=== PATIENT | female | born 1950 | race Two or more races ===

== ENCOUNTER 2021-08-15 14:08 | Outpatient (REF) | payer MEDICARE, SELFPAY ==
--- NOTE | ~2021-08-15 | CT_ITS ---
EXAMINATION: CT CHEST SCREENING CLINICAL INFORMATION: Chest in 6 months. COMPARISON: CT chest without contrast 01/05/2007. TECHNIQUE: Multidetector volumetric CT imaging of the chest is performed without contrast using low dose technique. Additional 2D coronal and sagittal reformatted images and axial 3D maximum intensity projection (MIP) images are generated on the CT workstation. This CT examination was performed using dose optimization techniques as appropriate, variously including the following: *Automated exposure control *Adjustment of mA and/or kV according to patient size (this includes techniques or standardized protocols for targeted exams where dose is matched to indication/reason for exam; i.e. extremities or head) *Use of iterative reconstruction technique DLP: 30 mGy-cm FINDINGS: LUNGS: There is a 6 mm nodule left upper lobe subpleural-based axial image 23/4, previously measured 3 mm and 2 mm nodule right middle lobe axial image 279/5. No additional nodules seen. There are atelectatic changes or scarring in right lower lobe. MEDIASTINUM: The central trachea and the bronchi are widely patent. The thyroid lobes are symmetric and normal. Heart size and the great vessels are normal caliber. There is minimal coronary artery calcifications. No pericardial effusion seen. PLEURA: There is no pleural effusion. No pleural mass or thickening. AXILLA: No lymphadenopathy. UPPER ABDOMEN: Visualized liver, spleen, pancreas and bilateral adrenal glands are unremarkable. OSSEOUS STRUCTURES: No lytic or sclerotic process seen. CT/CT lung screening IMPRESSION: Increased size of left upper lobe subpleural nodule from 3 mm in 2006 to 6 mm on the present exam. There is a new nodule in the right middle lobe. Left fissural node seen on the previous exams is not seen at this time. ASSESSMENT: Lung-RADS category 3: Probably Benign. RECOMMENDATION: Low-dose CT chest in 6 months.
== END 2021-08-15 14:09 | disposition home or self-care (01) ==
LOC: HO.CT 14:08
PROVIDERS: PCP Internal Medicine Geriatric Medicine; Visit Provider Physician Assistant Medical
DX: Z12.2 Encounter for screening for malignant neoplasm of respiratory organs (principal); F17.210 Nicotine dependence, cigarettes, uncomplicated
CPT/HCPCS: 71271; G0296

== ENCOUNTER 2021-09-08 12:35 | Outpatient (REF) | payer MEDICARE, SELFPAY ==
--- NOTE | 2021-09-08 16:53 | PFT_ITS ---
Forced vital capacity is normal. FEV1 moderately decreased. [id number] is markedly decreased. MVV moderately decreased. Post bronchodilator therapy, there is very minimal improvement, not significant. Total lung capacity normal and residual volume moderately increased. Diffusion capacity is markedly decreased. CONCLUSION: These findings are consistent with severe obstructive airway disorder with some air trapping. No response to bronchodilator therapy is noted. Compared to the pulmonary function test results of 09/21/2013, there is a significant decline in most of the values. Clinical correlation is recommended. MD DESTINY Marrero/MODL / [id number]
== END 2021-09-08 12:36 | disposition home or self-care (01) ==
LOC: HO.RESP 12:35
PROVIDERS: PCP Internal Medicine Geriatric Medicine; Visit Provider Physician Assistant Medical
DX: R91.1 Solitary pulmonary nodule (principal); Z87.891 Personal history of nicotine dependence
CPT/HCPCS: 94060; 94727; 94729

== ENCOUNTER → 2021-09-12 10:34 | Outpatient (BNVA) | payer MEDICARE, SELFPAY | PROVIDERS: PCP Internal Medicine Geriatric Medicine; Visit Provider Surgery | DX: J44.9 Chronic obstructive pulmonary disease, unspecified (principal); R91.1 Solitary pulmonary nodule; Z99.81 Dependence on supplemental oxygen | CPT/HCPCS: 99202; 99212 ==

== ENCOUNTER 2021-09-30 14:13 | Outpatient (REF) | payer MEDICARE, SELFPAY ==
[2021-09-30 15:23] LABS: MANUAL DIFF FLAG NO
[2021-09-30 15:53] LABS: Basophils Absolute Auto 0.1 X10*3/uL (0.0-0.2); Basophils Percent Auto 0.7 % (0-2); Eosinophils Absolute Auto 0.3 X10*3/uL (0.0-0.4); Eosinophils Percent Auto 3.3 % (0-4); Hematocrit 43.9 % (37.0-47.0); Hemoglobin 14.5 g/dl (12.0-16.0); Imm Gran Abs Auto 0.03 X10*3/uL (0.00-0.03); Imm Gran Pct Auto 0.3 % (0.0-0.4); Lymphocytes Absolute Auto 3.1 X10*3/uL (1.2-4.9); Mean Corpuscular Hemoglobin 31.3 pg (27.0-33.0); Mean Corpuscular Volume 94.6 fL (80.0-98.0); Mean Platelet Volume 9.4 fL (9.4-12.3); Monocytes Absolute Auto 0.9 X10*3/uL (0.1-1.2); Monocytes Percent Auto 9.8 % (2-11); Neutrophils Absolute Auto 4.7 x10*3/uL (2.0-8.3); Neutrophils Percent Auto 51.9 % (45-73); Platelet Count 338 X10*3/uL (160-400); Red Blood Count 4.64 X10*6/uL (4.20-5.50); Red Cell Distribution Width 14.4 % (11.0-16.0)
[2021-09-30 16:06] LABS: Anion Gap 14 (12-20); Blood Urea Nitrogen 9 mg/dL (9-16); Calcium 9.4 mg/dL (8.4-10.2); Carbon Dioxide 28 mmol/L (22-29); Chloride 102 mmol/L (96-108); Estimated Glomerular Filt Rate > 60; Glucose Random 93 mg/dL (60-115); Potassium 4.7 mmol/L (3.3-5.1); Sodium 139 mmol/L (135-145)
== END 2021-09-30 14:14 | disposition home or self-care (01) ==
LOC: HO.LAB 14:13
PROVIDERS: Absent Provider Internal Medicine Cardiovascular Disease; PCP Internal Medicine Geriatric Medicine; Visit Provider Internal Medicine Pulmonary Disease
DX: I50.31 Acute diastolic (congestive) heart failure (principal); J44.9 Chronic obstructive pulmonary disease, unspecified; Z99.81 Dependence on supplemental oxygen
CPT/HCPCS: 36415; 80048; 85025; 85730; 99212

== ENCOUNTER 2022-03-16 10:16 | Outpatient (REF) | payer OTHER, SELFPAY ==
--- NOTE | ~2022-03-16 | CT_ITS ---
EXAMINATION: CT CHEST SCREENING CLINICAL INFORMATION: Nicotine dependence. COMPARISON: CT lung 08/15/2021. TECHNIQUE: Multidetector volumetric CT imaging of the chest is performed without contrast using low dose technique. Additional 2D coronal and sagittal reformatted images and axial 3D maximum intensity projection (MIP) images are generated on the CT workstation. This CT examination was performed using dose optimization techniques as appropriate, variously including the following: *Automated exposure control *Adjustment of mA and/or kV according to patient size (this includes techniques or standardized protocols for targeted exams where dose is matched to indication/reason for exam; i.e. extremities or head) *Use of iterative reconstruction technique DLP: 30 mGy-cm FINDINGS: LUNGS: There is mild centrilobular emphysematous changes of both lungs with new right lower lobe patchy atelectatic changes. Minimal platelike atelectasis seen in left lung base as well. No focal consolidation seen. There is a right lower lobe bronchiectasis without bronchial wall thickening. There is a 6 mm peripheral-based nodule left upper lobe axial image 176/6, stable. Previously visualized 2 mm nodule right middle lobe is not seen on the present exam. MEDIASTINUM: The thyroid lobes are symmetric and normal. The central trachea and bronchi are widely patent. Heart size and the great vessels are normal caliber. No pericardial effusion seen. Aortic valve stent in place. No abnormal size mediastinal or hilar lymphadenopathy seen. PLEURA: There is no pleural effusion. No pleural mass or thickening. AXILLA: Small shotty lymph nodes seen in the axilla. UPPER ABDOMEN: Visualized liver, spleen, pancreas and bilateral adrenal glands are unremarkable. OSSEOUS STRUCTURES: No aggressive lytic or sclerotic process seen. CT/CT lung screen follow up IMPRESSION: Diffuse centrilobular emphysema with right lower lobe bronchiectasis with chronic scarring or atelectasis in both lung bases, worse on the right side. 6 mm nodule left upper lobe is stable. Previously seen 2 mm nodule right middle lobe is not seen at this time. ASSESSMENT: Lung-RADS category 2: Benign RECOMMENDATION: Low-dose annual CT chest
== END 2022-03-16 10:17 | disposition home or self-care (01) ==
LOC: HO.CT 10:16
PROVIDERS: PCP Internal Medicine Geriatric Medicine; Visit Provider Physician Assistant Medical
DX: Z12.2 Encounter for screening for malignant neoplasm of respiratory organs (principal); Z87.891 Personal history of nicotine dependence
CPT/HCPCS: 71250

== ENCOUNTER → 2022-04-03 09:13 | Outpatient (BNVA) | payer OTHER, SELFPAY | PROVIDERS: PCP Internal Medicine Geriatric Medicine; Visit Provider Surgery | DX: R91.1 Solitary pulmonary nodule (principal); Z87.891 Personal history of nicotine dependence | CPT/HCPCS: 99212 ==

== ENCOUNTER → 2022-05-07 08:56 | Outpatient (BNVA) | payer OTHER, SELFPAY | PROVIDERS: PCP Internal Medicine Geriatric Medicine; Visit Provider Internal Medicine Pulmonary Disease | DX: J44.9 Chronic obstructive pulmonary disease, unspecified (principal); F17.210 Nicotine dependence, cigarettes, uncomplicated; Z99.81 Dependence on supplemental oxygen | CPT/HCPCS: 99212 ==

== ENCOUNTER → 2022-09-03 09:17 | Outpatient (BNVA) | payer OTHER, SELFPAY | PROVIDERS: PCP Internal Medicine Geriatric Medicine; Visit Provider Internal Medicine Pulmonary Disease | DX: J44.9 Chronic obstructive pulmonary disease, unspecified (principal); R06.09 Other forms of dyspnea; Z79.899 Other long term (current) drug therapy; Z99.81 Dependence on supplemental oxygen | CPT/HCPCS: 99212 ==

== ENCOUNTER → 2022-09-23 10:03 | Outpatient (REF) | payer OTHER, SELFPAY ==
--- NOTE | 2022-09-23 10:05 | CA_ITS ---
Transthoracic Echocardiogram Patient (Last, First, Middle): Ayanna Giles, Gender: Female Date of : 1950 Age: 72 Procedure Date: 09/23/2022 Procedure Type: Transthoracic Echocardiogram Location: OP Height: 149.86 cm Weight: 58.97 kg BSA: 1.54 m2 Heart Rate: bpm BP: 150 / 90 mmHg Sinter Machine Operator: DAVID Mclean MD: Alden Campbell MD Direct Mail Marketer: Cedrick Marie MD Symptoms: R06.09 - Other forms of dyspnea Study Quality: Adequate ECG Rhythm: Sinus Conclusions: - 1. Normal LV systolic function with impaired relaxation filling pattern next 2. Fibrocalcific aortic valve changes noted with mean gradient within normal limits across the aortic valve 3. No gross pericardial effusion Findings Left Ventricle Normal left ventricular size, thickness, and systolic function. The visually estimated ejection fraction is between 60-65%. Spectral Doppler is indicative of an impaired relaxation filling pattern. E/E prime ratio is between 8 and 15 consistent with indeterminate filling pressures. Right Ventricle Normal right ventricular cavity size and systolic function. Atria Both atria are normal in size. Interatrial shunt cannot be excluded. Aortic Valve The aortic valve was not well visualized. There is mild calcification of the aortic valve. The peak aortic gradient is 9 mmHg.The mean gradient is 5 mmHg. There is no aortic valve regurgitation. Mitral Valve There is mild anterior and posterior mitral leaflet thickening. There is trace mitral valve regurgitation. There is no mitral valve stenosis. Pulmonic Valve The pulmonic valve was not well visualized. Tricuspid Valve Likely normal tricuspid valve structure and function. Tricuspid regurgitation envelope is inadequate for calculation of right ventricular systolic pressure. Normal right atrial pressure. Great Vessels All visible segments of the aorta are normal in size. The pulmonary artery was not well visualized. Venous The inferior vena cava is normal in size and collapses greater than 50% with inspiration. Pericardium/Pleural There is no evidence of pericardial effusion. Prior Study Comparison no previous study in the last 5 years for comparison Measurements 2D Linear Measurements IVSd: 0.90 0.6-0.9/0.6-1.0 cm LVIDd: 3.33 3.9-5.3/4.2-5.9 cm LVIDd Index: 2.16 2.4-3.2/2.2-3.1 cm/m2 LVIDs: 2.17 2.0-3.6 cm LVPWd: 0.83 0.7-1.1 cm LA Diam: 2.80 2.7-3.8/3.0-4.0 cm LAIDs Index: 1.82 1.5-2.3 cm/m2 LV Mass: 96.33 67-162/88-224 g LV Mass Index: 62.55 43-95/49-115 g/m2 LVOT Diam: 1.70 3.0+(-)1.3 cm 2D Systolic Function EF 4C: 64.60 >55% EF 2C: 58.40 >55% EF BiP: 62.80 >55% Mitral Valve MV Pk E: 0.85 MV PK A: 1.57 MV Decel Time: 256.00 E/A: 0.50 E'Lateral: 6.96 E'Medial: 5.66 E/E' Med: 15.00 E/E' Lat: 12.20 PHT: 75.00 MVA PHT: 2.93 Decel Sarpy: 3.32 Aortic Valve AoV Pk Shawn: 1.50 AoV Mn Shawn: 1.04 AoV VTI: 0.34 AoV Pk Grad: 9.00 Aov Mn Grad: 5.00 ROSEANNE Cont.VTI: 1.59 LVOT LVOT Pk Shawn: 1.13 LVOT Mn Shawn: 0.74 LVOT VTI: 0.24 LVOT Pk Grad: 5.00 LVOT Mn Grad: 3.00 LVOT Diam: 1.70 LVOT Area: 2.27 Diastolic Function MV Pk E: 0.85 MV Pk A: 1.57 E/A: 0.50 E'Medial: 5.66 E/E' Med: 15.00 E' Laterial: 6.96 E/E' Lat: 12.20 Right Ventricle TAPSE (mm): 20.70 TVS' Shawn: 9.14 Tricuspid Valve RA Press: 3.00 Great Vessels Aorta Sinus of Valsalva: 2.90 2.0-3.5 cm Ao Asc: 2.90 2.1-3.4 cm Updated in Other Vendor System with Status of Final Cedrick Marie MD electronically signed on 09/24/2022 4:44:47 PM with status of Final
== END ==
LOC: HO.CARD 10:03
PROVIDERS: PCP Internal Medicine Geriatric Medicine; Visit Provider Internal Medicine Pulmonary Disease
DX: R06.09 Other forms of dyspnea (principal)
CPT/HCPCS: 93306

== ENCOUNTER → 2023-01-15 11:17 | Outpatient (BNVA) | payer OTHER, SELFPAY | PROVIDERS: PCP Internal Medicine Geriatric Medicine; Visit Provider Internal Medicine Pulmonary Disease | DX: J44.9 Chronic obstructive pulmonary disease, unspecified (principal); Z99.81 Dependence on supplemental oxygen | CPT/HCPCS: 94618; 99212 ==

== ENCOUNTER → 2023-03-02 10:37 | Outpatient (BNVA) | payer OTHER, SELFPAY | PROVIDERS: PCP Internal Medicine Geriatric Medicine; Visit Provider Nurse Practitioner Family | DX: M54.16 Radiculopathy, lumbar region (principal); M47.816 Spondylosis without myelopathy or radiculopathy, lumbar region; M51.36 Other intervertebral disc degeneration, lumbar region; M62.830 Muscle spasm of back | CPT/HCPCS: 99202 ==

== ENCOUNTER → 2023-03-30 11:47 | Outpatient (BNVA) | payer OTHER, SELFPAY | PROVIDERS: PCP Internal Medicine Geriatric Medicine; Visit Provider Nurse Practitioner Family | DX: M54.16 Radiculopathy, lumbar region (principal); M47.816 Spondylosis without myelopathy or radiculopathy, lumbar region; M51.36 Other intervertebral disc degeneration, lumbar region; M62.830 Muscle spasm of back | CPT/HCPCS: Q3014 ==

== ENCOUNTER 2023-05-18 10:41 | Outpatient (REF) | payer OTHER, SELFPAY ==
[2023-05-18 13:07] LABS: MANUAL DIFF FLAG NO
[2023-05-18 13:22] LABS: Basophils Absolute Auto 0.1 X10*3/uL (0.0-0.2); Basophils Percent Auto 0.8 % (0-2); Eosinophils Absolute Auto 0.3 X10*3/uL (0.0-0.4); Hematocrit 46.1 % (37.0-47.0); Hemoglobin 15.2 g/dl (12.0-16.0); Imm Gran Abs Auto 0.03 X10*3/uL (0.00-0.03); Imm Gran Pct Auto 0.5 % (0.0-0.4); Lymphocytes Absolute Auto 2.4 X10*3/uL (1.2-4.9); Lymphocytes Percent Auto 36.3 % (20-40); Mean Corpuscular Hemoglobin 30.6 pg (27.0-33.0); Mean Corpuscular Volume 92.9 fL (80.0-98.0); Mean Platelet Volume 10.2 fL (9.4-12.3); Monocytes Absolute Auto 0.6 X10*3/uL (0.1-1.2); Monocytes Percent Auto 8.6 % (2-11); Neutrophils Absolute Auto 3.2 x10*3/uL (2.0-8.3); Neutrophils Percent Auto 48.8 % (45-73); Platelet Count 254 X10*3/uL (160-400); Red Blood Count 4.96 X10*6/uL (4.20-5.50); White Blood Count 6.6 X10*3/uL (4.8-10.8)
[2023-05-18 14:11] LABS: Anion Gap 16 (12-20); Blood Urea Nitrogen 5 mg/dL (9-16); Carbon Dioxide 25 mmol/L (22-29); Chloride 100 mmol/L (96-108); Cholesterol 201 mg/dL; Estimated Glomerular Filt Rate > 60; Glucose Random 86 mg/dL (60-115); HDL Cholesterol 53 mg/dL; LDL Cholesterol Calculated 126 mg/dl; Potassium 4.1 mmol/L (3.3-5.1); Sodium 137 mmol/L (135-145); Triglycerides 114 mg/dL
== END 2023-05-18 10:42 | disposition home or self-care (01) ==
LOC: HO.HHCL 10:41
PROVIDERS: Visit Provider Internal Medicine Geriatric Medicine
DX: J44.9 Chronic obstructive pulmonary disease, unspecified (principal); H91.93 Unspecified hearing loss, bilateral; R60.0 Localized edema; E78.5 Hyperlipidemia, unspecified
CPT/HCPCS: 36415; 80048; 80061; 85025

== ENCOUNTER 2023-06-09 08:40 | Outpatient (REF) | payer OTHER, SELFPAY ==
--- NOTE | ~2023-06-09 | CT_ITS ---
EXAMINATION: CT CHEST SCREENING CLINICAL INFORMATION: 55 pack year history. Current smoker. COMPARISON: Previous chest CT scans most recent March 2022 TECHNIQUE: Multidetector volumetric CT imaging of the chest is performed without contrast using low dose technique. Additional 2D coronal and sagittal reformatted images and axial 3D maximum intensity projection (MIP) images are generated on the CT workstation. This CT examination was performed using dose optimization techniques as appropriate, variously including the following: *Automated exposure control *Adjustment of mA and/or kV according to patient size (this includes techniques or standardized protocols for targeted exams where dose is matched to indication/reason for exam; i.e. extremities or head) *Use of iterative reconstruction technique DLP: 58 mGy-cm FINDINGS: LUNGS: Emphysema. 2 mm right upper lobe nodule axial image 161 series 5 6 mm peripheral or subpleural left upper lobe nodule axial image 202 series 5. 2 mm left upper lobe nodule axial image 306 series 5. Question 4 mm nodule versus area of atelectasis in the left lower lobe near the diaphragm axial image 355 series 5 that is new. Chronic scarring or subsegmental atelectasis at the lung bases and mild bronchiectasis. MEDIASTINUM: Normal heart size. Aortic valve stent graft. No pericardial effusion. Normal caliber thoracic aorta. No enlarged hilar or mediastinal lymph nodes. CORONARY ARTERY CALCIFICATION: None visualized on this study. PLEURA: There is no pleural effusion. No pleural mass or thickening. AXILLA: No lymphadenopathy. UPPER ABDOMEN: The gallbladder has been removed. There is severe common bile duct dilatation measuring up to 2.3 cm. This is not as well imaged on prior chest CT exams and difficult to compare. OSSEOUS STRUCTURES: Mild degenerative changes of the spine. CT/CT lung screening IMPRESSION: Emphysema. Question new 4 mm left lower lobe nodule adjacent to the diaphragmatic pleural surface versus atelectasis. Otherwise small pulmonary nodules are stable, largest measuring 6 mm in the peripheral or subpleural left upper lobe. Post cholecystectomy. Dilated common bile duct measuring up to 2.3 cm. This is difficult to compare with prior exam. This is larger than normally seen post cholecystectomy. Correlation with liver function tests recommended. This could be better evaluated with MRCP if clinically indicated. ASSESSMENT: Lung-RADS category 2S: Benign RECOMMENDATION: Annual low-dose chest CT follow-up recommended. Correlation with liver function tests recommended. MRCP for better evaluation of dilated common bile duct may be helpful.
== END 2023-06-09 08:41 | disposition home or self-care (01) ==
LOC: HO.CT 08:40
PROVIDERS: PCP Internal Medicine Geriatric Medicine; Visit Provider Physician Assistant Medical
DX: Z12.2 Encounter for screening for malignant neoplasm of respiratory organs (principal); Z87.891 Personal history of nicotine dependence
CPT/HCPCS: 71271

== ENCOUNTER 2023-07-20 11:33 | Outpatient (REF) | payer OTHER, SELFPAY ==
[2023-07-20 14:30] LABS: Alanine Aminotransferase 8 U/L (0-31); Albumin Level 4.5 g/dL (3.5-5.0); Alkaline Phosphatase 72 U/L (39-117); Aspartate Amino Transferase 19 U/L (5-31); Bilirubin Direct 0.2 mg/dL (0.0-0.5); Bilirubin Total 0.4 mg/dL (0.0-1.0); Total Protein 7.9 g/dL (6.5-8.0)
== END 2023-07-20 11:34 | disposition home or self-care (01) ==
LOC: HO.HHCL 11:33
PROVIDERS: Visit Provider Internal Medicine Geriatric Medicine
DX: K83.8 Other specified diseases of biliary tract (principal)
CPT/HCPCS: 36415; 80076

== ENCOUNTER 2023-07-22 11:38 | Outpatient (AMB) | payer OTHER, SELFPAY ==
[2023-07-22 11:40] VITALS: BP 122/82; PULSE 99; O2SAT 95; BMI 22.3
--- NOTE | 2023-07-22 11:40 | MHC.OFFVIS ---
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 She continues to use Anoro, Combivent, and duo nebs with reasonable baseline control symptoms.? She denies recent exacerbations.? [facility] Medical History History of invasive ductal carcinoma of breast (~2003) Lumbar degenerative disc disease Osteopenia (~2011) Personal history of nicotine dependence Surgical History History of appendectomy (~1993) History of section (~1976) History of colonoscopy (~2010) History of esophagogastroduodenoscopy (EGD) (~2010) History of laparoscopic cholecystectomy (~2008) History of right mastectomy (~2004) History of tonsillectomy Social History (Updated 07/22/23 @ 11:47 by Sheila Melton [facility]) Alcohol intake: current Alcohol intake frequency: does not drink Patient Tobacco Use Status: Current everyday Tobacco user Tobacco use type: Cigarette Cigarettes Per Day: 5 Years Smoked: 59 years (onset 13, 1/2ppd x 59yrs, now <1/4ppd, 29pyh) Review of Systems Const Denies daytime sleepiness, Denies excessive sweating, Denies fatigue, Denies fever(s), Denies lethargy, Denies malaise, Denies night sweats, Denies snoring and Denies weight loss Eyes Denies blurry vision and Denies itchy eyes ENT Denies nasal congestion, Denies post nasal drip, Denies sinus pain, Denies sinus pressure and Denies other ( Thrush) Card Denies chest pain, Denies pedal edema, Denies dyspnea, Denies orthopnea and Denies paroxysmal nocturnal dyspnea Resp Denies cough, Denies hemoptysis, Denies excessive phlegm production, Denies dyspnea, Denies snoring and Denies wheezing GI Denies abdominal pain and Denies heartburn Musc Denies myalgias, Denies arthralgias and Denies joint swelling Skin/Breast Denies rash Neuro Denies memory loss and Denies seizure-like activity Psych Denies abnormal sleep pattern, Denies anxiety and Denies memory loss Endo Denies excessive sweating, Denies fatigue and Denies heat intolerance Justino/Lymph Denies easy bruising Aller/Immun Denies itchy eyes, Denies seasonal rhinorrhea and Denies wheezing Physical Exam Vital Signs: Last Vital Signs Pulse 99 07/22/23 11:40 BP 122/82 07/22/23 11:40 Pulse Ox 95 07/22/23 11:40 Oxygen Delivery Method Room Air 07/22/23 11:40 Oxygen Flow Rate 3 07/22/23 11:40 BMI result Body Mass Index 22.3 Const General: no acute distress and alert Nutritional Appearance: not obese Orientation/consciousness: Other orientation findings ( oriented) HEENT Head: Yes atraumatic Eyes General: appearance normal, both eyes and all related structures Sclerae: sclerae normal EOM: EOMs intact bilaterally Neck Neck: Yes supple Lymphatic: no lymphadenopathy noted Resp Effort & Inspection: normal respiratory effort and no use of accessory muscles Auscultation: clear to auscultation bilaterally Cardio Rate: regular rate Rhythm: regular rhythm Heart sounds: no gallops, no murmurs and no rubs Skin General skin exam: other ( warm) Extrem General: No clubbing, No cyanosis and No edema Assessment & Plan Assessment & Plan (1) COPD (chronic obstructive pulmonary disease): Code(s): J44.9 - Chronic obstructive pulmonary disease, unspecified Plan: Well controlled on current regimen of Anoro, duo nebs, and Combivent. Continue current regimen. (2) Left upper lobe pulmonary nodule: Comment: (6mm DAX nodule -previously 3mm in 2006) Code(s): R91.1 - Solitary pulmonary nodule Plan: Results of screening CT chest reviewed, stable pulmonary nodules. Continue with yearly screening. (3) Supplemental oxygen dependent: Code(s): Z99.81 - Dependence on supplemental oxygen Plan: Continues pulmonary oxygen to maintain O2 saturation of 88-92%. Coding Level of Care Code Est Pt Level 4 (06325) Diagnoses COPD (chronic obstructive pulmonary disease) J44.9 Left upper lobe pulmonary nodule R91.1 Supplemental oxygen dependent Z99.81
== END 2023-07-22 11:57 | disposition home or self-care (01) ==
PROVIDERS: PCP Internal Medicine Geriatric Medicine; Visit Provider Internal Medicine Pulmonary Disease
DX: J44.9 Chronic obstructive pulmonary disease, unspecified (principal); R91.1 Solitary pulmonary nodule; Z99.81 Dependence on supplemental oxygen
CPT/HCPCS: 99214

== ENCOUNTER → 2023-07-22 11:38 | Outpatient (BNVA) | payer OTHER, SELFPAY | PROVIDERS: Visit Provider Internal Medicine Pulmonary Disease | DX: J44.9 Chronic obstructive pulmonary disease, unspecified (principal); R91.1 Solitary pulmonary nodule; Z79.899 Other long term (current) drug therapy; Z99.81 Dependence on supplemental oxygen | CPT/HCPCS: 99212 ==

== ENCOUNTER 2023-08-15 10:33 | Inpatient (IN) | payer OTHER, SELFPAY ==
[2023-08-15] VITALS (7 sets, daily range): BP systolic 134–193; BP diastolic 0–104; PULSE 94–107; RESP 16–31; TEMP 36.1–36.5; O2SAT 96–99; BMI 20.7
--- NOTE | 2023-08-15 11:18 | ED.NAVMDI ---
HPI - Nausea/Vomiting/Diarrhea General Chief complaint: Nausea/Vomiting/Diarrhea Stated complaint: WEAK D/T N/V/D X3 DYAS PER EMS Time Seen by Provider: 08/15/23 11:09 Source: patient Mode of arrival: EMS Limitations: no limitations History of Present Illness HPI Narrative: 73 yo female with PMH of COPD on home O2, chronic back pain, GERD, migraines here with c/o last eating on then started to vomit on Wednesday night with diarrhea - no travel, sick contacts, food exposures. Diarrhea has stopped but she still has n/v but no diarrhea and no pain she cannot keep anything down and has not taken any medications including her suboxone MD elicited complaint: nausea and vomiting Onset (ago): day(s) (2) Description of vomiting: food contents and watery Description of diarrhea: watery Associated nausea: Yes Associated abdominal pain: No Severity: moderate Exacerbating factors: eating Relieving factors: none Context: other (denies) Associated symptoms: loss of appetite, malaise and nausea/vomiting Related Data Home Medications Medication Instructions Recorded Confirmed buprenorphine 8 mg-naloxone 2 mg 10 mg sublingual BID 09/12/21 03/02/23 sublingual film (Suboxone) bupropion HCl 150 mg 24 hr tablet, 150 mg PO BEDTIME 09/12/21 03/02/23 extended release celecoxib 200 mg capsule 200 mg PO DAILY 09/12/21 03/02/23 cholecalciferol (vitamin D3) 50 50 mcg PO DAILY 09/12/21 03/02/23 mcg (2,000 unit) tablet omeprazole 20 mg capsule,delayed 20 mg PO DAILY 09/12/21 03/02/23 release sumatriptan succinate 6 mg/0.5 mL mg subcut 09/12/21 03/02/23 subcutaneous pen injector hydroxyzine HCl 25 mg tablet 25 mg PO TID 05/07/22 03/02/23 acetaminophen 500 mg tablet (Pain 1,000 mg PO Q4-6H 03/02/23 03/02/23 Relief Extra Strength (acetaminophen)) mirtazapine 15 mg tablet 15 mg PO BEDTIME 03/02/23 03/02/23 sertraline 100 mg tablet 100 mg PO DAILY 03/02/23 03/02/23 aspirin 81 mg tablet,delayed 81 mg PO DAILY 05/23/23 release nicotine (polacrilex) 2 mg buccal 2 - 4 mg PO 03/30/23 lozenge bupropion HCl 300 mg 24 hr tablet, 300 mg PO DAILY 07/22/23 extended release clopidogrel 75 mg tablet 75 mg PO DAILY 07/22/23 Previous Rx's Medication Instructions Recorded ipratropium 0.5 mg-albuterol 3 mg 3 ml inhalation Q4-6H PRN wheezing 09/12/21 (2.5 mg base)/3 mL nebulization 30 days #270 mL soln lidocaine 5 % topical patch 1 patch topical DAILY pain 30 days 03/02/23 #30 ea Anoro Ellipta 62.5 mcg-25 1 ea PO DAILY #60 ea 03/19/23 mcg/actuation powder for inhalation (umeclidinium-vilanterol) ipratropium 20 mcg-albuterol 100 2 puff inhalation QID 30 days #4 03/19/23 mcg/actuation mist for inhalation grams (Combivent Respimat) gabapentin 100 mg capsule 100 mg PO BID for pain 30 days #60 06/03/23 caps Allergies Allergy/AdvReac Type Severity Reaction Status Date / Time No Known Allergies Allergy Unknown Verified 07/22/23 11:46 [No Known Allergies*] Review of Systems Review of Systems: Constitutional : No Weight loss, No Fever, No Chills, pos fatigue, pos malaise ENT/Mouth : No sore throat, No Rhinorrhea Eyes: No Swelling, No Redness Cardiovascular : No Chest Pain, No SOB, NoEdema Respiratory : No Cough, No Sputum, No Wheezing Gastrointestinal : Positive Nausea, Positive Vomiting, no Diarrhea, no abdominal Pain, No Hematochezia, No Melena Genitourinary : No Dysuria, No Urinary Frequency, No Hematuria, No Urgency Musculoskeletal : No joint pain, No Myalgias, No Joint Swelling Skin : No Skin Lesions, No rash Neuro : No Weakness, No Numbness, No Dizziness, No Headache Psych : No Anxiety/Panic, No Depression Heme/Lymph: No Bruising, No Lymphadenopathy Endocrine : No Polyuria, No Polydipsia All other systems reviewed and are negative. Gastrointestinal: Gastrointestinal: Reports nausea PMFSH Past Medical History Attestation statement: The following information was validated with the patient. Source: old records reviewed Medical History Lumbar degenerative disc disease Personal history of nicotine dependence Osteopenia (~2011) History of invasive ductal carcinoma of breast (~2003) Surgical History History of section (~1976) History of appendectomy (~1993) History of tonsillectomy History of colonoscopy (~2010) History of esophagogastroduodenoscopy (EGD) (~2010) History of right mastectomy (~2004) History of laparoscopic cholecystectomy (~2008) Social History Social History Alcohol intake: current Alcohol intake frequency: does not drink Patient Tobacco Use Status: Current everyday Tobacco user Tobacco use type: Cigarette Cigarettes Per Day: 5 Years Smoked: 59 years (onset 13, 1/2ppd x 59yrs, now <1/4ppd, 29pyh) Advance Directives: No Advance Directives Information Provided: No Physical Exam Vital Signs: Vital Signs: Last Vital Signs Temp 96.9 F 08/15/23 10:52 Pulse 99 08/15/23 14:13 Resp 18 08/15/23 14:13 BP 179/94 H 08/15/23 14:13 Pulse Ox 97 08/15/23 14:13 O2 Del Method Nasal Cannula 08/15/23 14:13 O2 Flow Rate 3 08/15/23 14:13 Oxygen Flow Rate 2 08/15/23 10:52 BMI result Body Mass Index 20.7 Appearance: Alert. Oriented X3. No acute distress. Frail and thin Eyes: Pupils equal, round and reactive to light. ENT: Pharynx dry MM Neck: Normal inspection. Neck supple. CVS: Normal heart rate and rhythm. Pulses normal. Respiratory: No respiratory distress. Breath sounds diminished Abdomen: Soft and nontender. Skin: Skin warm and dry. Normal skin color. Normal skin turgor. Extremities: No lower extremity edema. No calf ttp Neuro: Oriented X 3. No motor deficit. No sensory deficit. Course Course Course Narrative: repeat nausea medications still with vomiting K normal was hemolyzed. Medications Administered Discontinued Medications Generic Name Dose Route Start Last Admin Trade Name Freq PRN Reason Stop Dose Admin Buprenorphine/Naloxone 1 film 08/15/23 11:26 08/15/23 13:08 Buprenorphine/Naloxone 8/2 Mg Film SUBLINGUAL 08/15/23 11:27 1 film ONCE ONE Administration Sodium Chloride 1,000 mls @ 999 mls/hr 08/15/23 11:00 08/15/23 14:37 Ns IV 08/15/23 12:00 Infused .Q1H1M CHANDU Infusion Sodium Chloride 1,000 mls @ 999 mls/hr 08/15/23 13:45 08/15/23 14:37 Ns IV 08/15/23 14:45 999 mls/hr .Q1H1M CHANDU Administration Ondansetron HCl 4 mg 08/15/23 11:26 08/15/23 13:07 Ondansetron Hcl 4 Mg/2 Ml Vial IVPUSH 08/15/23 11:27 4 mg ONCE ONE Administration Procedures EJ/Peripheral Line Neck R: Time Out Performed: Yes Skin Cleansed in Sterile Fashion: Yes Size (gauge): 20 IV Secured and Dressing Applied: Yes Patient Tolerated Procedure: well and no complications Medical Decision Making Medical Decision Making [facility] Narrative: 73 yo female with PMH of COPD on home O2, chronic back pain, GERD, migraines here with c/o n/v and resolved diarrhea she has no abdominal pain she denies fevers or urinary symptoms. She denies travel, sick contacts, food exposures. At this time will need basic labs, UA, IVF, IV zofran and her dose of suboxone once better. Has no pain on abdominal exam so unless sig lab derangement will avoid imaging. Differential Diagnosis Differential Diagnoses: The differential diagnosis associated with the presentation includes dehydration, vomiting, viral infection Admission/Observation Consideration of admission/observation: Escalation of care including admission/observation considered admit for intractable n/v Consult Healthcare Provider Management of the patient was discussed with: Hospitalist (agrees to admit) Lab Data [facility] Lab Attestation statement: I reviewed the patient's lab results. 08/15/23 15:25 08/15/23 15:25 Labs: Lab Results 08/15/23 08/15/23 08/15/23 Range/Units 12:43 13:16 15:25 WBC 8.5 7.3 (4.8-10.8) X10*3/uL RBC 6.44 H D 6.43 H (4.20-5.50) X10*6/uL Hgb 19.7 H D 19.8 H (12.0-16.0) g/dl Hct 55.4 H D 55.9 H (37.0-47.0) % MCV 86.0 86.9 (80.0-98.0) fL MCH 30.6 30.8 (27.0-33.0) pg MCHC 35.6 H 35.4 H (31.0-35.0) g/dl RDW 14.3 14.4 (11.0-16.0) % Plt Count 305 301 (160-400) X10*3/uL MPV 9.6 9.6 (9.4-12.3) fL Immature Gran % (Auto) 0.4 0.3 (0.0-0.4) % Neut % (Auto) 78.6 H 75.3 H (45-73) % Lymph % (Auto) 7.8 L 9.3 L (20-40) % [place] % (Auto) 12.5 H 14.9 H (2-11) % Eos % (Auto) 0.2 0.1 (0-4) % Baso % (Auto) 0.5 0.1 (0-2) % Lymph # (Auto) 0.7 L 0.7 L (1.2-4.9) X10*3/uL [place] # (Auto) 1.1 1.1 (0.1-1.2) X10*3/uL Eos # (Auto) 0.0 0.0 (0.0-0.4) X10*3/uL Baso # (Auto) 0.0 0.0 (0.0-0.2) X10*3/uL Abs Immat Gran (auto) 0.03 0.02 (0.00-0.03) X10*3/uL Absolute Neuts (auto) 6.7 5.5 (2.0-8.3) x10*3/uL Absolute Nucleated RBC 0.000 0.000 (0.0-0.012) X10*3/uL Nucleated RBC % (auto) 0.0 0.0 (0.0-0.2) /100WBC Smear Tech's Comments VERIFIED Hold Purple Top SEE NOTE Sodium 135 (135-145) mmol/L Potassium 6.5 H* D 3.7 D (3.3-5.1) mmol/L Chloride 91 L (96-108) mmol/L Carbon Dioxide 24 (22-29) mmol/L Anion Gap 27 H (12-20) BUN 22 H (9-16) mg/dL Creatinine 0.82 (0.5-1.4) mg/dL Estim Creat Clear Calc 42.2 Estimated GFR > 60 Random Glucose 151 H (60-115) mg/dL Calcium 10.0 (8.4-10.2) mg/dL Total Bilirubin 0.3 (0.0-1.0) mg/dL Direct Bilirubin < 0.1 (0.0-0.5) mg/dL AST 43 H (5-31) U/L ALT 18 (0-31) U/L Alkaline Phosphatase 89 (39-117) U/L Total Protein 9.8 H (6.5-8.0) g/dL Albumin 4.5 (3.5-5.0) g/dL Lipase 15 (8-78) U/L COVID-19 (JENN) Positive A (Negative) COVID-19 Clin Com See Note Influenza Type A (MATTY) Negative (Negative) Influenza Type B (MATTY) Negative (Negative) Influenza A & B Note See Note Independent Interpretation I performed an independent interpretation of an: EKG and Plain X-Ray (no pneumonia) Interpretation: Rate: 95 Rhythm: NSR [place]: left Normal P waves. Normal SUGAR. Normal QRS complex. ST T wave : nonspecific no NORA qTC: prolonged prior studies: no acute ischemia The study has been interpreted contemporaneously by me. . Radiology Impression Discussion of test interpretation with radiology: I have reviewed the radiologist's reading. Independent Historian Clinical information obtained from an independent historian. History obtained from or confirmed by: EMS External Record Review External record reviewed: Inpatient record Discharge Plan Discharge Clinical Impression: COVID-19, Intractable nausea and vomiting Patient Disposition: Admitted As Inpatient Prescriptions: No Action Anoro Ellipta 62.5-25 mcg/actuation blister with device 1 ea PO DAILY Qty: 60 4RF Combivent Respimat 20-100 mcg/actuation mist 2 puff inhalation QID 30 Days Qty: 4 6RF gabapentin 100 mg capsule 100 mg PO BID 30 Days Qty: 60 3RF celecoxib 200 mg capsule 200 mg PO DAILY omeprazole 20 mg capsule,delayed release(DR/EC) 20 mg PO DAILY sumatriptan succinate 6 mg/0.5 mL pen injector subcut bupropion HCl 150 mg tablet extended release 24 hr 150 mg PO BEDTIME cholecalciferol (vitamin D3) 50 mcg (2,000 unit) tablet 50 mcg PO DAILY buprenorphine-naloxone [Suboxone] 8-2 mg film 10 mg sublingual BID ipratropium-albuterol 0.5 mg-3 mg(2.5 mg base)/3 mL solution for nebulization 3 ml inhalation Q4-6H PRN (Reason: wheezing) 30 Days Qty: 270 6RF mirtazapine 15 mg tablet 15 mg PO BEDTIME sertraline 100 mg tablet 100 mg PO DAILY acetaminophen [Pain Relief ES (acetaminophen)] 500 mg tablet 1,000 mg PO Q4-6H hydroxyzine HCl 25 mg tablet 25 mg PO TID clopidogrel 75 mg tablet 75 mg PO DAILY bupropion HCl 300 mg tablet extended release 24 hr 300 mg PO DAILY lidocaine 5 % adhesive patch,medicated 1 patch topical DAILY 30 Days Qty: 30 0RF nicotine (polacrilex) 2 mg lozenge 2 - 4 mg PO aspirin 81 mg tablet,delayed release (DR/EC) 81 mg PO DAILY
--- NOTE | 2023-08-15 14:36 | PC.NURSE ---
Provider sent to bedside to place IV line, unable for nursing/tech to get labs/IVF access. placed IV
--- NOTE | 2023-08-15 17:25 | PM.IMHP ---
History of Present Illness Date of Service: 08/15/23 Attending physician on admission: Kiran Razo Chief Complaint: nausea/vomiting Patient with chronic hypoxemic respiratory failure on 3 L supplemental O2 at baseline secondary to COPD, depression, polysubstance abuse, opioid dependence on Suboxone, chronic low back pain, osteopenia, history of invasive ductal carcinoma of the breast s/p mastectomy and chemotherapy who is a current 1/4 pack cigarette smoker who presented to the ED earlier today for evaluation of intractable nausea and vomiting. The patient reports that she has been experiencing the symptoms for 2 days and has not been able to eat or drink much of anything in this time. Initially, she also had watery diarrhea but has not had any diarrhea in the last 2 days. She reports she had shortness of breath and productive cough at baseline and denies any worsening of the symptoms. She denies any fevers, chills, sore throat, congestion, abdominal pain, melena, hematochezia, headache, lightheadedness, palpitations, or chest pain. Patient does report restlessness as well. On arrival, vital stable, no acute hypoxia and patient afebrile. On admission, patient slightly tachycardic to 105 and mildly tachypneic to 24 and hypertensive to 180/87. She has missed several doses of suboxone 2/2 to her symptoms. There is no leukocytosis. Initially, with RBC 6.44, H/H 19.7/55.4 %. On recheck, RBC 6.43, H/H 19.8/55.9. Creatinine 0.82, BUN elevated at 22, sodium 135, potassium 6.5, chloride 91, CO2 24, anion gap 27. Following 2 L IV NS, a repeat potassium 3.7. Urine tox screen positive for opiates, fentanyl, cocaine. Positive for COVID-19. Chest x-ray unremarkable. In the ed received Suboxone, ondansetron, and 2 L IV NS. Review of Systems Review of Systems: General: No fevers, malaise, unintentional weight loss HEENT: No blurred vision, diplopia. No sore throat, nasal congestion, rhinorrhea, sinus pain, ear pain Cardiovascular: No chest pain, palpitations, or leg edema Respiratory: No worsenign shortness of breath, wheezing, change in cough GI: +nasuea, +vomiting. No abdominal pain, diarrhea, constipation, melena, hematochezia : No dysuria, hematuria, increased urinary frequency, decreased urinary output MSK: No myalgia, back pain Neuro: No headaches, weakness, paresthesias. +restlessness Skin: No rashes or lesions [facility] Medical History Lumbar degenerative disc disease Personal history of nicotine dependence Osteopenia (~2011) History of invasive ductal carcinoma of breast (~2003) Surgical History History of section (~1976) History of appendectomy (~1993) History of tonsillectomy History of colonoscopy (~2010) History of esophagogastroduodenoscopy (EGD) (~2010) History of right mastectomy (~2004) History of laparoscopic cholecystectomy (~2008) Social History Alcohol intake: current Alcohol intake frequency: does not drink Patient Tobacco Use Status: Current everyday Tobacco user Tobacco use type: Cigarette Cigarettes Per Day: 5 Years Smoked: 59 years (onset 13, 1/2ppd x 59yrs, now <1/4ppd, 29pyh) Advance Directives: No Advance Directives Information Provided: No Meds Allergies Allergy/AdvReac Type Severity Reaction Status Date / Time No Known Allergies Allergy Unknown Verified 07/22/23 11:46 [No Known Allergies*] Home Medications Medication Instructions Recorded Confirmed Last Taken Type buprenorphine 8 mg-naloxone 2 mg 1 film sublingual BID 09/12/21 08/15/23 08/12/23 History sublingual film (Suboxone) celecoxib 200 mg capsule 200 mg PO DAILY 09/12/21 08/15/23 08/12/23 History cholecalciferol (vitamin D3) 50 50 mcg PO DAILY 09/12/21 08/15/23 08/12/23 History mcg (2,000 unit) tablet omeprazole 20 mg capsule,delayed 20 mg PO DAILY@0630 09/12/21 08/15/23 08/12/23 History release acetaminophen 500 mg tablet (Pain 1,000 mg PO Q6H PRN Pain 03/02/23 08/15/23 Unknown History Relief Extra Strength (acetaminophen)) aspirin 81 mg tablet,delayed 81 mg PO DAILY 03/30/23 08/15/23 08/12/23 History release bupropion HCl 300 mg 24 hr tablet, 300 mg PO DAILY 07/22/23 08/15/23 08/12/23 History extended release clopidogrel 75 mg tablet 75 mg PO DAILY 07/22/23 08/15/23 08/12/23 History mirtazapine 15 mg tablet (Remeron) 22.5 mg PO BEDTIME 08/15/23 08/15/23 08/12/23 History sertraline 100 mg tablet 150 mg PO DAILY 08/15/23 08/15/23 08/12/23 History Physical Exam Vital Signs and Narrative: Vital Signs: Last Vital Signs Temp 96.9 F 08/15/23 10:52 Pulse 105 H 08/15/23 16:50 Resp 24 H 08/15/23 16:50 BP 180/87 H 08/15/23 16:50 Pulse Ox 97 08/15/23 16:50 O2 Del Method Nasal Cannula 08/15/23 16:50 O2 Flow Rate 4 08/15/23 16:50 Oxygen Flow Rate 2 08/15/23 10:52 BMI result Body Mass Index 20.7 Constitutional - Awake and Alert, No apparent distress Eyes - PERRLA, EOMI Mouth - lips dry Cardiovascular - S1S2, RRR, No edema Respiratory - Normal lung expansion, Normal respiratory effort, No respiratory distress, diffuse rhonchi with scattered expiratory wheezing Gastrointestinal - NT / ND; +BS; No rebound or guarding Extremities - no calf tenderness bilaterally, no swelling Skin - Warm/Dry Neurological - Alert & oriented x3 Psychological - Appropriate affect Results Labs 08/15/23 15:25 08/15/23 15:25 Labs: Laboratory Results - last 24 hr 08/15/23 08/15/23 08/15/23 12:43 13:16 15:25 MCV 86.0 86.9 MCH 30.6 30.8 MCHC 35.6 H 35.4 H RDW 14.3 14.4 Plt Count 305 301 MPV 9.6 9.6 Immature Gran % (Auto) 0.4 0.3 Neut % (Auto) 78.6 H 75.3 H Lymph % (Auto) 7.8 L 9.3 L [place] % (Auto) 12.5 H 14.9 H Eos % (Auto) 0.2 0.1 Baso % (Auto) 0.5 0.1 Lymph # (Auto) 0.7 L 0.7 L [place] # (Auto) 1.1 1.1 Eos # (Auto) 0.0 0.0 Baso # (Auto) 0.0 0.0 Abs Immat Gran (auto) 0.03 0.02 Absolute Neuts (auto) 6.7 5.5 Absolute Nucleated RBC 0.000 0.000 Nucleated RBC % (auto) 0.0 0.0 Smear Tech's Comments VERIFIED Hold Purple Top SEE NOTE Anion Gap 27 H Estim Creat Clear Calc 42.2 Estimated GFR > 60 Random Glucose 151 H Calcium 10.0 Total Bilirubin 0.3 Direct Bilirubin < 0.1 AST 43 H ALT 18 Alkaline Phosphatase 89 Total Protein 9.8 H Albumin 4.5 Lipase 15 Urine Opiates Screen Urine Fentanyl Screen Ur Barbiturates Screen Ur Phencyclidine Scrn Ur Amphetamines Screen U Benzodiazepines Scrn Urine Cocaine Screen U Marijuana (THC) Screen COVID-19 (JENN) Positive A COVID-19 [employer] Com See Note Influenza Type A (MATTY) Negative Influenza Type B (MATTY) Negative Influenza A & B Note See Note 08/15/23 16:52 MCV MCH MCHC RDW Plt Count MPV Immature Gran % (Auto) Neut % (Auto) Lymph % (Auto) [place] % (Auto) Eos % (Auto) Baso % (Auto) Lymph # (Auto) [place] # (Auto) Eos # (Auto) Baso # (Auto) Abs Immat Gran (auto) Absolute Neuts (auto) Absolute Nucleated RBC Nucleated RBC % (auto) Smear Tech's Comments Hold Purple Top Anion Gap Estim Creat Clear Calc Estimated GFR Random Glucose Calcium Total Bilirubin Direct Bilirubin AST ALT Alkaline Phosphatase Total Protein Albumin Lipase Urine Opiates Screen POSITIVE H Urine Fentanyl Screen POSITIVE H Ur Barbiturates Screen Not Detected Ur Phencyclidine Scrn Not Detected Ur Amphetamines Screen Not Detected U Benzodiazepines Scrn Not Detected Urine Cocaine Screen POSITIVE H U Marijuana (THC) Screen Not Detected COVID-19 (JENN) COVID-19 Clin Com Influenza Type A (MATTY) Influenza Type B (MATTY) Influenza A & B Note Imaging Radiologist's Impressions: Impressions Chest X-Ray 08/15/23 15:19 IMPRESSION: Unremarkable chest examination. Assessment and Plan (1) Intractable nausea and vomiting: Status: Acute (2) COVID-19: Status: Acute Plan Patient with chronic hypoxemic respiratory failure on 3 L supplemental O2 at baseline secondary to COPD, depression, polysubstance abuse, opioid dependence on Suboxone, chronic low back pain, osteopenia, history of invasive ductal carcinoma of the breast s/p mastectomy and chemotherapy who is a current 1/4 pack cigarette smoker admitted for COVID-19 related intractable nausea and vomiting with p.o. intolerance and hyperkalemia. # intractable nausea and vomiting secondary to COVID-19 -CXR negative. No URI symptoms -Ondansetron prn -Clear liquid diet with ensure, advance as tolerated -Continue IVF given significant dehydration -No antiviral therapy given lack of respiratory symptoms -No acute hypoxia, steroids not indicated -Airborne/contact precautions #Acute hyperkalemia -d/t hypovolemia -Corrected with IVF -Monitor on telemetry -Follow bmp #Relative polycythemia -hemoconcentration due to hypovolemia/dehydration -Continue IVF -Follow cbc #opioid dependence in acute withdrawal -has missed several doses suboxone due to above -pt restless, tachycardic likely 2/2 withdrawal -resume suboxone #Polysubstance abuse -utox positive for opiates, fentanyl, cocaine -addiction med consult #COPD with chronic hypoxemic respiratory failure -no acute exacerbation -continue maintenance inhalers, albuterol prn -continue home supplemental O2 @3L #Depression -continue home meds #Cigarette smoker -nicotine patch for nrt -cessation counseling DVT prophylaxis- lovenox Full code Patient requires inpatient stay at least 2 midnights for management of intractable nausea and vomiting with hyperkalemia requiring aggressive IV fluid resuscitation and close monitoring of renal function electrolyte levels. Time Spent With Patient Time: Total time managing care of this patient today ____ minutes. Quality Stroke Does the patient have a stroke diagnosis?: No VTE Prior VTE?: No VTE Risk Level:: Medical - moderate - high VTE Device Contraindication: Treatment Not Indicated VTE Drug Contraindication: N/A - Med Ordered
--- NOTE | 2023-08-15 17:38 | PHA.MEDREC ---
Pharmacy Consult ? Medication Reconciliation Pharmacy has completed the medication reconciliation. Spoke to patient to confirm meds.
--- NOTE | 2023-08-15 18:34 | MHC.RECOVRN ---
This film writer met with patient after receiving addiction consult. Pt admitted for intractable N/V, Covid19. Pt reports 8mg BUP BID, confirmed via [facility]. Pt received 8mg BUP earlier, pt reports restless legs, denies opiate withdrawal. Pt states would like to wait on next dose BUP. Pt resting comfortably, pt requesting to sleep.
[2023-08-15] MEDS: Albuterol/Iprat 2.5/0.5MG 3 ML AMPUL.NEB INHALE (19:32)
[2023-08-15] MEDS: Nicotine 7 MG PATCH.TD24 TRANSDERMA (20:01)
[2023-08-16] VITALS (9 sets, daily range): BP systolic 150–190; BP diastolic 78–107; PULSE 81–112; RESP 16–28; TEMP 36.4–37; O2SAT 95–97
--- NOTE | 2023-08-16 00:22 | PC.NURSE ---
pt given PRN tylenol for back pain per request. O2 lowered to 3L NC pt stating at 98%
--- NOTE | 2023-08-16 01:45 | PC.NURSE ---
report given to Felicia EDGE
--- NOTE | 2023-08-16 09:45 | MHC.RECOVRN ---
This documentation writer met with patient, patient laying in bed, awake, alert, speaking full sentences. Pt denies withdrawal, cravings at this time. Pt declines 8mg BUP BID currently. Pt reports can not recall taking illicit substances PULPER. Pt reports has been stable on BUP for 5 years at [facility]. Pt reports bodyaches, requesting Tylenol. This documentation writer to return later to reassess.
--- NOTE | 2023-08-16 09:47 | MHC.CM.PN ---
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 Patient's O2 is from [employer] and her 2 month supply of Suboxone is obtained a [facility]. PCP is Dr. Geronimo Klein.Home vs home with new VNA is the tentative plan and CM has initiated and will follow for dc planning.
--- NOTE | 2023-08-16 13:44 | HO.PM.IMPN ---
Subjective Subjective Date of Service: 08/16/23 Interval History: Feels better overall Still not eating much denies chest pain mildly dyspneic Review of Systems Review of Systems: Yes all other systems are reviewed and are negative Physical Exam Vital Signs: Vital Signs: Last Vital Signs Temp 98.1 F 08/16/23 11:47 Pulse 89 08/16/23 11:47 Resp 20 08/16/23 11:47 BP 176/85 H 08/16/23 11:47 Pulse Ox 96 08/16/23 11:47 O2 Del Method Nasal Cannula 08/16/23 11:47 O2 Flow Rate 2 08/16/23 11:47 Oxygen Flow Rate 2 08/15/23 10:52 BMI result Body Mass Index 20.7 Const: Other: Constitutional : Awake, interactive, not in distress Neck : Normal inspection, Supple Cardiovascular : RRR, no JVP, no lower extremity edema Respiratory : good bilateral air entry, no crackles, fine expiratory wheezes Gastrointestinal: soft, lax, Normal bowel sounds, Non tender Skin : Warm, Dry Neurological : Alert & oriented x3, No focal deficit Objective Data Active Medications Acetaminophen (Acetaminophen 325 Mg Tablet) 650 mg PO Q6H PRN PRN Reason: Pain, Mild (Pain Scale 1-3) Last Admin: 08/16/23 12:55 Dose: 650 mg Documented By: SANG Albuterol/Ipratropium (Albuterol/Iprat 2.5/0.5mg 3 Ml Ampul.Neb) 3 ml INHALE RQ4H WHILE AWAKE [facility] Last Admin: 08/16/23 11:33 Dose: Not Given Documented By: MARLEEN Non-Admin Reason: Patient Refused Amlodipine Besylate (Amlodipine Besylate 5 Mg Tablet) 5 mg PO DAILY [facility]; Protocol Last Admin: 08/16/23 12:54 Dose: 5 mg Documented By: SANG Aspirin (Aspirin Enteric Coated 81 Mg Tablet.Dr) 81 mg PO DAILY [facility] Last Admin: 08/16/23 12:54 Dose: 81 mg Documented By: SANG Buprenorphine/Naloxone (Buprenorphine/Naloxone 8/2 Mg Film) 1 film SUBLINGUAL BID [facility] Last Admin: 08/16/23 12:54 Dose: 1 film Documented By: ASNG Bupropion HCl (Bupropion Hcl Xl 300 Mg Tab.Er.24h) 300 mg PO DAILY [facility] Last Admin: 08/16/23 12:54 Dose: 300 mg Documented By: SANG Celecoxib (Celecoxib 200 Mg Capsule) 200 mg PO DAILY [facility] Clopidogrel Bisulfate (Clopidogrel Bisulfate 75 Mg Tablet) 75 mg PO DAILY [facility] Last Admin: 08/16/23 12:54 Dose: 75 mg Documented By: SANG Docusate Sodium (Docusate Sodium 100 Mg Capsule) 100 mg PO DAILY PRN PRN Reason: Constipation Enoxaparin Sodium (Enoxaparin Sodium 40 Mg/0.4 Ml Syringe) 40 mg SUBCUT Q24H [facility] Last Admin: 08/15/23 20:00 Dose: 40 mg Documented By: FIDEL Gabapentin (Gabapentin 100 Mg Capsule) 100 mg PO BID [facility] Sodium Chloride (Ns) 1,000 mls @ 125 mls/hr IVCONT .Q8H [facility] Last Admin: 08/16/23 13:00 Dose: Not Given Documented By: SANG Non-Admin Reason: BAG STILL FULL Mirtazapine (Mirtazapine 7.5 Mg Tablet) 22.5 mg PO BEDTIME [facility] Nicotine (Nicotine 7 Mg Patch.Td24) 7 mg TRANSDERMA DAILY [facility] Last Admin: 08/16/23 08:48 Dose: 7 mg Documented By: SANG Non-Formulary Medication (Umeclidinium-Vilanterol [Anoro Ellipta]) 1 each PO DAILY [facility] Omeprazole (Omeprazole 20 Mg Capsule.Dr) 20 mg PO DAILY@0630 [facility] Last Admin: 08/16/23 12:55 Dose: 20 mg Documented By: SANG Ondansetron HCl (Ondansetron Hcl 4 Mg/2 Ml Vial) 4 mg IVPUSH Q8H PRN PRN Reason: Nausea and Vomiting Sertraline HCl (Sertraline Hcl 50 Mg Tablet) 150 mg PO DAILY [facility] Sodium Chloride (0.9 % Sodium Chloride Flush 3 Ml Syringe) 3 ml IVFLUSH QSHIFT [facility] Last Admin: 08/16/23 08:50 Dose: 3 ml Documented By: SANG Vitamin D (Cholecalciferol (Vitamin D3) 25 Mcg Tablet) 50 mcg PO DAILY [facility] Labs 08/16/23 08:49 08/16/23 07:48 Labs: Laboratory Results - last 24 hr 10/08/23 10/08/23 10/08/23 13:16 15:25 16:52 MCV 86.9 MCH 30.8 MCHC 35.4 H RDW 14.4 Plt Count 305 301 MPV 9.6 9.6 Immature Gran % (Auto) 0.4 0.3 Neut % (Auto) 78.6 H 75.3 H Lymph % (Auto) 7.8 L 9.3 L [place] % (Auto) 12.5 H 14.9 H Eos % (Auto) 0.2 0.1 Baso % (Auto) 0.5 0.1 Lymph # (Auto) 0.7 L 0.7 L [place] # (Auto) 1.1 1.1 Eos # (Auto) 0.0 0.0 Baso # (Auto) 0.0 0.0 Abs Immat Gran (auto) 0.03 0.02 Absolute Neuts (auto) 6.7 5.5 Absolute Nucleated RBC 0.000 0.000 Nucleated RBC % (auto) 0.0 0.0 Smear Tech's Comments VERIFIED Hold Purple Top SEE NOTE Anion Gap 27 H Estim Creat Clear Calc 42.2 Estimated GFR > 60 Random Glucose 151 H Calcium 10.0 Total Bilirubin 0.3 Direct Bilirubin < 0.1 AST 43 H ALT 18 Alkaline Phosphatase 89 Total Protein 9.8 H Albumin 4.5 Lipase 15 Urine Color Urine Appearance Urine pH Ur Specific [place] Urine Protein Urine Glucose (UA) Urine Ketones Urine Blood Urine Nitrite Ur Leukocyte Esterase Urine RBC Urine WBC Ur Squamous Epith Cells Urine Bacteria Hyaline Casts Urine Opiates Screen POSITIVE H Urine Fentanyl Screen POSITIVE H Ur Barbiturates Screen Not Detected Ur Phencyclidine Scrn Not Detected Ur Amphetamines Screen Not Detected U Benzodiazepines Scrn Not Detected Urine Cocaine Screen POSITIVE H U Marijuana (THC) Screen Not Detected 08/15/23 08/15/23 08/16/23 22:16 23:40 07:48 MCV MCH MCHC RDW Plt Count MPV Immature Gran % (Auto) Neut % (Auto) Lymph % (Auto) [place] % (Auto) Eos % (Auto) Baso % (Auto) Lymph # (Auto) [place] # (Auto) Eos # (Auto) Baso # (Auto) Abs Immat Gran (auto) Absolute Neuts (auto) Absolute Nucleated RBC Nucleated RBC % (auto) Smear Tech's Comments Hold Purple Top Anion Gap 19 15 Estim Creat Clear Calc 55.0 68.0 Estimated GFR > 60 > 60 Random Glucose 166 H 100 Calcium 8.4 D 7.1 L D Total Bilirubin Direct Bilirubin AST ALT Alkaline Phosphatase Total Protein Albumin Lipase Urine Color Yellow Urine Appearance Clear Urine pH 7.5 Ur Specific [place] 1.010 Urine Protein 30 (1+) H Urine Glucose (UA) 250 H Urine Ketones 15 Urine Blood Small (1+) H Urine Nitrite Negative Ur Leukocyte Esterase Negative Urine RBC 3-5 H Urine WBC 0-5 Ur Squamous Epith Cells 0-2 Urine Bacteria None Seen Hyaline Casts 0-2 Urine Opiates Screen Urine Fentanyl Screen Ur Barbiturates Screen Ur Phencyclidine Scrn Ur Amphetamines Screen U Benzodiazepines Scrn Urine Cocaine Screen U Marijuana (THC) Screen 08/16/23 08:49 MCV 89.6 MCH 31.0 MCHC 34.6 RDW 14.6 Plt Count TNP MPV Not Reportable Immature Gran % (Auto) 0.9 H Neut % (Auto) 65.0 Lymph % (Auto) 15.0 L [place] % (Auto) 18.8 H Eos % (Auto) 0.0 Baso % (Auto) 0.3 Lymph # (Auto) 1.8 [place] # (Auto) 2.2 H Eos # (Auto) 0.0 Baso # (Auto) 0.0 Abs Immat Gran (auto) 0.11 H Absolute Neuts (auto) 7.6 Absolute Nucleated RBC 0.000 Nucleated RBC % (auto) 0.0 Smear Tech's Comments VERIFIED Hold Purple Top Anion Gap Estim Creat Clear Calc Estimated GFR Random Glucose Calcium Total Bilirubin Direct Bilirubin AST ALT Alkaline Phosphatase Total Protein Albumin Lipase Urine Color Urine Appearance Urine pH Ur Specific [place] Urine Protein Urine Glucose (UA) Urine Ketones Urine Blood Urine Nitrite Ur Leukocyte Esterase Urine RBC Urine WBC Ur Squamous Epith Cells Urine Bacteria Hyaline Casts Urine Opiates Screen Urine Fentanyl Screen Ur Barbiturates Screen Ur Phencyclidine Scrn Ur Amphetamines Screen U Benzodiazepines Scrn Urine Cocaine Screen U Marijuana (THC) Screen Assessment and Plan (1) Intractable nausea and vomiting: Status: Acute (2) COVID-19: Status: Acute (3) Supplemental oxygen dependent: Status: Acute Plan Patient with chronic hypoxemic respiratory failure on 3 L supplemental O2 at baseline secondary to COPD, depression, polysubstance abuse, opioid dependence on Suboxone, chronic low back pain, osteopenia, history of invasive ductal carcinoma of the breast s/p mastectomy and chemotherapy who is a current 1/4 pack cigarette smoker admitted for COVID-19 related intractable nausea and vomiting with p.o. intolerance and hyperkalemia. # intractable nausea and vomiting secondary to COVID-19 Better today Ondansetron prn Advance diet Continue IVF Hold on steroids as no hypoxia Airborne/contact precautions #Acute Hypokalemia give replacement Follow bmp #Relative polycythemia hemoconcentration due to hypovolemia/dehydration Continue IVF check EPO #opioid dependence in acute withdrawal missed several doses suboxone due to nausea resume suboxone #Polysubstance abuse utox positive for opiates, fentanyl, cocaine addiction med consult #COPD with chronic hypoxemic respiratory failure no acute exacerbation continue maintenance inhalers, albuterol prn continue home supplemental O2 @3L #Depression continue home meds #Cigarette smoker nicotine patch for nrt cessation counseling DVT prophylaxis- lovenox Full code Patient requires inpatient stay overnight for management of intractable nausea and vomiting with hyperkalemia requiring aggressive IV fluid resuscitation and close monitoring of renal function electrolyte levels. Time Spent With Patient Time: Total time managing care of this patient today ____ minutes. Quality Stroke Does the patient have a stroke diagnosis?: No VTE Prior VTE?: No VTE Risk Level:: Medical - moderate - high VTE Device Contraindication: Treatment Not Indicated VTE Drug Contraindication: N/A - Med Ordered
--- NOTE | 2023-08-16 20:37 | PM.EVENT ---
Event Note Date of Service: 08/16/23 Event Note: Nurse reported an episode of black liquid tarry stool. Will hold NSAID, antiplatelet agents, Lovenox. Will consult Gastroenterology and keep patient NPO after midnight. Close monitor CBC and administering IV Protonix. Noted patient is on IV crystalloids, continue Time Spent With Patient Time: Total time managing care of this patient today ____ minutes.
[2023-08-17] VITALS (11 sets, daily range): BP systolic 137–194; BP diastolic 67–110; PULSE 66–111; RESP 16–20; TEMP 36.3–37.3; O2SAT 94–98; BMI 20.7
--- NOTE | 2023-08-17 05:14 | PC.NURSE ---
at approximately 1999, patient found incontinent with loose, black, tarry bowel movement. Physician notified. per MD Lovenox held, pantoprazole administered, NPO diet started, and GI consult initiated.
[2023-08-17 06:40] LABS: Anion Gap 16 (12-20); Blood Urea Nitrogen 6 mg/dL (9-16); Calcium 8.1 mg/dL (8.4-10.2); Carbon Dioxide 20 mmol/L (22-29); Chloride 106 mmol/L (96-108); Estimated Glomerular Filt Rate > 60; Glucose Random 101 mg/dL (60-115); Sodium 139 mmol/L (135-145)
--- NOTE | 2023-08-17 10:31 | MHC.CLN ---
RE: CONSULT PT IS MODERATELY MALNOURISHED PT WITH 12% SIGNIFICANT WT LOSS X 6 MONTHS WITH POOR PO INTAKE AND ACUTE ILLNESS REQUIRING INCREASED NUTRITION NEEDS PO 25% X 1 MEAL DIET RX: 2GM NA GRD M/S-RECOMMEND LIBERALIZING DIET TO REGULAR GRD M/S TO PROMOTE PO INTAKE RECOMMEND ADDING MAGIC CUP TID TO INCREASE KCALS SUPP TO PROVIDE 810KCALS, 27G PROTEIN MONITOR PO INTAKE CLOSELY SEE ALSO FULL CLINICAL NUTRITION ASSESSMENT
--- NOTE | 2023-08-17 13:16 | HO.PM.IMPN ---
Subjective Subjective Date of Service: 08/17/23 Interval History: Feels better overall Still not eating much denies chest pain mildly dyspneic Physical Exam Vital Signs: Vital Signs: Last Vital Signs Temp 98.0 F 08/17/23 12:00 Pulse 98 08/17/23 12:00 Resp 18 08/17/23 12:00 BP 191/81 H 08/17/23 12:00 Pulse Ox 95 08/17/23 12:00 O2 Del Method Nasal Cannula 08/17/23 12:00 O2 Flow Rate 3 08/17/23 12:00 Oxygen Flow Rate 2 08/15/23 10:52 BMI result Body Mass Index 20.7 Const: Other: Constitutional : Awake, interactive, not in distress Neck : Normal inspection, Supple Cardiovascular : RRR, no JVP, no lower extremity edema Respiratory : good bilateral air entry, no crackles, fine expiratory wheezes Gastrointestinal: soft, lax, Normal bowel sounds, Non tender Skin : Warm, Dry Neurological : Alert & oriented x3, No focal deficit Objective Data Active Medications Acetaminophen (Acetaminophen 325 Mg Tablet) 650 mg PO Q6H PRN PRN Reason: Pain, Mild (Pain Scale 1-3) Last Admin: 08/17/23 09:47 Dose: 650 mg Documented By: NAILA Albuterol/Ipratropium (Albuterol/Iprat 2.5/0.5mg 3 Ml Ampul.Neb) 3 ml INHALE RQ4H WHILE AWAKE [facility] Last Admin: 08/17/23 12:24 Dose: Not Given Documented By: MARLEEN Non-Admin Reason: Patient Asleep Amlodipine Besylate (Amlodipine Besylate 5 Mg Tablet) 5 mg PO DAILY [facility]; Protocol Last Admin: 08/17/23 09:35 Dose: 5 mg Documented By: NAILA Buprenorphine/Naloxone (Buprenorphine/Naloxone 8/2 Mg Film) 1 film SUBLINGUAL BID [facility] Last Admin: 08/17/23 09:36 Dose: 1 film Documented By: NAILA Bupropion HCl (Bupropion Hcl Xl 300 Mg Tab.Er.24h) 300 mg PO DAILY [facility] Last Admin: 08/17/23 09:46 Dose: Not Given Documented By: NAILA Non-Admin Reason: Patient Refused Docusate Sodium (Docusate Sodium 100 Mg Capsule) 100 mg PO DAILY PRN PRN Reason: Constipation Gabapentin (Gabapentin 100 Mg Capsule) 100 mg PO BID [facility] Last Admin: 08/17/23 09:35 Dose: 100 mg Documented By: NAILA Mirtazapine (Mirtazapine 7.5 Mg Tablet) 22.5 mg PO BEDTIME [facility] Last Admin: 08/16/23 20:27 Dose: 22.5 mg Documented By: ALLISON Nicotine (Nicotine 7 Mg Patch.Td24) 7 mg TRANSDERMA DAILY [facility] Last Admin: 08/17/23 09:36 Dose: 7 mg Documented By: NAILA Non-Formulary Medication (Umeclidinium-Vilanterol [Anoro Ellipta]) 1 each PO DAILY [facility] Omeprazole (Omeprazole 20 Mg Capsule.Dr) 20 mg PO DAILY@0630 [facility] Last Admin: 08/17/23 06:38 Dose: Not Given Documented By: ALLISON Non-Admin Reason: NPO Ondansetron HCl (Ondansetron Hcl 4 Mg/2 Ml Vial) 4 mg IVPUSH Q8H PRN PRN Reason: Nausea and Vomiting Last Admin: 08/17/23 12:10 Dose: 4 mg Documented By: SOL Sertraline HCl (Sertraline Hcl 50 Mg Tablet) 150 mg PO DAILY [facility] Last Admin: 08/17/23 09:35 Dose: 150 mg Documented By: NAILA Sodium Chloride (0.9 % Sodium Chloride Flush 3 Ml Syringe) 3 ml IVFLUSH QSHIFT [facility] Last Admin: 08/17/23 09:36 Dose: 3 ml Documented By: NAILA Labs 08/17/23 05:35 08/17/23 05:35 Labs: Laboratory Results - last 24 hr 08/16/23 08/17/23 14:47 05:35 MCV 89.0 MCH 30.2 MCHC 34.0 RDW 14.5 Plt Count 230 MPV 10.0 Immature Gran % (Auto) 0.3 Neut % (Auto) 56.2 Lymph % (Auto) 25.8 [place] % (Auto) 17.3 H Eos % (Auto) 0.2 Baso % (Auto) 0.2 Lymph # (Auto) 2.5 [place] # (Auto) 1.7 H Eos # (Auto) 0.0 Baso # (Auto) 0.0 Abs Immat Gran (auto) 0.03 Absolute Neuts (auto) 5.4 Absolute Nucleated RBC 0.000 Nucleated RBC % (auto) 0.0 Smear Tech's Comments VERIFIED Anion Gap 16 Estim Creat Clear Calc 63.0 Estimated GFR > 60 Random Glucose 101 Calcium 8.1 L D Erythropoietin 1.6 L Assessment and Plan (1) Intractable nausea and vomiting: Status: Acute (2) COVID-19: Status: Acute Plan Patient with chronic hypoxemic respiratory failure on 3 L supplemental O2 at baseline secondary to COPD, depression, polysubstance abuse, opioid dependence on Suboxone, chronic low back pain, osteopenia, history of invasive ductal carcinoma of the breast s/p mastectomy and chemotherapy who is a current 1/4 pack cigarette smoker admitted for COVID-19 related intractable nausea and vomiting with p.o. intolerance and hyperkalemia. # intractable nausea and vomiting secondary to COVID-19 Better today Ondansetron prn Advance diet dc IVF Hold on steroids as no hypoxia Airborne/contact precautions #Acute Hypokalemia give replacement Follow bmp #Polycythemia hemoconcentration due to hypovolemia/dehydration low EPO Hematology eval # Black stool question of bleeding ? check occult monitor H&H PPI advance diet and monitor #opioid dependence resume suboxone #Polysubstance abuse utox positive for opiates, fentanyl, cocaine addiction med consult #COPD with chronic hypoxemic respiratory failure no acute exacerbation continue maintenance inhalers, albuterol prn continue home supplemental O2 @3L #Depression continue home meds #Cigarette smoker nicotine patch for nrt cessation counseling DVT prophylaxis- lovenox Full code Patient requires inpatient stay overnight for management of intractable nausea and vomiting with hyperkalemia requiring aggressive IV fluid resuscitation and close monitoring of renal function electrolyte levels. Time Spent With Patient Time: Total time managing care of this patient today ____ minutes. Quality Stroke Does the patient have a stroke diagnosis?: No VTE Prior VTE?: No VTE Risk Level:: Medical - moderate - high VTE Device Contraindication: Treatment Not Indicated VTE Drug Contraindication: N/A - Med Ordered
--- NOTE | 2023-08-17 14:17 | PM.HEMONCCN ---
Subjective - Subjective Chief complaint: Weakness Patient: new to practice Consult date: 08/17/23 Requesting Physician: Dr Razo Primary Care Provider: Geronimo Klein MD HPI - Consult Narrative Reason for consult: Polycythemia Narrative: Ayanna Giles is a 73 year old female admitted to hospital with dehydration, hyperkalemia secondary to COVID-19 infection and chronic hypoxemic respiratory failure. She has underlying history of COPD, polysubstance and opioid abuse, on Suboxone. She has remote history of breast cancer for which she underwent mastectomy followed by chemotherapy and hormonal therapy. She came in with complaints of intractable nausea, vomiting as well as diarrhea. She was hypertensive and tachypneic. Blood work revealed polycythemia with initial hemoglobin 19.7 and potassium of 6.5. She received IV hydration. She says she continues to feel like a zombie. She denies any chest pain or shortness of breath. No abdominal discomfort, her nausea and vomiting has resolved. She was never told of polycythemia in the past. Review of Systems - Constitutional Reports as per HPI, Reports lack of energy, Reports malaise, Reports poor appetite - Cardiovascular Reports no additional cardiovascular complaints - Respiratory Reports no additional respiratory complaints - Gastrointestinal Reports no additional gastrointestinal complaints PMFSH Medical History: Medical History (Last Reviewed 08/15/23 @ 11:28 by Laurence Wagner DO) History of invasive ductal carcinoma of breast Onset Date: ~2003 Lumbar degenerative disc disease Osteopenia Onset Date: ~2011 Personal history of nicotine dependence Surgical History: Surgical History (Last Reviewed 08/15/23 @ 11:28 by Laurence Wagner DO) History of appendectomy Onset Date: ~1993 History of section Onset Date: ~1976 History of colonoscopy Onset Date: ~2010 History of esophagogastroduodenoscopy (EGD) Onset Date: ~2010 History of laparoscopic cholecystectomy Onset Date: ~2008 History of right mastectomy Onset Date: ~2004 History of tonsillectomy Social History: Social History (Last Reviewed 08/15/23 @ 11:28 by Laurence Wagner DO) Living Situation History: Household Members: None Housing: Apartment Do you presently have visiting nurse or other home services: Yes Do you presently have visiting nurse or other home services comment: [employer] Tobacco History: Patient Tobacco Use Status: Current everyday Tobacco Tobacco use type: Cigarette Cigarettes Per Day: 5 Years Smoked: 59 years (onset 13, 1/2ppd x 59yrs, now <1/4ppd, 29pyh) e-Cigarette/Vaping Use: Currently Using Occupation Assessmet: service: No Home Medications and Allergies Current Medications: Current Medications Acetaminophen (Acetaminophen 325 Mg Tablet) 650 mg PO Q6H PRN PRN Reason: Pain, Mild (Pain Scale 1-3) Last Admin: 08/17/23 09:47 Dose: 650 mg Albuterol/Ipratropium (Albuterol/Iprat 2.5/0.5mg 3 Ml Ampul.Neb) 3 ml INHALE RQ4H WHILE AWAKE [facility] Last Admin: 08/17/23 12:24 Dose: Not Given Amlodipine Besylate (Amlodipine Besylate 5 Mg Tablet) 5 mg PO DAILY [facility]; Protocol Last Admin: 08/17/23 09:35 Dose: 5 mg Buprenorphine/Naloxone (Buprenorphine/Naloxone 8/2 Mg Film) 1 film SUBLINGUAL BID [facility] Last Admin: 08/17/23 09:36 Dose: 1 film Bupropion HCl (Bupropion Hcl Xl 300 Mg Tab.Er.24h) 300 mg PO DAILY [facility] Last Admin: 08/17/23 09:46 Dose: Not Given Docusate Sodium (Docusate Sodium 100 Mg Capsule) 100 mg PO DAILY PRN PRN Reason: Constipation Gabapentin (Gabapentin 100 Mg Capsule) 100 mg PO BID [facility] Last Admin: 08/17/23 09:35 Dose: 100 mg Lisinopril (Lisinopril 10 Mg Tablet) 10 mg PO DAILY [facility]; Protocol Mirtazapine (Mirtazapine 7.5 Mg Tablet) 22.5 mg PO BEDTIME [facility] Last Admin: 08/16/23 20:27 Dose: 22.5 mg Nicotine (Nicotine 7 Mg Patch.Td24) 7 mg TRANSDERMA DAILY [facility] Last Admin: 08/17/23 09:36 Dose: 7 mg Non-Formulary Medication (Umeclidinium-Vilanterol [Anoro Ellipta]) 1 each PO DAILY [facility] Omeprazole (Omeprazole 20 Mg Capsule.Dr) 20 mg PO DAILY@0630 [facility] Last Admin: 08/17/23 06:38 Dose: Not Given Ondansetron HCl (Ondansetron Hcl 4 Mg/2 Ml Vial) 4 mg IVPUSH Q8H PRN PRN Reason: Nausea and Vomiting Last Admin: 08/17/23 12:10 Dose: 4 mg Sertraline HCl (Sertraline Hcl 50 Mg Tablet) 150 mg PO DAILY [facility] Last Admin: 08/17/23 09:35 Dose: 150 mg Sodium Chloride (0.9 % Sodium Chloride Flush 3 Ml Syringe) 3 ml IVFLUSH QSHIFT [facility] Last Admin: 08/17/23 09:36 Dose: 3 ml Home Medications Medication Instructions Recorded Confirmed Type buprenorphine 8 mg-naloxone 2 mg 1 film sublingual BID 09/12/21 08/15/23 History sublingual film (Suboxone) celecoxib 200 mg capsule 200 mg PO DAILY 09/12/21 08/15/23 History cholecalciferol (vitamin D3) 50 50 mcg PO DAILY 09/12/21 08/15/23 History mcg (2,000 unit) tablet omeprazole 20 mg capsule,delayed 20 mg PO DAILY@0630 09/12/21 08/15/23 History release acetaminophen 500 mg tablet (Pain 1,000 mg PO Q6H PRN Pain 03/02/23 08/15/23 History Relief Extra Strength (acetaminophen)) aspirin 81 mg tablet,delayed 81 mg PO DAILY 03/30/23 08/15/23 History release bupropion HCl 300 mg 24 hr tablet, 300 mg PO DAILY 07/22/23 08/15/23 History extended release clopidogrel 75 mg tablet 75 mg PO DAILY 07/22/23 08/15/23 History mirtazapine 15 mg tablet (Remeron) 22.5 mg PO BEDTIME 08/15/23 08/15/23 History sertraline 100 mg tablet 150 mg PO DAILY 08/15/23 08/15/23 History Allergies Allergy/AdvReac Type Severity Reaction Status Date / Time No Known Allergies Allergy Unknown Verified 07/22/23 11:46 [No Known Allergies*] Physical Exam Vital signs: Vital Signs Temp 98.0 F 08/17/23 12:00 Pulse 98 08/17/23 12:00 Resp 18 08/17/23 12:00 BP 191/81 H 08/17/23 12:00 Pulse Ox 95 08/17/23 12:00 O2 Del Method Nasal Cannula 08/17/23 12:00 O2 Flow Rate 3 08/17/23 12:00 Intake & Output 08/16/23 08/17/23 08/17/23 18:59 06:59 18:59 Intake Total 1120 / 3236.666 2116.666 / 3236.666 795.833 / 795.833 Output Total 1000 / 1000 Balance 1120 / 2236.666 1116.666 / 2236.666 795.833 / 795.833 Urine Output (Average ml/kg/hr) 1.79 1.79 Intake: Intake, Oral Amount 120 / 320 200 / 320 Intake, IV Amount 1000 / 2916.666 1916.666 / 2916.666 795.833 / 795.833 0.9 % Sodium Chloride 1,000 ml 1000 / 2916.666 1916.666 / 2916.666 795.833 / 795.833 @ 125 mls/hr IVCONT .Q8H [facility]U Rx #:[id number] Output: Output, Urine Amount 1000 / 1000 Other: Meal Refused No NPO No Dinner % Eaten 25% Number of Incontinent Voids 1 3 Number of Unmeasured Voids 1 Urine Purewick Last Bowel Movement 08/16/23 08/16/23 08/16/23 Weight 46.5 kg Weight 46.5 kg - Constitutional Present: no acute distress - Routine HEENT Exam Head: Present: normal inspection Eye: Present: EOMI - Routine Neck Exam Present: supple. Absent: lymphadenopathy - Routine Respiratory Exam Present: decreased breath sounds. Absent: accessory muscle use - Routine Cardiovascular Exam Cardiovascular: Present: S1, S2 - Routine Skin Exam Absent: cyanosis Hem/Onc Consult Result - Labs CBC & Chem 7: 08/17/23 05:35 08/17/23 05:35 Labs: Short CBC 08/17/23 Range/Units 05:35 WBC 9.5 (4.8-10.8) X10*3/uL Hgb 17.9 H (12.0-16.0) g/dl Hct 52.7 H (37.0-47.0) % Plt Count 230 (160-400) X10*3/uL BMP 08/17/23 05:35 Sodium 139 Potassium 3.0 L Chloride 106 Carbon Dioxide 20 L BUN 6 L Creatinine 0.55 Calcium 8.1 L D Assessment and Plan Patient Active problem list reviewed?: Yes (1) Polycythemia Status: Acute Assessment and plan: 1. This is a 73-year-old woman with chronic COPD/hypoxemic respiratory failure admitted for acute COVID-19 infection with symptoms of dehydration and polycythemia. Her hemoglobin was normal in May 2023, 15.2 gram/dL. On day of admission her hemoglobin was 19.7 with a hematocrit of 55. After hydration, her hemoglobin today is down to 17.9 gram/dL with a hematocrit of 52.7. Acute elevation in hemoglobin is probably reactive and multifactorial. Combination of acute on chronic hypoxemia along with dehydration secondary to emesis and diarrhea following COVID-19 infection causing relative erythrocytosis. It is gradually coming down with hydration. This is unlikely to be primary polycythemia or polycythemia vera. Underlying malignancy is also possibility however given the acute elevation with recent normal values, this is less likely. She was treated in the remote past for breast cancer. There is no indication for therapeutic phlebotomy at this time. If her counts are persistently high at the time of discharge, repeat labs need to be performed in a few weeks. Thank you for the consultation. - Time Spent With Patient Time Spent with Patient (in minutes): 15
[2023-08-18] VITALS (10 sets, daily range): BP systolic 126–151; BP diastolic 66–88; PULSE 80–105; RESP 16–20; TEMP 36.6–37.5; O2SAT 95–98
[2023-08-18 09:26] LABS: Anion Gap 15 (12-20); Blood Urea Nitrogen 11 mg/dL (9-16); Calcium 8.9 mg/dL (8.4-10.2); Carbon Dioxide 23 mmol/L (22-29); Chloride 104 mmol/L (96-108); Creatinine Clr Calc Pharmacy 51.7; Estimated Glomerular Filt Rate > 60; Glucose Random 147 mg/dL (60-115); Potassium 3.3 mmol/L (3.3-5.1); Sodium 139 mmol/L (135-145)
--- NOTE | 2023-08-18 10:41 | MHC.CM.PN ---
EMR REVIEWED, PT W/COVID19, PER HOSPITALIST PT NOT YET READY FOR D/C, PT EVAL ORDERED FOR DISPO PT LIVES ALONE, PT ON SUBOXONE AND WOULD NEED [facility] IF NEED ING STR, CM WILL CONT TO FOLLOW DC NEEDS.
--- NOTE | 2023-08-18 12:39 | MHC.CM.PN ---
P.T. RECOMMENDING STR, REFERRAL SENT TO [facility] D/T PT BEING ON SUBOXONE, CM WILL CONT TO FOLLOW DC NEEDS.
--- NOTE | 2023-08-18 14:04 | MHC.CLN ---
F/U PT IS MODERATELY MALNOURISHED SEE FULL CLINICAL NUTRITION ASSESSMENT DATED 08/17/23 DIET RX: GRD M/S-APPROPRIATE PT RECEIVING MAGIC CUP TID TO INCREASE KCALS PROVIDES 810KCALS, 27G PROTEIN MONITOR PO INTAKE CLOSELY
--- NOTE | 2023-08-18 14:50 | P.PNIM_ITS ---
Subjective Subjective Date of Service: 08/18/23 Interval History: Feels better overall Still not eating much but better than before Feels weak denies chest pain mildly dyspneic w exertion Review of Systems Review of Systems: Yes all other systems are reviewed and are negative Physical Exam 2 Vital Signs: Vital Signs: Last Vital Signs Temp 99.5 F 08/18/23 11:27 Pulse 96 08/18/23 11:27 Resp 18 08/18/23 11:27 BP 126/66 08/18/23 11:27 Pulse Ox 96 08/18/23 11:27 O2 Del Method Nasal Cannula 08/18/23 11:27 O2 Flow Rate 3 08/18/23 11:27 Oxygen Flow Rate 2 08/15/23 10:52 BMI result Body Mass Index 20.7 Const: Other: Constitutional : Awake, interactive, not in distress Neck : Normal inspection, Supple Cardiovascular : RRR, no JVP, no lower extremity edema Respiratory : good bilateral air entry, no crackles, fine expiratory wheezes Gastrointestinal: soft, lax, Normal bowel sounds, Non tender Skin : Warm, Dry Neurological : Alert & oriented x3, No focal deficit Objective Data Active Medications Acetaminophen (Acetaminophen 325 Mg Tablet) 650 mg PO Q6H PRN PRN Reason: Pain, Mild (Pain Scale 1-3) Last Admin: 08/17/23 21:35 Dose: 650 mg Documented By: TIMO Albuterol/Ipratropium (Albuterol/Iprat 2.5/0.5mg 3 Ml Ampul.Neb) 3 ml INHALE RQ4H WHILE AWAKE [facility] Last Admin: 08/18/23 12:05 Dose: Not Given Documented By: AILEEN Non-Admin Reason: Patient Refused Amlodipine Besylate (Amlodipine Besylate 5 Mg Tablet) 5 mg PO DAILY [facility]; Protocol Last Admin: 08/18/23 09:21 Dose: 5 mg Documented By: GUILLERMINA Buprenorphine/Naloxone (Buprenorphine/Naloxone 8/2 Mg Film) 1 film SUBLINGUAL BID [facility] Last Admin: 08/18/23 09:20 Dose: 1 film Documented By: GUILLERMINA Bupropion HCl (Bupropion Hcl Xl 300 Mg Tab.Er.24h) 300 mg PO DAILY [facility] Last Admin: 08/18/23 09:20 Dose: 300 mg Documented By: GUILLERMINA Docusate Sodium (Docusate Sodium 100 Mg Capsule) 100 mg PO DAILY PRN PRN Reason: Constipation Gabapentin (Gabapentin 100 Mg Capsule) 100 mg PO BID [facility] Last Admin: 08/18/23 09:20 Dose: 100 mg Documented By: GUILLERMINA Lisinopril (Lisinopril 10 Mg Tablet) 10 mg PO DAILY [facility]; Protocol Last Admin: 08/18/23 09:19 Dose: 10 mg Documented By: GUILLERMINA Mirtazapine (Mirtazapine 7.5 Mg Tablet) 22.5 mg PO BEDTIME [facility] Last Admin: 08/17/23 21:30 Dose: 11.25 mg Documented By: TIMO Comments: per Patient request. Pt concerned about legs feeling restless Nicotine (Nicotine 7 Mg Patch.Td24) 7 mg TRANSDERMA DAILY [facility] Last Admin: 08/18/23 09:21 Dose: 7 mg Documented By: GUILLERMINA Non-Formulary Medication (Umeclidinium-Vilanterol [Anoro Ellipta]) 1 each PO DAILY [facility] Omeprazole (Omeprazole 20 Mg Capsule.Dr) 20 mg PO DAILY@0630 [facility] Last Admin: 08/18/23 05:54 Dose: 20 mg Documented By: TIMO Ondansetron HCl (Ondansetron Hcl 4 Mg/2 Ml Vial) 4 mg IVPUSH Q8H PRN PRN Reason: Nausea and Vomiting Last Admin: 08/17/23 12:10 Dose: 4 mg Documented By: SOL Sertraline HCl (Sertraline Hcl 50 Mg Tablet) 150 mg PO DAILY [facility] Last Admin: 08/18/23 09:20 Dose: 150 mg Documented By: GUILLERMINA Sodium Chloride (0.9 % Sodium Chloride Flush 3 Ml Syringe) 3 ml IVFLUSH QSHIFT [facility] Last Admin: 08/18/23 09:22 Dose: 3 ml Documented By: GUILLERMINA Labs 08/18/23 08:51 08/18/23 08:51 Labs: Laboratory Results - last 24 hr 08/18/23 08:51 MCV 91.2 MCH 30.7 MCHC 33.7 RDW 14.6 Plt Count 280 MPV 10.1 Absolute Nucleated RBC 0.000 Nucleated RBC % (auto) 0.0 Anion Gap 15 Estim Creat Clear Calc 51.7 Estimated GFR > 60 Random Glucose 147 H Calcium 8.9 D Assessment and Plan (1) Polycythemia: Status: Acute (2) Intractable nausea and vomiting: Status: Acute (3) COVID-19: Status: Acute Plan Patient with chronic hypoxemic respiratory failure on 3 L supplemental O2 at baseline secondary to COPD, depression, polysubstance abuse, opioid dependence on Suboxone, chronic low back pain, osteopenia, history of invasive ductal carcinoma of the breast s/p mastectomy and chemotherapy who is a current 1/4 pack cigarette smoker admitted for COVID-19 related intractable nausea and vomiting with p.o. intolerance and hyperkalemia. # intractable nausea and vomiting secondary to COVID-19 improving Ondansetron prn Advance diet dc IVF Hold on steroids as no hypoxia Airborne/contact precautions encourage PO intake # Physical deconditioning PT rec SNF #Acute Hypokalemia resolved #Polycythemia Hb down to 16.4, multifactorial with dehydration, chronic hypoxia, smoking .. low EPO Hematology eval, repeat CBC in few weeks and can be followed as outpatient if phlebotomy needed # Black stool not collected , pending occult monitor H&H PPI DC GI consult at this point and restart dual antiplatelets advance diet and monitor #opioid dependence resume suboxone #Polysubstance abuse utox positive for opiates, fentanyl, cocaine addiction med consult #COPD with chronic hypoxemic respiratory failure no acute exacerbation continue maintenance inhalers, albuterol prn continue home supplemental O2 @3L #Depression continue home meds #Cigarette smoker nicotine patch for nrt cessation counseling DVT prophylaxis- lovenox Full code Patient requires inpatient stay overnight for management of intractable nausea and vomiting with hyperkalemia requiring aggressive IV fluid resuscitation and close monitoring of renal function electrolyte levels pending safe discharge plan to SNF Time Spent With Patient Time: Total time managing care of this patient today ____ minutes. Quality Stroke Does the patient have a stroke diagnosis?: No VTE Prior VTE?: No VTE Risk Level:: Medical - moderate - high VTE Device Contraindication: Treatment Not Indicated VTE Drug Contraindication: N/A - Med Ordered
--- NOTE | 2023-08-18 17:37 | ECG_ITS ---
Test Reason : chest pain Blood Pressure : / mmHG Vent. Rate : 089 BPM Atrial Rate : 089 BPM P-R Int : 130 ms QRS Dur : 074 ms QT Int : 392 ms P-R-T Axes : 075 025 079 degrees QTc Int : 476 ms Normal sinus rhythm Right atrial enlargement Borderline ECG When compared with ECG of 15-AUG-2023 15:10, No significant changes seen Referred By: Kiran Razo Electronically Signed By:DALJIT DELVALLE MD
[2023-08-18] MEDS: Morphine Sulfate 2 MG/ML CARTRIDGE IVPUSH (18:16)
[2023-08-18] MEDS: Albuterol/Iprat 2.5/0.5MG 3 ML AMPUL.NEB INHALE (19:52)
[2023-08-18] MEDS: Magnesium Hydrox/Alum Hydrox 30 ML ORAL.SUSP 15 ML PO (20:02)
[2023-08-18] MEDS: Mirtazapine 7.5 MG TABLET 22.5 MG PO (20:49)
[2023-08-18] MEDS: Buprenorphine/Naloxone 8/2 mg FILM 1 FILM SUBLINGUAL (20:49)
[2023-08-18] MEDS: Gabapentin 100 MG CAPSULE PO (20:50)
[2023-08-18] MEDS: ondansetron HCL 4 MG/2 ML VIAL IVPUSH (20:52)
[2023-08-19] VITALS (7 sets, daily range): BP systolic 101–146; BP diastolic 56–75; PULSE 80–108; RESP 14–18; TEMP 36.7–37.3; O2SAT 95–98
[2023-08-19] MEDS: Omeprazole 20 MG CAPSULE.DR PO (05:39)
--- NOTE | 2023-08-19 07:20 | MHC.CM.PN ---
Addendum entered by Quyen Gao RN 08/19/23 10:21: CM CONTACTED PT AT 10:15AM ON ROOM PHONE EXT [phone], PT REPORTS SHE W[facility] BE AG[facility]ABLE TO [facility] HOWEVER WOULD NOT WANT TO STAY TOO LONG, HOME PT SERVICES DISCUSSED HOWEVER PT DOES NOT FEEL THAT WOULD WORK, PT ALSO DECLINED OFFER FOR CM TO CONTACT AND DISCUSS W/PT'S DTR. PER [facility] PT WOULD NEED TO BE SYMPTOM FREE ON DAY 6 WICH IS TOMORROW 08/20, CM WILL CONT TO FOLLOW D/C NEEDS. Addendum entered by Quyen Gao RN 08/19/23 07:37: CM ATTEMPTED TO CONTACT PT VIA PHONE IN ROOM AND ON FILE, NO ANSWER AND DETAOLED MESSAGE LEFT W/CM CONTACT INFO, CM WILL CONT TO FOLLOW D/C NEEDS. Original Note: cm received message from [facility] that they do not have a covid + bed at this time, cm also received message from [facility] this am reporting they are unable to accommodate, ref to be expanded to [facility], cm will cont to follow.
[2023-08-19 07:45] LABS: Hematocrit 45.3 % (37.0-47.0); Hemoglobin 15.1 g/dl (12.0-16.0); Mean Corpuscular HGB Conc 33.3 g/dl (31.0-35.0); Mean Corpuscular Hemoglobin 30.2 pg (27.0-33.0); Mean Corpuscular Volume 90.6 fL (80.0-98.0); Mean Platelet Volume 10.1 fL (9.4-12.3); Platelet Count 220 X10*3/uL (160-400); Red Cell Distribution Width 14.4 % (11.0-16.0); White Blood Count 7.1 X10*3/uL (4.8-10.8)
[2023-08-19 07:57] LABS: Anion Gap 14 (12-20); Blood Urea Nitrogen 15 mg/dL (9-16); Calcium 8.6 mg/dL (8.4-10.2); Carbon Dioxide 25 mmol/L (22-29); Chloride 104 mmol/L (96-108); Creatinine Clr Calc Pharmacy 52.5; Estimated Glomerular Filt Rate > 60; Glucose Random 96 mg/dL (60-115); Potassium 3.5 mmol/L (3.3-5.1); Sodium 139 mmol/L (135-145)
[2023-08-19] MEDS: Aspirin Enteric Coated 81 MG TABLET.DR PO (09:15)
[2023-08-19] MEDS: lisinopriL 10 MG TABLET PO (09:33)
[2023-08-19] MEDS: Sertraline HCL 50 MG TABLET 150 MG PO (09:33)
[2023-08-19] MEDS: Gabapentin 100 MG CAPSULE PO ×2 (09:33→20:49)
[2023-08-19] MEDS: buPROPion HCl XL 300 MG TAB.ER.24H PO (09:34)
[2023-08-19] MEDS: Clopidogrel Bisulfate 75 MG TABLET PO (09:34)
[2023-08-19] MEDS: amLODIPine Besylate 5 MG TABLET PO (09:34)
[2023-08-19] MEDS: Buprenorphine/Naloxone 8/2 mg FILM 1 FILM SUBLINGUAL ×2 (09:35→20:50)
[2023-08-19] MEDS: Nicotine 7 MG PATCH.TD24 TRANSDERMA (09:36)
[2023-08-19] MEDS: Albuterol/Iprat 2.5/0.5MG 3 ML AMPUL.NEB INHALE (11:38)
--- NOTE | 2023-08-19 12:06 | HO.PM.IMPN ---
Subjective Subjective Date of Service: 08/19/23 Interval History: ondynophagia, dysphagia Physical Exam Vital Signs: Vital Signs: Last Vital Signs Temp 99.1 F 08/19/23 11:30 Pulse 92 08/19/23 11:42 Resp 18 08/19/23 11:42 BP 146/65 H 08/19/23 11:30 Pulse Ox 95 08/19/23 11:30 O2 Del Method Nasal Cannula 08/19/23 11:30 O2 Flow Rate 3 08/19/23 11:30 Oxygen Flow Rate 2 08/15/23 10:52 BMI result Body Mass Index 20.7 Const: Other: Constitutional : Awake, interactive, not in distress Neck : Normal inspection, Supple Cardiovascular : RRR, no JVP, no lower extremity edema Respiratory : good bilateral air entry, no crackles, fine expiratory wheezes Gastrointestinal: soft, lax, Normal bowel sounds, Non tender Skin : Warm, Dry Neurological : Alert & oriented x3, No focal deficit Objective Data Active Medications Acetaminophen (Acetaminophen 325 Mg Tablet) 650 mg PO Q6H PRN PRN Reason: Pain, Mild (Pain Scale 1-3) Last Admin: 08/18/23 15:28 Dose: 650 mg Documented By: GUILLERMINA Al Hydroxide/Mg Hydroxide (Magnesium Hydrox/Alum Hydrox 30 Ml Oral.Susp) 15 ml PO Q6H PRN PRN Reason: Heartburn Last Admin: 08/18/23 20:02 Dose: 15 ml Documented By: BERNIE Albuterol/Ipratropium (Albuterol/Iprat 2.5/0.5mg 3 Ml Ampul.Neb) 3 ml INHALE RQ4H WHILE AWAKE [facility] Last Admin: 08/19/23 11:38 Dose: 3 ml Documented By: KAITLYN Amlodipine Besylate (Amlodipine Besylate 5 Mg Tablet) 5 mg PO DAILY [facility]; Protocol Last Admin: 08/19/23 09:34 Dose: 5 mg Documented By: BENI Aspirin (Aspirin Enteric Coated 81 Mg Tablet.Dr) 81 mg PO DAILY [facility] Last Admin: 08/18/23 15:28 Dose: 81 mg Documented By: GUILLERMINA Buprenorphine/Naloxone (Buprenorphine/Naloxone 8/2 Mg Film) 1 film SUBLINGUAL BID [facility] Last Admin: 08/19/23 09:35 Dose: 1 film Documented By: BENI Bupropion HCl (Bupropion Hcl Xl 300 Mg Tab.Er.24h) 300 mg PO DAILY [facility] Last Admin: 08/19/23 09:34 Dose: 300 mg Documented By: BENI Clopidogrel Bisulfate (Clopidogrel Bisulfate 75 Mg Tablet) 75 mg PO DAILY [facility] Last Admin: 08/19/23 09:34 Dose: 75 mg Documented By: BENI Docusate Sodium (Docusate Sodium 100 Mg Capsule) 100 mg PO DAILY PRN PRN Reason: Constipation Gabapentin (Gabapentin 100 Mg Capsule) 100 mg PO BID [facility] Last Admin: 08/19/23 09:33 Dose: 100 mg Documented By: BENI Lisinopril (Lisinopril 10 Mg Tablet) 10 mg PO DAILY [facility]; Protocol Last Admin: 08/19/23 09:33 Dose: 10 mg Documented By: BENI Lorazepam (Lorazepam 0.5 Mg Tablet) 0.5 mg PO Q8H PRN PRN Reason: Anxiety Mirtazapine (Mirtazapine 7.5 Mg Tablet) 22.5 mg PO BEDTIME [facility] Last Admin: 08/18/23 20:49 Dose: 11.25 mg Documented By: TIMO Comments: per patient request. Nicotine (Nicotine 7 Mg Patch.Td24) 7 mg TRANSDERMA DAILY [facility] Last Admin: 08/19/23 09:36 Dose: 7 mg Documented By: BENI Non-Formulary Medication (Umeclidinium-Vilanterol [Anoro Ellipta]) 1 each PO DAILY [facility] Omeprazole (Omeprazole 20 Mg Capsule.) 20 mg PO DAILY@0630 [facility] Last Admin: 08/19/23 05:39 Dose: 20 mg Documented By: TIMO Ondansetron HCl (Ondansetron Hcl 4 Mg/2 Ml Vial) 4 mg IVPUSH Q8H PRN PRN Reason: Nausea and Vomiting Last Admin: 08/18/23 20:52 Dose: 4 mg Documented By: TIMO Sertraline HCl (Sertraline Hcl 50 Mg Tablet) 150 mg PO DAILY [facility] Last Admin: 08/19/23 09:33 Dose: 150 mg Documented By: BENI Sodium Chloride (0.9 % Sodium Chloride Flush 3 Ml Syringe) 3 ml IVFLUSH QSHIFT REPLACED BY [facility] Last Admin: 08/19/23 09:35 Dose: 3 ml Documented By: BENI Labs 08/19/23 07:08 08/19/23 07:08 Labs: Laboratory Results - last 24 hr 08/19/23 07:08 MCV 90.6 MCH 30.2 MCHC 33.3 RDW 14.4 Plt Count 220 MPV 10.1 Absolute Nucleated RBC 0.000 Nucleated RBC % (auto) 0.0 Anion Gap 14 Estim Creat Clear Calc 52.5 Estimated GFR > 60 Random Glucose 96 Calcium 8.6 Assessment and Plan (1) Polycythemia: Status: Acute (2) Intractable nausea and vomiting: Status: Acute (3) COVID-19: Status: Acute Plan 73F PMH chronic hypoxemic respiratory failure on 3 L supplemental O2 at baseline secondary to COPD, depression, polysubstance abuse, opioid dependence on Suboxone, chronic low back pain, osteopenia, history of invasive ductal carcinoma of the breast s/p mastectomy and chemotherapy who is a current 1/4 pack cigarette smoker admitted for COVID-19 related intractable nausea and vomiting with p.o. intolerance and hyperkalemia. intractable nausea and vomiting secondary to COVID-19 improving Ondansetron prn Hold on steroids as no hypoxia Airborne/contact precautions encourage PO intake odynophagia/dysphagia barium swallow Physical deconditioning PT rec SNF Acute Hypokalemia resolved Polycythemia likley dehydration Hb down to 16.4, multifactorial with dehydration, chronic hypoxia, smoking .. low EPO Hematology eval, repeat CBC in few weeks and can be followed as outpatient if phlebotomy needed Black stool not collected , pending occult monitor H&H PPI DC GI consult at this point and restart dual antiplatelets advance diet and monitor opioid dependence resume suboxone Polysubstance abuse utox positive for opiates, fentanyl, cocaine addiction med consult COPD with chronic hypoxemic respiratory failure no acute exacerbation continue maintenance inhalers, albuterol prn continue home supplemental O2 @3L Depression continue home meds Cigarette smoker nicotine patch for nrt cessation counseling DVT prophylaxis- lovenox Full code reason for continued hospitalization:awaiting bed Time Spent With Patient Time: Total time managing care of this patient today ____ minutes. Quality Stroke Does the patient have a stroke diagnosis?: No VTE Prior VTE?: No VTE Risk Level:: Medical - moderate - high VTE Device Contraindication: Treatment Not Indicated VTE Drug Contraindication: N/A - Med Ordered
[2023-08-19] MEDS: Mirtazapine 7.5 MG TABLET 22.5 MG PO (20:46)
[2023-08-20 03:43] VITALS: BP 114/56; PULSE 81; RESP 18; TEMP 36.2; O2SAT 94
[2023-08-20] MEDS: Omeprazole 20 MG CAPSULE.DR PO (06:12)
[2023-08-20 06:59] LABS: Hematocrit 42.5 % (37.0-47.0); Hemoglobin 14.5 g/dl (12.0-16.0); Mean Corpuscular HGB Conc 34.1 g/dl (31.0-35.0); Mean Corpuscular Hemoglobin 30.7 pg (27.0-33.0); Mean Platelet Volume 10.1 fL (9.4-12.3); Platelet Count 225 X10*3/uL (160-400); Red Blood Count 4.72 X10*6/uL (4.20-5.50); Red Cell Distribution Width 14.4 % (11.0-16.0); White Blood Count 8.1 X10*3/uL (4.8-10.8)
[2023-08-20 07:33] LABS: Anion Gap 15 (12-20); Blood Urea Nitrogen 14 mg/dL (9-16); Calcium 8.6 mg/dL (8.4-10.2); Carbon Dioxide 27 mmol/L (22-29); Chloride 102 mmol/L (96-108); Estimated Glomerular Filt Rate > 60; Glucose Fasting 99 mg/dL (60-99); Potassium 3.3 mmol/L (3.3-5.1); Sodium 141 mmol/L (135-145)
[2023-08-20 08:00] VITALS: BP 111/66; PULSE 110; RESP 20; TEMP 37.1; O2SAT 93
[2023-08-20] MEDS: Aspirin Enteric Coated 81 MG TABLET.DR PO (08:11)
[2023-08-20] MEDS: Sertraline HCL 50 MG TABLET 150 MG PO (08:11)
[2023-08-20] MEDS: buPROPion HCl XL 300 MG TAB.ER.24H PO (08:11)
[2023-08-20] MEDS: amLODIPine Besylate 5 MG TABLET PO (08:12)
[2023-08-20] MEDS: Clopidogrel Bisulfate 75 MG TABLET PO (08:12)
[2023-08-20] MEDS: Gabapentin 100 MG CAPSULE PO (08:12)
[2023-08-20] MEDS: lisinopriL 10 MG TABLET PO (08:12)
[2023-08-20] MEDS: Nicotine 7 MG PATCH.TD24 TRANSDERMA (08:13)
[2023-08-20 08:44] VITALS: BP 111/66; PULSE 110; O2SAT 93
--- NOTE | 2023-08-20 11:27 | HO.PM.IMPN ---
Subjective Subjective Date of Service: 08/20/23 Interval History: improving Physical Exam Vital Signs: Vital Signs: Last Vital Signs Temp 98.8 F 08/20/23 08:00 Pulse 110 H 08/20/23 08:44 Resp 20 08/20/23 08:00 BP 111/66 08/20/23 08:44 Pulse Ox 93 08/20/23 08:44 O2 Del Method Nasal Cannula 08/20/23 08:00 O2 Flow Rate 2 08/20/23 08:00 Oxygen Flow Rate 2 08/15/23 10:52 BMI result Body Mass Index 20.7 Const: Other: Constitutional : Awake, interactive, not in distress Neck : Normal inspection, Supple Cardiovascular : RRR, no JVP, no lower extremity edema Respiratory : good bilateral air entry, no crackles, fine expiratory wheezes Gastrointestinal: soft, lax, Normal bowel sounds, Non tender Skin : Warm, Dry Neurological : Alert & oriented x3, No focal deficit Objective Data Active Medications Acetaminophen (Acetaminophen 325 Mg Tablet) 650 mg PO Q6H PRN PRN Reason: Pain, Mild (Pain Scale 1-3) Last Admin: 08/18/23 15:28 Dose: 650 mg Documented By: GUILLERMINA Al Hydroxide/Mg Hydroxide (Magnesium Hydrox/Alum Hydrox 30 Ml Oral.Susp) 15 ml PO Q6H PRN PRN Reason: Heartburn Last Admin: 08/18/23 20:02 Dose: 15 ml Documented By: BERNIE Albuterol/Ipratropium (Albuterol/Iprat 2.5/0.5mg 3 Ml Ampul.Neb) 3 ml INHALE RQ4H WHILE AWAKE [facility] Last Admin: 08/20/23 08:23 Dose: Not Given Documented By: ANNELIESE Non-Admin Reason: Patient Refused Amlodipine Besylate (Amlodipine Besylate 5 Mg Tablet) 5 mg PO DAILY [facility]; Protocol Last Admin: 08/20/23 08:12 Dose: 5 mg Documented By: BENI Aspirin (Aspirin Enteric Coated 81 Mg Tablet.Dr) 81 mg PO DAILY [facility] Last Admin: 08/20/23 08:11 Dose: 81 mg Documented By: BENI Buprenorphine/Naloxone (Buprenorphine/Naloxone 8/2 Mg Film) 1 film SUBLINGUAL BID [facility] Last Admin: 08/20/23 08:14 Dose: Not Given Documented By: BENI Non-Admin Reason: Patient Refused Bupropion HCl (Bupropion Hcl Xl 300 Mg Tab.Er.24h) 300 mg PO DAILY [facility] Last Admin: 08/20/23 08:11 Dose: 300 mg Documented By: BENI Clopidogrel Bisulfate (Clopidogrel Bisulfate 75 Mg Tablet) 75 mg PO DAILY [facility] Last Admin: 08/20/23 08:12 Dose: 75 mg Documented By: BENI Docusate Sodium (Docusate Sodium 100 Mg Capsule) 100 mg PO DAILY PRN PRN Reason: Constipation Gabapentin (Gabapentin 100 Mg Capsule) 100 mg PO BID [facility] Last Admin: 08/20/23 08:12 Dose: 100 mg Documented By: BENI Lisinopril (Lisinopril 10 Mg Tablet) 10 mg PO DAILY [facility]; Protocol Last Admin: 08/20/23 08:12 Dose: 10 mg Documented By: BENI Lorazepam (Lorazepam 0.5 Mg Tablet) 0.5 mg PO Q8H PRN PRN Reason: Anxiety Mirtazapine (Mirtazapine 7.5 Mg Tablet) 22.5 mg PO BEDTIME [facility] Last Admin: 08/19/23 20:46 Dose: 3.75 mg Documented By: JAMSHID Comments: per patient request Nicotine (Nicotine 7 Mg Patch.Td24) 7 mg TRANSDERMA DAILY [facility] Last Admin: 08/20/23 08:13 Dose: 7 mg Documented By: BENI Non-Formulary Medication (Umeclidinium-Vilanterol [Anoro Ellipta]) 1 each PO DAILY [facility] Omeprazole (Omeprazole 20 Mg Capsule.) 20 mg PO DAILY@0630 [facility] Last Admin: 08/20/23 06:12 Dose: 20 mg Documented By: JAMSHID Ondansetron HCl (Ondansetron Hcl 4 Mg/2 Ml Vial) 4 mg IVPUSH Q8H PRN PRN Reason: Nausea and Vomiting Last Admin: 08/18/23 20:52 Dose: 4 mg Documented By: TIMO Sertraline HCl (Sertraline Hcl 50 Mg Tablet) 150 mg PO DAILY [facility] Last Admin: 08/20/23 08:11 Dose: 150 mg Documented By: BENI Sodium Chloride (0.9 % Sodium Chloride Flush 3 Ml Syringe) 3 ml IVFLUSH QSHIFT [facility] Last Admin: 08/20/23 08:11 Dose: 3 ml Documented By: BENI Labs 08/20/23 06:21 08/20/23 06:21 Labs: Laboratory Results - last 24 hr 08/20/23 06:21 MCV 90.0 MCH 30.7 MCHC 34.1 RDW 14.4 Plt Count 225 MPV 10.1 Absolute Nucleated RBC 0.000 Nucleated RBC % (auto) 0.0 Anion Gap 15 Estim Creat Clear Calc 51.0 Estimated GFR > 60 Fasting Glucose 99 Calcium 8.6 Assessment and Plan (1) Polycythemia: Status: Acute (2) Intractable nausea and vomiting: Status: Acute (3) COVID-19: Status: Acute Plan 73F PMH chronic hypoxemic respiratory failure on 3 L supplemental O2 at baseline secondary to COPD, depression, polysubstance abuse, opioid dependence on Suboxone, chronic low back pain, osteopenia, history of invasive ductal carcinoma of the breast s/p mastectomy and chemotherapy who is a current 1/4 pack cigarette smoker admitted for COVID-19 related intractable nausea and vomiting with p.o. intolerance and hyperkalemia. intractable nausea and vomiting secondary to COVID-19 improving Ondansetron prn Hold on steroids as no hypoxia Airborne/contact precautions encourage PO intake odynophagia/dysphagia barium swallow Physical deconditioning PT rec SNF Acute Hypokalemia resolved Polycythemia likley dehydration Hb down to 16.4, multifactorial with dehydration, chronic hypoxia, smoking .. low EPO Hematology eval, repeat CBC in few weeks and can be followed as outpatient if phlebotomy needed Black stool not collected , pending occult monitor H&H PPI DC GI consult at this point and restart dual antiplatelets advance diet and monitor opioid dependence resume suboxone Polysubstance abuse utox positive for opiates, fentanyl, cocaine addiction med consult COPD with chronic hypoxemic respiratory failure no acute exacerbation continue maintenance inhalers, albuterol prn continue home supplemental O2 @3L Depression continue home meds Cigarette smoker nicotine patch for nrt cessation counseling DVT prophylaxis- lovenox Full code reason for continued hospitalization:awaiting bed Time Spent With Patient Time: Total time managing care of this patient today ____ minutes. Quality Stroke Does the patient have a stroke diagnosis?: No VTE Prior VTE?: No VTE Risk Level:: Medical - moderate - high VTE Device Contraindication: Treatment Not Indicated VTE Drug Contraindication: N/A - Med Ordered
--- NOTE | 2023-08-20 11:58 | MHC.CLN ---
F/U VARIABLE PO INTAKE RANGING FROM 25-100% N/V IMPROVED PER MD DIET RX: REGULAR-APPROPRIATE PT RECEIVING MAGIC CUP (FORTIFIED ICE CREAM) TID TO INCREASE KCALS PROVIDES 810KCALS, 27G PROTEIN MD ADDED ENSURE CLEAR TID TO PROVIDE ADDITIONAL 720KCALS, 24G PROTEIN MONITOR PO INTAKE AND ENCOURAGE SUPPLEMENTS
[2023-08-20 12:00] VITALS: BP 110/67; PULSE 110; RESP 20; TEMP 36.6; O2SAT 98
--- NOTE | 2023-08-20 13:16 | PM.DS ---
DS: Providers Provider Date of Service: 08/20/23 Date of admission: 08/15/23 17:18 Primary care physician: Geronimo Klein MD Consults: 08/15/23 17:37 Addiction Medicine Routine Consulting Provider: Addiction Covering Reason for consultation: +fentanyl, cocaine 08/17/23 09:57 Consult to Hematology / Oncology Routine Consulting Provider: Heidi Dasilva Reason for consultation: Polycythemia for your kind eval. DS: Diagnosis Discharge Diagnosis (1) Polycythemia: Status: Acute (2) Intractable nausea and vomiting: Status: Acute (3) COVID-19: Status: Acute DS: Summary Hospital Course Hospital Course: from initial hpi: Patient with chronic hypoxemic respiratory failure on 3 L supplemental O2 at baseline secondary to COPD, depression, polysubstance abuse, opioid dependence on Suboxone, chronic low back pain, osteopenia, history of invasive ductal carcinoma of the breast s/p mastectomy and chemotherapy who is a current 1/4 pack cigarette smoker who presented to the ED earlier today for evaluation of intractable nausea and vomiting. The patient reports that she has been experiencing the symptoms for 2 days and has not been able to eat or drink much of anything in this time. Initially, she also had watery diarrhea but has not had any diarrhea in the last 2 days. She reports she had shortness of breath and productive cough at baseline and denies any worsening of the symptoms. She denies any fevers, chills, sore throat, congestion, abdominal pain, melena, hematochezia, headache, lightheadedness, palpitations, or chest pain. Patient does report restlessness as well. On arrival, vital stable, no acute hypoxia and patient afebrile. On admission, patient slightly tachycardic to 105 and mildly tachypneic to 24 and hypertensive to 180/87. She has missed several doses of suboxone 2/2 to her symptoms. There is no leukocytosis. Initially, with RBC 6.44, H/H 19.7/55.4 %. On recheck, RBC 6.43, H/H 19.8/55.9. Creatinine 0.82, BUN elevated at 22, sodium 135, potassium 6.5, chloride 91, CO2 24, anion gap 27. Following 2 L IV NS, a repeat potassium 3.7. Urine tox screen positive for opiates, fentanyl, cocaine. Positive for COVID-19. Chest x-ray unremarkable. In the ed received Suboxone, ondansetron, and 2 L IV NS. hospital course: Admitted for intractable nausea vomiting secondary to COVID-19. She improved with symptomatic management. She did not require steroids as she had no acute hypoxia. She was complaining odynophagia and dysphagia which is improving, if persists can pursue barium swallow as outpatient. For hypokalemia she was given replacement. She was noted to have polycythemia this was likely due to dehydration and returned to normal with proper hydration. She will follow-up CBC as outpatient. For opiate dependency is continue on Suboxone. For COPD with chronic hypoxic respiratory failure on 2 L she remained stable. For depression she was continued on antidepressants. Patient was seen by physical therapy for deconditioning and recommended to go to short-term rehab. She is expected to require less than 30 days. Time Spent with Patient Time attestation: Total time managing care of this patient today ____ minutes. Discharge coordination time: Greater than 30 minutes Quality: Safe Use of Opioids Does Pt have an Active Cancer Diagnosis on the Problem List?: No Quality: Stroke Does the patient have a stroke diagnosis?: No Physical Exam Vital Signs: Vital Signs: Last Vital Signs Temp 97.8 F 08/20/23 12:00 Pulse 110 H 08/20/23 12:00 Resp 20 08/20/23 12:00 BP 110/67 08/20/23 12:00 Pulse Ox 98 08/20/23 12:00 O2 Del Method Nasal Cannula 08/20/23 12:00 O2 Flow Rate 2 08/20/23 12:00 Oxygen Flow Rate 2 08/15/23 10:52 BMI result Body Mass Index 20.7 Const: Other: Constitutional : Awake, interactive, not in distress Neck : Normal inspection, Supple Cardiovascular : RRR, no JVP, no lower extremity edema Respiratory : good bilateral air entry, no crackles, fine expiratory wheezes Gastrointestinal: soft, lax, Normal bowel sounds, Non tender Skin : Warm, Dry Neurological : Alert & oriented x3, No focal deficit DS: Data Data Completed and Pending Labs on day of discharge: Laboratory Results - last 24 hr 08/20/23 06:21 WBC 8.1 RBC 4.72 Hgb 14.5 Hct 42.5 MCV 90.0 MCH 30.7 MCHC 34.1 RDW 14.4 Plt Count 225 MPV 10.1 Absolute Nucleated RBC 0.000 Nucleated RBC % (auto) 0.0 Sodium 141 Potassium 3.3 Chloride 102 Carbon Dioxide 27 Anion Gap 15 BUN 14 Creatinine 0.68 Estim Creat Clear Calc 51.0 Estimated GFR > 60 Fasting Glucose 99 Calcium 8.6 Discharge Plan Discharge Anticipated Discharge Date/Time: 08/20/23 13:14 Patient Disposition: Xfer SNF Discharge Diagnosis: covid Referrals: Name,MD Geronimo [Primary Care Provider] - 1 Week Discharge Medications: New amlodipine 5 mg Tablet 5 mg PO DAILY Qty: 0 0RF Protocol: Hold for SBP< HOLD for SBP < : 90 lisinopril 10 mg Tablet 10 mg PO DAILY Qty: 0 0RF Protocol: Hold for SBP< HOLD for SBP < : 90 Continued Anoro Ellipta 62.5-25 mcg/actuation blister with device 1 ea PO DAILY Qty: 60 4RF Combivent Respimat 20-100 mcg/actuation mist 2 puff inhalation QID 30 Days Qty: 4 6RF gabapentin 100 mg capsule 100 mg PO BID 30 Days Qty: 60 3RF sertraline 100 mg tablet 150 mg PO DAILY mirtazapine [Remeron] 15 mg tablet 22.5 mg PO BEDTIME celecoxib 200 mg capsule 200 mg PO DAILY omeprazole 20 mg capsule,delayed release(DR/EC) 20 mg PO DAILY@0630 cholecalciferol (vitamin D3) 50 mcg (2,000 unit) tablet 50 mcg PO DAILY buprenorphine-naloxone [Suboxone] 8-2 mg film 1 film sublingual BID acetaminophen [Pain Relief ES (acetaminophen)] 500 mg tablet 1,000 mg PO Q6H PRN (Reason: Pain) clopidogrel 75 mg tablet 75 mg PO DAILY bupropion HCl 300 mg tablet extended release 24 hr 300 mg PO DAILY aspirin 81 mg tablet,delayed release (DR/EC) 81 mg PO DAILY Discharge Orders: Discharge Order (Routine); Ordered 08/20/23 Ordered By: Evan Francisco Diet: Advance to usual diet Activity on Discharge: As tolerated Stand Alone Forms: Patient Portal Discharge page Care Plan Goals: recovery Health Concerns: covid Plan of Treatment: pt Assessment: see above
--- NOTE | 2023-08-20 14:47 | MHC.CM.PN ---
PT MEDICALLY CLEARED FOR D/C TO STR AT [facility], BIBI WILL TRANSPORT AT 5PM. PT DID COMPLETE A HCP NAMING HER DTR MARK (NUMBER ON FILE) HER [facility], PT REPORTS SHE ONLY COMPLETED TO GET INTO STR PER REQUIREMENT FORM [facility] AND WILL LIKELY REVOKE IT ONCE STR IS COMPLETE, PT PROVIDED W/EDUCATIONAL HANDOUT, ORIGINAL AND ONE COPY, COPY UPLOADED TO [facility] AND PLACED IN CHART.
[2023-08-20 16:00] VITALS: BP 128/62; PULSE 95; RESP 18; TEMP 36.8; O2SAT 90
== END 2023-08-20 17:25 | disposition skilled nursing facility (03) | DRG 178 ==
LOC: HO.ED 16:42 → HO.EDOVER 17:29 → HO.IMC 08-16 01:22
PROVIDERS: Student in an Organized Health Care Education/Training Program; Admitting Provider Physician Assistant; Emergency Provider Emergency Medicine; PCP Internal Medicine Geriatric Medicine; Visit Provider Internal Medicine
DX: U07.1 COVID-19 (principal); F11.23 Opioid dependence with withdrawal; J96.11 Chronic respiratory failure with hypoxia; Z99.81 Dependence on supplemental oxygen; E86.1 Hypovolemia; F19.10 Other psychoactive substance abuse, uncomplicated; Z85.3 Personal history of malignant neoplasm of breast; E87.5 Hyperkalemia; E86.0 Dehydration; D75.1 Secondary polycythemia; T40.496A Underdosing of other synthetic narcotics, initial encounter; F32.A Depression, unspecified; R13.10 Dysphagia, unspecified; F17.210 Nicotine dependence, cigarettes, uncomplicated; R11.2 Nausea with vomiting, unspecified; Z23 Encounter for immunization; Z71.6 Tobacco abuse counseling; Z79.02 Long term (current) use of antithrombotics/antiplatelets; Z79.82 Long term (current) use of aspirin; Z79.899 Other long term (current) drug therapy
CPT/HCPCS: 36415; 71045; 80048; 80053; 80307; 81001; 82248; 82668; 83690; 84132; 85025; 85027; 87502; 87635; 90686; 92950; 93005; 94640; 97116; 97162; 99285; J1650; J1790; J2270; J2405; J3475

== ENCOUNTER → 2023-08-15 17:18 | Outpatient (BNV) | payer OTHER, SELFPAY | PROVIDERS: Admitting Provider Physician Assistant; Emergency Provider Emergency Medicine; PCP Internal Medicine Geriatric Medicine; Visit Provider Physician Assistant | DX: U07.1 COVID-19 (principal); D75.1 Secondary polycythemia; R11.2 Nausea with vomiting, unspecified | CPT/HCPCS: 99223; 99232; 99233; 99239 ==

== ENCOUNTER → 2023-08-15 17:18 | Outpatient (BNV) | payer OTHER, SELFPAY | PROVIDERS: Admitting Provider Physician Assistant; Emergency Provider Emergency Medicine; PCP Internal Medicine Geriatric Medicine; Visit Provider Internal Medicine | DX: D75.1 Secondary polycythemia (principal) | CPT/HCPCS: 99222 ==

== ENCOUNTER 2023-12-15 10:34 | Outpatient (REF) | payer OTHER, SELFPAY ==
[2023-12-15 13:03] LABS: Anion Gap 12 (12-20); Blood Urea Nitrogen 9 mg/dL (9-16); Calcium 9.4 mg/dL (8.4-10.2); Carbon Dioxide 25 mmol/L (22-29); Chloride 107 mmol/L (96-108); Estimated Glomerular Filt Rate > 60; Glucose Random 125 mg/dL (60-115); Sodium 140 mmol/L (135-145)
== END 2023-12-15 10:35 | disposition home or self-care (01) ==
LOC: HO.HHCL 10:34
PROVIDERS: Visit Provider Internal Medicine Geriatric Medicine
DX: I10 Essential (primary) hypertension (principal)
CPT/HCPCS: 36415; 80048

== ENCOUNTER 2024-02-22 21:32 | Emergency (ER) | payer OTHER, SELFPAY ==
--- NOTE | ~2024-02-22 | XR_ITS ---
EXAMINATION: XR CHEST CLINICAL INFORMATION: Dyspnea COMPARISON: 08/15/2023 TECHNIQUE: Frontal view of the chest was obtained. FINDINGS: Lungs are hyperinflated consistent with emphysema. TAVR is present. Some minimal bibasilar atelectasis is seen. Heart size normal without evidence of CHF. No consolidations or pleural effusions. No pneumothorax. XR/XR chest 1V IMPRESSION: Emphysema. No acute intrathoracic disease.
[2024-02-22 22:09] VITALS: BP 140/74; PULSE 115; RESP 22; TEMP 36.3; O2SAT 89; BMI 19.8
--- NOTE | 2024-02-22 22:24 | ECG_ITS ---
Test Reason : COCAINE Blood Pressure : / mmHG Vent. Rate : 108 BPM Atrial Rate : 108 BPM P-R Int : 168 ms QRS Dur : 078 ms QT Int : 354 ms P-R-T Axes : 079 030 074 degrees QTc Int : 474 ms Sinus tachycardia Right atrial enlargement Septal infarct (cited on or before 22-FEB-2024) Abnormal ECG When compared with ECG of 18-AUG-2023 17:49, No significant change was found Referred By: Generic ED Physician Electronically Signed By:RONY DE PAZ
[2024-02-22 22:32] VITALS: PULSE 111; RESP 20; O2SAT 89
--- NOTE | 2024-02-22 22:32 | ED.PSYCH ---
HPI - Psych General Chief Complaint: ETOH/Substance Use Stated Complaint: relapsed after 10years/looking for detox Time Seen by Provider: 02/22/24 22:30 Source: patient Mode of arrival: EMS Limitations: no limitations History of Present Illness HPI Narrative: Patient with history of heroin and cocaine abuse was clean for 10 years been using heroin cocaine for last year off and on more so for last 1 week does have history of COPD use 3 L of oxygen which she is noncompliant today patient use tea bags of heroin and cocaine at 1730 was saturating 85 %, on 3 L improved to 89% denies any cough no fever no chest pain Related Data Home Medications ?Medication ?Instructions ?Recorded ?Confirmed buprenorphine 8 mg-naloxone 2 mg 1 film sublingual BID 09/12/21 08/15/23 sublingual film (Suboxone) celecoxib 200 mg capsule 200 mg PO DAILY 09/12/21 08/15/23 cholecalciferol (vitamin D3) 50 50 mcg PO DAILY 09/12/21 08/15/23 mcg (2,000 unit) tablet omeprazole 20 mg capsule,delayed 20 mg PO DAILY@0630 09/12/21 08/15/23 release acetaminophen 500 mg tablet (Pain 1,000 mg PO Q6H PRN Pain 03/02/23 08/15/23 Relief Extra Strength (acetaminophen)) aspirin 81 mg tablet,delayed 81 mg PO DAILY 03/30/23 08/15/23 release bupropion HCl 300 mg 24 hr tablet, 300 mg PO DAILY 07/22/23 08/15/23 extended release clopidogrel 75 mg tablet 75 mg PO DAILY 07/22/23 08/15/23 mirtazapine 15 mg tablet (Remeron) 22.5 mg PO BEDTIME 08/15/23 08/15/23 sertraline 100 mg tablet 150 mg PO DAILY 08/15/23 08/15/23 Previous Rx's ?Medication ?Instructions ?Recorded amlodipine 5 mg tablet 5 mg PO DAILY #0 tabs 08/20/23 buprenorphine 8 mg-naloxone 2 mg 1 film sublingual BID #15 ea 08/20/23 sublingual film (Suboxone) lisinopril 10 mg tablet 10 mg PO DAILY #0 tabs 08/20/23 ipratropium 20 mcg-albuterol 100 1 puff inhalation QID PRN 10/25/23 mcg/actuation mist for inhalation shortness of breath or wheezing #4 (Combivent Respimat) grams gabapentin 100 mg capsule 100 mg PO BID for pain 30 days #60 12/31/23 caps Anoro Ellipta 62.5 mcg-25 1 ea inhalation DAILY #60 ea 01/24/24 mcg/actuation powder for inhalation (umeclidinium-vilanterol) Allergies Allergy/AdvReac Type Severity Reaction Status Date / Time No Known Allergies Allergy Unknown Verified 02/22/24 22:24 [No Known Allergies*] Review of Systems Review of Systems: Yes all other systems are reviewed and are negative [facility] Past Medical History Medical History Lumbar degenerative disc disease Personal history of nicotine dependence Osteopenia (~2011) History of invasive ductal carcinoma of breast (~2003) Surgical History History of section (~1976) History of appendectomy (~1993) History of tonsillectomy History of colonoscopy (~2010) History of esophagogastroduodenoscopy (EGD) (~2010) History of right mastectomy (~2004) History of laparoscopic cholecystectomy (~2008) Social History Social History Household Members: None Housing: Apartment Do you presently have visiting nurse or other home services: Yes ([employer]) Alcohol intake: current Alcohol intake frequency: does not drink Patient Tobacco Use Status: Current everyday Tobacco user Tobacco use type: Cigarette Years Smoked: 59 years (onset 13, 1/2ppd x 59yrs, now <1/4ppd, 29pyh) Smoked in Last 30 Days: Yes e-Cigarette/Vaping Use: Currently Using Use of substances other than those prescribed or required for medical reasons: Yes Substance Use Type: Crack/Cocaine and Heroin Substance Use Frequency: Chronic Longstanding Substance Use Frequency Other:: Sts has been clean, relapsed Advance Directives: No Advance Directives Information Provided: No service: No Physical Exam Vital Signs: Vital Signs: Last Vital Signs Temp 97.6 F 02/23/24 05:15 Pulse 73 02/23/24 05:15 Resp 16 02/23/24 05:15 BP 154/67 H 02/23/24 05:15 Pulse Ox 99 02/23/24 05:15 O2 Del Method Room Air, Nasal C annula 02/23/24 05:15 O2 Flow Rate 3 02/23/24 05:15 Oxygen Flow Rate 3 02/22/24 22:09 BMI result Body Mass Index 19.8 Appearance: Alert. Oriented X3. No acute distress. Thin built kyphotic Eyes: PERRLA, No Nystagmus ENT: Pharynx normal. Oral Mucosa moist Neck: Normal inspection. Neck supple. CVS: Normal heart rate and rhythm. Pulses normal. Respiratory: No respiratory distress. no wheezing/rales/rhonchi decreased air entry bilaterally Abdomen: Soft and nontender. Bowel sounds are present, Skin: Skin warm and dry. Normal skin color. Normal skin turgor. Extremities: No lower extremity edema. No calf tenderness Neuro: Oriented X 3. No motor deficit. Medical Decision Making Differential Diagnosis Patient with heroin/cocaine abuse medically cleared for detox placement which patient is requesting for Admission/Observation Consideration of admission/observation: Escalation of care including admission/observation considered Lab Data [facility] Lab Attestation statement: I reviewed the patient's lab results. 02/22/24 23:26 02/22/24 23:26 Labs: Lab Results 02/22/24 02/22/24 Range/Units 23:26 23:31 WBC 8.7 (4.8-10.8) X10*3/uL RBC 4.21 (4.20-5.50) X10*6/uL Hgb 12.4 (12.0-16.0) g/dl Hct 37.4 (37.0-47.0) % MCV 88.8 (80.0-98.0) fL MCH 29.5 (27.0-33.0) pg MCHC 33.2 (31.0-35.0) g/dl RDW 14.8 (11.0-16.0) % Plt Count 291 D (160-400) X10*3/uL MPV 9.6 (9.4-12.3) fL Immature Gran % (Auto) 0.2 (0.0-0.4) % Neut % (Auto) 65.2 (45-73) % Lymph % (Auto) 20.8 (20-40) % Kinney % (Auto) 11.9 H (2-11) % Eos % (Auto) 1.4 (0-4) % Baso % (Auto) 0.5 (0-2) % Lymph # (Auto) 1.8 (1.2-4.9) X10*3/uL Kinney # (Auto) 1.0 (0.1-1.2) X10*3/uL Eos # (Auto) 0.1 (0.0-0.4) X10*3/uL Baso # (Auto) 0.0 (0.0-0.2) X10*3/uL Abs Immat Gran (auto) 0.02 (0.00-0.03) X10*3/uL Absolute Neuts (auto) 5.7 (2.0-8.3) x10*3/uL Absolute Nucleated RBC 0.000 (0.0-0.012) X10*3/uL Nucleated RBC % (auto) 0.0 (0.0-0.2) /100WBC VBG pH 7.45 H (7.32-7.43) VBG pCO2 39 mmHg VBG pO2 62 mmHg VBG HCO3 27 H (22-26) mmol/L VBG O2 Saturation 91.0 % VBG Base Excess 3.8 mmol/L Sodium 140 (135-145) mmol/L Potassium 3.4 (3.3-5.1) mmol/L Chloride 105 (96-108) mmol/L Carbon Dioxide 27 (22-29) mmol/L Anion Gap 11 L (12-20) BUN 15 (9-16) mg/dL Creatinine 0.82 (0.5-1.4) mg/dL Estim Creat Clear Calc 42.2 Estimated GFR > 60 Random Glucose 106 (60-115) mg/dL Calcium 9.4 (8.4-10.2) mg/dL Magnesium 1.8 (1.6-2.6) mg/dL Total Bilirubin 0.3 (0.0-1.0) mg/dL AST 18 (5-31) U/L ALT 7 (0-31) U/L Alkaline Phosphatase 62 (39-117) U/L Total Protein 6.8 (6.5-8.0) g/dL Albumin 3.6 (3.5-5.0) g/dL Ethyl Alcohol < 10 mg/dL COVID-19 (JENN) Negative (Negative) COVID-19 Clin Com See Note Independent Interpretation I performed an independent interpretation of an: EKG and Plain X-Ray Interpretation: Sinus tachycardia heart rate 108 beats per minute poor progression of R-wave no acute ST-T changes no acute ischemia Radiology Impression Discussion of test interpretation with radiology: I have reviewed the radiologist's reading. External Record Review External record reviewed: Inpatient record, Office record, Outpatient record and Prior outpatient labs Discharge Plan Discharge Clinical Impression: Polysubstance abuse Patient Disposition: Still a Patient Prescriptions: No Action Combivent Respimat 20-100 mcg/actuation mist 1 puff inhalation QID PRN (Reason: shortness of breath or wheezing) Qty: 4 6RF gabapentin 100 mg capsule 100 mg PO BID 30 Days Qty: 60 3RF Anoro Ellipta 62.5-25 mcg/actuation blister with device 1 ea inhalation DAILY Qty: 60 4RF sertraline 100 mg tablet 150 mg PO DAILY mirtazapine [Remeron] 15 mg tablet 22.5 mg PO BEDTIME amlodipine 5 mg Tablet 5 mg PO DAILY Qty: 0 0RF Protocol: Hold for SBP< HOLD for SBP < : 90 lisinopril 10 mg Tablet 10 mg PO DAILY Qty: 0 0RF Protocol: Hold for SBP< HOLD for SBP < : 90 buprenorphine-naloxone [Suboxone] 8-2 mg film 1 film sublingual BID Qty: 15 0RF celecoxib 200 mg capsule 200 mg PO DAILY omeprazole 20 mg capsule,delayed release(DR/EC) 20 mg PO DAILY@0630 cholecalciferol (vitamin D3) 50 mcg (2,000 unit) tablet 50 mcg PO DAILY buprenorphine-naloxone [Suboxone] 8-2 mg film 1 film sublingual BID acetaminophen [Pain Relief ES (acetaminophen)] 500 mg tablet 1,000 mg PO Q6H PRN (Reason: Pain) clopidogrel 75 mg tablet 75 mg PO DAILY bupropion HCl 300 mg tablet extended release 24 hr 300 mg PO DAILY aspirin 81 mg tablet,delayed release (DR/EC) 81 mg PO DAILY Print Language: Syriac
[2024-02-22 23:33] LABS: MANUAL DIFF FLAG NO
[2024-02-22 23:34] LABS: Basophils Percent Auto 0.5 % (0-2); Eosinophils Absolute Auto 0.1 X10*3/uL (0.0-0.4); Eosinophils Percent Auto 1.4 % (0-4); Hematocrit 37.4 % (37.0-47.0); Hemoglobin 12.4 g/dl (12.0-16.0); Imm Gran Abs Auto 0.02 X10*3/uL (0.00-0.03); Imm Gran Pct Auto 0.2 % (0.0-0.4); Lymphocytes Absolute Auto 1.8 X10*3/uL (1.2-4.9); Lymphocytes Percent Auto 20.8 % (20-40); Mean Corpuscular HGB Conc 33.2 g/dl (31.0-35.0); Mean Corpuscular Hemoglobin 29.5 pg (27.0-33.0); Mean Corpuscular Volume 88.8 fL (80.0-98.0); Mean Platelet Volume 9.6 fL (9.4-12.3); Monocytes Percent Auto 11.9 % (2-11); Neutrophils Absolute Auto 5.7 x10*3/uL (2.0-8.3); Neutrophils Percent Auto 65.2 % (45-73); Platelet Count 291 X10*3/uL (160-400); Red Blood Count 4.21 X10*6/uL (4.20-5.50); Red Cell Distribution Width 14.8 % (11.0-16.0); White Blood Count 8.7 X10*3/uL (4.8-10.8)
[2024-02-22 23:38] LABS: Venous Blood Gas Refer to POC result
[2024-02-22 23:39] LABS: VBG Base Excess 3.8 mmol/L; VBG HCO3 27 mmol/L (22-26); VBG pCO2 39 mmHg; VBG pH 7.45 (7.32-7.43); VBG pO2 62 mmHg
[2024-02-22 23:51] LABS: Alanine Aminotransferase 7 U/L (0-31); Albumin Level 3.6 g/dL (3.5-5.0); Alkaline Phosphatase 62 U/L (39-117); Anion Gap 11 (12-20); Aspartate Amino Transferase 18 U/L (5-31); Bilirubin Total 0.3 mg/dL (0.0-1.0); Blood Urea Nitrogen 15 mg/dL (9-16); Calcium 9.4 mg/dL (8.4-10.2); Carbon Dioxide 27 mmol/L (22-29); Chloride 105 mmol/L (96-108); Creatinine Clr Calc Pharmacy 42.2; Estimated Glomerular Filt Rate > 60; Ethanol < 10 mg/dL; Glucose Random 106 mg/dL (60-115); Magnesium 1.8 mg/dL (1.6-2.6); Potassium 3.4 mmol/L (3.3-5.1); Sodium 140 mmol/L (135-145); Total Protein 6.8 g/dL (6.5-8.0)
[2024-02-23] VITALS (7 sets, daily range): BP systolic 129–159; BP diastolic 57–90; PULSE 68–93; RESP 14–18; TEMP 36.4–37.1; O2SAT 93–99
[2024-02-23 00:05] LABS: COVID-19 Test Negative (Negative); IDNOW Serial# 6674DD1D
--- NOTE | 2024-02-23 09:24 | PC.NURSE ---
PT IS SLEEPING RESP EVEN AND UNLABORED.
[2024-02-23 11:02] LABS: Amphetamine Screen Urine Not Detected (Not Detect); Barbiturates, Urine Not Detected (Not Detect); Benzodiazepines Screen Urine Not Detected (Not Detect); Buprenorphine Scr Not Detected (Not Detect); Cannabinoid Screen Urine Not Detected (Not Detect); Cocaine Screen Urine POSITIVE (Not Detect); Fentanyl, urine POSITIVE (Not Detect); Methadone Screen, Urine Not Detected (Not Detect); Opiate Screen Urine POSITIVE (Not Detect); Oxycodone Screen Urine Not Detected (Not Detect); Phencyclidine Screen Urine Not Detected (Not Detect)
--- NOTE | 2024-02-23 11:15 | PC.NURSE ---
PT SEEN BY CARE TEAM PT AWARE OF PLAN OF CARE.
--- NOTE | 2024-02-23 12:40 | MHC.CARE ---
Patient evaluated by the CARE Team, disposition inpatient psychiatric care. ED provider RALEIGH Diaz updated.
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
--- NOTE | 2024-02-23 14:11 | PC.NURSE ---
PT AWARE OF PLAN OF CARE FOR INPATIEINT BED SEARCH
--- NOTE | 2024-02-23 15:24 | MHC.RECOVRN ---
Attempted to meet with pt to assess for withdrawal. Pt sleeping, does not wake to voice, appears comfortable. Katie Robles APRN, aware.
--- NOTE | 2024-02-23 18:45 | PC.NURSE ---
this rn assumed care of pt @ [id number]. pt sleeping on and off awakes to name. pt boosted up in bed and provided dinner. pt awake eating dinner at this time
--- NOTE | 2024-02-23 19:43 | PC.NURSE ---
this rn contacted pharmacy regarding med rec. yajaira mondragon in pharmacy staff member will be down shortly for med rec
[2024-02-24 00:04] VITALS: BP 149/71; PULSE 74; RESP 14; O2SAT 98
--- NOTE | 2024-02-24 03:13 | PC.NURSE ---
Pt sleeping at the bedside. No apparent distress noted. Breaths are even regular and unlabored with equal chest rises. Monitoring is ongoing.
[2024-02-24 06:11] VITALS: BP 173/87; PULSE 75; RESP 14; TEMP 36.7; O2SAT 99
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
--- NOTE | 2024-02-24 08:32 | PHA.MEDREC ---
Pharmacy Consult ? Medication Reconciliation Pharmacy has completed the medication reconciliation. used pharmacy claim history and list from [facility]
--- NOTE | 2024-02-24 10:28 | MHC.RECOVRN ---
Met with pt to follow up, assess for withdrawal, and provide support. Pt laying in bed, awake, easily engages in conversation. Pt reports restless legs throughout the night, upset stomach, weakness, and anxiety. Discussed/educated pt on restart of Suboxone, pt fearful of precipitated withdrawal. Pt requesting methadone taper as she has had positive experiences with it at [facility]. Pt denies other questions or concerns. Discussed with Katie Robles APRN.
--- NOTE | 2024-02-24 11:04 | PM.EVENT ---
Event Note Date of Service: 02/24/24 Event Note: Addiction note Patient in ED awaiting psychiatric admission Last fentanyl use Wednesday evening (2 days ago) Declining suboxone dosing due to concern of precipitated withdrawal. --RN educated on macrodosing to decrease risk of precipitated withdrawal and comfort medications to address sx. Patient still declining and requesting methadone taper. Plan: will follow up with patient Time Spent With Patient Time: Total time managing care of this patient today ____ minutes.
[2024-02-24 11:14] VITALS: BP 171/76; PULSE 75; RESP 16; TEMP 36.1; O2SAT 96
[2024-02-24 11:42] LABS: Appearance Urine Turbid; Color Urine Yellow; Glucose Urine UA Negative (Negative); Leukocyte Esterase Urine Negative (Negative); Nitrite Urine Negative (Negative); PH >= 9.0 (5.0-9.0); Specific Gravity - Urine 1.015 (1.005-1.025); Urine Blood Negative (Negative); Urine Ketones Negative (Negative); Urine Protein Negative (Neg-Trace)
--- NOTE | 2024-02-24 12:36 | HO.ADDICTCON ---
History of Present Illness Date of Service: 02/24/24 Chief Complaint: relapsed after 10years/looking for detox Reason for Consult: OUD--withdrawal Sources of Information: patient interviewed and chart reviewed HPI Narrative: Patient is a 73 year old female currently in the ED awaiting psychiatric admission for sever depression. She had been in recovery from opiate use for over 10 years and taking suboxone, however over the last month started to use heroin and cocaine again and stopped taking her suboxone. She was seen by orthopedically impaired teacher and expressed concern about restarting suboxone related to precipitated withdrawal. Seen by this aligner typewriter in room 13 of main ED. Laying on her side, awake, engaged in interview. She reports being afraid to start suboxone, afraid she is going to start throwing up. Attempted to provider reassurance about managing sx here, but she appeared to get more anxious as the conversation proceeded. Discussed comfort medications to address body aches and restless legs she was reporting, but she is worried to take anything by mouth. She is requesting a methadone taper as she had when she went to [facility] 10 years ago. Discussed possible challenge with starting that here not knowing where placement will be. She reports restless legs, nausea, body aches, overall not feeling well Review of Systems Constitutional: Reports as per HPI Diagnostics Vital Signs (24Hr): Vital Signs - 24 hr 02/23/24 13:44 02/23/24 18:08 02/24/24 00:04 Temperature 97.9 F Pulse Rate 68 76 74 Respiratory Rate 18 16 14 Blood Pressure 137/71 158/74 H 149/71 H Pulse Oximetry 95 94 98 Oxygen Delivery Method Nasal Cannula Nasal Cannula Nasal Cannula Oxygen Flow Rate 3 3 2 02/24/24 06:11 02/24/24 11:14 Temperature 98.0 F 96.9 F Pulse Rate 75 75 Respiratory Rate 14 16 Blood Pressure 173/87 H 171/76 H Pulse Oximetry 99 96 Oxygen Delivery Method Nasal Cannula Nasal Cannula Oxygen Flow Rate 2 3 BMI result Body Mass Index 19.8 Labs 02/22/24 23:26 02/22/24 23:26 Labs: Laboratory Results - last 48 hr 02/22/24 02/22/24 02/23/24 23:26 23:31 10:37 WBC 8.7 RBC 4.21 Hgb 12.4 Hct 37.4 MCV 88.8 MCH 29.5 MCHC 33.2 RDW 14.8 Plt Count 291 D MPV 9.6 Immature Gran % (Auto) 0.2 Neut % (Auto) 65.2 Lymph % (Auto) 20.8 Rankin % (Auto) 11.9 H Eos % (Auto) 1.4 Baso % (Auto) 0.5 Lymph # (Auto) 1.8 Rankin # (Auto) 1.0 Eos # (Auto) 0.1 Baso # (Auto) 0.0 Abs Immat Gran (auto) 0.02 Absolute Neuts (auto) 5.7 Absolute Nucleated RBC 0.000 Nucleated RBC % (auto) 0.0 VBG pH 7.45 H VBG pCO2 39 VBG pO2 62 VBG HCO3 27 H VBG O2 Saturation 91.0 VBG Base Excess 3.8 Sodium 140 Potassium 3.4 Chloride 105 Carbon Dioxide 27 Anion Gap 11 L BUN 15 Creatinine 0.82 Estim Creat Clear Calc 42.2 Estimated GFR > 60 Random Glucose 106 Calcium 9.4 Magnesium 1.8 Total Bilirubin 0.3 AST 18 ALT 7 Alkaline Phosphatase 62 Total Protein 6.8 Albumin 3.6 Urine Color Urine Appearance Urine pH Ur Specific Bernice Urine Protein Urine Glucose (UA) Urine Ketones Urine Blood Urine Nitrite Ur Leukocyte Esterase Urine Opiates Screen POSITIVE H Ur Buprenorphine Scrn Not Detected Ur Oxycodone Screen Not Detected Urine Methadone Screen Not Detected Urine Fentanyl Screen POSITIVE H Ur Barbiturates Screen Not Detected Ur Phencyclidine Scrn Not Detected Ur Amphetamines Screen Not Detected U Benzodiazepines Scrn Not Detected Urine Cocaine Screen POSITIVE H U Marijuana (THC) Screen Not Detected Ethyl Alcohol < 10 COVID-19 (JENN) Negative COVID-19 Clin Com See Note 02/24/24 11:24 WBC RBC Hgb Hct MCV MCH MCHC RDW Plt Count MPV Immature Gran % (Auto) Neut % (Auto) Lymph % (Auto) Rankin % (Auto) Eos % (Auto) Baso % (Auto) Lymph # (Auto) Rankin # (Auto) Eos # (Auto) Baso # (Auto) Abs Immat Gran (auto) Absolute Neuts (auto) Absolute Nucleated RBC Nucleated RBC % (auto) VBG pH VBG pCO2 VBG pO2 VBG HCO3 VBG O2 Saturation VBG Base Excess Sodium Potassium Chloride Carbon Dioxide Anion Gap BUN Creatinine Estim Creat Clear Calc Estimated GFR Random Glucose Calcium Magnesium Total Bilirubin AST ALT Alkaline Phosphatase Total Protein Albumin Urine Color Yellow Urine Appearance Turbid Urine pH >= 9.0 Ur Specific Bernice 1.015 Urine Protein Negative Urine Glucose (UA) Negative Urine Ketones Negative Urine Blood Negative Urine Nitrite Negative Ur Leukocyte Esterase Negative Urine Opiates Screen Ur Buprenorphine Scrn Ur Oxycodone Screen Urine Methadone Screen Urine Fentanyl Screen Ur Barbiturates Screen Ur Phencyclidine Scrn Ur Amphetamines Screen U Benzodiazepines Scrn Urine Cocaine Screen U Marijuana (THC) Screen Ethyl Alcohol COVID-19 (JENN) COVID-19 Clin Com Imaging Radiology Impressions: ITS Impressions Chest X-Ray 02/22/24 22:45 IMPRESSION: Emphysema. No acute intrathoracic disease. Mental Status Exam Mental Status Exam Patient Appearance: Appropriate Level of Consciousness: Awake Patient Behavior: Aggressive Medications Allergies Allergies Allergy/AdvReac Type Severity Reaction Status Date / Time No Known Allergies Allergy Unknown Verified 02/22/24 22:24 [No Known Allergies*] Assessment & Plan Assessment & Plan (1) Opioid withdrawal: Status: Acute Code(s): F11.93 - Opioid use, unspecified with withdrawal Assessment and Plan: agreeable to zofran for nausea and tizanidine for legs spasms methadone 10mg q3 hrs max 4 doses for withdrawal continues to decline suboxone Total time managing care of this patient today __60__ minutes. [facility] Past Medical History Medical History Lumbar degenerative disc disease Personal history of nicotine dependence Osteopenia (~2011) History of invasive ductal carcinoma of breast (~2003) Surgical History Surgical History History of section (~1976) History of appendectomy (~1993) History of tonsillectomy History of colonoscopy (~2010) History of esophagogastroduodenoscopy (EGD) (~2010) History of right mastectomy (~2004) History of laparoscopic cholecystectomy (~2008) Social History Social History Household Members: None Housing: Apartment Do you presently have visiting nurse or other home services: Yes ([employer]) Alcohol intake: current Alcohol intake frequency: does not drink Patient Tobacco Use Status: Current everyday Tobacco user Tobacco use type: Cigarette Years Smoked: 59 years (onset 13, 1/2ppd x 59yrs, now <1/4ppd, 29pyh) Smoked in Last 30 Days: Yes e-Cigarette/Vaping Use: Currently Using Use of substances other than those prescribed or required for medical reasons: Yes Substance Use Type: Crack/Cocaine and Heroin Substance Use Frequency: Chronic Longstanding Substance Use Frequency Other:: Sts has been clean, relapsed Advance Directives: No Advance Directives Information Provided: No service: No
[2024-02-24] MEDS: Ondansetron ODT 4 MG TAB.RAPDIS TRANSLINGU ×2 (13:16→17:51)
[2024-02-24] MEDS: Acetaminophen 325 MG TABLET 650 MG PO (13:34)
--- NOTE | 2024-02-24 13:36 | PC.NURSE ---
pt c/o generalized aching throughout d/t being uncomfortable in bed. pt medicated per provider order. effectiveness pending. pt now sitting upright eating lunch at this time. respirations remain even and unlabored. plan of care ongoing. call dietz placed within reach.
--- NOTE | 2024-02-24 14:21 | PC.NURSE ---
Rosalinda oHover (daughter) - [phone]
[2024-02-24 15:13] VITALS: BP 171/80; PULSE 86; RESP 16; TEMP 36.2; O2SAT 95
[2024-02-24] MEDS: amLODIPine Besylate 5 MG TABLET PO (15:35)
[2024-02-24] MEDS: methADONE HCl 20 MG/2 ML ORAL.CONC 10 MG PO (15:35)
[2024-02-24] MEDS: Omeprazole 20 MG CAPSULE.DR PO (15:36)
[2024-02-24] MEDS: lisinopriL 10 MG TABLET PO (15:36)
[2024-02-24] MEDS: buPROPion HCl XL 300 MG TAB.ER.24H PO (15:36)
[2024-02-24] MEDS: Sertraline HCL 50 MG TABLET 150 MG PO (15:37)
[2024-02-24] MEDS: Celecoxib 200 MG CAPSULE PO (15:37)
[2024-02-24] MEDS: Cholecalciferol (Vitamin D3) 25 MCG TABLET 50 MCG PO (15:37)
[2024-02-24] MEDS: Aspirin Enteric Coated 81 MG TABLET.DR PO (15:37)
[2024-02-24] MEDS: Clopidogrel Bisulfate 75 MG TABLET PO (15:37)
--- NOTE | 2024-02-24 15:40 | MHC.CARE ---
RAD Team conducted a statewide bed search. Clinical was faxed to [place] and [facility], but both facilities are full. Bed search exhausted for today, will f/u tomorrow.
--- NOTE | 2024-02-24 15:43 | PC.NURSE ---
Addendum entered by Sharon Brandt 02/24/24 16:52: belongings placed back in pod locker #9. phone/air/ocean export clerk/phone stand remain bedside. Original Note: pt's belongings returned to pt/bedside at this time. medication administered per provider order. repositioned to comfort. inpatient bed search continues. plan of care ongoing. call dietz placed within reach.
[2024-02-24] MEDS: TiZANidine HCL 4 MG TABLET PO (16:30)
--- NOTE | 2024-02-24 17:51 | PC.NURSE ---
pt dry heaving states she is feeling nauseous - medication administered per provider order. effectiveness pending. pt provided w/ emesis bag.
[2024-02-24] MEDS: Mirtazapine 7.5 MG TABLET 22.5 MG PO (20:53)
[2024-02-24] MEDS: Gabapentin 100 MG CAPSULE PO (20:53)
[2024-02-24 22:00] VITALS: BP 176/88; PULSE 86; RESP 12; TEMP 36.2; O2SAT 94
[2024-02-25] MEDS: Omeprazole 20 MG CAPSULE.DR PO (06:11)
[2024-02-25 06:34] VITALS: BP 180/90; PULSE 90; RESP 16; TEMP 36.7; O2SAT 93
--- NOTE | 2024-02-25 08:20 | PC.NURSE ---
PT'S DAUGHTER MARK ([phone]) CALLED AND WAS UPDATED ON PT'S STATUS. PT IS TO BE ASSESS/EVAL BY PSYCH AND RE-EVAL BY CARE TEAM SOMETIME TODAY. DAUGHTER AWARE OF PLAN OF CARE. WILL CONTINUE TO MONITOR PT.
[2024-02-25 10:00] VITALS: BP 177/89; PULSE 87; RESP 16; TEMP 37.3; O2SAT 93
--- NOTE | 2024-02-25 10:00 | PC.NURSE ---
PT IS A/O X 4 NO SOB/RODOLFO NOTED SPEAKS IN FULL SENTENCES. PT MOUTH APPEARS DRY, MOUTH CARE TO BE GIVEN. PT C/O SLIGHT NAUSEA, MD AWARE, NAUSEA MED TO BE ORDERED. PT DENIES ANY SI/HI/HALLUCINATION. PT C/O GEN DISC, TO BE MED WITH [facility] FOR GEN DISC. PT TO HAVE BREAKFAST. PT AWARE OF PLAN OF CARE. WILL CONTINUE TO MONITOR.
[2024-02-25] MEDS: Aspirin Enteric Coated 81 MG TABLET.DR PO (10:13)
[2024-02-25] MEDS: Gabapentin 100 MG CAPSULE PO (10:13)
[2024-02-25] MEDS: Cholecalciferol (Vitamin D3) 25 MCG TABLET 50 MCG PO (10:13)
[2024-02-25] MEDS: Sertraline HCL 50 MG TABLET 150 MG PO (10:14)
[2024-02-25] MEDS: buPROPion HCl XL 300 MG TAB.ER.24H PO (10:14)
[2024-02-25] MEDS: lisinopriL 10 MG TABLET PO (10:14)
[2024-02-25] MEDS: Clopidogrel Bisulfate 75 MG TABLET PO (10:14)
[2024-02-25] MEDS: amLODIPine Besylate 5 MG TABLET PO (10:14)
--- NOTE | 2024-02-25 10:50 | MHC.RECOVRN ---
Met with pt to follow up, provide support, assess for withdrawal. Pt laying in bed, asleep, wakes to touch. Pt states she felt the same after receiving methadone yesterday. Pt currently reports feeling tired, denies other complaints. Denies questions or concerns for t/w. Discussed with Katie Robles APRN.
[2024-02-25] MEDS: Celecoxib 200 MG CAPSULE PO (10:59)
[2024-02-25] MEDS: Ondansetron ODT 4 MG TAB.RAPDIS TRANSLINGU (10:59)
[2024-02-25] MEDS: Acetaminophen 325 MG TABLET 650 MG PO (11:00)
[2024-02-25 12:00] VITALS: BP 161/97; PULSE 98; RESP 16; TEMP 36.4; O2SAT 93
[2024-02-25 14:00] VITALS: BP 138/81; PULSE 96; RESP 18; TEMP 36.6; O2SAT 92
--- NOTE | 2024-02-25 14:32 | MHC.CARE ---
RAD Team conducted a state wide bed search. The patient was officially declined from [facility] due to them not being able to accommodate her oxygen. Clinical was faxed to [facility] to be added to the wait list. At this time, the bed search has been exhausted as there are no beds in the [facility].
--- NOTE | 2024-02-25 17:23 | PM.PSYCN ---
History of Present Illness Date of Service: 02/25/2024 Chief Complaint: relapsed after 10years/looking for detox Sources of Information: patient interviewed, chart reviewed and crisis/core team assessment reviewed HPI Narrative: Ms. Giles is a 73 year-old woman who self presented due to recent relapsed on opioid and cocaine. She had expressed suicidal ideation. She was seen by recovery team and started on methadone taper for opioid withdrawal. She was also seen by care team for suicidality and initially placed in bed search for inpt psychiatric treatment. Pt seen today in ED. Pt reports she feeling much better. She reports she relapsed on heroin and cocaine recently after 10 years of sobriety. She adamantly denies suicidal or homicidal ideation. She reports she came to the hospital due to fear of opioid withdrawal but states that withdrawal symptoms were not as severe as she used to get them. She reports she is interested in outpatient referrals for substance use. She asks if she can return home since there is no inpt bed available today and she no longer feels suicidal, which she explains was mostly in context of fear of opioid withdrawal. [facility] Medical History Lumbar degenerative disc disease Personal history of nicotine dependence Osteopenia (~2011) History of invasive ductal carcinoma of breast (~2003) Surgical History History of section (~1976) History of appendectomy (~1993) History of tonsillectomy History of colonoscopy (~2010) History of esophagogastroduodenoscopy (EGD) (~2010) History of right mastectomy (~2004) History of laparoscopic cholecystectomy (~2008) Diagnostics Vital Signs (24Hr): Vital Signs - 24 hr 02/24/24 22:00 02/25/24 06:34 02/25/24 10:00 Temperature 97.1 F 98.1 F 99.1 F Pulse Rate 86 90 87 Respiratory Rate 12 16 16 Blood Pressure 176/88 H 180/90 H 177/89 H Pulse Oximetry 94 93 93 Oxygen Delivery Method Room Air Nasal Cannula Room Air Oxygen Flow Rate 2 02/25/24 12:00 02/25/24 14:00 Temperature 97.5 F 97.9 F Pulse Rate 98 96 Respiratory Rate 16 18 Blood Pressure 161/97 H 138/81 Pulse Oximetry 93 92 Oxygen Delivery Method Room Air Room Air Oxygen Flow Rate BMI result Body Mass Index 19.8 Labs 02/22/24 23:26 02/22/24 23:26 Labs: Laboratory Results - last 48 hr 02/24/24 11:24 Urine Color Yellow Urine Appearance Turbid Urine pH >= 9.0 Ur Specific Eros 1.015 Urine Protein Negative Urine Glucose (UA) Negative Urine Ketones Negative Urine Blood Negative Urine Nitrite Negative Ur Leukocyte Esterase Negative Imaging Radiology Impressions: ITS Impressions Chest X-Ray 02/22/24 22:45 IMPRESSION: Emphysema. No acute intrathoracic disease. Mental Status Exam Mental Status Exam Narrative: Appearance: thin, malnourished, edentulous, fair hygiene, in NAD Behavior: cooperative Psychomotor: no agitation or retardation noted Speech: clear, normal rate/rhythm/volume, spontaneous TP: linear TC: feeling better, glad she did not have severe withdrawal symptoms SI: denies HI: denies VH/AH: none Delusions: none Insight/judgment: poor x 2. Memory/cog: alert, oriented x 3. not formally tested. Medications Medications Current Medications Acetaminophen (Acetaminophen 325 Mg Tablet) 650 mg PO Q6H PRN PRN Reason: mild pain Last Admin: 02/25/24 11:00 Dose: 650 mg Albuterol/Ipratropium (Albuterol/Iprat 2.5/0.5mg 3 Ml Ampul.Neb) 3 ml INHALE Q6H PRN PRN Reason: shortness of breath or wheezing Amlodipine Besylate (Amlodipine Besylate 5 Mg Tablet) 5 mg PO DAILY [facility]; Protocol Last Admin: 02/25/24 10:14 Dose: 5 mg Aspirin (Aspirin Enteric Coated 81 Mg Tablet.Dr) 81 mg PO DAILY [facility] Last Admin: 02/25/24 10:13 Dose: 81 mg Bupropion HCl (Bupropion Hcl Xl 300 Mg Tab.Er.24h) 300 mg PO DAILY [facility] Last Admin: 02/25/24 10:14 Dose: 300 mg Celecoxib (Celecoxib 200 Mg Capsule) 200 mg PO DAILY [facility] Last Admin: 02/25/24 10:59 Dose: 200 mg Clopidogrel Bisulfate (Clopidogrel Bisulfate 75 Mg Tablet) 75 mg PO DAILY [facility] Last Admin: 02/25/24 10:14 Dose: 75 mg Gabapentin (Gabapentin 100 Mg Capsule) 100 mg PO BID [facility] Last Admin: 02/25/24 10:13 Dose: 100 mg Lisinopril (Lisinopril 10 Mg Tablet) 10 mg PO DAILY [facility]; Protocol Last Admin: 02/25/24 10:14 Dose: 10 mg Methadone HCl (Methadone Hcl 20 Mg/2 Ml Oral.Conc) 10 mg PO Q3H PRN PRN Reason: Opiate Withdrawal Mirtazapine (Mirtazapine 7.5 Mg Tablet) 22.5 mg PO BEDTIME [facility] Last Admin: 02/24/24 20:53 Dose: 22.5 mg Non-Formulary Medication (Umeclidinium-Vilanterol [Anoro Ellipta]) 1 each INHALE DAILY [facility] Omeprazole (Omeprazole 20 Mg Capsule.Dr) 20 mg PO DAILY@0630 [facility] Last Admin: 02/25/24 06:11 Dose: 20 mg Ondansetron HCl (Ondansetron Odt 4 Mg Tab.Rapdis) 4 mg TRANSLINGU Q8H PRN PRN Reason: Nausea and Vomiting Last Admin: 02/25/24 10:59 Dose: 4 mg Sertraline HCl (Sertraline Hcl 50 Mg Tablet) 150 mg PO DAILY [facility] Last Admin: 02/25/24 10:14 Dose: 150 mg Vitamin D (Cholecalciferol (Vitamin D3) 25 Mcg Tablet) 50 mcg PO DAILY [facility] Last Admin: 02/25/24 10:13 Dose: 50 mcg Allergies Allergies Allergy/AdvReac Type Severity Reaction Status Date / Time No Known Allergies Allergy Unknown Verified 02/22/24 22:24 [No Known Allergies*] Assessment & Plan Assessment & Plan (1) MDD (major depressive disorder), recurrent episode, moderate: Status: Acute Code(s): F33.1 - Major depressive disorder, recurrent, moderate (2) Opioid use disorder: Status: Acute Code(s): F11.90 - Opioid use, unspecified, uncomplicated Plan Ms. Giles is a 73 year-old woman who self presented to [facility] ED reporting recent relapsed on opioid and increase depression and SI. She currently denies SI/HI. She reports she would be interested in services in the community for substance use treatment. Care team to provide information to follow up with [facility]. Given narcan at time of discharge. No imminent risk of self harm due to suicidality although risk of self harm due to opioid use is there and pt given narcan as well as in agreement to follow up with [facility] for substance use treatment. Total time managing care of this patient today ____ minutes.
[2024-02-25 18:15] VITALS: BP 160/95; PULSE 93; RESP 18; TEMP 36.7; O2SAT 94
[2024-02-25 18:20] VITALS: BP 160/95; PULSE 93; RESP 18; TEMP 36.7; O2SAT 94
--- NOTE | 2024-02-25 18:20 | PC.NURSE ---
this rn obtained pt belongings from pod locker # 9. pt assisted into street clothes. pt walked out to waiting room awaiting lyft ride provided by care team rim fire charger operator aware
== END 2024-02-25 18:25 | disposition home or self-care (01) ==
PROVIDERS: Emergency Provider Internal Medicine; PCP Internal Medicine Geriatric Medicine
DX: F11.10 Opioid abuse, uncomplicated (principal); F14.10 Cocaine abuse, uncomplicated; J44.9 Chronic obstructive pulmonary disease, unspecified; Z99.81 Dependence on supplemental oxygen; Z91.199 Patient's noncompliance with other medical treatment and regimen due to unspecified reason; Z11.52 Encounter for screening for COVID-19
CPT/HCPCS: 71045; 80053; 80307; 81003; 82803; 83735; 85025; 87635; 93005; 99285; S9485

== ENCOUNTER → 2024-02-22 22:24 | Outpatient (BNV) | payer OTHER, SELFPAY | PROVIDERS: Emergency Provider Internal Medicine; PCP Internal Medicine Geriatric Medicine; Visit Provider Internal Medicine | DX: R00.0 Tachycardia, unspecified (principal); R94.31 Abnormal electrocardiogram [ECG] [EKG] | CPT/HCPCS: 93010 ==

== ENCOUNTER → 2024-02-22 22:44 | Outpatient (BNV) | payer OTHER, SELFPAY | PROVIDERS: Emergency Provider Internal Medicine; PCP Internal Medicine Geriatric Medicine; Visit Provider Nurse Practitioner Psychiatric/Mental Health | DX: F33.1 Major depressive disorder, recurrent, moderate (principal); F11.90 Opioid use, unspecified, uncomplicated | CPT/HCPCS: 99283; 99499; G2213 ==

== ENCOUNTER 2024-05-26 10:45 | Outpatient (REF) | payer OTHER, SELFPAY ==
[2024-05-26 13:07] LABS: MANUAL DIFF FLAG NO
[2024-05-26 13:19] LABS: Basophils Percent Auto 0.6 % (0-2); Eosinophils Percent Auto 0.4 % (0-4); Hematocrit 44.1 % (37.0-47.0); Hemoglobin 14.4 g/dl (12.0-16.0); Imm Gran Abs Auto 0.02 X10*3/uL (0.00-0.03); Imm Gran Pct Auto 0.3 % (0.0-0.4); Lymphocytes Absolute Auto 1.5 X10*3/uL (1.2-4.9); Mean Corpuscular HGB Conc 32.7 g/dl (31.0-35.0); Mean Corpuscular Hemoglobin 30.4 pg (27.0-33.0); Mean Corpuscular Volume 93.2 fL (80.0-98.0); Mean Platelet Volume 10.1 fL (9.4-12.3); Monocytes Absolute Auto 0.6 X10*3/uL (0.1-1.2); Neutrophils Absolute Auto 4.9 x10*3/uL (2.0-8.3); Neutrophils Percent Auto 69.7 % (45-73); Platelet Count 375 X10*3/uL (160-400); Red Blood Count 4.73 X10*6/uL (4.20-5.50); Red Cell Distribution Width 14.9 % (11.0-16.0)
[2024-05-26 21:29] LABS: Alanine Aminotransferase 12 U/L (0-31); Albumin Level 4.2 g/dL (3.5-5.0); Alkaline Phosphatase 87 U/L (39-117); Anion Gap 17 (12-20); Aspartate Amino Transferase 23 U/L (5-31); Bilirubin Total 0.3 mg/dL (0.0-1.0); Blood Urea Nitrogen 17 mg/dL (9-16); C Reactive Protein 0.58 mg/dL (< or = 0.50); Calcium 9.4 mg/dL (8.4-10.2); Carbon Dioxide 23 mmol/L (22-29); Chloride 103 mmol/L (96-108); Estimated Glomerular Filt Rate > 60; Glucose Random 121 mg/dL (60-115); Potassium 3.7 mmol/L (3.3-5.1); Sodium 139 mmol/L (135-145); TSH reflex Free T4 0.97 uIU/mL (0.32-4.0); Total Protein 7.5 g/dL (6.5-8.0)
[2024-05-27 03:51] LABS: HIV AB/AG Nonreactive (Nonreactive); HIV Num 1 0.07 S/CO (0.00-0.99); ~HepC Num1 0.13 S/CO (0.00-0.79); ~Hepatitis C Antibody Nonreactive (Nonreactive)
== END 2024-05-26 10:46 | disposition home or self-care (01) ==
LOC: HO.HMGCLDS 10:45
PROVIDERS: Visit Provider Internal Medicine Geriatric Medicine
DX: R63.4 Abnormal weight loss (principal)
CPT/HCPCS: 36415; 80053; 84443; 85025; 86140; 86803; 87389

== ENCOUNTER 2024-06-01 11:18 | Outpatient (REF) | payer OTHER, SELFPAY ==
--- NOTE | ~2024-06-01 | MM_ITS ---
EXAMINATION: MM SCREENING DIGITAL BREAST TOMOSYNTHESIS, LEFT CLINICAL INFORMATION: Screening. Asymptomatic. The patient is status post right mastectomy. BI-RADS 2 COMPARISON: Mammography: This study is compared with prior exams dating back to 2019. TECHNIQUE: Digital breast tomosynthesis is performed in both the craniocaudal and mediolateral oblique views along with computer-aided detection (CAD). Synthesized 2D images are generated from the tomosynthesis. FINDINGS: There are scattered areas of fibroglandular density (ACR BI-RADS breast composition Category b). There are no significant masses, abnormal calcifications, or other abnormalities. Few, coarse benign calcifications are present. MM/MM tomosynthesis screening LT IMPRESSION: No mammographic evidence of malignancy. ASSESSMENT: BI-RADS BI-RADS 2 - Benign Findings RECOMMENDATION: Routine annual mammography screening. 1 year F/U This examination should not preclude the clinical evaluation of a suspicious palpable abnormality. This patient's information was entered into a reminder system with a target due date for their next mammogram.
== END 2024-06-01 11:19 | disposition home or self-care (01) ==
LOC: HO.MAMMO 11:18
PROVIDERS: PCP Internal Medicine Geriatric Medicine; Visit Provider Internal Medicine Geriatric Medicine
DX: Z12.31 Encounter for screening mammogram for malignant neoplasm of breast (principal)
CPT/HCPCS: 77063; 77067

== ENCOUNTER → 2024-06-01 11:45 | Outpatient (BNV) | payer OTHER, SELFPAY | PROVIDERS: PCP Internal Medicine Geriatric Medicine; Visit Provider Radiology Diagnostic Radiology | DX: Z12.31 Encounter for screening mammogram for malignant neoplasm of breast (principal) | CPT/HCPCS: 77063; 77067 ==

== ENCOUNTER 2024-08-03 09:44 | Outpatient (REF) | payer OTHER, SELFPAY ==
--- NOTE | ~2024-08-03 | XR_ITS ---
EXAMINATION: XR CHEST CLINICAL INFORMATION: smoking and weight loss COMPARISON: 02/22/2024, 08/15/2023. CT lung screening 06/09/2023. TECHNIQUE: 2 views of the chest were obtained. FINDINGS: The cardiac and mediastinal contours are normal. 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 Prominent pulmonary arteries noted in the hilar regions, suggesting possible pulmonary hypertension. Lungs are hyperlucent and hyperaerated consistent with COPD. Hemidiaphragms are somewhat flattened. Mildly increased markings noted in the bilateral lower lobe distributions, and right middle lobe, consistent with known foci of scarring. No consolidations or abnormal opacities. No effusions or pneumothorax. There is no focal osseous or soft tissue abnormality. XR/XR chest 2V IMPRESSION: 1. No active disease. COPD with bibasilar scarring. 2. Prominent pulmonary arteries could suggest underlying pulmonary hypertension. 3. TAVR in place. Electronically signed by: Sonny Navarrete MD 10/10/2024 02:16 PM [facility]
--- NOTE | ~2024-08-03 | XR_ITS ---
EXAMINATION: XR SHOULDER, RIGHT CLINICAL INFORMATION: months of rigth shoulder pain COMPARISON: None available. TECHNIQUE: AP external rotation, Grashey, scapular Y, and axillary views of the right shoulder. FINDINGS: Mild osteopenia suspected. No fracture, dislocation, or suspicious bone lesion. The glenohumeral joint is normally aligned, without significant arthrosis. AC joint x-rays minimal spurring, likely superiorly. No significant undersurface spurs. Neutral lateral acromion. There is a tiny subacromial spur, likely insignificant. No supraspinatus outlet stenosis. Imaged soft tissues and right lung appear normal. Incidental note of TAVR. XR/XR shoulder RT min 2V IMPRESSION: 1. No acute findings right shoulder joint. 2. Early degenerative changes right AC joint. 3. Normal-appearing glenohumeral joint. Electronically signed by: Sonny Navarrete MD 10/10/2024 02:12 PM [facility]
== END 2024-08-03 09:45 | disposition home or self-care (01) ==
LOC: HO.XRAY 09:44
PROVIDERS: PCP Internal Medicine Geriatric Medicine; Visit Provider Internal Medicine Geriatric Medicine
DX: M25.511 Pain in right shoulder (principal); G89.29 Other chronic pain; R63.4 Abnormal weight loss
CPT/HCPCS: 71046; 73030

== ENCOUNTER → 2024-08-03 09:53 | Outpatient (BNV) | payer OTHER, SELFPAY | PROVIDERS: PCP Internal Medicine Geriatric Medicine; Visit Provider Radiology Diagnostic Radiology | DX: M25.511 Pain in right shoulder (principal); J44.9 Chronic obstructive pulmonary disease, unspecified | CPT/HCPCS: 71046; 73030 ==

== ENCOUNTER 2024-09-08 13:23 | Outpatient (AMB) | payer OTHER, SELFPAY ==
[2024-09-08 13:29] VITALS: BP 102/62; PULSE 93; O2SAT 95; BMI 18.2
--- NOTE | 2024-09-08 13:29 | MHC.OFFVIS ---
Vital Signs 09/08/24 13:29 Height 4 ft 11 in Weight 90 lb BMI 18.2 BP 102/62 Blood Pressure Location Lt brachial Position Sitting Pulse 93 Pulse Source Doppler Pulse Oximetry (%) 95 Oxygen Delivery Method Room Air Intake Visit Reasons: copd Allergies No Known Allergies [No Known Allergies*] Allergy (Unknown, Verified 09/08/24 13:36) HPI HPI copd: Details: 74-year-old lady, active 40+ pack-year smoker, followed for very severe supplemental oxygen 2-3 L dependent COPD, now using portable oxygen concentrator intermittently.? She continues to use Anoro, Combivent, and duo nebs with reasonable baseline control symptoms.? She denies recent exacerbations.? [facility] Medical History (Updated 08/01/24 @ 09:56 by Gayatri Boyer PA-C) Nicotine dependence, cigarettes, uncomplicated Lumbar degenerative disc disease Osteopenia (~2011) History of invasive ductal carcinoma of breast (~2003) Surgical History History of section (~1976) History of appendectomy (~1993) History of tonsillectomy History of colonoscopy (~2010) History of esophagogastroduodenoscopy (EGD) (~2010) History of right mastectomy (~2004) History of laparoscopic cholecystectomy (~2008) Social History (Updated 09/08/24 @ 13:37 by Sheila Melton [facility]) Household Members: None Housing: Apartment Do you presently have visiting nurse or other home services: Yes ([employer]) Alcohol intake: current Alcohol intake frequency: does not drink Patient Tobacco Use Status: Current everyday Tobacco user Tobacco use type: Cigarette Years Smoked: 58 years (onset 13, 1/2ppd x 59yrs, now <1/4ppd, 29pyh), started vaping e-Cigarette/Vaping Use: Currently Using Substance Use Type: Crack/Cocaine and Heroin service: No Review of Systems Const Denies daytime sleepiness, Denies excessive sweating, Denies fatigue, Denies fever(s), Denies lethargy, Denies malaise, Denies night sweats, Denies snoring and Denies weight loss Eyes Denies blurry vision and Denies itchy eyes ENT Denies nasal congestion, Denies post nasal drip, Denies sinus pain, Denies sinus pressure and Denies other ( Thrush) Card Denies chest pain, Denies pedal edema, Denies dyspnea, Denies orthopnea and Denies paroxysmal nocturnal dyspnea Resp Denies cough, Denies hemoptysis, Denies excessive phlegm production, Denies dyspnea, Denies snoring and Denies wheezing GI Denies abdominal pain and Denies heartburn Musc Denies myalgias, Denies arthralgias and Denies joint swelling Skin/Breast Denies rash Neuro Denies memory loss and Denies seizure-like activity Psych Denies abnormal sleep pattern, Denies anxiety and Denies memory loss Endo Denies excessive sweating, Denies fatigue and Denies heat intolerance Justino/Lymph Denies easy bruising Aller/Immun Denies itchy eyes, Denies seasonal rhinorrhea and Denies wheezing Physical Exam Vital Signs: Last Vital Signs Pulse 93 09/08/24 13:29 BP 102/62 09/08/24 13:29 Pulse Ox 95 09/08/24 13:29 Oxygen Delivery Method Room Air 09/08/24 13:29 BMI result Body Mass Index 18.2 Const General: no acute distress and alert Nutritional Appearance: not obese Orientation/consciousness: Other orientation findings ( oriented) HEENT Head: Yes atraumatic Eyes General: appearance normal, both eyes and all related structures Sclerae: sclerae normal EOM: EOMs intact bilaterally Neck Neck: Yes supple Lymphatic: no lymphadenopathy noted Resp Effort & Inspection: normal respiratory effort and no use of accessory muscles Auscultation: clear to auscultation bilaterally Cardio Rate: regular rate Rhythm: regular rhythm Heart sounds: no gallops, no murmurs and no rubs Skin General skin exam: other ( warm) Extrem General: No clubbing, No cyanosis and No edema Assessment & Plan Assessment & Plan (1) COPD (chronic obstructive pulmonary disease): Code(s): J44.9 - Chronic obstructive pulmonary disease, unspecified Category: Medical Plan: Well controlled on Anoro and Combivent. Continue current regimen. (2) Supplemental oxygen dependent: Code(s): Z99.81 - Dependence on supplemental oxygen Category: Medical Plan: Continue supplemental oxygen to maintain O2 saturation 88-92%. (3) Nicotine dependence, cigarettes, uncomplicated: Comment: (current smoker, onset 13, 1/2ppd x 59yrs, now <1/4ppd, 29pyh) Code(s): F17.210 - Nicotine dependence, cigarettes, uncomplicated Category: Medical Plan: Lung cancer screening CT chest is pending. Medications: Refilled ipratropium-albuterol 20-100 mcg/actuation (Combivent Respimat) 1 puff inhalation QID PRN 4 grams 6RF for wheezing R06.09 - Other forms of dyspnea Anoro Ellipta 62.5-25 mcg/actuation (umeclidinium-vilanterol) 1 ea inhalation DAILY 60 ea 6RF NS Coding Level of Care Code Est Pt Level 4 (80255) Complex EM visit Add On G2211 Diagnoses COPD (chronic obstructive pulmonary disease) J44.9 Supplemental oxygen dependent Z99.81 Nicotine dependence, cigarettes, uncomplicated F17.210
== END 2024-09-08 13:52 | disposition home or self-care (01) ==
LOC: HO.HPS 13:24
PROVIDERS: PCP Internal Medicine Geriatric Medicine; Visit Provider Internal Medicine Pulmonary Disease
DX: J44.9 Chronic obstructive pulmonary disease, unspecified (principal); Z99.81 Dependence on supplemental oxygen; F17.210 Nicotine dependence, cigarettes, uncomplicated
CPT/HCPCS: 99214; G2211

== ENCOUNTER → 2024-09-08 13:23 | Outpatient (BNVA) | payer OTHER, SELFPAY | PROVIDERS: PCP Internal Medicine Geriatric Medicine; Visit Provider Internal Medicine Pulmonary Disease | DX: J44.9 Chronic obstructive pulmonary disease, unspecified (principal); F17.210 Nicotine dependence, cigarettes, uncomplicated; Z99.81 Dependence on supplemental oxygen | CPT/HCPCS: 99212 ==

== ENCOUNTER 2024-09-19 10:31 | Outpatient (REF) | payer OTHER, SELFPAY | END 2024-09-19 10:32 | disposition home or self-care (01) | LOC: HO.CT 10:31 | PROVIDERS: PCP Internal Medicine Geriatric Medicine; Visit Provider Physician Assistant Medical | DX: Z12.2 Encounter for screening for malignant neoplasm of respiratory organs (principal); F17.210 Nicotine dependence, cigarettes, uncomplicated | CPT/HCPCS: 71271 ==

== ENCOUNTER 2025-01-16 20:11 | Inpatient (IN) | payer OTHER, SELFPAY ==
--- NOTE | 2025-01-16 | ECG_ITS ---
Test Reason : CHEST PAIN Blood Pressure : */* mmHG Vent. Rate : 86 BPM Atrial Rate : 86 BPM P-R Int : 146 ms QRS Dur : 68 ms QT Int : 404 ms P-R-T Axes : 73 14 72 degrees QTcB Int : 483 ms Normal sinus rhythm Septal infarct (cited on or before 18-Aug-2023) T wave abnormality, consider anterolateral ischemia Abnormal ECG When compared with ECG of 22-Feb-2024 22:33, T wave inversion now evident in Anterolateral leads Referred By: Generic ED Physician Electronically Signed By: RONY DE PAZ
--- NOTE | ~2025-01-16 | XR_ITS ---
CLINICAL HISTORY: Chest pain 1 view chest x-ray Comparison: CR/VA/SR - XR CHEST 1V - 02/22/24 22:43 EDT Findings: Mild diffuse interstitial prominence in both lungs may represent pulmonary vascular congestion/mild pulmonary edema. Stable placement of the prosthetic heart valve. No acute fracture. IMPRESSION: Mild diffuse interstitial prominence in both lungs may represent pulmonary vascular congestion/mild pulmonary edema. This document has been electronically signed by: Crystal Palmer MD on 01/16/2025 20:57:36
--- NOTE | ~2025-01-16 | MR_ITS ---
EXAMINATION: MRCP HISTORY: dilated CBD on CTA COMPARISON: Correlation is made with the upper abdominal images from a chest CT dated 01/16/[address] of the abdomen dated 01/15/2019. TECHNIQUE: Axial gradient echo and coronal haste T2 with fat saturation images were obtained through the abdomen. 3D MRCP Reconstructed images and thick slab imaging of the biliary tree were obtained. FINDINGS: There is moderate to marked dilatation of the common bile duct in the radha hepatis measuring up to 1.9 cm in diameter. There is also dilatation of the central intrahepatic biliary radicals. There is abrupt tapering of the common bile duct at the ampulla. No definite intraluminal filling defects are identified to suggest choledocholithiasis. The degree of dilatation of the common bile duct is slightly greater than on the CT of the abdomen dated 03/17/2019. There is no significant loss of signal intensity within the liver on opposed phase imaging to suggest steatosis. No obvious liver mass is identified, although evaluation is limited by lack of intravenous contrast material. The gallbladder is surgically absent. The spleen and pancreas are unremarkable. The pancreatic duct is normal in caliber. The adrenals and left kidney are unremarkable. There is a probable subcentimeter cyst at the upper pole of the right kidney. No retroperitoneal lymphadenopathy or ascites is identified in the upper abdomen. Generalized bones demonstrate normal signal intensity. MR/MR MRCP IMPRESSION: Moderate to marked dilatation of the common bile duct with associated dilatation of the central intrahepatic biliary radicals. No definite intraluminal filling defects are identified to suggest choledocholithiasis. The degree of dilatation of the common bile duct is slightly greater than that on the abdominal CT scan dated 03/17/2019. If there are liver function test abnormalities or other concern for neoplasm, ERCP could be performed. Electronically signed by: Jeffery Owen MD 01/17/2025 01:42 PM EDT
--- NOTE | ~2025-01-16 | CT_ITS ---
CLINICAL HISTORY: Left pleuritic chest pain R O PE CT angiography chest with contrast. 3D Postprocessing. Comparison: CR - XR CHEST 1V - 01/16/25 19:23 EDT Findings: There is no pulmonary embolism. Heart size is normal. There is no pericardial effusion. Patient is status post transcatheter aortic valve replacement. Thoracic aorta is normal in size without dissection. There are no enlarged lymph nodes. There is moderate upper lobe predominant centrilobular emphysema. There is atelectasis in both lower lobes. There may be small areas of consolidation amongst the atelectasis. There is mild atelectasis in the right middle lobe and inferior lingula as well. There is a 6 mm solid subpleural nodule in the left upper lobe. There is no acute fracture or suspicious lytic or sclerotic lesion. Limited images of the upper abdomen demonstrate severe intrahepatic and extrahepatic biliary duct dilation. The distal common bile duct is not in the field of view. There is an abdominal aortic aneurysm only slightly in the field of view. IMPRESSION: 1. No pulmonary embolism. 2. Atelectasis in the lower lobes with possible small areas of consolidation amongst the atelectasis. Correlate for pneumonia. 3. Moderate centrilobular emphysema. 4. 6 mm nodule in the left upper lobe. Comparison with prior imaging or follow-up as below recommended. 5. Severe intrahepatic and extrahepatic biliary duct dilation. The distal common bile duct is not in the field of view. Consider CT or MRCP. 6. Abdominal aortic aneurysm only slightly in the field of view. This document has been electronically signed by: Tushar Stock MD on 01/17/2025 01:27:57
[2025-01-16 20:17] VITALS: BP 116/92; BP 125/64; PULSE 102; PULSE 90; RESP 17; TEMP 36.9; O2SAT 91; O2SAT 94; BMI 19.5
[2025-01-16 20:24] VITALS: BP 125/64; PULSE 84; PULSE 90; RESP 17; TEMP 36.9; O2SAT 91
--- NOTE | 2025-01-16 20:27 | ED_ITS ---
HPI - Chest Pain General Chief Complaint: Chest Pain Stated Complaint: CHEST PAIN AND R ARM Time Seen by Provider: 01/16/25 20:27 Source: patient Mode of arrival: EMS Limitations: no limitations History of Present Illness ED Provider: Dr. Chaim Franco HPI narrative: 74-year-old female with a history of COPD on 3 L of oxygen via nasal cannula, TAVR aortic valve (ELOY PlusPro US26)replacement 2 years prior depression, lumbar disc disease who presents emergency department for evaluation of left-sided pleuritic chest pain. Patient states that the pain came on in the afternoon. She states that she felt short of breath and developed a sharp pain in her left chest which was worse with breathing. She states that she does not walk and does not know she had any dyspnea on exertion. She was noted some mild swelling of her lower extremities. Patient was sick 2 weeks prior with a viral illness with symptoms including nausea, vomiting and diarrhea. She states that lasted 2-3 days and then resolved. The patient states that this is her 1st episode of left-sided pleuritic chest pain. She denied fever, chills, cough, nausea, vomiting, diarrhea. She states that the pain is 9/10. She called 911 and was advised to take aspirin. The patient took aspirin 500 mg orally prior to coming to the emergency department. Related Data Home Medications ?Medication ?Instructions ?Recorded ?Confirmed celecoxib 200 mg capsule 200 mg PO DAILY 09/12/21 02/24/24 cholecalciferol (vitamin D3) 50 50 mcg PO DAILY 09/12/21 02/24/24 mcg (2,000 unit) tablet omeprazole 20 mg capsule,delayed 20 mg PO DAILY@0630 09/12/21 02/24/24 release acetaminophen 500 mg tablet (Pain 1,000 mg PO Q6H PRN Pain 03/02/23 02/24/24 Relief Extra Strength (acetaminophen)) aspirin 81 mg tablet,delayed 81 mg PO DAILY 03/30/23 02/24/24 release bupropion HCl 300 mg 24 hr tablet, 300 mg PO DAILY 07/22/23 02/24/24 extended release clopidogrel 75 mg tablet 75 mg PO DAILY 07/22/23 02/24/24 mirtazapine 15 mg tablet (Remeron) 22.5 mg PO BEDTIME 08/15/23 02/24/24 sertraline 100 mg tablet 150 mg PO DAILY 08/15/23 02/24/24 umeclidinium 62.5 mcg-vilanterol 1 ea inhalation DAILY 02/24/24 02/24/24 25 mcg/actuation powdr for inhalation (Anoro Ellipta) Previous Rx's ?Medication ?Instructions ?Recorded amlodipine 5 mg tablet 5 mg PO DAILY #0 tabs 08/20/23 buprenorphine 8 mg-naloxone 2 mg 1 film sublingual BID #15 ea 08/20/23 sublingual film (Suboxone) lisinopril 10 mg tablet 10 mg PO DAILY #0 tabs 08/20/23 gabapentin 100 mg capsule 100 mg PO BID for pain 30 days #60 12/31/23 caps Anoro Ellipta 62.5 mcg-25 1 ea inhalation DAILY #60 ea 09/08/24 mcg/actuation powder for inhalation (umeclidinium-vilanterol) ipratropium 20 mcg-albuterol 100 1 puff inhalation QID PRN for 09/08/24 mcg/actuation mist for inhalation wheezing #4 grams (Combivent Respimat) Allergies Allergy/AdvReac Type Severity Reaction Status Date / Time No Known Allergies Allergy Unknown Verified 01/16/25 20:23 [No Known Allergies*] Review of Systems 2 Review of Systems: Yes all other systems are reviewed and are negative PMFSH Past Medical History Medical History (Updated 01/17/25 @ 01:44 by Chaim Franco MD) Nicotine dependence, cigarettes, uncomplicated Lumbar degenerative disc disease Osteopenia (~2011) History of invasive ductal carcinoma of breast (~2003) Surgical History History of section (~1976) History of appendectomy (~1993) History of tonsillectomy History of colonoscopy (~2010) History of esophagogastroduodenoscopy (EGD) (~2010) History of right mastectomy (~2004) History of laparoscopic cholecystectomy (~2008) Social History Social History (Updated 09/08/24 @ 13:37 by TOO Lainez) Household Members: None Housing: Apartment Do you presently have visiting nurse or other home services: Yes ([employer]) Alcohol intake: current Alcohol intake frequency: does not drink Patient Tobacco Use Status: Current everyday Tobacco user Tobacco use type: Cigarette Years Smoked: 58 years (onset 13, 1/2ppd x 59yrs, now <1/4ppd, 29pyh), started vaping Smoked in Last 30 Days: Yes e-Cigarette/Vaping Use: Currently Using Use of substances other than those prescribed or required for medical reasons: No Substance Use Type: Crack/Cocaine and Heroin Advance Directives: No Advance Directives Information Provided: No Do you have a plan to hurt others: No Plan service: No Physical Exam 2 Vital Signs: Vital Signs: Last Vital Signs Temp 98.2 F 01/17/25 00:41 Pulse 72 01/17/25 00:41 Resp 12 01/17/25 00:41 BP 143/85 H 01/17/25 00:41 Pulse Ox 100 01/17/25 00:41 O2 Del Method Nasal Cannula 01/17/25 00:41 O2 Flow Rate 3 01/17/25 00:41 BMI result Body Mass Index 19.5 Vital signs revealed an O2 saturation of 91% on room air however the patient was supposed to be on 3 L of oxygen via nasal cannula for her COPD. Vital signs were otherwise unremarkable Exam: General: Awake, alert in no distress, weight 43.9 kg, low BMI of 19.5 kg per m2 Head: Normocephalic, atraumatic EENT: PERRL, Lids normal, sclera normal, conjunctiva normal, nose normal , ears normal, throat without erythema or exudates Neck: Supple, no adenopathy Lung: breath sounds symmetric, no wheezing, rales or rhonchi Chest: Patient has tenderness palpation of her left anterior chest, no lesions or rashes noted on her chest wall Heart: regular rate and rhythm, normal S1, S2 no murmurs or rubs Abdomen: soft, non-tender, nondistended, normal bowel sounds Back: no vertebral tenderness, no CVAT Extremities: no deformities, moves all extremities symmetrically Neuro: Awake, alert, oriented, normal speech, moves all extremities symmetrically Psych: Pleasant, cooperative Medications Administered Discontinued Medications Generic Name Dose Route Start Last Admin Trade Name Freq PRN Reason Stop Dose Admin Iohexol 65 ml 01/16/25 23:53 01/16/25 23:54 Iohexol 350 Mg/Ml 100 Ml Infus..Btl IV 01/16/25 23:54 65 ml ONCE ONE Administration Ketorolac Tromethamine 15 mg 01/16/25 22:28 01/16/25 23:54 Ketorolac Tromethamine 15 Mg/Ml Vial IVPUSH 01/16/25 22:29 15 mg ONCE STA Administration Morphine Sulfate 4 mg 01/17/25 00:33 01/17/25 00:39 Morphine Sulfate 4 Mg/Ml Cartridge IVPUSH 01/17/25 00:34 4 mg ONCE STA Administration Protocol Medical Decision Making Medical Decision Making MDM Narrative: 74-year-old female with a history of COPD on 3 L of oxygen via nasal cannula, TAVR aortic valve (ELOY PlusPro US26)replacement 2 years prior, depression, lumbar disc disease who presents emergency department for evaluation of left- sided pleuritic chest pain. Patient states that the pain came on in the afternoon. She states that she felt short of breath and developed a sharp pain in her left chest which was worse with breathing. She states that she does not walk and does not know she had any dyspnea on exertion. She was noted some mild swelling of her lower extremities. Patient was sick 2 weeks prior with a viral illness with symptoms including nausea, vomiting and diarrhea. She states that lasted 2-3 days and then resolved. The patient states that this is her 1st episode of left-sided pleuritic chest pain. She denied fever, chills, cough, nausea, vomiting, diarrhea. She states that the pain is 9/10. She called 911 and was advised to take aspirin. The patient took aspirin 500 mg orally prior to coming to the emergency department. Vital signs were unremarkable. Exam did reveal left-sided chest wall tenderness. Differential diagnosis: ?Includes but is not limited to pleurisy, pericarditis, myocardial infarction, myocardial ischemia, pulmonary embolism, anemia, electrolyte abnormalities Course: 22:35 My interpretation patient's laboratory evaluation as follows: CBC was normal. CMP revealed an elevated glucose of 162 otherwise unremarkable. Troponin was detectable but not elevated at 9.8. BNP was elevated 193. COVID-19, influenza and RSV were negative. BNP was elevated 193. Chest x-ray revealed subtle increased interstitial infiltrates but otherwise no significant disease. Patient was 12 EKG did reveal Q-waves 3, V1 and V2 which were old. Patient was newly inverted T-waves V3 through V5 compared to EKG dated 02/22/2024. Given this finding, I did order a 3 hour troponin for 23:50 hours. Patient was having pleuritic chest pain I am concerned she may have a pulmonary embolism therefore I ordered a CT angiogram PE protocol. Patient was pleuritic pain was treated with Toradol 15 mg IV. 01:41 Patient was 3 hour troponin was 9.4 which was unchanged from the 1st troponin which is reassuring suggesting that your chest pain is not due to myocardial infarction or injury. Patient got minimal relief pain with the above treatment, therefore she was given morphine 4 mg IV with improvement of her pleuritic pain. The CT pulmonary angiogram PE protocol did not reveal any pulmonary emboli but was concerning for bilateral lower lobe consolidations which could explain the patient's pleuritic chest pain. At this time concerned that she may have an infection therefore I did order blood cultures x2 and lactic acid. The patient was ordered to get ceftriaxone 1 g IV and azithromycin 500 mg IV. I did discuss the patient's presentation over tiger text with the covering hospitalist, Dr. Abdi and the patient will be admitted to the hospitalist service for further treatment. Admission/Observation Consideration of admission/observation: Escalation of care including admission/observation considered (Yes) Lab Data [facility] Lab Attestation statement: I reviewed the patient's lab results. 01/16/25 20:51 01/16/25 20:51 Labs: Lab Results 01/16/25 01/16/25 01/17/25 Range/Units 20:51 22:52 00:39 WBC 8.2 (4.8-10.8) X10*3/uL RBC 4.29 (4.20-5.50) X10*6/uL Hgb 13.2 (12.0-16.0) g/dl Hct 38.6 (37.0-47.0) % MCV 90.0 (80.0-98.0) fL MCH 30.8 (27.0-33.0) pg MCHC 34.2 (31.0-35.0) g/dl RDW 15.4 (11.0-16.0) % Plt Count 296 (160-400) X10*3/uL MPV 9.1 L (9.4-12.3) fL Immature Gran % (Auto) 0.4 (0.0-0.4) % Neut % (Auto) 60.4 (45-73) % Lymph % (Auto) 24.9 (20-40) % [place] % (Auto) 12.0 H (2-11) % Eos % (Auto) 1.8 (0-4) % Baso % (Auto) 0.5 (0-2) % Lymph # (Auto) 2.0 (1.2-4.9) X10*3/uL [place] # (Auto) 1.0 (0.1-1.2) X10*3/uL Eos # (Auto) 0.2 (0.0-0.4) X10*3/uL Baso # (Auto) 0.0 (0.0-0.2) X10*3/uL Abs Immat Gran (auto) 0.03 (0.00-0.03) X10*3/uL Absolute Neuts (auto) 5.0 (2.0-8.3) x10*3/uL Absolute Nucleated RBC 0.000 (0.0-0.012) X10*3/uL Nucleated RBC % (auto) 0.0 (0.0-0.2) /100WBC Sodium 139 (135-145) mmol/L Potassium 3.5 (3.3-5.1) mmol/L Chloride 103 (96-108) mmol/L Carbon Dioxide 26 (22-29) mmol/L Anion Gap 14 (12-20) BUN 14 (9-16) mg/dL Creatinine 0.93 (0.5-1.4) mg/dL Estim Creat Clear Calc 36.7 Estimated GFR 59 Random Glucose 162 H (60-115) mg/dL Calcium 9.0 (8.4-10.2) mg/dL Total Bilirubin 0.3 (0.0-1.0) mg/dL AST 30 (5-31) U/L ALT 17 (0-31) U/L Alkaline Phosphatase 81 (39-117) U/L Troponin I High Sens 9.8 9.4 (<3.5-17.0) ng/L B-Natriuretic Peptide 193 H (<100) pg/mL Total Protein 7.0 (6.5-8.0) g/dL Albumin 3.5 (3.5-5.0) g/dL Influenza Type A (PCR) NEGATIVE (Negative) Influenza Type B (PCR) NEGATIVE (Negative) RSV RNA Qual (PCR) NEGATIVE (Negative) SARS-CoV-2 RNA (RT-PCR) NEGATIVE (Negative) Independent Interpretation I performed an independent interpretation of an: EKG and Plain X-Ray Interpretation: My independent interpretation of the patient's 12 EKG done on 01/16/2025 at 20:24 hours is as follows: Normal sinus rhythm rate of 86, normal CA interval, QRS duration, prolonged QTC of 483 milliseconds, Q-waves in lead 3, V1 and V2 with inverted T-waves V3 through V 5. No PACs, no PVCs. Compared to EKG dated 02/22/2024 the Q-waves are old but the inverted T-waves are new. My interpretation of the patient's one-view chest x-ray is as follows: Subtle increased interstitial markings bilaterally consistent with mild pulmonary edema. Radiology Impression Discussion of test interpretation with radiology: I have reviewed the radiologist's reading. Radiologist Impression: 1 view chest x-ray Comparison: CR/CA/SR - XR CHEST 1V - 02/22/24 22:43 EDT Findings: Mild diffuse interstitial prominence in both lungs may represent pulmonary vascular congestion/mild pulmonary edema. Stable placement of the prosthetic heart valve. No acute fracture. IMPRESSION: Mild diffuse interstitial prominence in both lungs may represent pulmonary vascular congestion/mild pulmonary edema. This document has been electronically signed by: Crystal Palmer MD on 01/16/2025 20:57:36 Dictated By: Crystal Palmer MD Critical Care Time Critical Care Time Critical Care Time: Yes Total Critical Care Time: 45 Attestation: Critical Care: The patient was critically ill with a high probability of imminent or life threatening deterioration. I spent greater than 30 minutes of discontinuous time evaluating the patient,delivering critical care at the bedside, discussing and evaluating pertinent data with consultants. Critical care time does not include time spent performing separately billable procedures or teaching. Total time spent performing critical care was 45 minutes. Discharge Plan Discharge Clinical Impression: Pleuritic chest pain Pneumonia Qualifiers: Pneumonia type: due to unspecified organism Laterality: bilateral Lung location: lower lobe of lung Qualified Code(s): J18.9 - Pneumonia, unspecified organism Patient Disposition: Admitted As Inpatient Prescriptions: No Action gabapentin 100 mg capsule 100 mg PO BID 30 Days Qty: 60 3RF sertraline 100 mg tablet 150 mg PO DAILY mirtazapine [Remeron] 15 mg tablet 22.5 mg PO BEDTIME amlodipine 5 mg Tablet 5 mg PO DAILY Qty: 0 0RF Protocol: Hold for SBP< HOLD for SBP < : 90 lisinopril 10 mg Tablet 10 mg PO DAILY Qty: 0 0RF Protocol: Hold for SBP< HOLD for SBP < : 90 buprenorphine-naloxone [Suboxone] 8-2 mg film 1 film sublingual BID Qty: 15 0RF Anoro Ellipta 62.5-25 mcg/actuation blister with device 1 ea inhalation DAILY celecoxib 200 mg capsule 200 mg PO DAILY omeprazole 20 mg capsule,delayed release(DR/EC) 20 mg PO DAILY@0630 cholecalciferol (vitamin D3) 50 mcg (2,000 unit) tablet 50 mcg PO DAILY acetaminophen [Pain Relief ES (acetaminophen)] 500 mg tablet 1,000 mg PO Q6H PRN (Reason: Pain) clopidogrel 75 mg tablet 75 mg PO DAILY bupropion HCl 300 mg tablet extended release 24 hr 300 mg PO DAILY aspirin 81 mg tablet,delayed release (DR/EC) 81 mg PO DAILY Anoro Ellipta 62.5-25 mcg/actuation blister with device 1 ea inhalation DAILY Qty: 60 6RF Combivent Respimat 20-100 mcg/actuation mist 1 puff inhalation QID PRN (Reason: for wheezing) Qty: 4 6RF Print Language: Greek
--- OUTSIDE RECORDS SUMMARY | 2025-01-16 20:34 | XMS_ITS | Data Portability ---
Author Organization [employer] [place] [facility] [employer] Address [address] [place] [id number] Care Team Providers Care Elastic Attacher Chainstitch Name Role Phone [facility] Referring Provider NAME, DELANEY Primary Care Provider HIM CCA OTHER Assessment Encounter Date Assessment Date Assessment LastModified by Organization Details LastModified Time 03/27/2022 03/27/2022 I have reviewed and agree with the assessment and plan as documented by the skinning machine feeder. I provided real time medical direction for this encounter and was immediately available to provide additional phone based assistance as needed. History as noted by skinning machine feeder. Pt diagnosed with cellulitis of the L lower leg and foot at an urgent care on 03/20. Started on Amoxicillin 500mg TID and doxycycline 100mg BID each x7 days. She has 1 more dose of the amox and 2 more doses of the doxy still to take. Pt reports some improvement of the redness and swelling but it has not resolved. No fevers or chills. She reports that the leg and foot are only mildly painful. On exam, she is afebrile. L LE with mild redness of lower leg anteriorly without significant swelling and mild redness and swelling of the dorsum L foot. There is mild palpable tenderness but no warmth. Impression: Pt with what appears to be resolving cellulitis of the L lower leg and foot. Improving on amoxicillin and doxycycline prescribed 1 week ago. I feel that 1 more week of antibiotics will be beneficial. She is prescribed 7 days of cephalexin 500mg qid and 7 more days of doxycycline 100 bid that she is told to start after finishing her current antibiotics. Pt's primary care team should f/u with her in 1 week to check on her improvement. Pt instructed to seek medical attention right away with any worsening or new symptoms, which are reviewed with her. [email or web address] Not available 03/27/2022 16:06:16 12/27/2024 12/27/2024 I provided real -time medical direction via phone for this encounter and was available for additional phone-based assistance as needed. I have reviewed and agree with the Assessment and Plan as documented by the Multimedia Designer. Patient given the opportunity to ask questions. Our service contacted for an assessment of: Nausea vomiting and diarrhea as well as dehydration As per above, patient with past several days of nausea vomiting diarrhea. Very poor p.o. intake. Calls for assessment. Positive sick contacts. Denies any abdominal pain, chest pain, dyspnea on exertion, shortness of breath. Per skinning machine feeder on the scene, vital signs are stable but patient does have evidence of dehydration. BMP noted. Patient was given 1 L of lactated Ringer's and BNP was obtained. Patient was given 10 mg of Compazine and given a loperamide tablet to take with any diarrhea that occurred tonight. I think she would benefit from a revisit on December 28 2 reassess for further IV fluids. I discussed with the patient whether or not she should go to the emergency department after we gave her a L of fluid and she felt only marginally better. She states she would like to avoid this and given the fact that her vital signs were stable and COVID and flu were negative, we would likely be able to keep her at home with supportive care. She would be appreciative of a repeat visit on the and voiced understanding of when to seek a higher level of care tonight. Allergies: Reviewed PCP f/u: We discussed the diagnostic uncertainty of home visits and the risk associated with this. In this case, the patient and I felt this to be an acceptable and reasonable amount of risk given the benefit of avoiding an ED visit. We discussed the need to seek care urgently/emergentl y in the setting of any new or worsening serious symptoms, particularly fever chills lightheadedness altered mental status [email or web address] Not available 12/27/2024 22:28:53 12/28/2024 12/28/2024 I have reviewed and agree with the assessment and plan as documented by the skinning machine feeder. I provided real time medical direction for this encounter and was immediately available to provide additional phone based assistance as needed. History as noted by skinning machine feeder. Pt reports 3-4 days of nausea, NB vomiting and NB diarrhea that resolved yesterday. She was seen by Eric last evening and treated with 1L of IV LR in addition to compazine and loperamide. Visit was requested today to reassess need for more IV fluids. Today, pt reports that she is feeling improved and has been tolerating po fluids and Boost. She urinated this AM without issues. No recurrent nausea, vomiting or diarrhea since yesterday. No CP, abdominal pain or fevers. On exam, pt appears comfortable. Vitals ok. Abdomen soft, non tender. POC BMP looks ok, Cr 0.8, normal anion gap. Impression: Pt improved since her visit yesterday and has been tolerating small amounts of po fluids today without recurrent symptoms. POC BMP is reassuring. Abdomen soft and non tender. Order placed for pt to receive 1L of IV LR. Pt instructed to increased po fluid intake and to slowly advance her diet with the BRAT diet as tolerated. Medic informs me that the IV infiltrated soon after the infusion was initiated so the IV was d/c'd. Medic unable to obtain another IV access with multiple attempts. Pt reports she feels comfortable continuing to hydrate with po fluids. Pt instructed to f/u with her PCP or [facility] if her symptoms return and to seek medical attention right away in the ED with any worsening or new symptoms, which are reviewed with her. [email or web address] Not available 12/28/2024 14:34:16 Plan of Treatment Reminders Order Date Submit Date Provider Last Modified By Organization Details Last Modified Time Details Appointments None recorded. Lab BMP, serum or plasma 2024 025 [email or web address] [facility], [address] [place] [address], [id number], 13:28:38 cmp, whole blood + ron 2024 025 JUAN LUIS [facility], [address] [place] [address], [id number], 09:00:50 rapid SARS CoV 2 Ag, QL IA, respiratory specimen 2024 025 [email or web address] [facility], [address] [place] [address], [id number], 22:25:42 rapid flu (A+B) [address], [address] [place] [address], [id number], 22:25:42 Referral None recorded. Procedures None recorded. Surgeries None recorded. Imaging None recorded. Medication Orders lactated Ringers intravenous solution 2024 025 [facility] #[id number], [address] [place], [place], [id number], 5 13:28:38 lactated Ringers intravenous solution [address] [facility] #[id number], [address] [place], [place], [id number], 5 22:25:42 Compazine 10 mg tablet [address] [facility] #[id number], [address] [place], [place], [id number], 5 22:25:42 loperamide 2 mg tablet [address] [facility] #98079, [facility] [place], [place], [id number], 5 22:25:42 cephalexin 500 mg capsule 2021 022 [facility] #53814, [address] [place], [place], [id number], 2 15:57:11 doxycycline hyclate 100 mg capsule 2021 022 [facility] #[id number], [facility] [place], [place], [id number], 2 15:57:10 Patient TargetsNo targets recorded. Patient InstructionsNo instructions recorded. Reason for Referral None Reported. Results Created Date Observation Date Name Description Value Unit Range Abnormal Flag Note LastModifiedBy Organization Detail LastModifiedTime 12/27/19 25 12/27/2024 rapid flu (A+B) Flu negati ve Not Available Main - [facility] ed [address] [place] [address], [id number], 12/27/2024 22:25:04 12/27/19 25 12/27/2024 rapid SARS CoV 2 Ag, QL IA, respi rator y speci men rapid SARS CoV 2 Ag, QL IA, respiratory specimen negati ve Not Available Main - [facility] ed [address] [place], [phone], 12/27/2024 22:24:49 Result Notes None recorded. Medical Equipment None Reported. Allergies No known drug allergies Medications Name Sig Start Date Stop Date Status Note LastModified by Organization Details LastModified Time celecoxib 200 mg capsule TAKE 1 CAPSULE BY MOUTH EVERY DAY NEEDED active Not Available Not Available No t Available doxycycline hyclate 100 mg capsule TAKE 1 CAPSULE BY MOUTH TWICE DAILY FOR 7 DAYS active Not Available Not Available No t Available nicotine 14 mg/24 hr daily transdermal patch APPLY 1 PATCH TOPICALLY EVERY DAY. REMOVE OLD PATCH BEFORE APPLYING NEW ONE. active Not Available Not Available No t Available ipratropium 0.5 mg-albuterol 3 mg (2.5 mg base)/3 mL nebulization soln active Not Available Not Available Not Available azithromycin 250 mg tablet active Not Available Not Available Not Available nicotine (polacrilex) 2 mg gum active Not Available Not Available Not Available sertraline 100 mg tablet active Not Available Not Available Not Available lactated Ringers intravenous solution Inject 1000 mL by intravenous route. 2024 active Not Available Not Available Not Avai lable bacitracin 500 unit/gram topical ointment active Not Available Not Available Not Available clopidogrel 75 mg tablet TAKE 1 TABLET BY MOUTH EVERY DAY active Not Available Not Available No t Available aspirin 81 mg tablet,delay ed release TAKE 1 TABLET BY MOUTH EVERY DAY active Not Available Not Available No t Available Nicotrol 10 mg inhalation cartridge active Not Available Not Available No t Available amoxicillin 500 mg tablet active Not Available Not Available Not Available cephalexin 500 mg capsule TAKE 1 CAPSULE BY MOUTH FOUR TIMES DAILY FOR 7 DAYS active Not Available Not Available N ot Available nicotine 21 mg/24 hr daily transdermal patch APPLY ONE PATCH TOPICALLY EVERY DAY active Not Available Not Available No t Available omeprazole 20 mg capsule,bruna yed release active Not Available Not Available Not Available hydroxyzine HCl 25 mg tablet active Not Available Not Available Not Available furosemide 20 mg tablet active Not Available Not Available Not Available mirtazapine 15 mg tablet active Not Available Not Available Not Available doxycycline hyclate 100 mg tablet active Not Available Not Available No t Available bupropion HCl XL 300 mg 24 hr tablet, extended release active Not Available Not Available Not Available bupropion HCl XL 150 mg 24 hr tablet, extended release active Not Available Not Available Not Available Flovent HFA 110 mcg/actuatio n aerosol inhaler active Not Available Not Available Not Available Pain Relief Extra Strength (acetaminoph en) 500 mg tablet active Not Available Not Available Not Available cholecalcife rol (vitamin D3) 50 mcg (2,000 unit) tablet active Not Available Not Available Not Available Suboxone 8 mg-2 mg sublingual film DISSOLVE 1 FILM UNDER THE TONGUE TWICE DAILY active Not Available Not Available Not Available Combivent Respimat 20 mcg-100 mcg/actuatio n solution for inhalation INHALE 1 PUFF BY MOUTH FOUR TIMES DAILY. MAY TAKE ADDITIONAL PUFFS NEEDED. NOT TO EXCEED 6 PUFFS IN 24 HOURS active Not Available Not Available No t Available Anoro Ellipta 62.5 mcg-25 mcg/actuatio n powder for inhalation active Not Available Not Available N ot Available naloxone 4 mg/actuation nasal spray active Not Available Not Available Not Available Vitals Date Recorded Body temperature Body weight Body height Respiratory rate Heart rate Oxygen saturation Oxygen saturation in Arterial blood by Pulse oximetry Inhaled oxygen flow rate Heart rate Body height Respiratory rate Oxygen saturation Oxygen saturation in Arterial blood by Pulse oximetry Inhaled oxygen flow rate Body weight Body temperature Systolic blood pressure Diastolic blood pressure Systolic blood pressure Diastolic blood pressure Provider Name and Address Organization Details Last Updated DateTime 2 98 [degF] 80099.9 6 g 149.86 cm 18 /min 96 /min 96 % 96 % 4 L/min 96 /min 149.86 cm 18 /min 96 % 96 % 4 L/min 43241.9 6 g 98 [degF] 107 mm[Hg] 66 mm[Hg] 107 mm[Hg] 66 mm[Hg] Not Available [facility] - production 2 16:23:18 Date Recorded Heart rate Body temperature Respiratory rate Oxygen saturation Oxygen saturation in Arterial blood by Pulse oximetry Systolic blood pressure Diastolic blood pressure Provider Name and Address Organization Details Last Updated DateTime 5 75 /min 98 [degF] 18 /min 94 % 94 % 110 mm[Hg] 64 mm[Hg] Not Available [facility] - production 5 18:54:15 Date Recorded Body temperature Heart rate Respiratory rate Oxygen saturation Oxygen saturation in Arterial blood by Pulse oximetry Systolic blood pressure Diastolic blood pressure Provider Name and Address Organization Details Last Updated DateTime 5 98.8 [degF] 86 /min 16 /min 92 % 92 % 130 mm[Hg] 80 mm[Hg] Not Available [facility] - production 13:23:12 Social History None recorded. Functional Status None recorded. Mental Status None recorded. Family History Nothing Reported. Medical History No medical history recorded. Gynecological HistoryNo gynecological history recorded. Obstetrics History GPAL:G 0 P 0 0 0 0 Past Encounters Encounter ID Performer Location Encounter Start Date Encounter Closed Date Diagnosis/Indication Diagnosis SNOMED-CT Code Diagnosis ICD10 Code Diagnosis Note [id number] Shubham Lujan MD Main - [facility] [address] [place] [phone] 03/27/2022 15:54:16 08/11/2022 09:59:38 Cellulitis of lower leg 275946972 L03.119 [id number] Melina Mckeon MD Main - [facility] [address] [place] [phone] 12/27/2024 18:54:11 12/28/2024 08:58:39 Dehydration 24362187 E86.0 [id number] Shubham Lujan MD Main - [facility] [address] [place] [phone] 12/28/2024 13:22:51 12/28/2024 16:44:29 Nausea, vomiting and diarrhea 8708028 R11.2 Health Concerns Section Related Observation LastModified by Organization Detai ls LastModified Time None Recorded Concern Status LastModified by Organization Details LastModified Time None Recorded Advance Directives Directive None Recorded Payers Encounter Date Sequence Insurance Name Policy Number Policy Palmer Covered Member ID Palmer Member ID Guarantor Name 03/27/2022 1 [facility] - DOS PRIOR TO 2023 - DUAL ELIGIBLE (MEDICARE REPLACEMENT/ADV ANTAGE - HMO) Ayanna Giles [id number] Ayanna Giles 12/27/2024 1 [facility] [place] - DOS ON OR AFTER 2023 - DUAL ELIGIBLE - [employer]PC OPTIONS AND ONE CARE (MEDICARE REPLACEMENT/ADV ANTAGE - HMO) Ayanna Giles [id number] Ayanna Giles 12/28/2024 1 [facility] [place] - DOS ON OR AFTER 2023 - DUAL ELIGIBLE - [employer] OPTIONS AND ONE CARE (MEDICARE REPLACEMENT/ADV ANTAGE - HMO) Ayanna Giles [id number] Ayanna Giles Notes Date Note Type Note Provider Name and Address Organization Details Recorded Time 03/27/2022 text/html HPI: No Known Allergies Patient with history of Breast CA with Right Mastectomy , aortic Valve Replacement, COPD. Impaired fasting glucose. Diagnosed with Left Lower Leg Cellulitis 03/20/22 Started antibiotics on 03/21/22 Leg remains red and there is increased swelling of left foot. Antibiotics end today. ................... ................... ................... ................... ................... ................... ................... ........ Multimedia Designer Note: Sent to a call for a pt complaining of cellulitis. SC8 arrives on scene, pt is sitting on walker. Pt is alert and oriented. Airway is patent. Pt complains of cellulitis in left lower leg on 03/20. Pt was prescribed Amoxicillin 500mg TID and Doxycycline 100mg BID for 7 days. Pt is finishing prescriptions and is concerned because lower leg/foot is still red, swollen and tender to touch. Pt states leg/foot has improved over the past week. Edema and erythema noted on lower leg/foot. No pitting edema or heat noted. Pt denies headache, dizziness, fever, cp, sob, nausea/vomiting/anshu rrhea, abd pain or loc. BP:107/66, P:96, RR:18, SpO2:96% on 4 lpm O2. Pt wears oxygen at all times. Lung sounds: clear bilaterally. [facility] orders pt to finish Amoxicillin and Doxycycline. [facility] [place] script to pt's pharmacy for Doxycycline 100mg BID x 7 days and Cephalexin 500mg QID x 7 days. Red flags discussed. Pt has no further questions. ................... ................... ................... ................... ................... ................... ................... ........ Disposition: Fulfilled Shubham Lujan MD [address] [place] [address],[address], [place], [phone], Archive - [employer] 03/27/2022 16:26:31 12/27/2024 text/html [facility] Nurse Triage Notes (Bennie Gayle - KELY): Denies: Sharp focal or diffuse abdominal pain Vomiting blood/coffee ground material Bloating, jaundice new onset with pain Nausea and vomiting greater than 2 hours with abdominal pain Tearing pain that radiates to back Food Impaction Chief Complaints: Vomiting, Nausea, Diarrhea PMH: Cancer, COPD/Asthma, Coronary Artery Disease PMH Reviewed at 12/27/2024 - 16:32 Allergies Reviewed at 12/27/2024 - 16:32 Comments: Mine Engineering Supervisor verified the patient's name//address and phone number. Pt calling reporting three days of nausea, vomiting, and diarrhea. Pt denies abdominal pain. Pt reports she is taking Selvin Back and Body . Pt reports her whole body aches and states she is very weak and unable to stand on her own without being very weak. Education provided on the response time and the patient was advised to monitor reported s/s and seek emergency treatment if needed -Pat Gayle RN Multimedia Designer Organization Information for [employer] Legal Name: [employer] Address: [address] [place] [address], [place] [address], Recycle Coordinator: Jd CASTRO No.: [id number] Multimedia Designer POC Test Results from [employer] Rapid COVID antigen (18:51:16) COVID: - Attachments uploaded as part of this test result can be found under Documents section. Rapid influenza antigen (18:51:19) Flu: - iSTAT Chem8+ (19:16:57) Na: 137 mEq/L K: 3.7 mEq/L Cl: 105 mEq/L iCa: 1.08 mmol/L TCO2: 25 mmol/L Glu: 118 mg/dL BUN: 43 mg/dL Crea: 1.2 mg/dL Hct: 55 % Hb: 18.7 g/dL A Attachments uploaded as part of this test result can be found under Documents section. ................... ................... ................... ................... ................... ................... ................... ........ Multimedia Designer Note From [employer]: Responded to the above location for a 84 y/o female with concern for nausea/vomiting and diarrhea x 3 days. Pt seeking assessment and treatment. Pt found lying in bed, stating that she is very weak and has not been able to keep any food or drink down for the past 3 days. Pt reports body aches and feeling very tired. Pt states that she had just finished detox with methadone and had been weaned off medication approx 2-3 days prior to symptoms. Pt hoping to be rehydrated and treated further if able. Provider found pt caox4 airway open and patent, no distress noted, lying on bed supine. Vitals obtained and pt assessed found -sob, -cp, -td/jvd noted. Pt admits to nausea, vomiting and diarrhea for three days, last instance of vomiting approx 2 pm today. Pt states dizziness when standing, difficulty standing without falling feeling very lethargic and weak. HEENT negative, lung sounds clear in all stearns, equal and bilateral chest rise and fall noted. Extremities normal. Skin pale, warm and dry. Covid and flu swab performed with negative results found. [facility] contacted and discussed findings. [facility] directed provider to draw BMP and administer 1L lactated ringers solution for rehydration. IV established, labs drawn and 1L lactated ringers solution infused. During infusion pt reports feeling more awake and was able to sit up briefly, reporting some improvement to symptoms. Upon completion of infusion [facility] recontacted, discussing pt current symptoms. Pt asked about continuing care at local hospital with pt refusing stating that she would like to stay home and try and eat something at home. [facility] directed provider to administer 10mg compazine ODT and to leave behind 2 mg Loperamide with direction to take approx an hour after provider leaves. Provider administered compazine as directed and relayed instructions to pt. Provider removed iv from pt and placed bandage over placement site. Provider answered any further questions and advised pt on red flags. Provider then left the residence. All times approximate. ................... ................... ................... ................... ................... ................... ................... ........ [facility] Consulted: Melina Mckeon ................... ................... ................... ................... ................... ................... ................... ........ Disposition: Fulfilled Melina Mckeon MD [address] [facility], [place], [phone], [facility] - [facility] 12/27/2024 22:29:39 12/28/2024 text/html This was a supervised home visit with skinning machine feeder Danis Maya. HPI: Member is dehydrated has significant nausea vomiting & diarrhea. ................... ................... ................... ................... ................... ................... ................... ........ [facility] Nurse Triage Notes (Peggy Pickett - RN): Chief Complaints: Dehydration PMH: Cancer, COPD/Asthma, Coronary Artery Disease PMH Reviewed at 12/28/2024:31 Allergies Reviewed at 12/28/2024:31 Comments: CP spoke to the pt and placed the referral on her behalf Pt was seen on 12/27 for nausea and vomiting [facility] request :Patient would benefit from a repeat [facility] visit on December 28. She has dehydration and was given a L of lactated Ringer's. She has significant nausea and vomiting as well as diarrhea. Would likely benefit from a repeat visit with repeated IV fluids. Patient reluctant and declining transfer to emergency department. Na 137 mEq/L 19:18 K 3.7 mEq/L 19:18 Cl 105 mEq/L 19:18 iCa 1.08 mmol/L 19:18 TCO2 25 mmol/L 19:18 Glu 118 mg/dL 19:18 BUN 43 mg/dL 19:18 Crea 1.2 mg/dL 19:18 Hct 55 % 19:18 Hb 18.7 g/dL 19:18 AG 12 Multimedia Designer Organization Information for Danis Maya Legal Name: [employer] Address: [address] [place] [address], [place] [address], Recycle Coordinator: Jd Abraham MD CLIA No.: [id number] Multimedia Designer POC Test Results from Danis Maya iSTAT Chem8+ (13:18:13) Na: 137 mEq/L K: 5.3 mEq/L Cl: 107 mEq/L iCa: 1.02 mmol/L TCO2: 25 mmol/L Glu: 73 mg/dL BUN: 38 mg/dL Crea: 0.8 mg/dL Hct: 47 % Hb: 16 g/dL A Attachments uploaded as part of this test result can be found under Documents section. ................... ................... ................... ................... ................... ................... ................... ........ Multimedia Designer Note From Danis Maya: Pt seen for concern of dehydration. Pt reports 4 days of nausea, vomiting, & diarrhea which resolved at approx 1400 yesterday. Pt reports she was seen yesterday through [facility] and was given 1 liter of IV fluids. Pt reports that infusion finished at approx 2100 last night. Pt reports she has only urinated once today (at approx 0500), Pt was unable to give any info on color of urine. Pt complains of general weakness, which has improved since the N/V & diarrhea subsided. Pt exam unremarkable. Mucus membranes in mouth moist, skin PWD, VS as noted, abd soft & non distended x 4 quadrants, LS clear in all stearns. Blood draw obtained via IV start (22 ga in L AC) for BMV with ISTAT8. Results uploaded to [employer] platform and [facility] contacted via phone. [facility] advised of Pt's status and findings. [facility] agrees to administer 1L of LR, advise Pt to hydrate via oral fluids, and eat as tolerated with bland diet. [facility] advised Pt should call back if her symptoms do not continue to improve or return. Pt advised of [facility] treatment plan and agreeable. LR initiated however IV site quickly infiltrates, infusion d/c. Second IV attempt unsuccessful. Pt reports she does not want another IV attempt made and will make sure to hydrate. Several bottles of water obtained from Pt's refrigerator and placed on beside table. [facility] contacted and advised that LR is unable to be administered. [facility] agrees that Pt can hydrate with fluids, call closed. ................... ................... ................... ................... ................... ................... ................... ........ [facility] Consulted: Shubham Lujan ................... ................... ................... ................... ................... ................... ................... ........ Disposition: Makayla Lujan MD [address] [facility],[address], [place], [address], [facility] - [employer] 12/28/2024 14:34:30 OBGyn Episode No OBEpisode recorded.
--- OUTSIDE RECORDS SUMMARY | 2025-01-16 20:34 | XMS_ITS | Encounter Summary ---
Author Organization [employer] Address [address] [place] [address] Care Team Providers Care Orthopedic Rn Name Role Phone Name, Geronimo GIRON Primary Care Provider [phone] Encounter Details Date Type Department Care Team (Late st Contact Info) Description 09/26/2023 Abstract [facility] [address] [place] [address] Ana Maria Tarango Social History Tobacco Use Types Packs/Day Years Used Date Smoking Tobacco: Every Day Cigarettes Smokeless Tobacco: Never Alcohol Use Standard Drinks/Week Comments Never 0 (1 standard drink = 0.6 oz pur e alcohol) Depression Answer Date Recorded Patient Health Questionnaire-9 Score 14 05/18/2023 Housing Stability Answer Date Recorded What is your housing situation today? I have frantz pearce 08/23/[address] you li ve. Do you have problems with any of the following? None of the above 08/23/2023 Food Insecurity Answer Date Recorded Within the past 12 months, y ou worried that your food would run out before you got money to buy more: Never True 08/23/2023 Within the past 12 months,th e food you bought just didn't last and you didn't have enough money to get more: Never True Transportation Answer Date Recorded In the past 12 months, has l ack of transportation kept you from medical appts, meetings, work or from getting things needed for daily living? No 08/23/2023 Utilities Answer Date Recorded In the past 12 months, has t he electric, gas, oil or water company threatened to shut off services in your home? No 08/23/2023 Depression Answer Date Recorded Patient Health Questionnaire-2 Score 6 05/18/2023 Comments Unknown Sex and Gender Information Value Date Recorded Sex Assigned at Female 09/07/2022 10:15 AM EDT Legal Sex Female 10:15 AM EDT Gender Identity Female 09/07/2022 10:15 AM EDT Sexual Orientation Straight 09/07/2022 10 :15 AM EDT documented as of this encounter Plan of Treatment Upcoming Encounters Date Type Department Care Team (Late st Contact Info) Description 02/27/2025 10:00 AM EDT Office Visit [facility] [address] [place] [address] Name, MD Geronimo [address] [place] [id number] documented as of this encounter Visit Diagnoses Not on filedocumented in this encounter Additional Health Concerns Assessment Noted Time PHQ-9 Depression Total Score: 14 023 9:52 AM EDT documented as of this encounter Care Teams Orthopedic Rn Relationship Specialty Start Date End Date Name, MD Geronimo [address] [place] [id number] PCP - General Family Medicine 02/16/17 documented as of this encounter
--- OUTSIDE RECORDS SUMMARY | 2025-01-16 20:35 | XMS_ITS | Encounter Summary ---
Author Organization [employer] Address [address] [place] [address] Care Team Providers Care Steam And Gas Turbine Assembler Name Role Phone Name, Geronimo GIRON Primary Care Provider [phone] Reason for Visit * Reason Onset Date Comments Med Refill 12/18/2024 Encounter Details Date Type Department Care Team (Late st Contact Info) Description 12/18/2024 Refill [facility] [address] [place] [address] Purnima Mcrae, RN Uncomplicated opioid dependence (CMS/FORMERLY [facility]) Social History Tobacco Use Types Packs/Day Years Used Date Smoking Tobacco: Former Cigarettes Smokeless Tobacco: Never Alcohol Use Standard Drinks/Week Comments Never 0 (1 standard drink = 0.6 oz pur e alcohol) Alcohol Answer Date Recorded Frequency of Alcohol Consumption Not on file 05/26/2024 Average Number of Drinks Not on file 024 Frequency of Binge Drinking Not on file 05/08 Score 0 05/26/2024 Depression Answer Date Recorded Patient Health Questionnaire-9 Score 21 02/17/2024 Patient Health Questionnaire-9 Score 21 02/17/2024 Last PHQ-9: Questionnaire Data Not on file 0 02/17/2024 Housing Stability Answer Date Recorded What is your housing situation today? I have frantz pearce 05/26/[address] you li ve. Do you have problems with any of the following? None of the above 05/26/2024 Food Insecurity Answer Date Recorded Within the past 12 months, y ou worried that your food would run out before you got money to buy more: Never True 05/26/2024 Within the past 12 months,th e food you bought just didn't last and you didn't have enough money to get more: Never True Transportation Answer Date Recorded In the past 12 months, has l ack of transportation kept you from medical appts, meetings, work or from getting things needed for daily living? No 05/26/2024 Utilities Answer Date Recorded In the past 12 months, has t he electric, gas, oil or water company threatened to shut off services in your home? No 05/26/2024 Depression Answer Date Recorded Patient Health Questionnaire-2 Score 6 02/17/2024 Internet Access Answer Date Recorded Internet Access Q1 No 07/07/2024 Internet Access Q2 I do not want or need it 06/10 Comments Unknown Sex and Gender Information Value [...] Description 02/27/2025 10:00 AM EDT Office Visit [facility] [address] [place] [address] NameGeronimo MD [address] [place] [address] documented as of this encounter Visit Diagnoses Diagnosis Uncomplicated opioid dependence (CMS/HCC) documented in this encounter Additional Health Concerns Assessment Noted Time PHQ-9 Depression Total Score: 21 024 9:47 AM EDT documented as of this encounter Care Teams Steam And Gas Turbine Assembler Relationship Specialty Start Date End Date Geronimo Klein MD [address] [place] [id number] PCP - General Family Medicine 02/16/17 documented as of this encounter
--- OUTSIDE RECORDS SUMMARY | 2025-01-16 20:35 | XMS_ITS | Clinical Summary ---
Author Organization [facility] Address [address] [place] [address] Care Team Providers Care Lockstitch Cup Setter Name Role Phone Name, Geronimo GIRON Primary Care Provider [phone] Social History Tobacco Use Types Packs/Day Years Used Date Smoking Tobacco: Never Assessed Sex and Gender Information Value Date Recorded Sex Assigned at Not on file Gender Identity Not on file Sexual Orientation Not on file Plan of Treatment Health Maintenance Due Date Last Done Comments Hepatitis C Screening 1950 COVID-19 Vaccine (#1) 01/28/1951 Depression Screening 1963 Preventative Health Evaluation 1969 DTap / Tdap / Td (1 - Tdap) 1970 Colon Cancer Screening (Colonoscopy) 1996 Breast Cancer Screening (Mammogram) 2001 Shingrix-Zoster Vaccine (1 of 2) 2001 Fall Risk Assessment 2016 Osteoporosis Screening (DEXA Scan) 2016 Pneumococcal Vaccine (1 of 1 - PCV) 2016 Influenza Vaccine (#1) 2024 RSV Adult > 60+ Yrs or Pregn ant (1 - 1-dose 75+ series) 2026 Hepatitis B Vaccines Aged Out No long er eligible based on patient's age to complete this topic RSV Ped < 20 months Aged Out No longe r eligible based on patient's age to complete this topic Care Teams Lockstitch Cup Setter Relationship Specialty Start Date End Date Name, MD Geronimo [address] [facility] [address] [facility] [place] [address] PCP - General Internal Medicine 08/01/20
--- OUTSIDE RECORDS SUMMARY | 2025-01-16 20:35 | XMS_ITS ---
Author Organization [facility] Care Team Providers Care Combination Machine Tool Operator Name Role Phone Bernardo Flores Unavailable Unavailable New [place] Unavailable Unavail able Allergies and adverse reactions No Known Allergies Care Team Name Role Address Phone Organization Dates Bernardo Flores PCP [address] [place] [address], [place] [id number], [facility] (Office): [facility] 08/20/2023 - 08/27/2023 New [place] Attending Physician [address] [place] [address], [place], [place], [facility][note 2], [facility] (Office): [facility] 08/20/2023 - 08/27/2023 Mental Status Section Date Assessment Total Score Description 08/27/2023 BIMS 15 cognitively int act CAM 0 No delirium ind icated 08/25/2023 BIMS 15 cognitively int act CAM 0 No delirium ind icated Problems Problem # Description Date of onset Resolved Date Code CodeSystem Concern Status 1 CHRONIC OBSTRUCTIVE PULMONARY DISEASE, UNSPECIFIED 08/20/[address] active 2 CHRONIC RESPIRATORY FAILURE WITH HYPOXIA 08/20/[address] active 3 COVID-19 08/20/[address] active 4 DEHYDRATION 08/20/[address] active 5 DIFFICULTY IN WALKING, NOT ELSEWHERE CLASSIFIED 08/20/[address] active 6 MAJOR DEPRESSIVE DISORDER, RECURRENT, UNSPECIFIED 08/20/[address] active 7 OTHER LOW BACK PAIN 08/20/[address] active 8 OTHER PSYCHOACTIVE SUBSTANCE ABUSE, UNCOMPLICATED 08/20/[address] active 9 SECONDARY POLYCYTHEMIA 08/20/[address] active 10 WEAKNESS 08/20/[address] active Reason for Referral No Reasons for Referral Entered Social History Social History Observation Description Start Date End Date Code Code System Current Smoking Status Tobacco smoking consumption unknown 599299770 SNOMED CT Sex Assigned At Female 1950 58768-2 [facility] Vital Signs Code Code System Vitals Name Values and Units Timing Information 9279-1 [facility] Respiratory Rate Value=20.0 Units=/m in 08/27/2023 8462-4 [facility] Blood Pressure-Diastolic Value=78 Un its=mmHg 08/27/2023 8480-6 [facility] Blood Pressure-Systolic Ntfpl=796 Un its=mmHg 08/27/2023 8310-5 [facility] Body Temperature Value=97.8 Units=?? F 08/27/2023 8867-4 [facility] Heart rate Value=72.0 Units=/min 69314-0 [facility] O2 % BldC Oximetry Value=97.0 Units= % 08/27/2023 04345-6 [facility] Pain Level Value=0.0 08/27/2023 8302-2 [facility] Height Value=59.0 Units=Inches 08/23/2023 33973-2 [facility] Weight Zvejz=955.4 Units=Lbs
--- OUTSIDE RECORDS SUMMARY | 2025-01-16 20:35 | XMS_ITS | Clinical Summary ---
Author Organization [employer] Address [address] [place] [address] Care Team Providers Care Tractor Crane Engineer Name Role Phone Name, Geronimo GIRON Primary Care Provider [phone] Allergies No known active allergies Medications sertraline (Zoloft) 100 MG tablet Take 1.5 tablets by mouth at bed time. 04/20/20 19 Active Umeclidinium-V ilanterol (Anoro Ellipta) 62.5-25 MCG/ACT aerosol powder Inhale 1 puff at bed time. Active acetaminophen (Tylenol) 500 MG tabletIndicati ons:Chronic pain syndrome Take 1 tablet by mouth every 6-8 hours as needed.Do not exceed over 8 tabs/24 hrs 60 tablet 3 10/16/20 22 Active lidocaine (Lidoderm) 5 % patchIndicatio ns:Chronic low back pain with left-sided sciatica, unspecified back pain laterality Apply 1 patch topically in the morning. Remove & discard patch within 12 hours or as directed by . 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 Shake gently. Before first use, prime pump. After use, clean tip and replace cap. 16 g 2 01/12/20 23 Active furosemide (Lasix) 20 MG tablet Take 1 tablet by mouth 1 (one) time each day. 02/19/20 23 Active Combivent Respimat 20-100 MCG/ACT inhaler inhale 1 puff by inhalation route 4 times every day ; may take additional puffs as needed not to exceed 6 puffs in 24hrs 02/19/20 23 Active mirtazapine (Remeron) 15 MG tablet Take 1.5 tablets by mouth daily as bedtime 02/19/20 23 Active nicotine polacrilex (Commit) 2 MG lozenge 1 or 2 lozenges q 2-4 hours instead of a cigarette. 108 lozenge 2 03/19/20 23 Active bacitracin 500 UNIT/GM ointment Apply topically 2 times daily. 14 g 05/18/20 23 Active gabapentin (Neurontin) 100 MG capsule Take 1 capsule by mouth 2 times daily. 08/27/20 23 Active nicotine (Nicoderm CQ) 7 MG/24HR patchIndicatio ns:Tobacco use disorder Place 1 patch on the skin 1 (one) time each day at the same time. 30 patch 1 09/03/20 23 Active SUMAtriptan (Imitrex) 6 MG/0.5ML injection Inject 0.5 mL (6 mg) under the skin if needed for migraine. 15 mL 2 12/28/19 24 Active omeprazole (PriLOSEC) [address] capsuleIndicat ions:Gastroeso phageal reflux disease, unspecified whether esophagitis present TAKE 1 CAPSULE BY MOUTH EVERY MORNING 30 capsule 11 03/20/20 24 Active clopidogrel (Plavix) 75 MG tabletIndicati ons:Moderate aortic valve stenosis TAKE 1 TABLET BY MOUTH EVERY MORNING 90 tablet 1 08/10/20 24 Active cholecalcifero l VITAMIN D (Vitamin D-3) 50 MCG (1999 UT) tablet TAKE 1 TABLET BY MOUTH EVERY MORNING 90 tablet 1 08/10/20 24 Active Aspirin Low Dose 81 MG EC tabletIndicati ons:Moderate aortic valve stenosis TAKE 1 TABLET BY MOUTH EVERY MORNING 90 tablet 1 08/10/20 24 Active ipratropium-al buterol (Combivent Respimat) 20-100 MCG/ACT inhaler Inhale 1 puff in the morning, at noon, in the evening, and at bedtime. 4 g 11 08/18/20 24 025 Active amLODIPine (Norvasc) 5 MG tablet TAKE 1 TABLET BY MOUTH EVERY MORNING 90 tablet 1 11/02/20 24 Active lisinopril 10 MG tablet TAKE 1 TABLET BY MOUTH EVERY MORNING 90 tablet 1 12/06/19 25 Active celecoxib (CeleBREX) 200 MG capsuleIndicat ions:Lumbar spondylosis TAKE 1 CAPSULE BY MOUTH EVERY MORNING 30 capsule 1 12/06/19 25 Active Buprenorphine HCl-Naloxone HCl (Suboxone) 8-2 MG SL filmIndication s:Uncomplicate d opioid dependence (CMS/HCC) Place 1 Film under the tongue 2 times daily for 28 days. Do not start before December 22, 2024. 56 Film 12/22/19 25 025 Active Buprenorphine HCl-Naloxone HCl (Suboxone) 8-2 MG SL filmIndication s:Uncomplicate d opioid dependence (CMS/HCC) Place 1 Film under the tongue 2 times daily for 28 days. Do not start before November 24, 2024. 56 Film 11/24/19 25 025 Discontinued(Re order (will not trigger notification to Pharmacy)) Active Problems Problem Noted Date Diagnosed Date Hypertension 09/09/2023 Taste absent 10/23/2022 Dependence on supplemental oxygen 10/10/2022 Lumbar spondylosis 10/10/2022 Nonrheumatic aortic valve stenosis 10/10/2022 Moderate aortic valve stenosis 10/10/2022 Vitamin D deficiency 10/10/2022 History of aortic valve replacement 02/06/2022 Overview (01/08/2023): TAVR 01/27 at [facility] [place] She is on DAPT since then Knee pain 01/09/2019 Memory impairment 01/09/2019 Tired 10/11/2017 Severe major depression, sin gle episode, without psychotic features 04/08/2017 Neck pain 02/17/2017 Recurrent major depression in partial remission 02/17/2017 Chronic obstructive lung disease 08/07/2014 Dyslipidemia 08/07/2014 History of right mastectomy 08/07/2014 Impaired fasting glucose 08/07/2014 Osteopenia 08/08/2012 Tobacco dependence syndrome 08/08/2012 Chronic low back pain 05/27/2012 Gastroesophageal reflux disease 05/27/2012 Migraine 05/27/2012 Opioid dependence 03/28/2012 Pure hypercholesterolemia 03/28/2012 Resolved Problems Problem Noted Date Diagnosed Date Resolved Date Heart murmur 10/10/2022 01/08/2023 Encounters Date Type Department Care Team Description 12/18/2024 Refill [facility] [address] [place] [address] Purnima Mcrae, KELY Uncomplicated opioid dependence ([facility]CC) 12/06/2024 Refill [facility] [address] [place] [address] Geronimo Klein MD Lumbar spondylosis 11/17/2024 Refill [facility] [address] [place] [address] Purnima Mcrae, KELY Uncomplicated opioid dependence ([facility]/HCC) 11/09/2024 Refill [facility] [address] [place] [address] NameGeronimo MD Lumbar spondylosis 11/01/2024 Refill [facility] [address] [place] [address] Geronimo Klein MD 10/27/2024 9:15 AM EST Office Visit [facility] [address] [place] [phone] Shubham Servin MD Uncomplicated opioid dependence ([facility]/HCC) (Primary Dx); Tobacco use disorder; Vaping nicotine dependence, tobacco product 10/25/2024 11:30 AM EST Office Visit [facility] [address] [place] [phone] Geronimo Klein MD Weight loss, non-intentional (Primary Dx) 10/25/2024 Travel 10/24/2024 Telephone [facility] [address] [place] [address] Dahlia Quinones MA Chart Prep 10/20/2024 Refill [facility] [address] [place] [address] Yvrose Xiao RN Uncomplicated opioid dependence ([facility]/HCC) from Last 3 Months Immunizations Name Administration Dates Next Due DTaP 11/30/2014 DTaP / Hep B / IPV 08/23/2014 DTaP / IPV 01/05/2019 DTaP, Unspecified 03/02/2016,10/21/2015,03/04/20 15 Hep A, Unspecified 10/12/2016 Hep A, ped/adol, 2 dose 11/26/2015,01/31/2008, Hep B, Adolescent or Pediatric 01/30/2008,2006,05/13/2007 Hep B, Unspecified 11/26/2015,09/20/2015 Hep B, adult 11/24/2019, 9,03/03/2019,04/10 IPV 03/04/2015,12/22/2014,11/30/2014 Influenza High-dose Quadriva lent Preservative Free 09/05/2021,11/07/2020 Influenza injectable quadriv alent preservative free 08/16/2023,10/30/2022,01/05/2019 Influenza, High Dose Seasona l, Preservative Free 07/18/2024,09/19/2019 Influenza, IIV3, injectable 08/07/2014, 1 Influenza, Split (incl. wil fied surface antigen) 09/27/2013,08/08/2012 Influenza, trivalent, adjuvanted 08/29/2017 MMR 10/21/2015 MMRV 01/05/2019 Moderna Covid-19 Vaccine 12+ 05/15/2022, 12/26/2021,02/21/2021,01/24 Moderna Covid-19 Vaccine 6+ Bivalent 10/30/2022 Pneumococcal Conjugate PCV 13 08/29/2017 ,11/26/2015,10/21/2015,11/30 Pneumococcal Polysaccharide PPSV23 09/19/2019, Tdap 03/19/2023,05/27/2012 Varicella 01/05/2019,09/20/2015 Zoster, Recombinant 05/28/2023,03/19/2023 Social History Tobacco Use Types Packs/Day Years Used Date Smoking Tobacco: Former Cigarettes Smokeless Tobacco: Never Tobacco Cessation:Counseling Given: Not Answered Alcohol Use Standard Drinks/Week Comments Never 0 [...] Orientation Straight 09/07/2022 10 :15 AM EDT Last Filed Vital Signs Vital Sign Reading Time Taken Comments Blood Pressure 156/99 10/25/2024 11:36 AM EST Pulse 100 10/25/2024 11:36 AM EST Temperature 36.1 ??C (96.9 ??F) 05/26/2024 9:00 AM ED T Respiratory Rate 18 10/25/2024 11:36 AM EST Oxygen Saturation 98% 10/25/2024 11:36 AM EST Inhaled Oxygen Concentration - - Weight 39.1 kg (86 lb 3.2 oz) 10/25/2024 11:36 A M EST Height 149.9 cm (4' 11 ) 07/18/2024 11:19 AM EDT Body Mass Index 17.41 07/18/2024 11:19 AM EDT Plan of Treatment Upcoming Encounters Date Type Department Care Team (Late st Contact Info) Description 02/27/2025 10:00 AM EDT Office Visit [facility] [address] [facility] [place] [address] Name, MD Geronimo [address] [place] [address] Health Maintenance Due Date Last Done Comments CT Colonography 1950 Colonoscopy 1950 Colorectal Cancer Screening 1950 FIT DNA/Cologuard 1950 FIT 1950 FOBT 1950 Sigmoidoscopy 1950 RSV Patients and Patients Aged 60 years or older (1 - Risk 60-74 years 1-dose series) 2011 COVID-19 Vaccine ( season) 2024 10/30/2022, 05/15/2022, 12/26/2021, Additional history exists Depression Monitoring (PHQ-9) 08/18/2024 02/17/2024, 02/17/2024 Depression Screening 02/16/2025 02/17/2024, 02/17/20 Alcohol/Substance Use Screening 05/26/2025 05/26/2024 SDOH Screening 05/26/2025 05/26/2024 Diabetes: Hemoglobin A1C 10/25/2025 10/25/2024, 09/0 01/2020 Tobacco Screening 10/25/2025 10/25/2024 Mammogram 06/01/2026 06/01/2024 Lipid Panel 05/18/2028 05/18/2023 DTaP/Tdap/Td Vaccines (9 - Td or Tdap) 03/19/2033 03/19/2023, 01/05/2019, 03/02/2016, Additional history exists Hepatitis A Vaccines Aged Out 10/12/2016, 11/26/2015, 01/31/2008, Additional history exists No longer eligible based on patient's age to complete this topic IPV Vaccines Completed 01/05/2019, 02/07, 12/22/2014, Additional history exists Pneumococcal Vaccine: 50+ Years Completed 09/19/2019, 08/29/2017, 11/26/2015, Additional history exists Hepatitis B Vaccines Completed 11/24/2019, 06/23/2019, 03/03/2019, Additional history exists Zoster Vaccines Completed 05/28/2023, 03/19/2023 Hepatitis C Screening Completed 05/26/2024 , 12/25/2022, 07/11/2020 Influenza Vaccine Completed 07/18/2024, , 10/30/2022, Additional history exists HIB Vaccines Aged Out No longer eligi ble based on patient's age to complete this topic HPV Vaccines Aged Out No longer eligi ble based on patient's age to complete this topic Meningococcal Vaccine Aged Out No allan nallely eligible based on patient's age to complete this topic RSV under 20 months Aged Out No longe r eligible based on patient's age to complete this topic Rotavirus Vaccines Aged Out No longer eligible based on patient's age to complete this topic Procedures Procedure Name Priority Date/Time Associated Diagnosis Comments POCT EVELYN-14 URINE DRUG SCREEN Routine 10/27/2024 8:53 AM EST Uncomplicated opioid dependence (CMS/HCC) POCT GLYCATED HEMOGLOBIN, TOTAL Routine 10/25/2024 12:07 PM EST Weight loss, non-intentional BI MAMMOGRAM SCREENING TOMOSYNTHESIS LEFT Routine 06/01/2024 11:55 AM EDT HEPATITIS C AB W/REFL TO HCV RNA, QN, PCR Routine 05/26/2024 10:50 AM EDT Weight loss, non-intentional LIPID PANEL, STANDARD Routine 05/18/2023 10:50 AM EDT from Last 3 Months or Most Recently Relevant to Health Maintenance Results * POCT EVELYN-14 Urine Drug Screen (10/27/2024 8:53 AM EST) THC Negative Cocaine Screen, Urine Negative Opiate Screen, Urine Negative Methamphetamine Screen Urine Negative Amphetamine Screen, Urine Negative Benzodiazepines Screen, Urine Negative Barbiturate Screen, Urine Negative Methadone Screen, Urine Negative Buprenophine Screen, Urine Positive TCA, Urine Negative MDMA Urine Negative ng/mL Oxycodone Screen, Urine Negative Phencyclidine (PCP), Urine Negative Propoxyphene, Urine Negative Fentanyl, Urine Negative Urine Urine specimen obtained by clean catch procedure / Unknown 10/27/2024 8:53 AM EST Shubham Servin MD POINT OF CARE TEST ENTER/EDIT ORDERABLES Final Result * POCT HGB A1C (10/25/2024 12:07 PM EST) Hemoglobin A1C 5.9 4.0 - 6.0 % QC Media Lot # [id number] Lot# Expiration Date [id number] Blood 10/25/2024 12:0 7 PM EST Geronimo Klein MD POINT OF CARE TEST ENTER/EDIT OR DERABLES Final Result * BI Mammogram Screening Tomosynthesis Left (06/01/2024 11:55 AM EDT) Anatomical Region Laterality Modality Breast Left Mammography 06/01/2024 11:5 5 AM EDT Narrative 06/21/2024 8:19 PM EDT ? [facility] [place] ? [address] ?[place] [address] ? Mammography Report ? Signed ? Patient: Giles,Ayanna ?MR#: [id number] ?? 53 ? : 1950 ?Acct:[id number] ? Age/Sex: 73 / F ?ADM Date: 07/25/24 ? Loc: HO.MAMMO ? Attending : Geronimo Name MD ? Ordering Physician: Name,Geronimo MD ?Results: 2Benign Fi ?? ndings ? Date of Service: 06/01/24 ?Follow Up: 1 Year From Orig ?? inal Mammogram ? Procedure(s): MM tomosynthesis screening LT ?? Accession Number(s): [id number] ? cc: Name,Geronimo GIRON ? EXAMINATION: ?? MM SCREENING DIGITAL BREAST TOMOSYNTHESIS, LEFT ? CLINICAL INFORMATION: ? Screening. Asymptomatic. ? The patient is status post right mastectomy. ?? BI-RADS 2 ?? COMPARISON: ?? Mammography: This study is compared with prior exams dating back to ?? 2018. ? TECHNIQUE: ?? Digital breast tomosynthesis is performed in both the craniocaudal and ?? mediolateral oblique views along with computer-aided detection (CAD). ?? Synthesized 2D images are generated from the tomosynthesis. ? FINDINGS: ?? There are scattered areas of fibroglandular density (ACR BI-RADS breast ?? composition Category b). ? There are no significant masses, abnormal calcifications, or other ?? abnormalities. ?? Few, coarse benign calcifications are present. ? MM/MM tomosynthesis screening LT ?? IMPRESSION: ?? No mammographic evidence of malignancy. ? ASSESSMENT: ? BI-RADS BI-RADS 2 - Benign Findings ? RECOMMENDATION: ?? Routine annual mammography screening. ? 1 year F/U ? This examination should not preclude the clinical evaluation of a ?? suspicious palpable abnormality. ? This patient's information was entered into a reminder system with a ?? target due date for their next mammogram. ? Dictated By: ?Patria Vargas MD ? Signed By: ?<Electronically signed by Patria Vargas MD in OV> ? 06/21/242014 ? DD/DT: 06/01/ 1155 ? TD/TT: ? Molecular Biology Professor: ? Procedure Note Donotuseinterpreter, Image - 06/21/2024 [facility] [address] [place] [address] Mammography Report Signed Patient: Alan Giles#: [id number] [birth year] : 1Acct:[id number] Age/Sex: 73 / FADM Date: 06/01/24 Loc: HO.MAMMO Attending Dr: Geronimo Klein MD Ordering Physician: Geronimo Klein MDResults: 2Benign Fi ndings Date of Service: 06/01/24Follow Up: 1 Year From Orig inal Mammogram Procedure(s): MM tomosynthesis screening LT Accession Number(s): [id number] cc: Geronimo Klein MD EXAMINATION: MM SCREENING DIGITAL BREAST TOMOSYNTHESIS, LEFT CLINICAL INFORMATION: Screening. Asymptomatic. The patient is status post right mastectomy. BI-RADS 2 COMPARISON: Mammography: This study is compared with prior exams dating back to 2019. TECHNIQUE: Digital breast tomosynthesis is performed in both the craniocaudal and mediolateral oblique views along with computer-aided detection (CAD). Synthesized 2D images are generated from the tomosynthesis. FINDINGS: There are scattered areas of fibroglandular density (ACR BI-RADS breast composition Category b). There are no significant masses, abnormal calcifications, or other abnormalities. Few, coarse benign calcifications are present. MM/MM tomosynthesis screening LT IMPRESSION: No mammographic evidence of malignancy. ASSESSMENT: BI-RADS BI-RADS 2 - Benign Findings RECOMMENDATION: Routine annual mammography screening. 1 year F/U This examination should not preclude the clinical evaluation of a suspicious palpable abnormality. This patient's information was entered into a reminder system with a target due date for their next mammogram. Dictated By: Patria Vargas MD Signed By: <Electronically signed by Patria Vargas MD in OV> 06/21/242014 DD/ 1155 TD/TT: Molecular Biology Professor: Geronimo Klein MD IMG BI PROCEDURES Final Result * Hepatitis C Antibody with Reflex to HCV, RNA, Quantitative, Real-Time PCR (05/26/2024 10:50 AM EDT) Hepatitis C Antibody Nonreactive Nonreactive [facility] Comment:Antibodies to HCV no t detected; does not exclude early acuteHCV infection. Blood Venous blood specimen / Unknown 05/26/2024 10:50 AM EDT 05/26/2024 1:01 PM EDT Geronimo Klein MD LAB BLOOD ORDERABLES Final Resul t Performing Organization Address [facility] Co de Phone Number [facility] [address] [place] [phone] * Lipid Panel, Standard (05/18/2023 10:50 AM EDT) Pathologist [facility] Triglycerides 114 mg/dL [facility] Comment:Desirable Triglyceri de: less than 150 mg/dLBorderline High Triglyceride 150-199 mg/dLHigh Triglyceride: 200-499 mg/dLVery High Triglyceride: greater than or equal to 5OO mg/dL Cholesterol 201 mg/dL [facility] Comment:Desirable Cholestero l: less than 200 mg/dLBorderline High Cholesterol: 200-239 mg/dLHigh Cholesterol: greater than 239 mg/dL LDL Cholesterol Calculated 126 mg/dl [facility] Comment:Desirable LDL: less than 100 mg/dLNear Optimal/Above Optimal LDL: 110- 129 mg/dLBorderline High LDL: 130-159 mg/dLHigh LDL: 160-189 mg/dLVery High LDL: greater than or equal to 190 mg/dL HDL Cholesterol 53 mg/dL [facility] Comment:Desirable HDL: great er than 40 mg/dL Note: This HDL assay may give artificially low results in patients with liver disease. 05/18/2023 10:5 0 AM EDT 05/18/2023 12:59 PM EDT [facility] External Provider LAB BLO OD ORDERABLES Final Result Performing Organization Address [facility] Co de Phone Number [facility] [address] [place] [phone] from Last 3 Months or Most Recently Relevant to Health Maintenance Insurance [facility] Care Teams Tractor Crane Engineer Relationship Specialty Start Date End Date Name, MD Geronimo [address] [place] [phone] PCP - General Family Medicine 02/16/17
--- OUTSIDE RECORDS SUMMARY | 2025-01-16 20:35 | XMS_ITS | Encounter Summary ---
Author Organization [employer] Address [address] [place] [address] Care Team Providers Care Blanket Winder Helper Name Role Phone Name, Geronimo GIRON Primary Care Provider [phone] Reason for Visit * Reason Onset Date Comments Question 04/21/2024 Encounter Details Date Type Department Care Team ([facility] st Contact Info) Description 04/21/2024 Telephone [facility] [address] [place] [address] Name, MD Geronimo [address] [place] [address] Question Social History Tobacco Use Types Packs/Day Years [...] Recorded Patient Health Questionnaire-2 Score 6 02/17/2024 Comments Unknown Sex and Gender Information Value Date Recorded Sex Assigned at Female 09/07/2022 10:15 AM EDT Legal Sex Female 10:15 AM EDT Gender Identity Female 09/07/2022 10:15 AM EDT Sexual Orientation Straight 09/07/2022 10 :15 AM EDT documented as of this encounter Miscellaneous Notes * Telephone Encounter - Osmany Jovel - 04/21/2024 3:06 PM EDT Tc from [facility] calling to ask the following questions. Is the patient Medically compliant with appt and medications ? Does the patient haves a Health Care Proxy ? What level of care should the patient need ? Does the provider haves any concerns ? Please call Karma at [phone] Ext [phone] documented in this encounter Plan of Treatment Upcoming Encounters Date Type Department Care Team (Late st Contact Info) Description 02/27/2025 10:00 AM EDT Office Visit [facility] [address] [place] [address] Name, MD Geronimo [address] [place] [address] documented as of this encounter Visit Diagnoses Not on filedocumented in this encounter Additional Health Concerns Assessment Noted Time PHQ-9 Depression Total Score: 21 024 9:47 AM EDT documented as of this encounter Care Teams Blanket Winder Helper Relationship Specialty Start Date End Date NameGeronimo MD [address] [place] [address] PCP - General Family Medicine 02/16/17 documented as of this encounter
--- OUTSIDE RECORDS SUMMARY | 2025-01-16 20:35 | XMS_ITS | Encounter Summary ---
Author Organization [employer] Address [address] [place] [address] Care Team Providers Care Motor And Generator Assembler Name Role Phone NameGeronimo MD Primary Care Provider [phone] Encounter Details Date Type Department Care Team (Late st Contact Info) Description 04/12/2023 Abstract [facility] [address] [place] [phone] Name, MD Geronimo [address] [place] [phone] Social History Tobacco Use Types Packs/Day Years Used Date Smoking Tobacco: Every Day Cigarettes Smokeless Tobacco: Never Comments Unknown Sex and Gender Information Value Date Recorded Sex Assigned at Female 09/07/2022 10:15 AM EDT Legal Sex Female 10:15 AM EDT Gender Identity Female 09/07/2022 10:15 AM EDT Sexual Orientation Straight 09/07/2022 10 :15 AM EDT COVID-19 Exposure Response Date Recorded In the last 10 days, have yo u been in contact with someone who was confirmed or suspected to have Coronavirus/COVID-19? No / Unsure 03/19/2023 8:37 AM EDT documented as of this encounter Plan of Treatment Upcoming Encounters Date Type Department Care Team (Late st Contact Info) Description 02/27/2025 10:00 AM EDT Office Visit [facility] [address] [place] [address] [phone] NameGeronimo MD [address] [place] [phone] documented as of this encounter Visit Diagnoses Not on filedocumented in this encounter Care Teams Motor And Generator Assembler Relationship Specialty Start Date End Date Name, MD Geronimo [address] [place] [phone] PCP - General Family Medicine 02/16/17 documented as of this encounter
--- OUTSIDE RECORDS SUMMARY | 2025-01-16 20:35 | XMS_ITS | Encounter Summary ---
Author Organization [employer] Address [address] [place] [address] Care Team Providers Care Gore Seamer Name Role Phone Name, Geronimo GIRON Primary Care Provider [phone] Encounter Details Date Type Department Care Team (Late st Contact Info) Description 07/14/2024 Orders Only [facility] [address] [place] [address] Yvrose Xiao RN Social History Tobacco Use Types Packs/Day Years [...] 02/27/2025 10:00 AM EDT Office Visit [facility] [address] [place] [address] Name, MD Geronimo [address] [place] [address] documented as of this encounter Visit Diagnoses Not on filedocumented in this encounter Additional Health Concerns Assessment Noted Time PHQ-9 Depression Total Score: 21 024 9:47 AM EDT documented as of this encounter Care Teams Gore Seamer Relationship Specialty Start Date End Date Name, MD Geronimo [address] [place] [phone] PCP - General Family Medicine 02/16/17 documented as of this encounter
--- OUTSIDE RECORDS SUMMARY | 2025-01-16 20:35 | XMS_ITS | Continuity of Care Document ---
Author Organization [employer] - [employer] Address [address] [place] [phone] Care Team Providers Care Social Work Lecturer Name Role Phone [facility] Referring Provider NAME, DELANEY Primary Care Provider [phone] HIM CCA OTHER Assessment Encounter Date Assessment Date Assessment LastModified by Organization Details LastModified Time 12/27/2024 12/27/2024 I provided real -time medical direction via phone for this encounter and was available for additional phone-based assistance as needed. I have reviewed and agree with the Assessment and Plan as documented by the Gore Cutter. Patient given the opportunity to ask questions. Our service contacted for an assessment of: Nausea vomiting and diarrhea as well as dehydration As per above, patient with past several days of nausea vomiting diarrhea. Very poor p.o. intake. Calls for assessment. Positive sick contacts. Denies any abdominal pain, chest pain, dyspnea on exertion, shortness of breath. Per curb setter on the scene, vital signs are stable [...] particularly fever chills lightheadedness altered mental status [place] [id number] Not available 12/27/2024 22:28:53 Plan of Treatment Reminders Order Date Submit Date Provider Last Modified By Organization Details Last Modified Time Details Appointments None recorded. Lab cmp, whole blood + ron 2024 025 [facility], [address] [place] [address], [id number], 09:00:50 rapid SARS CoV 2 Ag, QL IA, respiratory specimen [address], [address] [place] [address], [id number], 22:25:42 rapid flu (A+B) [address], [address] [place] [address], [phone], 22:25:42 Referral None recorded. Procedures None recorded. Surgeries None recorded. Imaging None recorded. Medication Orders lactated Ringers intravenous solution [address] [employer] [facility] #[id number], [address] [place], [place], [id number], 5 22:25:42 Compazine 10 mg tablet [address] [facility] #[id number], [address] [place], [place], [phone], 5 22:25:42 loperamide 2 mg tablet [address] [employer] [facility] #[id number], [address] [place], [place], [phone], 22:25:42 Patient TargetsNo targets recorded. Patient InstructionsNo instructions recorded. Reason for Referral None Reported. Results Created Date Observation Date Name Description Value Unit Range Abnormal Flag Note LastModifiedBy Organization Detail LastModifiedTime 12/27/1912/27/2024 rapid flu (A+B) Flu negati ve Not Available Main - [facility] ed [address] [place] [address], [id number], 12/27/2024 22:25:04 12/27/19 25 12/27/2024 rapid SARS CoV 2 Ag, QL IA, respi rator y speci men rapid SARS CoV 2 Ag, QL IA, respiratory specimen negati ve Not Available Main - [facility] ed [address] [place], [phone], 12/27/2024 22:24:49 Result Notes None recorded. Medical [...] Not Available Not Available Vitals Date Recorded Heart rate Body temperature Respiratory rate Oxygen saturation Oxygen saturation in Arterial blood by Pulse oximetry Systolic blood pressure Diastolic blood pressure Provider Name and Address Organization Details Last Updated DateTime 5 75 /min 98 [degF] 18 /min 94 % 94 % 110 mm[Hg] 64 mm[Hg] Not Available [facility] - production 5 18:54:15 Social History None recorded. Functional Status None recorded. Mental Status None recorded. Family History Nothing Reported. Medical History No medical history recorded. Gynecological HistoryNo gynecological history recorded. Obstetrics History GPAL:G 0 P 0 0 0 0 Past Encounters Encounter ID Performer Location Encounter Start Date Encounter Closed Date Diagnosis/Indication Diagnosis SNOMED-CT Code Diagnosis ICD10 Code Diagnosis Note [id number] Melina Mckeon MD Main - [facility] [address] [place] [address] 12/27/2024 18:54:11 12/28/2024 08:58:39 Dehydration 21832404 E86.0 Health Concerns Section Related Observation LastModified by Organization Detai ls LastModified Time None Recorded Concern Status LastModified by Organization Details LastModified Time None Recorded Payers Encounter Date Sequence Insurance Name Policy Number Policy Palmer Covered Member ID Palmer Member ID Guarantor Name 12/27/2024 1 [facility] - DOS ON OR AFTER 2023 - DUAL ELIGIBLE - INTERMEDIATE OPTIONS AND ONE CARE (MEDICARE REPLACEMENT/ADV ANTAGE - HMO) Ayanna Chan [id number] Ayannahandy Giles Notes Date Note Type Note Provider Name and Address Organization Details Recorded Time 12/27/2024 text/html CRC Nurse Triage Notes (Bennie Gayle - KELY): [...] Allergies Reviewed at 12/27/2024 - 16:32 Comments: Winch Driver verified the patient's name//address and phone number. [...] emergency treatment if needed -Pat Gayle RN Gore Cutter Organization Information for [facility] [employer] Legal Name: [employer]? Address: [address] [place] [id number], Nurse Transition: Jd Abraham MD CLIA No.: [id number] [facility] POC Test Results from [facility] Rapid [...] result can be found under Documents section. .................. .................. .................. .................. .................. .................. .................. ............... Gore Cutter Note From [facility]ee[facility] Barnett: Responded to the [...] flu swab performed with negative results found. [facility] [place] contacted and discussed findings. [facility] directed provider to draw BMP and administer 1L lactated ringers solution for rehydration. IV established, labs drawn and 1L lactated ringers solution infused. During infusion pt reports feeling more awake and was able to sit up briefly, reporting some improvement to symptoms. Upon completion of infusion C recontacted, discussing pt current symptoms. Pt asked about continuing care at local hospital with pt refusing stating that she would like to stay home and try and eat something at home. [facility] [place] directed provider to administer 10mg compazine ODT [...] then left the residence. All times approximate. .................. .................. .................. .................. .................. .................. .................. ............... [facility] [place] Consulted: Melina Mckeon .................. .................. .................. .................. .................. .................. .................. ............... Disposition: Makayla Mckeon MD [address] [facility],[address], [place], [address], [facility] 12/27/2024 22:29:39 OBGyn Episode No OBEpisode recorded.
--- OUTSIDE RECORDS SUMMARY | 2025-01-16 20:35 | XMS_ITS | Continuity of Care Document ---
Author Organization [place] - [employer] [facility] [place] [facility] Address [address] [place] [phone] Care Team Providers Care Dumping Machine Operator Name Role Phone [facility] Referring Provider NAME, DELANEY Primary Care Provider [phone] HIM CCA OTHER Assessment Encounter Date Assessment Date Assessment LastModified by Organization Details LastModified Time 12/28/2024 12/28/2024 I have reviewed and agree with the assessment and plan as documented by the per diem rn. I provided real time medical direction for this encounter and was immediately available to provide additional phone based assistance as needed. History as noted by per diem rn. Pt reports 3-4 days of nausea, NB vomiting and NB diarrhea that resolved yesterday. [facility] [...] Lab BMP, serum or plasma 2024 025 [facility], [address] [place] [address], [phone], 13:28:38 Referral None recorded. Procedures None recorded. Surgeries None recorded. Imaging None recorded. Medication Orders lactated Ringers intravenous solution 2024 025 [facility] #[id number], [address] [place], [place], [phone], 13:28:38 Patient TargetsNo targets recorded. Patient InstructionsNo instructions recorded. Reason for Referral None Reported. Results Created Date Observation Date Name Description Value Unit Range Abnormal Flag Note LastModifiedBy Organization Detail LastModifiedTime Result Notes None recorded. Medical Equipment None [...] Not Available Vitals Date Recorded Body temperature Heart rate Respiratory rate Oxygen saturation Oxygen saturation in Arterial blood by Pulse oximetry Systolic blood pressure Diastolic blood pressure Provider Name and Address Organization Details Last Updated DateTime 5 98.8 [degF] 86 /min 16 /min 92 % 92 % 130 mm[Hg] 80 mm[Hg] Not Available [facility] - production 5 13:23:12 Social History None recorded. Functional Status None recorded. Mental Status None recorded. Family History Nothing Reported. Medical History No medical history recorded. Gynecological HistoryNo gynecological history recorded. Obstetrics History GPAL:G 0 P 0 0 0 0 Past Encounters Encounter ID Performer Location Encounter Start Date Encounter Closed Date Diagnosis/Indication Diagnosis SNOMED-CT Code Diagnosis ICD10 Code Diagnosis Note [id number] Melina Mckeon MD [address] [address] 12/27/2024 18:54:11 12/28/2024 08:58:39 Dehydration 94766470 E86.0 [id number] Shubham Lujan MD [address] [address] 12/28/2024 13:22:51 12/28/2024 16:44:29 Nausea, vomiting and diarrhea [id number] R11.2 Health Concerns Section Related Observation LastModified by Organization Detai ls LastModified Time None Recorded Concern Status LastModified by Organization Details LastModified Time None Recorded Payers Encounter Date Sequence Insurance Name Policy Number Policy Palmer Covered Member ID Palmer Member ID Guarantor Name 12/28/2024 1 [facility] - DOS ON OR AFTER 2023 - DUAL ELIGIBLE - JAIL OPTIONS AND ONE CARE (MEDICARE REPLACEMENT/ADV ANTAGE - HMO) Ayanna Giles [id number] Ayanna Giles Notes Date Note Type Note Provider Name and Address Organization Details Recorded Time 12/28/2024 text/html This was a supervised home visit with per diem rn Danis Maya. HPI: Member is dehydrated has significant nausea vomiting & diarrhea. .................. .................. .................. .................. .................. .................. .................. ............... [facility] Nurse Triage Notes (Peggy Pickett - RN): Chief Complaints: Dehydration PMH: Cancer, COPD/Asthma, Coronary Artery Disease PMH Reviewed at 12/28/2024: Allergies Reviewed at 12/28/2024: Comments: CP spoke to the pt and placed the referral on her behalf Pt was seen on 12/27 for nausea and vomiting [facility] request :Patient would benefit [facility]. She has dehydration [...] 19:18 Hb 18.7 g/dL 19:18 AG 12 Control Panel Operator Crude Unit Organization Information for Danis Maya Legal Name: [employer] Address: [address] [place] [id number], Manager Restaurant: Jd Abraham MD CLIA No.: [id number] Control Panel Operator Crude Unit POC Test Results from Danis Maya Chem8+ (13:18:13) Na: 137 mEq/L K: 5.3 mEq/L Cl: 107 mEq/L iCa: 1.02 mmol/L TCO2: 25 mmol/L Glu: 73 mg/dL BUN: 38 mg/dL Crea: 0.8 mg/dL Hct: 47 % Hb: 16 g/dL A Attachments uploaded as part of this test result can be found under Documents section. .................. .................. .................. .................. .................. .................. .................. ............... Control Panel Operator Crude Unit Note From Danis Maya: Pt seen for concern of dehydration. Pt reports 4 days of nausea, vomiting, & diarrhea which resolved at approx 1400 yesterday. Pt reports she was seen yesterday through [facility] and was given 1 liter of IV [...] for BMV with ISTAT8. Results uploaded to [employer] and [facility] contacted via phone. [facility] advised of Pt's status and findings. [facility] agrees to administer 1L of LR, advise Pt to hydrate via oral fluids, and eat as tolerated with bland diet. [facility] advised Pt should call back if her symptoms do not continue to improve or return. Pt advised of [facility] treatment plan and agreeable. LR initiated however IV site quickly infiltrates, infusion d/c. Second IV attempt unsuccessful. Pt reports she does not want another IV attempt made and will make sure to hydrate. Several bottles of water obtained from Pt's refrigerator and placed on beside table. [facility] contacted and advised that LR is unable to be administered. [facility] agrees that Pt can hydrate with fluids, call closed. .................. .................. .................. .................. .................. .................. .................. ............... [facility] Consulted: Shubham Lujan .................. .................. .................. .................. .................. .................. .................. ............... Disposition: Fulfilled Shubham Lujan MD [address] [facility],[address], [place], [address], JEM - YARELI MEHTA 12/28/2024 14:34:30 OBGyn Episode No OBEpisode recorded.
--- OUTSIDE RECORDS SUMMARY | 2025-01-16 20:35 | XMS_ITS | Encounter Summary ---
Author Organization [email or web address] Address [address] [facility] [address] [place] [address] Care Team Providers Care Dry Pan Operator Name Role Phone Name, Geronimo GIRON Primary Care Provider [phone] Reason for Visit * Reason Onset Date Comments Referral 02/01/2023 Encounter Details Date Type Department Care Team ([facility] st Contact Info) Description 02/01/2023 Telephone [facility] [address] [place] [address] Name, MD Geronimo [address] [place] [address] Referral Social History Tobacco Use Types Packs/Day Years [...] suspected to have Coronavirus/COVID-19? No / Unsure 01/22/2023 8:43 AM EDT documented as of this encounter Miscellaneous Notes * Telephone Encounter - Honey Jennyfer - 02/01/2023 2:39 PM EDT [facility] requesting a referral for physical therapy for back pain . States pt does not want to do the wheel chair evaluation would prefer physical therapy . Any questions please call phone # [phone] . . documented in this encounter Plan of Treatment Upcoming Encounters Date Type Department Care Team (Late st Contact Info) Description 02/27/2025 10:00 AM EDT Office Visit [facility] [address] [place] [id number] Name, MD Geronimo [address] [place] [id number] documented as of this encounter Visit Diagnoses Diagnosis Lumbar spondylosis- Primary Lumbosacral spondylosis without myelopathy Chronic low back pain, unspecified back pain laterality, unspecified whether sciatica present documented in this encounter Care Teams Dry Pan Operator Relationship Specialty Start Date End Date Name, MD Geronimo [address] [place] [address] PCP - General Family Medicine 02/16/17 documented as of this encounter
[2025-01-16 20:55] LABS: MANUAL DIFF FLAG NO
[2025-01-16 21:07] LABS: Basophils Percent Auto 0.5 % (0-2); Eosinophils Absolute Auto 0.2 X10*3/uL (0.0-0.4); Eosinophils Percent Auto 1.8 % (0-4); Hematocrit 38.6 % (37.0-47.0); Hemoglobin 13.2 g/dl (12.0-16.0); Imm Gran Abs Auto 0.03 X10*3/uL (0.00-0.03); Imm Gran Pct Auto 0.4 % (0.0-0.4); Lymphocytes Percent Auto 24.9 % (20-40); Mean Corpuscular HGB Conc 34.2 g/dl (31.0-35.0); Mean Corpuscular Hemoglobin 30.8 pg (27.0-33.0); Mean Platelet Volume 9.1 fL (9.4-12.3); Neutrophils Percent Auto 60.4 % (45-73); Platelet Count 296 X10*3/uL (160-400); Red Blood Count 4.29 X10*6/uL (4.20-5.50); Red Cell Distribution Width 15.4 % (11.0-16.0); White Blood Count 8.2 X10*3/uL (4.8-10.8)
[2025-01-16 21:17] LABS: Alanine Aminotransferase 17 U/L (0-31); Albumin Level 3.5 g/dL (3.5-5.0); Alkaline Phosphatase 81 U/L (39-117); Anion Gap 14 (12-20); Aspartate Amino Transferase 30 U/L (5-31); Bilirubin Total 0.3 mg/dL (0.0-1.0); Blood Urea Nitrogen 14 mg/dL (9-16); Carbon Dioxide 26 mmol/L (22-29); Chloride 103 mmol/L (96-108); Creatinine Clr Calc Pharmacy 36.7; Estimated Glomerular Filt Rate 59; Glucose Random 162 mg/dL (60-115); Potassium 3.5 mmol/L (3.3-5.1); Sodium 139 mmol/L (135-145)
[2025-01-16 21:23] LABS: Troponin-I High Sensitivity 9.8 ng/L (<3.5-17.0)
[2025-01-16 21:49] LABS: B Type Natriuretic Peptide 193 pg/mL (<100)
[2025-01-16 23:35] LABS: Influenza A PCR NEGATIVE (Negative); Influenza B PCR NEGATIVE (Negative); Resp Syncy Virus RNA Qual PCR NEGATIVE (Negative); SARS COV2 PCR INHOUSE NEGATIVE (Negative)
[2025-01-16] MEDS: iohexoL 350 MG/ML 100 ML INFUS..BTL 65 ML IV (23:54)
[2025-01-16] MEDS: Ketorolac Tromethamine 15 MG/ML VIAL IVPUSH (23:54)
[2025-01-16 23:56] VITALS: BP 156/91; PULSE 71; RESP 13; TEMP 36.7; O2SAT 100
[2025-01-17] VITALS (7 sets, daily range): BP systolic 121–179; BP diastolic 60–85; PULSE 62–76; RESP 12–20; TEMP 36.1–36.9; O2SAT 92–100; BMI 17.8
[2025-01-17] MEDS: Morphine Sulfate 4 MG/ML CARTRIDGE IVPUSH (00:39)
[2025-01-17 01:17] LABS: Troponin-I High Sensitivity 9.4 ng/L (<3.5-17.0)
--- NOTE | 2025-01-17 02:46 | ED.CHESTPAIN ---
HPI - Chest Pain General Chief Complaint: Chest Pain Stated Complaint: CHEST PAIN AND R ARM Time Seen by Provider: 01/16/25 20:27 Source: patient Mode of arrival: EMS Limitations: no limitations Related Data Home Medications ?Medication ?Instructions ?Recorded ?Confirmed celecoxib 200 mg capsule 200 mg PO DAILY 09/12/21 02/24/24 cholecalciferol (vitamin D3) 50 50 mcg PO DAILY 09/12/21 02/24/24 mcg (2,000 unit) tablet omeprazole 20 mg capsule,delayed 20 mg PO DAILY@0630 09/12/21 02/24/24 release acetaminophen 500 mg tablet (Pain 1,000 mg PO Q6H PRN Pain 03/02/23 02/24/24 Relief Extra Strength (acetaminophen)) aspirin 81 mg tablet,delayed 81 mg PO DAILY 03/30/23 02/24/24 release bupropion HCl 300 mg 24 hr tablet, 300 mg PO DAILY 07/22/23 02/24/24 extended release clopidogrel 75 mg tablet 75 mg PO DAILY 07/22/23 02/24/24 mirtazapine 15 mg tablet (Remeron) 22.5 mg PO BEDTIME 08/15/23 02/24/24 sertraline 100 mg tablet 150 mg PO DAILY 08/15/23 02/24/24 umeclidinium 62.5 mcg-vilanterol 1 ea inhalation DAILY 02/24/24 02/24/24 25 mcg/actuation powdr for inhalation (Anoro Ellipta) Previous Rx's ?Medication ?Instructions ?Recorded amlodipine 5 mg tablet 5 mg PO DAILY #0 tabs 08/20/23 buprenorphine 8 mg-naloxone 2 mg 1 film sublingual BID #15 ea 08/20/23 sublingual film (Suboxone) lisinopril 10 mg tablet 10 mg PO DAILY #0 tabs 08/20/23 gabapentin 100 mg capsule 100 mg PO BID for pain 30 days #60 12/31/23 caps Anoro Ellipta 62.5 mcg-25 1 ea inhalation DAILY #60 ea 09/08/24 mcg/actuation powder for inhalation (umeclidinium-vilanterol) ipratropium 20 mcg-albuterol 100 1 puff inhalation QID PRN for 09/08/24 mcg/actuation mist for inhalation wheezing #4 grams (Combivent Respimat) Allergies Allergy/AdvReac Type Severity Reaction Status Date / Time No Known Allergies Allergy Unknown Verified 01/16/25 20:23 [No Known Allergies*] [facility] Past Medical History Medical History (Updated 01/17/25 @ 01:44 by Chaim Franco MD) Nicotine dependence, cigarettes, uncomplicated Lumbar degenerative disc disease Osteopenia (~2011) History of invasive ductal carcinoma of breast (~2003) Surgical History History of section (~1976) History of appendectomy (~1993) History of tonsillectomy History of colonoscopy (~2010) History of esophagogastroduodenoscopy (EGD) (~2010) History of right mastectomy (~2004) History of laparoscopic cholecystectomy (~2008) Social History Social History (Updated 09/08/24 @ 13:37 by TOO Lainez) Household Members: None Housing: Apartment Do you presently have visiting nurse or other home services: Yes ([employer]) Alcohol intake: current Alcohol intake frequency: does not drink Patient Tobacco Use Status: Current everyday Tobacco user Tobacco use type: Cigarette Years Smoked: 59 years (onset 13, 1/2ppd x 59yrs, now <1/4ppd, 29pyh), started vaping Smoked in Last 30 Days: Yes e-Cigarette/Vaping Use: Currently Using Use of substances other than those prescribed or required for medical reasons: No Substance Use Type: Crack/Cocaine and Heroin Advance Directives: No Advance Directives Information Provided: No Do you have a plan to hurt others: No Plan service: No Physical Exam Vital Signs: Vital Signs: Last Vital Signs Temp 98.2 F 01/17/25 00:41 Pulse 72 01/17/25 00:41 Resp 12 01/17/25 00:41 BP 143/85 H 01/17/25 00:41 Pulse Ox 100 01/17/25 00:41 O2 Del Method Nasal Cannula 01/17/25 00:41 O2 Flow Rate 3 01/17/25 00:41 BMI result Body Mass Index 19.5 Medications Administered Discontinued Medications Generic Name Dose Route Start Last Admin Trade Name Freq PRN Reason Stop Dose Admin Iohexol 65 ml 01/16/25 23:53 01/16/25 23:54 Iohexol 350 Mg/Ml 100 Ml Infus..Btl IV 01/16/25 23:54 65 ml ONCE ONE Administration Ketorolac Tromethamine 15 mg 01/16/25 22:28 01/16/25 23:54 Ketorolac Tromethamine 15 Mg/Ml Vial IVPUSH 01/16/25 22:29 15 mg ONCE STA Administration Morphine Sulfate 4 mg 01/17/25 00:33 01/17/25 00:39 Morphine Sulfate 4 Mg/Ml Cartridge IVPUSH 01/17/25 00:34 4 mg ONCE STA Administration Protocol Medical Decision Making Lab Data 01/16/25 20:51 01/16/25 20:51 Labs: Lab Results 01/16/25 01/16/25 01/17/25 Range/Units 20:51 22:52 00:39 WBC 8.2 (4.8-10.8) X10*3/uL RBC 4.29 (4.20-5.50) X10*6/uL Hgb 13.2 (12.0-16.0) g/dl Hct 38.6 (37.0-47.0) % MCV 90.0 (80.0-98.0) fL MCH 30.8 (27.0-33.0) pg MCHC 34.2 (31.0-35.0) g/dl RDW 15.4 (11.0-16.0) % Plt Count 296 (160-400) X10*3/uL MPV 9.1 L (9.4-12.3) fL Immature Gran % (Auto) 0.4 (0.0-0.4) % Neut % (Auto) 60.4 (45-73) % Lymph % (Auto) 24.9 (20-40) % [place] % (Auto) 12.0 H (2-11) % Eos % (Auto) 1.8 (0-4) % Baso % (Auto) 0.5 (0-2) % Lymph # (Auto) 2.0 (1.2-4.9) X10*3/uL [place] # (Auto) 1.0 (0.1-1.2) X10*3/uL Eos # (Auto) 0.2 (0.0-0.4) X10*3/uL Baso # (Auto) 0.0 (0.0-0.2) X10*3/uL Abs Immat Gran (auto) 0.03 (0.00-0.03) X10*3/uL Absolute Neuts (auto) 5.0 (2.0-8.3) x10*3/uL Absolute Nucleated RBC 0.000 (0.0-0.012) X10*3/uL Nucleated RBC % (auto) 0.0 (0.0-0.2) /100WBC Sodium 139 (135-145) mmol/L Potassium 3.5 (3.3-5.1) mmol/L Chloride 103 (96-108) mmol/L Carbon Dioxide 26 (22-29) mmol/L Anion Gap 14 (12-20) BUN 14 (9-16) mg/dL Creatinine 0.93 (0.5-1.4) mg/dL Estim Creat Clear Calc 36.7 Estimated GFR 59 Random Glucose 162 H (60-115) mg/dL Calcium 9.0 (8.4-10.2) mg/dL Total Bilirubin 0.3 (0.0-1.0) mg/dL AST 30 (5-31) U/L ALT 17 (0-31) U/L Alkaline Phosphatase 81 (39-117) U/L Troponin I High Sens 9.8 9.4 (<3.5-17.0) ng/L B-Natriuretic Peptide 193 H (<100) pg/mL Total Protein 7.0 (6.5-8.0) g/dL Albumin 3.5 (3.5-5.0) g/dL Influenza Type A (PCR) NEGATIVE (Negative) Influenza Type B (PCR) NEGATIVE (Negative) RSV RNA Qual (PCR) NEGATIVE (Negative) SARS-CoV-2 RNA (RT-PCR) NEGATIVE (Negative) Discharge Plan Discharge Clinical Impression: Pleuritic chest pain Pneumonia Qualifiers: Pneumonia type: due to unspecified organism Laterality: bilateral Lung location: lower lobe of lung Qualified Code(s): J18.9 - Pneumonia, unspecified organism Patient Disposition: Admitted As Inpatient Print Language: Haitian
--- NOTE | 2025-01-17 03:02 | P.HPHOSP_ITS ---
History of Present Illness Date of Service: 01/17/25 Attending physician on admission: Gary Abdi Chief Complaint: chest pain Patient is a 74-year-old female with a past medical history significant for COPD on 3 L via NC, TAVR aortic valve (ELOY PlusPro US26)replacement 2 years prior, depression, lumbar disc disease, who presented to the ED due to sharp 9/10 left pleuritic chest pain starting yesterday afternoon. She reports that the pain is now about a 5/10 after receiving morphine. She also feels short of breath and has dyspnea with exertion however reports that she does have this at baseline with COPD, slightly worse than usual. About 2 weeks ago she had a viral illness with nausea vomiting diarrhea which has subsided. She denies any current fever, chills, cough, nausea, vomiting, diarrhea or abdominal pain. Her pain is located on the left side of her chest that radiates down left arm. She reports that EMS instructed her to take aspirin when she called so she took 500 mg. Review of Systems 2 Constitutional: Constitutional: Denies chills, Denies fatigue, Denies fever(s) and Denies headache(s) Eyes: Eyes: Denies change in vision and Denies photophobia ENT: Denies headache(s), Denies nasal congestion, Denies nasal discharge and Denies sore throat Cardiovascular: Cardiovascular: Reports chest pain, Reports chest pain at rest, Denies rapid heart rate, Denies leg edema, Denies lightheadedness and Reports dyspnea Respiratory: Respiratory: Denies chest congestion, Denies cough, Reports dyspnea and Denies wheezing Gastrointestinal: Gastrointestinal: Denies diarrhea, Denies nausea and Denies vomiting Genitourinary: Genitourinary: Denies hematuria, Denies dysuria and Denies urinary urgency Musculoskeletal: Musculoskeletal: Denies myalgias Integumentary/Breasts: Skin/Breast: Denies rash Neurologic: Denies confusion and Denies headache(s) Psychiatric: Psychiatric: Denies confusion Endocrine: Endocrine: Denies fatigue Hematologic/Lymphatic: Hematologic/Lymphatic: Denies easy bleeding and Denies easy bruising Allergic/Immunologic: Allergic/Immunologic: Denies wheezing [facility] Medical History (Updated 01/17/25 @ 03:08 by Gita Baires PA-C) Aneurysm, abdominal aortic Nicotine dependence, cigarettes, uncomplicated Lumbar degenerative disc disease Osteopenia (~2011) History of invasive ductal carcinoma of breast (~2003) Functional capacity: independent ambulation Surgical History History of section (~1976) History of appendectomy (~1993) History of tonsillectomy History of colonoscopy (~2010) History of esophagogastroduodenoscopy (EGD) (~2010) History of right mastectomy (~2004) History of laparoscopic cholecystectomy (~2008) Social History (Updated 09/08/24 @ 13:37 by Sheila Melton REPLACED BY [facility]) Household Members: None Housing: Apartment Do you presently have visiting nurse or other home services: Yes ([employer]) Alcohol intake: current Alcohol intake frequency: does not drink Patient Tobacco Use Status: Current everyday Tobacco user Tobacco use type: Cigarette Years Smoked: 58 years (onset 13, 1/2ppd x 59yrs, now <1/4ppd, 29pyh), started vaping Smoked in Last 30 Days: Yes e-Cigarette/Vaping Use: Currently Using Use of substances other than those prescribed or required for medical reasons: No Substance Use Type: Crack/Cocaine and Heroin Advance Directives: No Advance Directives Information Provided: No Do you have a plan to hurt others: No Plan service: No Narrative: Vapes nicotine, no alcohol, uses intranasal heroin about 1 time per month Meds Allergies Allergy/AdvReac Type Severity Reaction Status Date / Time No Known Allergies Allergy Unknown Verified 01/16/25 20:23 [No Known Allergies*] Active Medications: Current Medications Acetaminophen (Acetaminophen 325 Mg Tablet) 975 mg PO Q6H PRN PRN Reason: Pain, Mild 1-3,fever,headache Calcium Carbonate (Calcium Carbonate 750 Mg Tab.Chew) 750 mg PO Q4H PRN PRN Reason: Heartburn Azithromycin 500 mg/ Sodium (Chloride) 250 mls @ 125 mls/hr IV ONCE ONE Stop: 01/17/25 04:21 Azithromycin 500 mg/ Sodium (Chloride) 250 mls @ 125 mls/hr IV Q24H CHANDU Piperacillin Sod/Tazobactam (Sod 3.375 gm/ Sodium Chloride) 50 mls @ 100 mls/hr IV Q6H CHANDU Magnesium Hydroxide (Milk Of Magnesia 30 Ml Oral.Susp) 30 ml PO DAILY PRN PRN Reason: Constipation Melatonin (Melatonin 3 Mg Tablet) 6 mg PO BEDTIME PRN PRN Reason: Insomnia Morphine Sulfate (Morphine Sulfate 4 Mg/Ml Cartridge) 2 mg IVPUSH Q4H PRN; Protocol PRN Reason: Pain, Moderate(Pain Scale 4-6) Ondansetron HCl (Ondansetron Hcl 4 Mg/2 Ml Vial) 4 mg IVPUSH Q8H PRN PRN Reason: Nausea and Vomiting Oxycodone HCl (Oxycodone Hcl Immed Release 5 Mg Tablet) 5 mg PO Q6H PRN PRN Reason: Pain, Severe (Pain Scale 7-10) Pharmacy Consult (Consult Rx Vancomycin Dosing) 1 each MISCELLANE DAILY PRN PRN Reason: Consult order Sodium Chloride (0.9 % Sodium Chloride Flush 3 Ml Syringe) 3 ml IVFLUSH [facility] Medications ?Medication ?Instructions ?Recorded ?Confirmed ?Last Taken ?Type celecoxib 200 mg capsule 200 mg PO DAILY 09/12/21 02/24/24 08/12/23 History cholecalciferol (vitamin D3) 50 50 mcg PO DAILY 09/12/21 02/24/24 08/12/23 History mcg (2,000 unit) tablet omeprazole 20 mg capsule,delayed 20 mg PO DAILY@0630 09/12/21 02/24/24 08/12/23 History release acetaminophen 500 mg tablet (Pain 1,000 mg PO Q6H PRN Pain 03/02/23 02/24/24 Unknown History Relief Extra Strength (acetaminophen)) aspirin 81 mg tablet,delayed 81 mg PO DAILY 03/30/23 02/24/24 08/12/23 History release bupropion HCl 300 mg 24 hr tablet, 300 mg PO DAILY 07/22/23 02/24/24 08/12/23 History extended release clopidogrel 75 mg tablet 75 mg PO DAILY 07/22/23 02/24/24 08/12/23 History mirtazapine 15 mg tablet (Remeron) 22.5 mg PO BEDTIME 08/15/23 02/24/24 08/12/23 History sertraline 100 mg tablet 150 mg PO DAILY 08/15/23 02/24/24 08/12/23 History umeclidinium 62.5 mcg-vilanterol 1 ea inhalation DAILY 02/24/24 02/24/24 Unknown History 25 mcg/actuation powdr for inhalation (Anoro Ellipta) Physical Exam 2 Vital Signs and Narrative: Vital Signs: Last Vital Signs Temp 98.2 F 01/17/25 00:41 Pulse 72 01/17/25 00:41 Resp 12 01/17/25 00:41 BP 143/85 H 01/17/25 00:41 Pulse Ox 100 01/17/25 00:41 O2 Del Method Nasal Cannula 01/17/25 00:41 O2 Flow Rate 3 01/17/25 00:41 BMI result Body Mass Index 19.5 General: AOx3, no acute distress Resp: crackles bilateral lung bases, no wheezing, diminished throughout CVS: S1, S2, RRR GI: +BS, NT with deep palpation, no distention Skin: Warm, dry Neuro: Cranial nerves II-XII grossly intact bilaterally. Motor grossly intact bilaterally Extremities: No LE edema Psych: Appropriate affect Const: General: No confusion Orientation/consciousness: No confusion Eyes: Direct Ophthalmoscopy: No photophobia Neuro: General: No confusion Results Labs 01/16/25 20:51 01/16/25 20:51 Labs: Laboratory Results - last 24 hr 01/16/25 01/16/25 20:51 22:52 MCV 90.0 MCH 30.8 MCHC 34.2 RDW 15.4 Plt Count 296 MPV 9.1 L Immature Gran % (Auto) 0.4 Neut % (Auto) 60.4 Lymph % (Auto) 24.9 [place] % (Auto) 12.0 H Eos % (Auto) 1.8 Baso % (Auto) 0.5 Lymph # (Auto) 2.0 [place] # (Auto) 1.0 Eos # (Auto) 0.2 Baso # (Auto) 0.0 Abs Immat Gran (auto) 0.03 Absolute Neuts (auto) 5.0 Absolute Nucleated RBC 0.000 Nucleated RBC % (auto) 0.0 Anion Gap 14 Estim Creat Clear Calc 36.7 Estimated GFR 59 Random Glucose 162 H Calcium 9.0 Total Bilirubin 0.3 AST 30 ALT 17 Alkaline Phosphatase 81 B-Natriuretic Peptide 193 H Total Protein 7.0 Albumin 3.5 Influenza Type A (PCR) NEGATIVE Influenza Type B (PCR) NEGATIVE RSV RNA Qual (PCR) NEGATIVE SARS-CoV-2 RNA (RT-PCR) NEGATIVE Assessment and Plan (1) Pleuritic chest pain: Status: Acute (2) Pneumonia: Qualifiers: Laterality: bilateral Lung location: lower lobe of lung Pneumonia type: due to unspecified organism Qualified Code(s): J18.9 - Pneumonia, unspecified organism Status: Acute (3) Left upper lobe pulmonary nodule: Status: Acute (4) Common bile duct dilation: Status: Acute (5) Aneurysm, abdominal aortic: Status: Acute Plan Patient is a 74-year-old female with a past medical history significant for COPD on 3 L via NC, TAVR aortic valve (ELOY PlusPro US26)replacement 2 years prior, depression, lumbar disc disease, who presented to the ED due to sharp /10 left pleuritic chest pain starting yesterday afternoon. chest pain secondary to penumonia - EKG with normal sinus rhythm, septal infarct (seen previously 08/18/2023), T- wave abnormality, consider anterolateral ischemia - troponin x2 negative - WBC normal, vitals stable, lactice acid normal, blood cultures x2 pending, no sepsis - CXR with mild diffuse interstitial prominence in both lungs, may represent pulmonary vascular congestion/mild pulmonary edema - chest CTA to rule PE negative for PE but does show atelectasis in the lower lobes with possible small areas of consolidation amongst the atelectasis, correlate for pneumonia. Emphysema. Stable 6 mm nodule left upper lobe. Severe intrahepatic and extrahepatic biliary duct dilation. The distal common bile duct is not in the [id number], consider CT or MRCP. Abdominal aortic aneurysm only slightly in the field of view. - COVID/flu/RSV negative - BNP mildly elevated at 193, no baseline, no lower extremity edema - started on ceftriaxone and azithromycin in ED, switch to vancomycin and Zosyn due to abdominal findings on CT - monitor CBC and BMP CBD dilation - incidental finding on CT, patient does not have any abdominal pain, nausea or vomiting - started on Zosyn and vancomycin - MRCP ordered - NPO - GI consult Abdominal aortic aneurysm - found incidentally on CT, not fully visualized - patient not having any abdominal pain - monitor BP - follow-up abdominal CT outpatient Left upper lobe pulmonary nodule - 6 mm, stable from CT in 09/2024 - continue outpatient follow-up imaging COPD, no acute exacerbation - no wheezing on exam or increased O2 requirement - continue with current home medications Full code VTE prophylaxis: Pneumoboots, start anticoagulant once GI workup complete Patient with chest pain secondary to pneumonia, complicated by incidental finding severe CBD dilation on CT, requiring admission for IV antibiotics and further evaluation by Gastroenterology. Quality Stroke Does the patient have a stroke diagnosis?: No VTE Prior VTE?: No VTE Risk Level:: Medical - moderate - high VTE Device Contraindication: N/A - Device Ordered VTE Drug Contraindication: Treatment Not Indicated
[2025-01-17 03:16] LABS: Basophils Absolute Auto 0.1 X10*3/uL (0.0-0.2); Basophils Percent Auto 0.7 % (0-2); Eosinophils Absolute Auto 0.3 X10*3/uL (0.0-0.4); Eosinophils Percent Auto 3.7 % (0-4); Hematocrit 36.1 % (37.0-47.0); Hemoglobin 12.1 g/dl (12.0-16.0); Imm Gran Abs Auto 0.02 X10*3/uL (0.00-0.03); Imm Gran Pct Auto 0.3 % (0.0-0.4); Lymphocytes Absolute Auto 2.6 X10*3/uL (1.2-4.9); Lymphocytes Percent Auto 36.6 % (20-40); MANUAL DIFF FLAG NO; Mean Corpuscular HGB Conc 33.5 g/dl (31.0-35.0); Mean Corpuscular Hemoglobin 30.2 pg (27.0-33.0); Monocytes Absolute Auto 0.8 X10*3/uL (0.1-1.2); Monocytes Percent Auto 10.9 % (2-11); Neutrophils Absolute Auto 3.3 x10*3/uL (2.0-8.3); Neutrophils Percent Auto 47.8 % (45-73); Platelet Count 272 X10*3/uL (160-400); Red Blood Count 4.01 X10*6/uL (4.20-5.50); Red Cell Distribution Width 15.4 % (11.0-16.0)
[2025-01-17] MEDS: cefTRIAXone sodium 1 GM VIAL IVPUSH (03:19)
[2025-01-17] MEDS: Azithromycin 500 MG in 0.9 % Sodium Chloride 250 ML 125 MG IV (03:21)
[2025-01-17 03:32] LABS: Lactic Acid 1.5 mmol/L (0.5-2.0)
[2025-01-17 03:39] LABS: Alanine Aminotransferase 13 U/L (0-31); Albumin Level 3.1 g/dL (3.5-5.0); Alkaline Phosphatase 70 U/L (39-117); Anion Gap 12 (12-20); Aspartate Amino Transferase 29 U/L (5-31); Bilirubin Total 0.4 mg/dL (0.0-1.0); Blood Urea Nitrogen 14 mg/dL (9-16); Calcium 8.7 mg/dL (8.4-10.2); Carbon Dioxide 27 mmol/L (22-29); Chloride 103 mmol/L (96-108); Creatinine Clr Calc Pharmacy 42.2; Estimated Glomerular Filt Rate > 60; Glucose Random 145 mg/dL (60-115); Potassium 3.3 mmol/L (3.3-5.1); Sodium 139 mmol/L (135-145); Total Protein 6.2 g/dL (6.5-8.0)
[2025-01-17] MEDS: Piperacillin Sodium/Tazobactam 3.375 GM in 0.9 % Sodium Chloride 50 ML IV ×4 (05:34→23:57)
[2025-01-17] MEDS: vancomycin HCL 1,000 MG in 0.9 % Sodium Chloride 250 ML 270 MG IV (05:50)
--- NOTE | 2025-01-17 07:29 | PHA.PROG ---
Admission Date/Time: January 17, 2025 02:54 Indication: RESP Weight in k.9 kg Serum Creatinine - Last 168 Hours 01/16/25 01/17/25 20:51 03:09 Creatinine 0.93 0.81 Estimated CrCl and GFR - Last 168 Hours 01/16/25 01/17/25 20:51 03:09 Estim Creat Clear Calc 36.7 42.2 Estimated GFR 59 > 60 Vancomycin Loading Dose: 1000 Current Vancomycin Dosing Regimen: 100 Q 24 Vancomycin Monitoring using AUC goal of 400 - 600 range with trough as surrogate marker: 490 Date and Time for next Vancomycin Level to be drawn: 01/19 @ 0600 Pharmacist Comments on Vancomycin Plan: Vancomycin dosing will take advantage of [employer] as a clinical decision support tool that uses Bayesian modeling to calculate individual patient's pharmacokinetic parameters and forecast the patient's drug concentration time course with the target goal AUC 24 range of 400 - 600 mg/L/hr.
--- NOTE | 2025-01-17 08:01 | PHA.MEDREC ---
Pharmacy Consult ? Medication Reconciliation Pharmacy has completed the medication reconciliation. Spoke with patient at bedside, she initially denied taking many of her meds but then clarified that she has them in pre-packed pockets at home but hasn't taken anything in ~2 weeks. The only medication that hasn't been filled recently is Suboxone, and she states she doesn't take it anymore. Will alert the provider and remove from list for now.
--- NOTE | 2025-01-17 09:27 | MHC.CM.PN ---
IMM 01/17/25, Pt. lives alone, she has home care services from [employer] for cleaning. For DME, she has home O2 from [facility], and a walker and cane. HCP is on file, and confirmed: Lelia. PCP confirmed: Geronimo Klein. She will need assistance with transport home at DC. DCP: home self care or with services. CM to follow for DC needs.
--- NOTE | 2025-01-17 10:25 | PM.EVENT ---
Event Note Date of Service: 01/17/25 Event Note: Patient is a 74-year-old female with a past medical history significant for COPD on 3 L via NC, TAVR aortic valve (ELOY PlusPro US26)replacement 2 years prior, depression, lumbar disc disease, who presented to the ED due to sharp 9/10 left pleuritic chest pain starting yesterday afternoon. Chest pain secondary to pneumonia Seems Pleuritic EKG with normal sinus rhythm, septal infarct (seen previously 08/18/2023) troponin x2 negative chest CTA to rule PE negative for PE but does show atelectasis in the lower lobes with possible small areas of consolidation amongst the atelectasis, correlate for pneumonia. Emphysema. Stable 6 mm nodule left upper lobe. COVID/flu/RSV negative BNP mildly elevated at 193, no baseline, no lower extremity edema ceftriaxone and azithromycin in ED, switch to vancomycin and Zosyn due to abdominal findings on CT CBD dilation incidental finding on CT, patient does not have any abdominal pain, nausea or vomiting started on Zosyn and vancomycin MRCP ordered NPO GI consult pending Abdominal aortic aneurysm found incidentally on CT, not fully visualized patient not having any abdominal pain monitor BP follow-up abdominal CT outpatient Left upper lobe pulmonary nodule 6 mm, stable from CT in 09/2024 continue outpatient follow-up imaging COPD, no acute exacerbation no wheezing on exam or increased O2 requirement continue with current home medications Full code VTE prophylaxis: Pneumoboots, start anticoagulant once GI workup complete Patient with chest pain secondary to pneumonia, complicated by incidental finding severe CBD dilation on CT, requiring admission for IV antibiotics and further evaluation by Gastroenterology. Time Spent With Patient Time: Total time managing care of this patient today ____ minutes.
--- NOTE | 2025-01-17 12:02 | P.CNGI_ITS ---
History of Present Illness Data of Consult Service Date: 01/17/25 Primary Care Provider: Geronimo Klein MD HPI Reason for consult: dilated bile ducts 74-year-old female with a past medical history significant for COPD on 3 L via NC, TAVR aortic valve replacement 2 years prior, depression, lumbar disc disease, who I am seeing for assessment for abn imaging Patient actually presented with 1 d of sharp left sided pleuritic chest pain 07/18 with radiation to the left arm with worsening SOB but no cough or sputum. She denies any current fever, chills, nausea, vomiting, diarrhea or abdominal pain. She admits to 10# weight loss over recent months but nml appetite. She had imaging which revealed suspected pneumonia, with incidental note of dilated intrahepatic bile ducts. LFT were normal. She has had cholecystectomy years ago. Review of Systems 2 Review of Systems: Constitutional : + Weight loss, No Fever, No Chills ENT/Mouth : No sore throat, No Rhinorrhea Eyes: No Swelling, No Redness Cardiovascular : No Chest Pain, + SOB, No Edema Respiratory : No Cough, No Sputum, No Wheezing Gastrointestinal : see HPI Genitourinary : NO Dysuria, No Urinary Frequency, No Hematuria, No Urgency Musculoskeletal : no joint pain, No Myalgias, No Joint Swelling Skin : No Skin Lesions, No rash Neuro : No Weakness, No Numbness, No Dizziness, No Headache Psych : No Anxiety/Panic, No Depression Heme/Lymph: No Bruising, No Lymphadenopathy Endocrine : No Polyuria, No Polydipsia All other systems reviewed and are negative. [facility] Past Medical History Medical History (Updated 01/17/25 @ 03:08 by Gita Baires PA-C) Aneurysm, abdominal aortic Nicotine dependence, cigarettes, uncomplicated Lumbar degenerative disc disease Osteopenia (~2011) History of invasive ductal carcinoma of breast (~2003) Family History Pertinent family history: no FH of pancreatic or biliary disease Surgical History Surgical History History of section (~1976) History of appendectomy (~1993) History of tonsillectomy History of colonoscopy (~2010) History of esophagogastroduodenoscopy (EGD) (~2010) History of right mastectomy (~2004) History of laparoscopic cholecystectomy (~2008) Social History Social History (Updated 09/08/24 @ 13:37 by Sheila Melton Marilee) Household Members: None Housing: Apartment Do you presently have visiting nurse or other home services: Yes (Inessa Finney) Alcohol intake: current Alcohol intake frequency: does not drink Patient Tobacco Use Status: Current someday Tobacco user Tobacco use type: Cigarette Years Smoked: 59 years (onset 13, 1/2ppd x 59yrs, now <1/4ppd, 29pyh), started vaping Smoked in Last 30 Days: Yes e-Cigarette/Vaping Use: Currently Using Use of substances other than those prescribed or required for medical reasons: No Substance Use Type: Crack/Cocaine and Heroin Advance Directives: No Advance Directives Information Provided: No Do you have a plan to hurt others: No Plan Nutrition Risks: No Nutritional Risk service: No Meds Allergies Allergy/AdvReac Type Severity Reaction Status Date / Time No Known Allergies Allergy Unknown Verified 01/16/25 20:23 [No Known Allergies*] Active Medications: Current Medications Acetaminophen (Acetaminophen 325 Mg Tablet) 975 mg PO Q6H PRN PRN Reason: Pain, Mild 1-3,fever,headache Calcium Carbonate (Calcium Carbonate 750 Mg Tab.Chew) 750 mg PO Q4H PRN PRN Reason: Heartburn Piperacillin Sod/Tazobactam (Sod 3.375 gm/ Sodium Chloride) 50 mls @ 100 mls/hr IV Q6H [facility] Last Infusion: 01/17/25 12:00 Dose: Infused Vancomycin HCl 1,000 mg/ (Sodium Chloride) 270 mls @ 270 mls/hr IV Q24H [facility] Magnesium Hydroxide (Milk Of Magnesia 30 Ml Oral.Susp) 30 ml PO DAILY PRN PRN Reason: Constipation Melatonin (Melatonin 3 Mg Tablet) 6 mg PO BEDTIME PRN PRN Reason: Insomnia Morphine Sulfate (Morphine Sulfate 4 Mg/Ml Cartridge) 2 mg IVPUSH Q4H PRN; Protocol PRN Reason: Pain, Moderate(Pain Scale 4-6) Ondansetron HCl (Ondansetron Hcl 4 Mg/2 Ml Vial) 4 mg IVPUSH Q8H PRN PRN Reason: Nausea and Vomiting Oxycodone HCl (Oxycodone Hcl Immed Release 5 Mg Tablet) 5 mg PO Q6H PRN PRN Reason: Pain, Severe (Pain Scale 7-10) Pharmacy Consult (Consult Rx Vancomycin Dosing) 1 each MISCELLANE DAILY PRN PRN Reason: Consult order Sodium Chloride (0.9 % Sodium Chloride Flush 3 Ml Syringe) 3 ml IVFLUSH [facility] Last Admin: 01/17/25 07:19 Dose: Not Given Home Medications ?Medication ?Instructions ?Recorded ?Confirmed ?Last Taken ?Type celecoxib 200 mg capsule 200 mg PO DAILY 09/12/21 01/17/25 01/03/25 History cholecalciferol (vitamin D3) 50 50 mcg PO DAILY 09/12/21 01/17/25 01/03/25 History mcg (2,000 unit) tablet omeprazole 20 mg capsule,delayed 20 mg PO DAILY@0630 09/12/21 01/17/25 01/03/25 History release acetaminophen 500 mg tablet (Pain 1,000 mg PO Q6H PRN Pain 03/02/23 01/17/25 01/03/25 History Relief Extra Strength (acetaminophen)) aspirin 81 mg tablet,delayed 81 mg PO DAILY 03/30/23 01/17/25 01/03/25 History release bupropion HCl 300 mg 24 hr tablet, 300 mg PO DAILY 07/22/23 01/17/25 01/03/25 History extended release clopidogrel 75 mg tablet 75 mg PO DAILY 07/22/23 01/17/25 01/03/25 History mirtazapine 15 mg tablet (Remeron) 22.5 mg PO BEDTIME 08/15/23 01/17/25 01/03/25 History sertraline 100 mg tablet 150 mg PO DAILY 08/15/23 01/17/25 01/03/25 History Physical Exam 2 Vital Signs: Vital Signs: Last Vital Signs Temp 97.9 F 01/17/25 07:23 Pulse 62 01/17/25 07:23 Resp 12 01/17/25 07:23 BP 137/74 01/17/25 07:23 Pulse Ox 97 01/17/25 07:23 O2 Del Method Room Air 01/17/25 07:23 O2 Flow Rate 3 01/17/25 04:00 BMI result Body Mass Index 19.5 EXAM: GENERAL: The patient is thin and frail VITAL SIGNS:see workflow HEENT: Nonicteric sclerae, PERRLA, EOMI. Oropharynx clear. Moist mucous membranes. Conjunctivae appear well perfused. No thyroid mass. CHEST: Chest wall is nontender. HEART: Regular rate and rhythm without murmurs. LUNGS: Clear to auscultation bilaterally. Reduced A/E ABDOMEN: Soft, positive bowel sounds, nontender, no organomegaly.no flank tenderness SKIN: No rash, no excessive bruising, petechiae, or purpura. NEUROLOGIC: Cranial nerves II-XII intact without motor/sensory deficit. Psych: normal affect Results Labs 01/17/25 03:09 01/17/25 03:09 Labs: Short CBC 01/16/25 01/17/25 Range/Units 20:51 03:09 WBC 8.2 7.0 (4.8-10.8) X10*3/uL Hgb 13.2 12.1 (12.0-16.0) g/dl Hct 38.6 36.1 L (37.0-47.0) % Plt Count 296 272 (160-400) X10*3/uL BMP 01/16/25 01/17/25 20:51 03:09 Sodium 139 139 Potassium 3.5 3.3 Chloride 103 103 Carbon Dioxide 26 27 BUN 14 14 Creatinine 0.93 0.81 Calcium 9.0 8.7 Liver Function 01/16/25 01/17/25 Range/Units 20:51 03:09 Total Bilirubin 0.3 0.4 (0.0-1.0) mg/dL AST 30 29 (5-31) U/L ALT 17 13 (0-31) U/L Alkaline Phosphatase 81 70 (39-117) U/L Albumin 3.5 3.1 L (3.5-5.0) g/dL Imaging CT scan - chest: Attestation: I personally reviewed and interpreted this imaging study as follows: (dilated intrahepatic ducts, atelectasis and consolidation rigth lower lobe ) Assessment and Plan (1) Common bile duct dilation: Status: Acute Plan 1/ Imaging with incidental hepatic ducts and biliary dilation but normal LFT, uncertain etiology, need to exclude neoplasia or other lesion --currently being treated for pneumonia PLAN: 1/ agree with MRCP or CT A/P for further evalaution,. 2/ treat underlying pneumonia Procedures Date of Service Date of Service: 01/17/25
--- NOTE | 2025-01-17 12:11 | PC.NURSE ---
Addendum entered by Carmen Garcia RN 01/17/25 12:22: patient ambulated one assist to the bathroom with this RN Original Note: assumed care of patient at 0700, patient is awake, alert and oriented x3. patient states she no longer ambulates. patient mri screening form completed with patient. patient has been npo since 229. patient resp even and unlabored, on 3l NC at baseline.
[2025-01-17] MEDS: Morphine Sulfate 4 MG/ML CARTRIDGE 2 MG IVPUSH ×2 (12:19→21:12)
--- NOTE | 2025-01-17 12:23 | MHC.EDTECH ---
pt transported off unit to MRI at this time
--- NOTE | 2025-01-17 12:30 | PC.NURSE ---
patient went to MRI
[2025-01-17] MEDS: oxyCODONE HCl Immed Release 5 MG TABLET PO (16:50)
[2025-01-17] MEDS: Gabapentin 100 MG CAPSULE PO (21:12)
[2025-01-17] MEDS: Mirtazapine 7.5 MG TABLET 22.5 MG PO (21:12)
[2025-01-18] MEDS: 0.9 % Sodium Chloride Flush 3 ML SYRINGE IVFLUSH ×4 (00:11→20:30)
[2025-01-18] MEDS: amLODIPine Besylate 5 MG TABLET PO ×2 (01:38→08:52)
[2025-01-18 03:51] VITALS: BP 176/88; PULSE 74; RESP 20; TEMP 36.5; O2SAT 91
[2025-01-18] MEDS: Omeprazole 20 MG CAPSULE.DR PO (04:44)
[2025-01-18] MEDS: Piperacillin Sodium/Tazobactam 3.375 GM in 0.9 % Sodium Chloride 50 ML IV ×4 (04:44→23:04)
[2025-01-18] MEDS: Morphine Sulfate 4 MG/ML CARTRIDGE 2 MG IVPUSH (04:45)
[2025-01-18 06:18] LABS: MANUAL DIFF FLAG NO
[2025-01-18 06:25] LABS: Basophils Absolute Auto 0.1 X10*3/uL (0.0-0.2); Basophils Percent Auto 1.1 % (0-2); Eosinophils Absolute Auto 0.4 X10*3/uL (0.0-0.4); Eosinophils Percent Auto 6.2 % (0-4); Hematocrit 38.5 % (37.0-47.0); Hemoglobin 12.9 g/dl (12.0-16.0); Imm Gran Abs Auto 0.02 X10*3/uL (0.00-0.03); Imm Gran Pct Auto 0.4 % (0.0-0.4); Lymphocytes Percent Auto 36.1 % (20-40); Mean Corpuscular HGB Conc 33.5 g/dl (31.0-35.0); Mean Corpuscular Hemoglobin 30.2 pg (27.0-33.0); Mean Corpuscular Volume 90.2 fL (80.0-98.0); Mean Platelet Volume 9.2 fL (9.4-12.3); Monocytes Absolute Auto 0.8 X10*3/uL (0.1-1.2); Monocytes Percent Auto 13.9 % (2-11); Neutrophils Absolute Auto 2.4 x10*3/uL (2.0-8.3); Neutrophils Percent Auto 42.3 % (45-73); Platelet Count 295 X10*3/uL (160-400); Red Blood Count 4.27 X10*6/uL (4.20-5.50); Red Cell Distribution Width 15.2 % (11.0-16.0); White Blood Count 5.6 X10*3/uL (4.8-10.8)
[2025-01-18 06:45] LABS: Alanine Aminotransferase 8 U/L (0-31); Albumin Level 3.2 g/dL (3.5-5.0); Alkaline Phosphatase 68 U/L (39-117); Anion Gap 13 (12-20); Aspartate Amino Transferase 25 U/L (5-31); Bilirubin Total 0.7 mg/dL (0.0-1.0); Blood Urea Nitrogen 9 mg/dL (9-16); Calcium 8.8 mg/dL (8.4-10.2); Carbon Dioxide 23 mmol/L (22-29); Chloride 110 mmol/L (96-108); Creatinine Clr Calc Pharmacy 47.9; Estimated Glomerular Filt Rate > 60; Glucose Random 88 mg/dL (60-115); Potassium 3.3 mmol/L (3.3-5.1); Sodium 143 mmol/L (135-145); Total Protein 6.5 g/dL (6.5-8.0)
[2025-01-18 07:02] VITALS: BP 164/74; PULSE 74; RESP 20; TEMP 37.3; O2SAT 92
[2025-01-18] MEDS: Cholecalciferol (Vitamin D3) 25 MCG TABLET 50 MCG PO (08:54)
[2025-01-18] MEDS: lisinopriL 10 MG TABLET PO (08:54)
[2025-01-18] MEDS: Acetaminophen 325 MG TABLET 975 MG PO ×2 (08:54→15:44)
[2025-01-18] MEDS: buPROPion HCl XL 300 MG TAB.ER.24H PO (08:54)
[2025-01-18] MEDS: Gabapentin 100 MG CAPSULE PO ×2 (08:55→20:25)
[2025-01-18] MEDS: vancomycin HCL 1,000 MG in 0.9 % Sodium Chloride 250 ML 270 MG IV (08:57)
[2025-01-18 09:44] VITALS: BP 164/74; PULSE 74; O2SAT 92
--- NOTE | 2025-01-18 09:58 | P.PNIM_ITS ---
Subjective Subjective Date of Service: 01/18/25 Interval History: Seen and examined this morning Follow-up for pneumonia Reporting pain with deep breath and with coughing Feeling tired, denies shortness of breath. Dry cough Review of Systems Review of Systems: Yes all other systems are reviewed and are negative Constitutional Constitutional: Denies chills and Denies fever(s) Cardiovascular Cardiovascular: Denies dyspnea and Denies dyspnea on exertion Respiratory Respiratory: Reports cough, Denies dyspnea and Denies dyspnea on exertion Gastrointestinal Gastrointestinal: Denies abdominal pain Physical Exam 2 Vital Signs: Vital Signs: Last Vital Signs Temp 99.2 F 01/18/25 07:02 Pulse 74 01/18/25 09:44 Resp 20 01/18/25 07:02 BP 164/74 H 01/18/25 09:44 Pulse Ox 92 01/18/25 09:44 O2 Del Method Room Air 01/18/25 07:02 O2 Flow Rate 3 01/17/25 04:00 BMI result Body Mass Index 17.8 Objective Data Active Medications Acetaminophen (Acetaminophen 325 Mg Tablet) 975 mg PO Q6H PRN PRN Reason: Pain, Mild 1-3,fever,headache Last Admin: 01/18/25 08:54 Dose: 975 mg Documented By: SANG Amlodipine Besylate (Amlodipine Besylate 5 Mg Tablet) 5 mg PO DAILY [facility]; Protocol Last Admin: 01/18/25 08:52 Dose: 5 mg Documented By: SANG Bupropion HCl (Bupropion Hcl Xl 300 Mg Tab.Er.24h) 300 mg PO DAILY [facility] Last Admin: 01/18/25 08:54 Dose: 300 mg Documented By: ASNG Calcium Carbonate (Calcium Carbonate 750 Mg Tab.Chew) 750 mg PO Q4H PRN PRN Reason: Heartburn Gabapentin (Gabapentin 100 Mg Capsule) 100 mg PO BID [facility] Last Admin: 01/18/25 08:55 Dose: 100 mg Documented By: SANG Guaifenesin/Dextromethorphan (Guaifenesin Dm 200/20/10 Ml 10 Ml Syrup) 10 ml PO Q6H PRN PRN Reason: Cough Piperacillin Sod/Tazobactam (Sod 3.375 gm/ Sodium Chloride) 50 mls @ 100 mls/hr IV Q6H [facility] Last Infusion: 01/18/25 05:16 Dose: Infused Documented By: LOREN Vancomycin HCl 1,000 mg/ (Sodium Chloride) 270 mls @ 270 mls/hr IV Q24H [facility] Last Admin: 01/18/25 08:57 Dose: 270 mls/hr Documented By: SANG Lisinopril (Lisinopril 10 Mg Tablet) 10 mg PO DAILY [facility]; Protocol Last Admin: 01/18/25 08:54 Dose: 10 mg Documented By: SANG Magnesium Hydroxide (Milk Of Magnesia 30 Ml Oral.Susp) 30 ml PO DAILY PRN PRN Reason: Constipation Melatonin (Melatonin 3 Mg Tablet) 6 mg PO BEDTIME PRN PRN Reason: Insomnia Mirtazapine (Mirtazapine 7.5 Mg Tablet) 22.5 mg PO BEDTIME [facility] Last Admin: 01/17/25 21:12 Dose: 22.5 mg Documented By: LOREN Non-Formulary Medication (Umeclidinium-Vilanterol [Anoro Ellipta]) 1 each INHALE DAILY [facility] Omeprazole (Omeprazole 20 Mg Capsule.Dr) 20 mg PO DAILY@0630 [facility] Last Admin: 01/18/25 04:44 Dose: 20 mg Documented By: LOREN Ondansetron HCl (Ondansetron Hcl 4 Mg/2 Ml Vial) 4 mg IVPUSH Q8H PRN PRN Reason: Nausea and Vomiting Oxycodone HCl (Oxycodone Hcl Immed Release 5 Mg Tablet) 5 mg PO Q6H PRN PRN Reason: Pain, Severe (Pain Scale 7-10) Last Admin: 01/17/25 16:50 Dose: 5 mg Documented By: URDDY Pharmacy Consult (Consult Rx Vancomycin Dosing) 1 each MISCELLANE DAILY PRN PRN Reason: Consult order Sertraline HCl (Sertraline Hcl 50 Mg Tablet) 150 mg PO DAILY [facility] Last Admin: 01/18/25 09:01 Dose: Not Given Documented By: SANG Non-Admin Reason: Patient Refused Sodium Chloride (0.9 % Sodium Chloride Flush 3 Ml Syringe) 3 ml IVFLUSH QSHIFT [facility] Last Admin: 01/18/25 08:52 Dose: 3 ml Documented By: SANG Vitamin D (Cholecalciferol (Vitamin D3) 25 Mcg Tablet) 50 mcg PO DAILY [facility] Last Admin: 01/18/25 08:54 Dose: 50 mcg Documented By: SANG Labs 01/18/25 06:09 01/18/25 06:09 Labs: Laboratory Results - last 24 hr 01/18/25 06:09 MCV 90.2 MCH 30.2 MCHC 33.5 RDW 15.2 Plt Count 295 MPV 9.2 L Immature Gran % (Auto) 0.4 Neut % (Auto) 42.3 L Lymph % (Auto) 36.1 [place] % (Auto) 13.9 H Eos % (Auto) 6.2 H Baso % (Auto) 1.1 Lymph # (Auto) 2.0 [place] # (Auto) 0.8 Eos # (Auto) 0.4 Baso # (Auto) 0.1 Abs Immat Gran (auto) 0.02 Absolute Neuts (auto) 2.4 Absolute Nucleated RBC 0.000 Nucleated RBC % (auto) 0.0 Anion Gap 13 Estim Creat Clear Calc 47.9 Estimated GFR > 60 Random Glucose 88 Calcium 8.8 Total Bilirubin 0.7 AST 25 ALT 8 Alkaline Phosphatase 68 Total Protein 6.5 Albumin 3.2 L Microbiology Microbiology Results: Microbiology 01/17/25 03:09 Blood Culture - Preliminary Blood - Venous No growth after 24 hours. 01/17/25 03:09 Blood Culture - Preliminary Blood - Venous No growth after 24 hours. Assessment and Plan (1) Common bile duct dilation: Status: Acute (2) Pneumonia: Status: Acute Plan This is a 74-year-old female with a past medical history significant for COPD on 3 L via NC, TAVR aortic valve (ELOY PlusPro US26)replacement 2 years prior, depression, lumbar disc disease, who presented to the ED due to sharp 9/10 left pleuritic chest pain starting yesterday afternoon. Chest pain secondary to pneumonia Seems Pleuritic EKG with normal sinus rhythm, septal infarct (seen previously 08/18/2023) troponin x2 negative chest CTA to rule PE negative for PE but does show atelectasis in the lower lobes with possible small areas of consolidation amongst the atelectasis, correlate for pneumonia. Emphysema. Stable 6 mm nodule left upper lobe. COVID/flu/RSV negative BNP mildly elevated at 193, no baseline, no lower extremity edema ceftriaxone and azithromycin in ED, switch to vancomycin and Zosyn due to abdominal findings on CT CBD dilation incidental finding on CT, patient does not have any abdominal pain, nausea or vomiting started on Zosyn and vancomycin MRCP with moderate to marked dilation of cbd- slightly increased from 2019. No filling defects. Discussed with GI, no plan for ERCP or further inpatient work up. No abdominal pain, LFTs remained normal. tolerating diet. Outpatient follow-up with GI recommended Abdominal aortic aneurysm found incidentally on CT, not fully visualized patient not having any abdominal pain monitor BP follow-up abdominal CT outpatient Left upper lobe pulmonary nodule 6 mm, stable from CT in 09/2024 continue outpatient follow-up imaging COPD, no acute exacerbation no wheezing on exam or increased O2 requirement continue with current home medications Full code VTE prophylaxis: Pneumoboots, start anticoagulant once GI workup complete Patient with chest pain secondary to pneumonia, complicated by incidental finding severe CBD dilation on CT, requiring admission for IV antibiotics and further evaluation by Gastroenterology. Quality Stroke Does the patient have a stroke diagnosis?: No VTE Prior VTE?: No VTE Risk Level:: Medical - moderate - high VTE Device Contraindication: N/A - Device Ordered VTE Drug Contraindication: Treatment Not Indicated
[2025-01-18 11:01] VITALS: BP 161/76; PULSE 80; RESP 20; TEMP 37; O2SAT 92
[2025-01-18 11:12] VITALS: BMI 17.8
--- NOTE | 2025-01-18 11:16 | MHC.CLN ---
RE; CONSULT PT IS MODERATELY MALNOURISHED PT WITH MILDLY DEPLETED SUBCUTANEOUS FAT AND MUSCLE MASS WITH BMI 17.8 AND 10% NON SIGNIFICANT WT LOSS X 1 YEAR PT SELF REPORTED 30# WT LOSS OVER 1 YEAR WITH NO CHANGE IN APPETITE. DRINKS ENSURE AT HOME DIET RX 2GM NA-RECOMMEND LIBERALIZING DIET TO INCREASE PO INTAKE RECOMMEND ADDING ENSURE BID TO PROVIDE 700KCALS, 40G PROTEIN (PT PREFERS STRAWBERRY) MONITOR PO INTAKE AND ENCOURAGE SUPPLEMENTS SEE FULL CLINICAL NUTRITION ASSESSMENT
[2025-01-18] MEDS: oxyCODONE HCl Immed Release 5 MG TABLET PO ×2 (15:44→23:03)
[2025-01-18 16:00] VITALS: BP 122/58; PULSE 87; RESP 16; TEMP 37; O2SAT 93
[2025-01-18 18:48] VITALS: BP 126/64; PULSE 68; RESP 16; TEMP 37; O2SAT 94
[2025-01-18] MEDS: Mirtazapine 7.5 MG TABLET 22.5 MG PO (20:25)
[2025-01-19] VITALS (9 sets, daily range): BP systolic 132–168; BP diastolic 67–92; PULSE 90–108; RESP 15–19; TEMP 36.3–37.1; O2SAT 94–98
[2025-01-19] MEDS: Piperacillin Sodium/Tazobactam 3.375 GM in 0.9 % Sodium Chloride 50 ML IV ×4 (04:25→23:32)
[2025-01-19] MEDS: Omeprazole 20 MG CAPSULE.DR PO (05:33)
[2025-01-19] MEDS: Acetaminophen 325 MG TABLET 975 MG PO (05:33)
[2025-01-19 06:30] LABS: MANUAL DIFF FLAG NO
[2025-01-19 06:37] LABS: Basophils Absolute Auto 0.1 X10*3/uL (0.0-0.2); Basophils Percent Auto 0.6 % (0-2); Eosinophils Absolute Auto 0.3 X10*3/uL (0.0-0.4); Eosinophils Percent Auto 3.6 % (0-4); Hematocrit 42.7 % (37.0-47.0); Hemoglobin 14.5 g/dl (12.0-16.0); Imm Gran Abs Auto 0.03 X10*3/uL (0.00-0.03); Imm Gran Pct Auto 0.4 % (0.0-0.4); Lymphocytes Absolute Auto 1.9 X10*3/uL (1.2-4.9); Lymphocytes Percent Auto 22.1 % (20-40); Mean Corpuscular Volume 88.4 fL (80.0-98.0); Monocytes Absolute Auto 0.9 X10*3/uL (0.1-1.2); Monocytes Percent Auto 10.3 % (2-11); Neutrophils Absolute Auto 5.4 x10*3/uL (2.0-8.3); Platelet Count 331 X10*3/uL (160-400); Red Blood Count 4.83 X10*6/uL (4.20-5.50); Red Cell Distribution Width 15.3 % (11.0-16.0); White Blood Count 8.5 X10*3/uL (4.8-10.8)
[2025-01-19 06:57] LABS: Alanine Aminotransferase 11 U/L (0-31); Albumin Level 3.8 g/dL (3.5-5.0); Alkaline Phosphatase 86 U/L (39-117); Anion Gap 12 (12-20); Aspartate Amino Transferase 25 U/L (5-31); Bilirubin Total 0.5 mg/dL (0.0-1.0); Blood Urea Nitrogen 12 mg/dL (9-16); Calcium 9.2 mg/dL (8.4-10.2); Carbon Dioxide 24 mmol/L (22-29); Chloride 109 mmol/L (96-108); Creatinine Clr Calc Pharmacy 45.8; Estimated Glomerular Filt Rate > 60; Glucose Random 110 mg/dL (60-115); Potassium 3.2 mmol/L (3.3-5.1); Sodium 142 mmol/L (135-145); Total Protein 7.6 g/dL (6.5-8.0)
--- NOTE | 2025-01-19 07:20 | HE.PHANOTE ---
RE [facility] Patients level came back this morning at 9. Patient has only received load , which was not dosed appropriately, and 1 dose of 1000 mg maintenance. Will increase dose to 1250 mg Q24H. Renal function unstable, will get level 01/20 @0600 to ensure safety vs efficacy.
[2025-01-19 08:13] LABS: Magnesium 1.9 mg/dL (1.6-2.6)
[2025-01-19 08:32] LABS: Procalcitonin 0.02 ng/mL
[2025-01-19] MEDS: amLODIPine Besylate 5 MG TABLET PO (09:10)
[2025-01-19] MEDS: Potassium Chloride ER 20 MEQ TAB.ER.PRT PO (09:10)
[2025-01-19] MEDS: Gabapentin 100 MG CAPSULE PO ×2 (09:10→20:19)
[2025-01-19] MEDS: Enoxaparin Sodium 40 MG/0.4 ML SYRINGE SUBCUT (09:10)
[2025-01-19] MEDS: Cholecalciferol (Vitamin D3) 25 MCG TABLET 50 MCG PO (09:10)
[2025-01-19] MEDS: lisinopriL 10 MG TABLET PO (09:10)
[2025-01-19] MEDS: 0.9 % Sodium Chloride Flush 3 ML SYRINGE IVFLUSH ×3 (09:11→20:19)
[2025-01-19] MEDS: vancomycin HCL 1,250 MG in 0.9 % Sodium Chloride 250 ML 166.67 MG IV (09:12)
--- NOTE | 2025-01-19 11:42 | MHC.CLN ---
F/U PT IS MODERATELY MALNOURISHED SEE FULL CLINICAL NUTRITION ASSESSMENT DATED 01/18/25 DIET RX: REGULAR-APPROPRIATE RECEIVING ENSURE BID TO PROVIDE 700KCALS, 40G PROTEIN (PT PREFERS STRAWBERRY) MONITOR PO INTAKE AND ENCOURAGE SUPPLEMENTS
--- NOTE | 2025-01-19 12:48 | HO.PM.IMPN ---
Subjective Subjective Date of Service: 01/19/25 Interval History: pleuritic chest pain resolved; coughing eating well Review of Systems Review of Systems: Yes all other systems are reviewed and are negative Physical Exam Vital Signs: Vital Signs: Last Vital Signs Temp 98.7 F 01/19/25 11:13 Pulse 95 01/19/25 11:13 Resp 15 01/19/25 11:13 BP 154/82 H 01/19/25 11:13 Pulse Ox 98 01/19/25 11:13 O2 Del Method Room Air 01/19/25 11:13 O2 Flow Rate 3 01/17/25 04:00 BMI result Body Mass Index 17.8 Gen: in no acute distress HEENT: sclera anicteric, moist mucus membranes Neck: supple Lungs: diminished Heart: regular rate and rhythm, no murmurs Abd: soft, non-tender, non-distended Ext: no edema Skin: warm/well-perfused Neuro: alert and oriented x3, no focal findings Psych: appropriate affect Objective Data Active Medications Acetaminophen (Acetaminophen 325 Mg Tablet) 975 mg PO Q6H PRN PRN Reason: Pain, Mild 1-3,fever,headache Last Admin: 01/19/25 05:33 Dose: 975 mg Documented By: JUANITA Amlodipine Besylate (Amlodipine Besylate 5 Mg Tablet) 5 mg PO DAILY [facility]; Protocol Last Admin: 01/19/25 09:10 Dose: 5 mg Documented By: ROB Bupropion HCl (Bupropion Hcl Xl 300 Mg Tab.Er.24h) 300 mg PO DAILY [facility] Last Admin: 01/19/25 09:15 Dose: Not Given Documented By: ROB Non-Admin Reason: Patient Refused Calcium Carbonate (Calcium Carbonate 750 Mg Tab.Chew) 750 mg PO Q4H PRN PRN Reason: Heartburn Enoxaparin Sodium (Enoxaparin Sodium 40 Mg/0.4 Ml Syringe) 40 mg SUBCUT Q24H [facility] Last Admin: 01/19/25 09:10 Dose: 40 mg Documented By: ROB Gabapentin (Gabapentin 100 Mg Capsule) 100 mg PO BID [facility] Last Admin: 01/19/25 09:10 Dose: 100 mg Documented By: ROB Guaifenesin/Dextromethorphan (Guaifenesin Dm 200/20/10 Ml 10 Ml Syrup) 10 ml PO Q6H PRN PRN Reason: Cough Piperacillin Sod/Tazobactam (Sod 3.375 gm/ Sodium Chloride) 50 mls @ 100 mls/hr IV Q6H [facility] Last Infusion: 01/19/25 11:26 Dose: Infused Documented By: ROB Vancomycin HCl 1,250 mg/ (Sodium Chloride) 250 mls @ 166.667 mls/hr IV Q24H [facility] Last Infusion: 01/19/25 10:42 Dose: Infused Documented By: ROB Lisinopril (Lisinopril 10 Mg Tablet) 10 mg PO DAILY [facility]; Protocol Last Admin: 01/19/25 09:10 Dose: 10 mg Documented By: ROB Magnesium Hydroxide (Milk Of Magnesia 30 Ml Oral.Susp) 30 ml PO DAILY PRN PRN Reason: Constipation Melatonin (Melatonin 3 Mg Tablet) 6 mg PO BEDTIME PRN PRN Reason: Insomnia Mirtazapine (Mirtazapine 7.5 Mg Tablet) 22.5 mg PO BEDTIME [facility] Last Admin: 01/18/25 20:25 Dose: 22.5 mg Documented By: NARA Non-Formulary Medication (Umeclidinium-Vilanterol [Anoro Ellipta]) 1 each INHALE DAILY [facility] Omeprazole (Omeprazole 20 Mg Capsule.Dr) 20 mg PO DAILY@0630 [facility] Last Admin: 01/19/25 05:33 Dose: 20 mg Documented By: JUANITA Ondansetron HCl (Ondansetron Hcl 4 Mg/2 Ml Vial) 4 mg IVPUSH Q8H PRN PRN Reason: Nausea and Vomiting Oxycodone HCl (Oxycodone Hcl Immed Release 5 Mg Tablet) 5 mg PO Q6H PRN PRN Reason: Pain, Severe (Pain Scale 7-10) Last Admin: 01/18/25 23:03 Dose: 5 mg Documented By: NARA Pharmacy Consult (Consult Rx Vancomycin Dosing) 1 each MISCELLANE DAILY PRN PRN Reason: Consult order Sertraline HCl (Sertraline Hcl 50 Mg Tablet) 150 mg PO DAILY [facility] Last Admin: 01/19/25 09:05 Dose: Not Given Documented By: ROB Non-Admin Reason: Patient Refused Sodium Chloride (0.9 % Sodium Chloride Flush 3 Ml Syringe) 3 ml IVFLUSH QSHIFT [facility] Last Admin: 01/19/25 09:11 Dose: 3 ml Documented By: ROB Vitamin D (Cholecalciferol (Vitamin D3) 25 Mcg Tablet) 50 mcg PO DAILY [facility] Last Admin: 01/19/25 09:10 Dose: 50 mcg Documented By: ROB Labs 01/19/25 06:17 01/19/25 06:17 Labs: Laboratory Results - last 24 hr 01/19/25 06:17 MCV 88.4 MCH 30.0 MCHC 34.0 RDW 15.3 Plt Count 331 MPV 9.0 L Immature Gran % (Auto) 0.4 Neut % (Auto) 63.0 Lymph % (Auto) 22.1 [place] % (Auto) 10.3 Eos % (Auto) 3.6 Baso % (Auto) 0.6 Lymph # (Auto) 1.9 [place] # (Auto) 0.9 Eos # (Auto) 0.3 Baso # (Auto) 0.1 Abs Immat Gran (auto) 0.03 Absolute Neuts (auto) 5.4 Absolute Nucleated RBC 0.000 Nucleated RBC % (auto) 0.0 Anion Gap 12 Estim Creat Clear Calc 45.8 Estimated GFR > 60 Random Glucose 110 Calcium 9.2 Magnesium 1.9 Total Bilirubin 0.5 AST 25 ALT 11 Alkaline Phosphatase 86 Total Protein 7.6 Albumin 3.8 Procalcitonin 0.02 Vancomycin Trough 9.0 L Microbiology Microbiology Results: Microbiology 01/17/25 03:09 Blood Culture - Preliminary Blood - Venous No growth after 48 hours. 01/17/25 03:09 Blood Culture - Preliminary Blood - Venous No growth after 48 hours. Assessment and Plan (1) Common bile duct dilation: Status: Acute (2) Pneumonia: Status: Acute Plan d3 for 74yo F with COPD on 3L via NC, aortic stenosis s/p TAVR 2 yr ago, depression, lumbar disk disease presented with pleuritic chest pain, found to have PNA chest pain due to PNA - EKG with normal sinus rhythm + old septal infarct; troponin x2 negative; CTA negative for PE but did show atelecatsis in both lower lobes with areas of consolidation; stable 6 mm nodule left upper lobe; Covid-19/RSV/influenza negative. Started on ceftriaxone + azithromycin 01/17, changed to vancomycin + piperacillin/tazobactam 01/18-. PCT low. Check urinary antigens for Legionella and pneumococcus and MRSA swab. Possible change to PO ABX tomorrow. CBD dilation, incidental - no abdominal symptoms, LFTs normal; MRCP with moderate-marked CBD dilation slightly increase from 2019; no filling defects. Discussed with GI, no ERCP recommended. Outpt f/u with GI incidental AAA - f/u abdominal CT outpatient DAX pulmonary nodule - 6 mm, stable from CT September 2024, continue outpatient monitoring COPD without acute exacerbation - no wheezing or increased O2 requirement, continue home inhalers HTN - amlodipine, lisinopril neuropathy - gabapentin mood disorder - bupropion, mirtazapine, sertraline chronic hypoxic respiratory failure - continue 3L O2 VTE ppx - enoxaparin dispo - PT eval: STR recommended In my clinical judgment, the patient requires continued inpatient hospitalization for the following reasons: IV ABX, placement Total time managing care of this patient today: 45 minutes. Quality Stroke Does the patient have a stroke diagnosis?: No VTE Prior VTE?: No VTE Risk Level:: Medical - moderate - high VTE Device Contraindication: N/A - Device Ordered VTE Drug Contraindication: Treatment Not Indicated
--- NOTE | 2025-01-19 13:39 | MHC.CM.PN ---
REGALCARE TO EMAIL COPY OF DNR/DNI MD AWARE
[2025-01-19 14:05] LABS: MRSA Nasal PCR NEGATIVE (Negative); SA Nasal PCR POSITIVE (Negative)
[2025-01-19] MEDS: Albuterol/Iprat 2.5/0.5MG 3 ML AMPUL.NEB INHALE (15:38)
[2025-01-19] MEDS: Melatonin 3 MG TABLET 6 MG PO (23:31)
[2025-01-20] VITALS: BP 119/63; PULSE 89; RESP 18; TEMP 36.4; O2SAT 93
[2025-01-20 04:00] VITALS: BP 127/60; PULSE 72; RESP 18; TEMP 36.1; O2SAT 92
[2025-01-20] MEDS: Omeprazole 20 MG CAPSULE.DR PO (04:44)
[2025-01-20] MEDS: Piperacillin Sodium/Tazobactam 3.375 GM in 0.9 % Sodium Chloride 50 ML IV (04:44)
[2025-01-20 07:04] LABS: Anion Gap 13 (12-20); Blood Urea Nitrogen 14 mg/dL (9-16); Calcium 9.1 mg/dL (8.4-10.2); Carbon Dioxide 23 mmol/L (22-29); Chloride 110 mmol/L (96-108); Creatinine Clr Calc Pharmacy 42.2; Estimated Glomerular Filt Rate > 60; Glucose Random 102 mg/dL (60-115); Potassium 3.5 mmol/L (3.3-5.1); Sodium 142 mmol/L (135-145)
[2025-01-20 07:06] LABS: Vancomycin Random 13.4 mcg/mL (15-20)
[2025-01-20 07:08] VITALS: BP 123/67; PULSE 85; RESP 18; TEMP 36.7; O2SAT 92
[2025-01-20] MEDS: lisinopriL 10 MG TABLET PO (08:30)
[2025-01-20] MEDS: amLODIPine Besylate 5 MG TABLET PO (08:30)
[2025-01-20] MEDS: Acetaminophen 325 MG TABLET 975 MG PO (08:30)
[2025-01-20] MEDS: Gabapentin 100 MG CAPSULE PO (08:30)
[2025-01-20] MEDS: vancomycin HCL 1,250 MG in 0.9 % Sodium Chloride 250 ML 166.67 MG IV (08:31)
[2025-01-20] MEDS: Enoxaparin Sodium 40 MG/0.4 ML SYRINGE SUBCUT (08:31)
[2025-01-20] MEDS: Cholecalciferol (Vitamin D3) 25 MCG TABLET 50 MCG PO (08:31)
[2025-01-20] MEDS: 0.9 % Sodium Chloride Flush 3 ML SYRINGE IVFLUSH (08:32)
--- NOTE | 2025-01-20 09:44 | PM.DS ---
DS: Providers Provider Date of Service: 01/20/25 Date of admission: 01/17/25 02:54 Date of discharge: 01/20/25 Primary care physician: Geronimo Klein MD Consults: 01/17/25 02:54 Consult to Gastroenterology Routine Consulting Provider: Yohannes Miller Reason for consultation: dialted CBD on CTA, MRCP ordered DS: Diagnosis Discharge Diagnosis (1) Common bile duct dilation: Status: Acute (2) Pneumonia: Status: Acute DS: Summary Hospital Course Hospital Course: History and physical as per admitting provider. Patient is a 74-year-old female with a past medical history significant for COPD on 3 L via NC, TAVR aortic valve (ELOY PlusPro US26)replacement 2 years prior, depression, lumbar disc disease, who presented to the ED due to sharp 9/10 left pleuritic chest pain starting yesterday afternoon. She reports that the pain is now about a 5/10 after receiving morphine. She also feels short of breath and has dyspnea with exertion however reports that she does have this at baseline with COPD, slightly worse than usual. About 2 weeks ago she had a viral illness with nausea vomiting diarrhea which has subsided. She denies any current fever, chills, cough, nausea, vomiting, diarrhea or abdominal pain. Her pain is located on the left side of her chest that radiates down left arm. She reports that EMS instructed her to take aspirin when she called so she took 500 mg. 74-year-old woman treated for chest pain secondary to pneumonia. CTA was negative. For PE but did show both lower lobes with areas of consolidation, 6 mm nodule to left upper lobe, COVID, RSV and influenza negative. She was started on ceftriaxone and azithromycin and changed to vancomycin and Zosyn on 01/18. Patient is off oxygen and on room air. Plan will be to continue oral antibiotics to complete treatment. CBD dilation was not incidental finding. She had MRCP with moderate quoc CBD dilation. Discussed with GI, no recommendation for ERCP, LFTs normal. May follow up with GI outpatient as needed. incidental AAA. f/u abdominal CT outpatient DAX pulmonary nodule. 6 mm, stable from CT September 2024, continue outpatient monitoring COPD without acute exacerbation. no wheezing or increased O2 requirement, continue home inhalers HTN. amlodipine, lisinopril neuropathy. gabapentin mood disorder. bupropion, mirtazapine, sertraline Time Attestation Discharge Coordination Time (in mins): 42 Quality: Safe Use of Opioids Does Pt have an Active Cancer Diagnosis on the Problem List?: No Quality: Stroke Does the patient have a stroke diagnosis?: No Physical Exam Vital Signs: Vital Signs: Last Vital Signs Temp 98.0 F 01/20/25 07:08 Pulse 85 01/20/25 07:08 Resp 18 01/20/25 07:08 BP 123/67 01/20/25 07:08 Pulse Ox 92 01/20/25 07:08 O2 Del Method Room Air 01/20/25 07:08 O2 Flow Rate 3 01/17/25 04:00 BMI result Body Mass Index 17.8 Appearing in no acute distress head is normocephalic atraumatic eyes pupils are PERRLA sclera is anicteric mouth throat mucous membranes are intact and moist neck is supple no lymphadenopathy, no JVD noted lung sounds are clear to auscultation heart regular rate rhythm, clear S1, S2 positive bowel sounds, abdomen is soft, nontender neuro patient is alert x3, no focal deficits DS: Data Data Completed and Pending Labs on day of discharge: Laboratory Results - last 24 hr 01/19/25 01/20/25 10:50 06:27 Sodium 142 Potassium 3.5 Chloride 110 H Carbon Dioxide 23 Anion Gap 13 BUN 14 Creatinine 0.75 Estim Creat Clear Calc 42.2 Estimated GFR > 60 Random Glucose 102 Calcium 9.1 Nasal Screen MRSA (PCR) NEGATIVE Nasal S. aureus Screen POSITIVE A Nasal MRSA/S.aureus Interp SEE NOTE Random Vancomycin 13.4 L Preliminary micro results at discharge 01/17/25 03:09 Blood Culture - Preliminary Blood - Venous No growth after 48 hours. 01/17/25 03:09 Blood Culture - Preliminary Blood - Venous No growth after 48 hours. Discharge Plan Discharge Anticipated Discharge Date/Time: 01/20/25 09:43 Patient Disposition: Xfer SNF Discharge Diagnosis: Chest pain Pneumonia CBD dilation Referrals: Sunita Munoz [Outside] - 1 Week Name,MD Geronimo [Primary Care Provider] - 1 Week Discharge Medications: New cefuroxime axetil 500 mg tablet 500 mg PO BID Qty: 8 0RF azithromycin 500 mg tablet 500 mg PO DAILY 4 Days Qty: 4 0RF Continued gabapentin 100 mg capsule 100 mg PO BID 30 Days Qty: 60 3RF sertraline 100 mg tablet 150 mg PO DAILY mirtazapine [Remeron] 15 mg tablet 22.5 mg PO BEDTIME amlodipine 5 mg Tablet 5 mg PO DAILY Qty: 0 0RF Protocol: Hold for SBP< HOLD for SBP < : 90 lisinopril 10 mg Tablet 10 mg PO DAILY Qty: 0 0RF Protocol: Hold for SBP< HOLD for SBP < : 90 celecoxib 200 mg capsule 200 mg PO DAILY omeprazole 20 mg capsule,delayed release(DR/EC) 20 mg PO DAILY@0630 cholecalciferol (vitamin D3) 50 mcg (2,000 unit) tablet 50 mcg PO DAILY acetaminophen [Pain Relief ES (acetaminophen)] 500 mg tablet 1,000 mg PO Q6H PRN (Reason: Pain) clopidogrel 75 mg tablet 75 mg PO DAILY bupropion HCl 300 mg tablet extended release 24 hr 300 mg PO DAILY aspirin 81 mg tablet,delayed release (DR/EC) 81 mg PO DAILY Anoro Ellipta 62.5-25 mcg/actuation blister with device 1 ea inhalation DAILY Qty: 60 6RF Combivent Respimat 20-100 mcg/actuation mist 1 puff inhalation QID PRN (Reason: for wheezing) Qty: 4 6RF Discharge Orders: Discharge Order (Routine); Ordered 01/20/25 Ordered By: Concepcion Aponte Diet: Advance to usual diet Activity on Discharge: As tolerated Stand Alone Forms: Patient Portal Discharge page Print Language: Faroese Care Plan Goals: Complete antibiotics Health Concerns: Chest pain Pneumonia CBD dilation Plan of Treatment: Follow up with the primary care provider as needed Take all medications as prescribed Assessment: See discharge summary
--- NOTE | 2025-01-20 10:03 | MHC.CM.PN ---
Addendum entered by Indiana Alvarez 01/20/25 10:41: AFTER WALKING WITH NURSING STAFF, PT STATES SHE FEELS WELL ENOUGH TO DC HOME WITH [facility] REFERRALS OUT PT WILL BE TRANSPORTED VIA LYFT Original Note: CM MET WITH PT TO DISCUSS DC PLANNING PT STATES SHE DOES NOT WANT TO GO TO STR, HOWEVER NOTES SHE IS UNSURE IF SHE CAN MANAGE AT HOME SHE HAS NOT BEEN ALLOWED TO WALK. PER DISCUSSION, PT WILL WALK WITH A PT OR BOARD ATTENDANT AND THEN DECIDE IF SHE WANTS STR OR HOME WITH VNA JOSE R SUERO HAS AUTH TO ACCEPT PT TO STR TODAY
--- NOTE | 2025-01-20 10:36 | W.MHC.F2F ---
Service Date Service Date: 01/20/25 Encounter Date of encounter: 01/20/25 Reasons for Services Signs and symptoms assessed: PNA Chest pain Reason for physical therapy: home safety and mobility Homebound: Leaving the home is medically contraindicated at this time without the asist of a device and/or another person due th the listed conditions above and below. Reason homebound: unsteady gait / fall risk and weakness related to hospital stay Certification: Based on the above findings, I certify that this patient is confined to the home and needs intermittent group home care, physical therapy and/or speech therapy, or continues to need occupational therapy. The patient is under my care, and I have initiated the establishment of the plan of care. The patient will be followed by a physician who will periodically review the plan of care. Time Spent With Patient Time: Total time managing care of this patient today ____ minutes.
[2025-01-20 12:00] VITALS: BP 104/54; PULSE 80; RESP 18; TEMP 36.8; O2SAT 91
--- NOTE | 2025-01-24 13:13 | P.CDIM_ITS ---
PROVIDER RESPONSE TEXT: To clarify, the appropriate diagnosis supported by the clinical indicators: Malnutrition: moderate QUERY TEXT: PHYSICIAN'S DOCUMENTATION REQUEST Date of Query: 01/19/2025 01:08 PM EDT Patient Name: Ayanna Giles Admit Date: 01/17/2025 Dear Angeles Alba MD, A review of the medical record indicates additional documentation may be needed. Please review below and update the documentation accordingly. Clinical Indicators: Height: 4ft 11in Weight: 40kg BMI: 17.8 Other Clinical Notes Supporting Significance of the BMI: Clinical nutrition notes 01/18/25 - Mildly de pleted subcutaneous fat and muscle mass with BMI 17.8 and 10% non significant wt loss x 1 year Patient is moderately malnourished. Recommend adding Ensure BID to provide Kcals. If possible, please provide an associated diagnosis related to the abnormal BMI, such as: Underweight Malnutrition mild, moderate, severe Cachexia Anorexia BMI is not significant Other (explain) Clinically unable to determine (explain) Thank you, Columba Brody, CCS, CDIS Use of terms such as suspected, likely, concern for, or probable (associated with a specific diagnosi s that is being evaluated, monitored, or treated as if it exists) are acceptable and can be coded in the inpatient se tting, when documented at the time of discharge. Please use your independent medical judgment in providing your response. THIS QUERY IS PART OF THE PERMANENT MEDICAL RECORD
[2025-01-24 17:48] LABS: Strep Pneumo Ag urine Not Detected (Not Detected)
[2025-01-25 06:59] LABS: Legionella Ag Urine Not Detected (Not Detected)
== END 2025-01-20 14:17 | disposition home health service (06) | DRG 194 ==
LOC: HO.ED 01-17 01:44 → HO.EDOVER 01-17 03:02 → HO.IMC 01-17 17:20
PROVIDERS: Family Medicine; Admitting Provider Physician Assistant; Emergency Provider Emergency Medicine Emergency Medical Services; PCP Internal Medicine Geriatric Medicine; Visit Provider Nurse Practitioner Acute Care
DX: J18.9 Pneumonia, unspecified organism (principal); E44.1 Mild protein-calorie malnutrition; J96.11 Chronic respiratory failure with hypoxia; Z68.1 Body mass index [BMI] 19.9 or less, adult; J98.11 Atelectasis; F17.210 Nicotine dependence, cigarettes, uncomplicated; G62.9 Polyneuropathy, unspecified; Z71.6 Tobacco abuse counseling; K83.8 Other specified diseases of biliary tract; J43.9 Emphysema, unspecified; R91.1 Solitary pulmonary nodule; I71.40 Abdominal aortic aneurysm, without rupture, unspecified; Z20.822 Contact with and (suspected) exposure to COVID-19; Z95.2 Presence of prosthetic heart valve; Z79.02 Long term (current) use of antithrombotics/antiplatelets; Z79.82 Long term (current) use of aspirin; Z79.899 Other long term (current) drug therapy
CPT/HCPCS: 0241U; 36415; 71045; 71275; 74181; 80048; 80053; 80202; 83605; 83735; 83880; 84145; 84484; 85025; 87040; 87449; 87640; 87641; 87899; 93005; 94640; 97162; 99285; J0456; J0696; J1650; J1885; J2270; J2543; J3370; J3371; Q9967

== ENCOUNTER → 2025-01-16 20:16 | Outpatient (BNV) | payer OTHER, SELFPAY | PROVIDERS: Emergency Provider Emergency Medicine Emergency Medical Services; PCP Internal Medicine Geriatric Medicine; Visit Provider Student in an Organized Health Care Education/Training Program | DX: R07.9 Chest pain, unspecified (principal) | CPT/HCPCS: 71045; 71275 ==

== ENCOUNTER → 2025-01-16 20:24 | Outpatient (BNV) | payer OTHER, SELFPAY | PROVIDERS: Admitting Provider Physician Assistant; Emergency Provider Emergency Medicine Emergency Medical Services; PCP Internal Medicine Geriatric Medicine; Visit Provider Internal Medicine | DX: I25.2 Old myocardial infarction (principal) | CPT/HCPCS: 93010 ==

== ENCOUNTER 2025-01-17 02:54 | Outpatient (BNV) | payer OTHER, SELFPAY | END 2025-01-17 12:35 | PROVIDERS: Admitting Provider Physician Assistant; Emergency Provider Emergency Medicine Emergency Medical Services; PCP Internal Medicine Geriatric Medicine; Visit Provider Radiology Diagnostic Radiology | DX: K83.8 Other specified diseases of biliary tract (principal) | CPT/HCPCS: 74181 ==

== ENCOUNTER → 2025-01-17 02:54 | Outpatient (BNV) | payer OTHER, SELFPAY | PROVIDERS: Admitting Provider Physician Assistant; Emergency Provider Emergency Medicine Emergency Medical Services; PCP Internal Medicine Geriatric Medicine; Visit Provider Nurse Practitioner Acute Care | DX: R07.81 Pleurodynia (principal); J18.9 Pneumonia, unspecified organism; R91.1 Solitary pulmonary nodule; K83.8 Other specified diseases of biliary tract; I71.40 Abdominal aortic aneurysm, without rupture, unspecified | CPT/HCPCS: 99223; 99232; 99499 ==

== ENCOUNTER → 2025-01-17 02:54 | Outpatient (BNV) | payer OTHER, SELFPAY | PROVIDERS: Admitting Provider Physician Assistant; Emergency Provider Emergency Medicine Emergency Medical Services; PCP Internal Medicine Geriatric Medicine; Visit Provider Internal Medicine Gastroenterology | DX: K83.8 Other specified diseases of biliary tract (principal) | CPT/HCPCS: 99223 ==

== ENCOUNTER 2025-02-27 10:27 | Outpatient (REF) | payer OTHER, SELFPAY ==
[2025-02-27 11:27] LABS: MANUAL DIFF FLAG NO
[2025-02-27 11:33] LABS: Basophils Absolute Auto 0.1 X10*3/uL (0.0-0.2); Basophils Percent Auto 0.9 % (0-2); Eosinophils Absolute Auto 0.4 X10*3/uL (0.0-0.4); Eosinophils Percent Auto 5.5 % (0-4); Hematocrit 39.8 % (37.0-47.0); Imm Gran Abs Auto 0.01 X10*3/uL (0.00-0.03); Imm Gran Pct Auto 0.1 % (0.0-0.4); Lymphocytes Absolute Auto 2.7 X10*3/uL (1.2-4.9); Lymphocytes Percent Auto 40.4 % (20-40); Mean Corpuscular HGB Conc 32.7 g/dl (31.0-35.0); Mean Corpuscular Hemoglobin 30.5 pg (27.0-33.0); Mean Corpuscular Volume 93.4 fL (80.0-98.0); Mean Platelet Volume 9.6 fL (9.4-12.3); Monocytes Absolute Auto 0.7 X10*3/uL (0.1-1.2); Monocytes Percent Auto 9.7 % (2-11); Neutrophils Absolute Auto 2.9 x10*3/uL (2.0-8.3); Neutrophils Percent Auto 43.4 % (45-73); Platelet Count 327 X10*3/uL (160-400); Red Blood Count 4.26 X10*6/uL (4.20-5.50); White Blood Count 6.7 X10*3/uL (4.8-10.8)
[2025-02-27 11:52] LABS: Anion Gap 12 (12-20); Blood Urea Nitrogen 11 mg/dL (9-16); Calcium 9.4 mg/dL (8.4-10.2); Carbon Dioxide 26 mmol/L (22-29); Chloride 106 mmol/L (96-108); Estimated Glomerular Filt Rate > 60; Glucose Random 114 mg/dL (60-115); Potassium 3.7 mmol/L (3.3-5.1); Sodium 140 mmol/L (135-145)
--- OUTSIDE RECORDS SUMMARY | 2025-02-27 12:11 | XMS_ITS | Data Portability ---
Author Organization [employer], Or in - [employer] Address [address] [place] [phone] Care Team Providers Care Braille Operator Name Role Phone [facility] Referring Provider NAME, DELANEY Primary Care Provider HIM CCA OTHER Assessment Encounter Date Assessment Date Assessment LastModified by Organization Details LastModified Time 03/27/2022 03/27/2022 I have reviewed and agree with the assessment and plan as documented by the wire coater. I provided real time medical direction for this encounter and was immediately available to provide additional phone based assistance as needed. History as noted by wire coater. Pt diagnosed with cellulitis of the L [...] Assessment and Plan as documented by the Mitering Machine Operator. Patient given the opportunity to ask questions. Our service contacted for an assessment of: Nausea vomiting and diarrhea as well as dehydration As per above, patient with past several days of nausea vomiting diarrhea. Very poor p.o. intake. Calls for assessment. Positive sick contacts. Denies any abdominal pain, chest pain, dyspnea on exertion, shortness of breath. Per wire coater on the scene, vital signs are stable [...] assessment and plan as documented by the wire coater. I provided real time medical direction for this encounter and was immediately available to provide additional phone based assistance as needed. History as noted by wire coater. Pt reports 3-4 days of nausea, NB [...] BMP, serum or plasma 2024 025 btils [facility], [address] [place] [address], [phone] 5 13:28:38 cmp, whole blood + ron 2024 025 JUAN LUIS [facility], [address] [place] [address], [phone] 5 09:00:50 rapid SARS CoV 2 Ag, QL IA, respiratory specimen [address], [address] [place] [address], [phone] 5 22:25:42 rapid flu (A+B) [address], [address] [place] [address], [phone] 5 22:25:42 Referral None recorded. Procedures None recorded. Surgeries None recorded. Imaging None recorded. Medication Orders lactated Ringers intravenous solution 2024 025 [id number], [address] [place], [place], [id number], 5 13:28:38 lactated Ringers intravenous solution [address] [facility]45109, [address] [place], [place], [id number], 5 22:25:42 Compazine 10 mg tablet [address] [facility]14957, [address] [place], [place], [id number], 5 22:25:42 loperamide 2 mg tablet [address] [facility]21063, [address] [place], [place], [id number], 5 22:25:42 cephalexin 500 mg capsule 2021 022 [facility] #00750, [address] [place], [place], [id number], 2 15:57:11 doxycycline hyclate 100 mg capsule 2021 022 [facility] #76845, [address] [place], [place], [id number], 2 15:57:10 Patient TargetsNo targets recorded. Patient InstructionsNo instructions recorded. Reason for Referral None Reported. Results Created Date Observation Date Name Description Value Unit Range Abnormal Flag Note LastModifiedBy Organization Detail LastModifiedTime 12/27/1912/27/2024 rapid flu (A+B) Flu negati ve Not Available [facility] [address] [facility], [place], [phone] 12/27/2024 22:25:04 12/27/19 25 12/27/2024 rapid SARS CoV 2 Ag, QL IA, respi rator y speci men rapid SARS CoV 2 Ag, QL IA, respiratory specimen negati ve Not Available [facility] [address] [place] [address], [phone] 12/27/2024 22:24:49 Result Notes None recorded. Medical [...] Details Last Updated DateTime 2 98 [degF] 71881.9 6 g 149.86 cm 18 /min 96 /min 96 % 96 % 4 L/min 96 /min 149.86 cm 18 /min 96 % 96 % 4 L/min 61840.9 6 g 98 [degF] 107 mm[Hg] 66 [...] 64 mm[Hg] Not Available [facility] - production 18:54:15 Date Recorded Body temperature Heart rate Respiratory rate Oxygen saturation Oxygen saturation in Arterial blood by Pulse oximetry Systolic blood pressure Diastolic blood pressure Provider Name and Address Organization Details Last Updated DateTime 98.8 [degF] 86 /min 16 /min 92 % 92 % 130 mm[Hg] 80 mm[Hg] Not Available [facility] production 13:23:12 Social History None recorded. [...] 1700 Shubham Lujan MD Main - [facility] [address] [place] [phone] 03/27/2022 15:54:16 08/11/2022 09:59:38 Cellulitis of lower leg 785839115 L03.119 [id number] Melina Mckeon MD Main - [facility] [address] [place] [phone] 12/27/2024 18:54:11 12/28/2024 08:58:39 Dehydration [id number] E86.0 [id number] Shubham Lujan MD Main - [facility] [address] [place] [phone] 12/28/2024 13:22:51 12/28/2024 16:44:29 Nausea, vomiting and diarrhea 8153773 R11.2 Health Concerns Section Related Observation LastModified by Organization Detai ls LastModified Time None Recorded Concern Status LastModified by Organization Details LastModified Time None Recorded Advance Directives Directive None Recorded Payers Encounter Date Sequence Insurance Name Policy Number Policy Palmer Covered Member ID Palmer Member ID Guarantor Name 03/27/[address] [facility] - DOS PRIOR TO 2023 - DUAL ELIGIBLE (MEDICARE REPLACEMENT/ADV ANTAGE - HMO) Ayanna Giles [id number] Ayanna Giles 12/27/[address] [facility] - DOS ON OR AFTER 2023 - DUAL ELIGIBLE - [facility] OPTIONS AND ONE CARE (MEDICARE REPLACEMENT/ADV ANTAGE - HMO) Ayanna Giles [id number] Ayanna Giles 12/28/[address] [facility] - DOS ON OR AFTER 2023 - DUAL ELIGIBLE - [facility] OPTIONS AND ONE CARE (MEDICARE REPLACEMENT/ADV ANTAGE - HMO) Ayanna Giles [id number] Ayanna Giles Notes Date Note Type Note [...] ................... ................... ................... ................... ................... ................... ........ Mitering Machine Operator Note: Sent to a call for a [...] all times. Lung sounds: clear bilaterally. [facility] orders pt to finish Amoxicillin and Doxycycline. [facility] sends script to pt's pharmacy for Doxycycline 100mg BID x 7 days and Cephalexin 500mg QID x 7 days. Red flags discussed. Pt has no further questions. ................... ................... ................... ................... ................... ................... ................... ........ Disposition: Fulfilled Shubham Lujan MD [address] [place] [address],[address], [place], [phone], [facility] 03/27/2022 16:26:31 12/27/2024 text/html CRC Nurse Triage Notes (Bennie Gayle - RN): Denies: Sharp focal or diffuse abdominal pain Vomiting blood/coffee ground material Bloating, jaundice new onset with pain Nausea and vomiting greater than 2 hours with abdominal pain Tearing pain that radiates to back Food Impaction Chief Complaints: Vomiting, Nausea, Diarrhea PMH: Cancer, COPD/Asthma, Coronary Artery Disease PMH Reviewed at 12/27/2024 - 16:32 Allergies Reviewed at 12/27/2024 - 16:32 Comments: Sex Therapist verified the patient's name//address and phone number. [...] emergency treatment if needed -Pat Gayle RN Mitering Machine Operator Organization Information for Peewee Barnett [employer] Legal Name: [employer]? Address: [address] [place] [id number], Life Manager: Jd Abraham MD CLIA No.: [id number] Mitering Machine Operator POC Test Results from Peewee Barnett - ALS Rapid COVID antigen (18:51:16) COVID: - Attachments [...] ................... ................... ................... ................... ................... ................... ........ Mitering Machine Operator Note From Peewee Barnett: Responded to the [...] swab performed with negative results found. [facility] contacted and discussed findings. [facility] directed provider to draw BMP and administer 1L lactated ringers solution for rehydration. IV established, labs drawn and 1L lactated ringers solution infused. During infusion pt reports feeling more awake and was able to sit up briefly, reporting some improvement to symptoms. Upon completion of infusion [facility] recontacted, discussing pt current symptoms. Pt asked about continuing care at local hospital with pt refusing stating that she would like to stay home and try and eat something at home. [facility] directed provider to administer 10mg compazine ODT [...] ................... ................... ................... ................... ................... ........ [facility] Consulted: Melina Mckeon ................... ................... ................... ................... ................... ................... ................... ........ Disposition: Fulfilled Melina Mckeon MD [address] [facility],[address], [place], [phone], [facility] 12/27/2024 22:29:39 12/28/2024 text/html This was a supervised home visit with wire coater Danis Maya. HPI: Member is dehydrated has significant nausea vomiting & diarrhea. ................... ................... ................... ................... ................... ................... ................... ........ CRC Nurse Triage Notes (Peggy Pickett - RN): Chief Complaints: Dehydration PMH: Cancer, COPD/Asthma, Coronary Artery Disease PMH Reviewed at 12/28/2024: Allergies Reviewed at 12/28/2024 - : Comments: CP spoke to the pt and placed the referral on her behalf Pt was seen on 12/27 for nausea and vomiting [facility] request :Patient would benefit from a repeat [facility] visit on December 28. She has dehydration [...] 19:18 Hb 18.7 g/dL 19:18 AG 12 Mitering Machine Operator Organization Information for Danis Maya Legal Name: [employer]? Address: [address] [place], [place] [address] [address], Life Manager: Jd Abraham MD CLIA No.: [id number] Mitering Machine Operator POC Test Results from Danis Maya - ALS iSTAT Chem8+ (13:18:13) Na: 137 mEq/L K: 5.3 mEq/L Cl: 107 mEq/L iCa: 1.02 mmol/L TCO2: 25 mmol/L Glu: 73 mg/dL BUN: 38 mg/dL Crea: 0.8 mg/dL Hct: 47 % Hb: 16 g/dL A Attachments uploaded as part of this test result can be found under Documents section. ................... ................... ................... ................... ................... ................... ................... ........ Mitering Machine Operator Note From Dnais Maya: Pt seen for concern of dehydration. Pt reports 4 days of nausea, vomiting, & diarrhea which resolved at approx 1400 yesterday. Pt reports she was seen yesterday through [facility] and was given 1 liter of IV [...] for BMV with ISTAT8. Results uploaded to [employer] platform and [facility] contacted via phone. C advised of Pt's status and findings. C agrees to administer 1L of LR, advise Pt to hydrate via oral fluids, and eat as tolerated with bland diet. [facility] advised Pt should call back if her symptoms do not continue to improve or return. Pt advised of [facility] treatment plan and agreeable. LR initiated however IV site quickly infiltrates, infusion d/c. Second IV attempt unsuccessful. Pt reports she does not want another IV attempt made and will make sure to hydrate. Several bottles of water obtained from Pt's refrigerator and placed on beside table. [facility] contacted and advised that LR is unable to be administered. [facility] agrees that Pt can hydrate with fluids, call closed. ................... ................... ................... ................... ................... ................... ................... ........ [facility] Consulted: Shubham Lujan ................... ................... ................... ................... ................... ................... ................... ........ Disposition: Fulfilled Shubham Lujan MD [address] [facility],[address], [place], [phone], [facility] 12/28/2024 14:34:30 OBGyn Episode No OBEpisode recorded.
--- OUTSIDE RECORDS SUMMARY | 2025-02-27 12:11 | XMS_ITS | Encounter Summary ---
Author Organization [employer] Address [address] [place] [address] Care Team Providers Care Drafter Geophysical Name Role Phone Name, Geronimo GIRON Primary Care Provider [phone] Reason for Visit * Reason Comments Med Refill Encounter Details Date Type Department Care Team ([facility] st Contact Info) Description 01/07/2024 Refill [facility] [address] [place] [address] Shubham Servin MD [address] [place], [place] [phone] Uncomplicated opioid dependence (CMS/HCC) Social History Tobacco Use Types Packs/Day Years [...] Care Team (Late st Contact Info) Description 06/14/2025 10:30 AM EDT Office Visit [facility] [address] [place] [address] Name, MD Geronimo [address] [place] [address] documented as of this encounter Visit Diagnoses Diagnosis Uncomplicated opioid dependence (CMS/HCC) documented in this encounter Additional Health Concerns Assessment Noted Time PHQ-9 Depression Total Score: 14 023 9:52 AM EDT documented as of this encounter Care Teams Drafter Geophysical Relationship Specialty Start Date End Date NameGeronimo MD [address] [place] [id number] PCP - General Family Medicine 02/16/17 [facility] 01/22/25 documented as of this encounter
--- OUTSIDE RECORDS SUMMARY | 2025-02-27 12:11 | XMS_ITS | Encounter Summary ---
Author Organization [employer] Address [address] [place] [address] Care Team Providers Care Research Home Economist Name Role Phone Name, Geronimo GIRON Primary Care Provider [phone] Encounter Details Date Type Department Care Team (Late st Contact Info) Description 09/26/2023 Abstract [facility] [address] [place] [address] Ana Maria Tarango Social History Tobacco Use [...] Description 06/14/2025 10:30 AM EDT Office Visit [facility] [address] [place] [address] Name, MD Geronimo [address] [place] [phone] documented as of this encounter Visit Diagnoses Not on filedocumented in this encounter Additional Health Concerns Assessment Noted Time PHQ-9 Depression Total Score: 14 023 9:52 AM EDT documented as of this encounter Care Teams Research Home Economist Relationship Specialty Start Date End Date Name, MD Geronimo [address] [place] [id number] PCP - General Family Medicine 02/16/17 [facility] 01/22/25 documented as of this encounter
--- OUTSIDE RECORDS SUMMARY | 2025-02-27 12:11 | XMS_ITS | Encounter Summary ---
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 Name Role Phone Name, Geronimo GIRON Primary Care Provider [phone] Reason for Visit * Reason Comments Cough Shortness of Breath Encounter Details Date Type Department Care Team ([facility] st Contact Info) Description 02/27/2025 10:00 AM EDT Office Visit [facility] [address] [place] [address] Name, MD Geronimo [address] [place] [address] Chronic obstructive pulmonary disease, unspecified COPD type (CMS/HCC) (Primary Dx); COPD exacerbation (CMS/HCC); Lung crackles; Right knee pain, unspecified chronicity; Weight loss, non-intentional Social History Tobacco Use Types Packs/Day Years [...] your housing situation today? I have frantz sing 05/26/[address] you li [...] AM EDT documented as of this encounter Last Filed Vital Signs Vital Sign Reading Time Taken Comments Blood Pressure 162/84 02/27/2025 9:53 AM EDT Pulse 98 02/27/2025 9:53 AM EDT Temperature 36.2 ??C (97.2 ??F) 02/27/2025 9:53 AM E DT Respiratory Rate 12 02/27/2025 9:53 AM EDT Oxygen Saturation 94% 02/27/2025 9:53 AM EDT Inhaled Oxygen Concentration - - Weight 39.5 kg (87 lb) 02/27/2025 9:53 AM EDT Height 149.9 cm (4' 11 ) 02/27/2025 9:53 AM EDT Body Mass Index 17.57 02/27/2025 9:53 AM EDT documented in this encounter Progress Notes * Geronimo Klein MD - 02/27/2025 10:00 AM EDT Images from the original note were not included. Subjective Patient ID: Ayanna Giles is a 74 y.o. female who presents for Cough and Shortness of Breath. Patient comes for a follow-up visit. She does not feel well. She describes worsening of baseline cough, sputum production, dyspnea exertion, 1 or 2 days with malaise, low-grade fevers and chills. Shehas a personal history of COPD, she continues smoking. She was treated for pneumonia last month andrequired brief admission to a rehabilitation facility. She does not require the use of supplementaloxygen. She also complains of a few days of right knee pain precipitated by walking and standing. She does not have any history of trauma to the right knee and no swelling or redness of the right knee. Review of Systems Constitutional: Positive for chills, fatigue and fever. HENT: Negative for sore throat. Respiratory: Positive for cough and shortness of breath. Cardiovascular: Negative for chest pain, palpitations and leg swelling. Gastrointestinal: Negative for abdominal pain. Visit Vitals BP (!) 162/84 (BP Location: Left arm, Patient Position: Sitting, BP Cuff Size: Adult) Pulse 98 Temp 97.2 ??F (36.2 ??C) (Temporal) Resp 12 Ht 4' 11 (1.499 m) Wt 87 lb (39.5 kg) SpO2 94% BMI 17.57 kg/m?? Smoking Status Former BSA 1.28 m?? Objective Physical Exam Constitutional: General: She is not in acute distress. Appearance: Normal appearance. She is not toxic-appearing. Cardiovascular: Rate and Rhythm: Normal rate and regular rhythm. Heart sounds: Murmur heard. No gallop. Pulmonary: Effort: Pulmonary effort is normal. No respiratory distress. Comments: LLL crackles on exam Musculoskeletal: Right lower leg: No edema. Left lower leg: No edema. Neurological: Mental Status: She is alert. Latest Reference Range & Units 02/27/25 10:11 RAPID INFLUENZA A AGN Negative, Indeterminate Negative RAPID INFLUENZA B AGN Negative, Indeterminate Negative Rapid COVID Ag Negative Assessment/Plan Diagnoses and all orders for this visit: Chronic obstructive pulmonary disease, unspecified COPD type ([facility]) Comments: I recommended to continue current inhalers, she has Combivent and Anoro at home. I will start her on treatment with prednisone and Levaquin. I recommended evaluation with chest x-ray and blood work listed below. I will have my nurses call her to see how she is doing tomorrow. I encouraged her to goto the ER if she feels worse overnight. Orders: - XR Chest 2 Views; Future - CBC auto differential; Future - Basic Metabolic Panel; Future COPD exacerbation (CMS/HCC) - XR Chest 2 Views; Future - CBC auto differential; Future - Basic Metabolic Panel; Future Lung crackles - POCT Rapid Influenza A OSOM - POCT Rapid Influenza B OSOM - POCT Rapid Covid-19 BinaxNOW Right knee pain, unspecified chronicity Comments: I suspect DJD. I recommended evaluation with x-ray. I told her prednisone might help with this painas well. Orders: - XR Knee 3 Views Right; Future Weight loss, non-intentional Comments: The patient weighs only 87 pounds. She is to be 110 pounds last year. Workup of weight loss has been negative so far. I prescribed nutritional supplement . She got a prescription for Boost but she does not like the taste. We have tried to get her Ensure nutritional supplements at her request. I will message the PA specialist to see why she has not received the Ensure yet. Other orders - predniSONE (Deltasone) 20 MG tablet; Take 1 tablet (20 mg) by mouth Once per day for 5 days. - levoFLOXacin (Levaquin) 250 MG tablet; Take 2 tablets (500 mg) by mouth Once per day for 5 days. documented in this encounter Plan of Treatment Upcoming Encounters Date Type Department Care Team (Late st Contact Info) Description 06/14/2025 10:30 AM EDT Office Visit [facility] [address], [place] [id number] Name, MD Geronimo [address] [place] [address] Scheduled Orders Name Type Priority Associated Diagnoses Orde r Schedule XR Chest 2 Views Imaging Routine Chronic obstructive pulmonary disease, unspecified COPD type (CMS/HCC) COPD exacerbation (CMS/HCC) Expected: 02/27/2025, Expires: 02/27/2026 XR Knee 3 Views Right Imaging Routine Right knee pain, unspecified chronicity Expected: 02/27/2025, Expires: 02/27/2026 documented as of this encounter Procedures Procedure Name Priority Date/Time Associated Diagnosis Comments CBC WITH AUTO DIFFERENTIAL Routine 02/27/2025 10:31 AM EDT Chronic obstructive pulmonary disease, unspecified COPD type (CMS/HCC) COPD exacerbation (CMS/HCC) BASIC METABOLIC PANEL Routine 02/27/2025 10:31 AM EDT Chronic obstructive pulmonary disease, unspecified COPD type (CMS/HCC) COPD exacerbation (CMS/HCC) POCT RAPID COVID ANTIGEN Routine 02/27/2025 10:11 AM EDT Lung crackles POCT INFLUENZA B Routine 02/27/2025 10:1 1 AM EDT Lung crackles POCT INFLUENZA A Routine 02/27/2025 10:1 1 AM EDT Lung crackles documented in this encounter Results * Basic Metabolic Panel (02/27/2025 10:31 AM EDT) Sodium 140 135 - 145 mmol/L [facility] Potassium 3.7 3.3 - 5.1 mmol/L [facility] Chloride 106 96 - 108 mmol/L [facility] Carbon Dioxide 26 22 - 29 mmol/L [facility] Anion Gap 12 12 - 20 [facility] Urea Nitrogen (BUN) 11 9 - 16 mg/dL [facility] Creatinine, Serum 0.74 0.5 - 1.4 mg/dL [facility] Estimated Glomerular Filt Rate >60 [facility] Comment:Chronic Kidney Disea se: Estimated GFR < 60 mL/min/1.13t0Bfelif Kidney Disease: Estimated GFR < 15 mL/min/1.73m2 Glucose 114 60 - 115 mg/dL [facility] Calcium 9.4 8.4 - 10.2 mg/dL [facility] Blood Venous blood specimen / Unknown 02/27/2025 10:31 AM EDT 02/27/2025 11:16 AM EDT us Geronimo Name LAB BLOOD ORDERABLES Final Resul t [facility] [address] [place] [phone] * (ABNORMAL) CBC auto differential (02/27/2025 10:31 AM EDT) White Blood Count 6.7 4.8 - 10.8 X10*3/uL [facility] Red Blood Count 4.26 4.20 - 5.50 X10*6/uL [facility] Hemoglobin 13.0 12.0 - 16.0 g/dl [facility] Hematocrit 39.8 37.0 - 47.0 % [facility] Mean Corpuscular Volume 93.4 80.0 - 98.0 fL [facility] Mean Corpuscular Hemoglobin 30.5 27.0 - 33.0 pg [facility] Mean Corpuscular HGB Conc 32.7 31.0 - 35.0 g/dl [facility] Red Cell Distribution Width 15.0 11.0 - 16.0 % [facility] Platelet Count 327 160 - 400 X10*3/uL [facility] Mean Platelet Volume 9.6 9.4 - 12.3 fL [facility] Neutrophils Percent Auto 43.4(L) 45 - 73 % [facility] Imm Gran Pct Auto 0.1 0.0 - 0.4 % [facility] Lymphocytes Percent Auto 40.4(H) 20 - 40 % [facility] Monocytes Percent Auto 9.7 2 - 11 % [facility] Eosinophils Percent Auto 5.5(H) 0 - 4 % [facility] Basophils Percent Auto 0.9 0 - 2 % [facility] NRBC Pct Auto 0.0 0.0 - 0.2 /100WBC [facility] Neutrophils Absolute Auto 2.9 2.0 - 8.3 x10*3/uL [facility] Imm Gran Abs Auto 0.01 0.00 - 0.03 X10*3/uL [facility] Lymphocytes Absolute Auto 2.7 1.2 - 4.9 X10*3/uL [facility] Monocytes Absolute Auto 0.7 0.1 - 1.2 X10*3/uL [facility] Eosinophils Absolute Auto 0.4 0.0 - 0.4 X10*3/uL [facility] Basophils Absolute Auto 0.1 0.0 - 0.2 X10*3/uL [facility] NRBC Abs Auto 0.000 0.0 - 0.012 X10*3/uL [facility] Blood Venous blood specimen / Unknown 02/27/2025 10:31 AM EDT 02/27/2025 11:16 AM EDT us Geronimo Klein MD LAB BLOOD ORDERABLES Final Resul t Performing Organization Address City/State/[facility] Co de Phone Number [facility] [address] [place] [phone] * POCT Rapid Covid-19 BinaxNOW (02/27/2025 10:11 AM EDT) Pathologist [facility] Rapid COVID Ag Negative QC Media Lot # [id number] Lot# Expiration Date [id number] Nares 02/27/2025 10:1 1 AM EDT us Geronimo Klein MD POINT OF CARE TEST ENTER/EDIT OR DERABLES Final Result * POCT Rapid Influenza B OSOM (02/27/2025 10:11 AM EDT) Rapid Influenza B Ag Negative Negative, Indeterminate QC Media Lot # [id number] Lot# Expiration Date 13,127 Swab 02/27/2025 10:1 1 AM EDT us Geronimo Klein MD POINT OF CARE TEST ENTER/EDIT OR DERABLES Final Result * POCT Rapid Influenza A OSOM (02/27/2025 10:11 AM EDT) Rapid Influenza A Ag Negative Negative, Indeterminate QC Media Lot # [id number] Lot# Expiration Date Swab Nasopharyngeal structure / Unknown 02/27/2025 10:11 AM EDT Geronimo Klein MD POINT OF CARE TEST ENTER/EDIT OR DERABLES Final Result documented in this encounter Visit Diagnoses Diagnosis Chronic obstructive pulmonary disease, unspecified COPD type (CMS/HCC)- Primary COPD exacerbation ([facility]) Obstructive chronic bronchitis with exacerbation Lung crackles Right knee pain, unspecified chronicity Weight loss, non-intentional Loss of weight documented in this encounter Additional Health Concerns Assessment Noted Time PHQ-9 Depression Total Score: 21 024 9:47 AM EDT documented as of this encounter Care Teams Threading Machine Setter Relationship Specialty Start Date End Date Name, MD Geronimo [address] [place] [id number] PCP - General Family Medicine 02/16/17 [facility] 01/22/25 documented as of this encounter
--- OUTSIDE RECORDS SUMMARY | 2025-02-27 12:12 | XMS_ITS | Clinical Summary ---
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 04/20/20 19 Active Umeclidinium-Vi lanterol (Anoro Ellipta) 62.5-25 MCG/ACT aerosol powder Inhale 1 puff at bed time. Active acetaminophen (Tylenol) 500 MG tabletIndicatio ns:Chronic pain syndrome Take 1 tablet by mouth every 6-8 hours as needed.Do not exceed over 8 tabs/24 hrs 60 tablet 3 10/16/20 22 Active lidocaine (Lidoderm) 5 % patchIndication s:Chronic low back pain with left-sided sciatica, unspecified back pain laterality Apply 1 patch topically in the morning. Remove & discard patch within 12 hours or as directed by . 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 30 patch 1 09/03/20 23 Active SUMAtriptan (Imitrex) 6 MG/0.5ML injection Inject 0.5 mL (6 mg) under the skin if needed for migraine. 15 mL 2 12/28/19 24 Active omeprazole (PriLOSEC) [address] capsuleIndicati ons:Gastroesoph ageal reflux disease, unspecified whether esophagitis present TAKE 1 CAPSULE BY MOUTH EVERY MORNING 30 capsule 11 03/20/20 24 Active ipratropium-alb uterol (Combivent Respimat) 20-100 MCG/ACT inhaler Inhale 1 [...] 12/06/19 25 Active celecoxib (CeleBREX) 200 MG capsuleIndicati ons:Lumbar spondylosis TAKE 1 CAPSULE BY MOUTH EVERY MORNING 30 capsule 1 12/06/19 25 Active Buprenorphine HCl-Naloxone HCl (Suboxone) 8-2 MG SL filmIndications :Uncomplicated opioid dependence (CMS/HCC) Place 1 Film under the tongue 2 times daily for 28 days. Do not start before December 22, 2024. 56 Film 12/22/19 25 Active Aspirin Low Dose 81 MG EC tabletIndicatio ns:Moderate aortic valve stenosis TAKE 1 TABLET BY MOUTH EVERY MORNING 90 tablet 1 01/30/20 25 Active clopidogrel (Plavix) 75 MG tabletIndicatio ns:Moderate aortic valve stenosis TAKE 1 TABLET BY MOUTH EVERY MORNING 90 tablet 1 01/30/20 25 Active cholecalciferol VITAMIN D (Vitamin D-3) 50 MCG (2000 UT) tablet TAKE 1 TABLET BY MOUTH EVERY MORNING 90 tablet 1 01/30/20 25 Active predniSONE (Deltasone) 20 MG tablet Take 1 tablet (20 mg) by mouth Once per day for 5 days. 5 tablet 02/28/20 25 025 Active levoFLOXacin (Levaquin) 250 MG tablet Take 2 tablets (500 mg) by mouth Once per day for 5 days. 10 tablet 02/28/20 25 025 Active clopidogrel (Plavix) 75 MG tabletIndicatio ns:Moderate aortic valve stenosis TAKE 1 TABLET BY MOUTH EVERY MORNING 90 tablet 1 08/10/20 24 025 Discontinued cholecalciferol VITAMIN D (Vitamin D-3) 50 MCG (1999 UT) tablet TAKE 1 TABLET BY MOUTH EVERY MORNING 90 tablet 1 08/10/20 24 025 Discontinued Aspirin Low Dose 81 MG EC tabletIndicatio ns:Moderate aortic valve stenosis TAKE 1 TABLET BY MOUTH EVERY MORNING 90 tablet 1 08/10/20 24 025 Discontinued Active Problems Problem Noted Date Diagnosed Date Aneurysm, abdominal aortic 02/21/2025 Common bile duct dilation 02/21/2025 Dyspnea on exertion 02/21/2025 Intractable nausea and vomiting 02/21/2025 Left upper lobe pulmonary nodule 02/21/2025 Overview (02/21/2025): (6mm DAX nodule -previously 3mm in 2006) MDD (major depressive disord er), recurrent episode, moderate 02/21/2025 Muscle spasm of back 02/21/2025 Opioid withdrawal 02/21/2025 Personal history of nicotine dependence 02/22/20 25 Overview (02/21/2025): (current smoker, onset 13, 1/2ppd x 58yrs, now <1/4ppd, 29pyh) Pleuritic chest pain 02/21/2025 Pneumonia 02/21/2025 Polysubstance abuse 02/21/2025 Hypertension 09/09/2023 Chronic hypoxemic respiratory failure 08/20/2023 COVID-19 08/20/2023 Dehydration 08/20/2023 Difficulty walking 08/20/2023 Recurrent major depression 08/20/2023 Polycythemia 08/20/2023 Psychoactive substance abuse 08/20/2023 Taste absent 10/23/2022 Supplemental oxygen dependent 10/10/2022 Lumbar degenerative disc disease 10/10/2022 Nonrheumatic aortic valve stenosis 10/10/2022 Moderate aortic valve stenosis 10/10/2022 Vitamin D deficiency 10/10/2022 History of aortic valve replacement 02/06/2022 Overview (01/08/2023): [place] 01[place] [facility] She is on DAPT since then Knee pain 01/09/2019 Memory impairment 01/09/2019 Asthenia 10/11/2017 Severe major depression, sin gle episode, without psychotic features 04/08/2017 Neck pain 02/17/2017 Recurrent major depression in partial remission 02/17/2017 COPD (chronic obstructive pulmonary disease) Dyslipidemia 08/07/2014 History of right mastectomy 08/07/2014 Impaired fasting glucose 08/07/2014 Osteopenia 08/08/2012 Nicotine dependence, cigarettes, uncomplicated 1 Overview (02/21/2025): (current smoker, onset 13, 1/2ppd x 58yrs, now <1/4ppd, 29pyh) Low back pain 05/27/2012 Gastroesophageal reflux disease 05/27/2012 Migraine 05/27/2012 Opioid use disorder 03/28/2012 Pure hypercholesterolemia 03/28/2012 Resolved Problems Problem Noted Date Diagnosed Date Resolved Date Heart murmur 10/10/2022 01/08/2023 Encounters Date Type Department Care Team Description 02/27/2025 10:00 AM EDT Office Visit [facility] [address] [place] [phone] Name, MD Geronimo Chronic obstructive pulmonary disease, unspecified COPD type (CMS/HCC) (Primary Dx); COPD exacerbation (CMS/HCC); Lung crackles; Right knee pain, unspecified chronicity; Weight loss, non-intentional 02/27/2025 Travel 02/21/2025 Telephone [facility] [place] [address] Vignesh Campbell MA chart prep 02/14/2025 Telephone [facility] [address] [place] [address] Geronimo Klein MD 02/08/2025 Telephone [facility] [address] [place] [address] Geronimo Klein MD Call Back Request 02/07/2025 Telephone [facility] [place] [address] Geronimo Klein MD Medication Question (Patient walked in requesting med changed Boost to be changed to Ensure strawberry and vanilla flavor. Patient stated she doesn't like the Boost. ) 01/28/2025 Refill [facility] [place] [address] Geronimo Klein MD Moderate aortic valve stenosis 01/17/2025 Orders Only GENERIC EXTERNAL DATA DEPARTMENT Provider, Generic External Data 01/16/2025 Orders Only [facility] External Provider, [facility] 12/18/2024 Refill [facility] [address] [place] [address] Purnima Mcrae, RN Uncomplicated opioid dependence ([facility]) 12/06/2024 Refill [facility] [place] [address] Geronimo Klein MD Lumbar spondylosis from Last 3 Months Immunizations Name Administration [...] 36.2 ??C (97.2 ??F) 02/27/2025 9:53 AM ED T Respiratory Rate 12 02/27/2025 9:53 AM EDT Oxygen Saturation 94% 02/27/2025 9:53 AM EDT Inhaled Oxygen Concentration - - Weight 39.5 kg (87 lb) 02/27/2025 9:53 AM EDT Height 149.9 cm (4' 11 ) 02/27/2025 9:53 AM EDT Body Mass Index 17.57 02/27/2025 9:53 AM EDT Plan of Treatment Upcoming Encounters Date Type Department Care Team (Late st Contact Info) Description 06/14/2025 10:30 AM EDT Office Visit [facility] [address] [place] [address] Name, [place] [address] Health Maintenance Due Date Last Done Comments CT Colonography 1950 Colonoscopy 1950 Colorectal Cancer Screening 1950 FIT DNA/Cologuard 1950 FIT 1950 FOBT 1950 Sigmoidoscopy 1950 RSV Patients and Patients Aged 60 years or older (1 - Risk 60-74 years 1-dose series) 2011 COVID-19 Vaccine ( season) 2024 10/30/2022, 05/15/2022, 12/26/2021, Additional history exists Depression Screening 02/16/2025 02/17/2024, 02/17/20 24 Alcohol/Substance Use Screening 05/26/2025 05/26/2024 SDOH Screening 05/26/2025 05/26/2024 Diabetes: Hemoglobin A1C 10/25/2025 10/25/2024, 09/0 01/2020 Tobacco Screening 02/27/2026 02/27/2025 Mammogram 06/01/2026 06/01/2024 Lipid Panel 05/18/2028 05/18/2023 [...] Procedure Name Priority Date/Time Associated Diagnosis Comments BASIC METABOLIC PANEL Routine 02/27/2025 10:31 AM EDT Chronic obstructive pulmonary disease, unspecified COPD type (CMS/HCC) COPD exacerbation (CMS/HCC) CBC WITH AUTO DIFFERENTIAL Routine 02/27/2025 10:31 AM EDT Chronic obstructive pulmonary disease, unspecified COPD type (CMS/HCC) COPD exacerbation (CMS/HCC) POCT RAPID COVID ANTIGEN Routine 02/27/2025 10:11 AM EDT Lung crackles POCT INFLUENZA B Routine 02/27/2025 10:1 1 AM EDT Lung crackles POCT INFLUENZA A Routine 02/27/2025 10:1 1 AM EDT Lung crackles MR MRCP Routine 01/17/2025 12:35 PM EDT CTA CHEST PE PROTOCAL Routine 01/17/2025 1:27 AM EDT HIGH SENSITIVITY TROPONIN I Routine 01/17/2025 12:39 AM EDT SARS COV2/INFLUENZA A/B AND RSV RNA QL NAAT Routine 01/16/2025 10:52 PM EDT XR CHEST 1 VIEW Routine 01/16/2025 8:57 PM EDT POCT GLYCATED HEMOGLOBIN, TOTAL Routine 10/25/2024 12:07 PM EST Weight loss, non-intentional BI MAMMOGRAM SCREENING TOMOSYNTHESIS LEFT Routine 06/01/2024 11:55 AM EDT HEPATITIS C AB W/REFL TO HCV RNA, QN, PCR Routine 05/26/2024 10:50 AM EDT Weight loss, non-intentional LIPID PANEL, STANDARD Routine 05/18/2023 10:50 AM EDT from Last 3 Months or Most Recently Relevant to Health Maintenance Results * (ABNORMAL) CBC auto differential (02/27/2025 10:31 AM EDT) White Blood Count 6.7 4.8 - 10.8 X10*3/uL [facility] Red Blood Count 4.26 4.20 - 5.50 X10*6/uL [facility] Hemoglobin 13.0 12.0 - 16.0 g/dl [facility] Hematocrit 39.8 37.0 - 47.0 % [facility] Mean Corpuscular Volume 93.4 80.0 - 98.0 fL [facility] Mean Corpuscular Hemoglobin 30.5 27.0 - 33.0 pg [facility] Mean Corpuscular HGB Conc 32.7 31.0 - 35.0 g/dl [facility] Red Cell Distribution Width 15.0 11.0 - 16.0 % [facility] Platelet Count 327 160 - 400 X10*3/uL [facility] Mean Platelet Volume 9.6 9.4 - 12.3 fL [facility] Neutrophils Percent Auto 43.4(L) 45 - 73 % [facility] Imm Gran Pct Auto 0.1 0.0 - 0.4 % [facility] Lymphocytes Percent Auto 40.4(H) 20 - 40 % [facility] Monocytes Percent Auto 9.7 2 - 11 % [facility] Eosinophils Percent Auto 5.5(H) 0 - 4 % [facility] Basophils Percent Auto 0.9 0 - 2 % [facility] NRBC Pct Auto 0.0 0.0 - 0.2 /100WBC [facility] Neutrophils Absolute Auto 2.9 2.0 - 8.3 x10*3/uL [facility] Imm Gran Abs Auto 0.01 0.00 - 0.03 X10*3/uL [facility] Lymphocytes Absolute Auto 2.7 1.2 - 4.9 X10*3/uL [facility] Monocytes Absolute Auto 0.7 0.1 - 1.2 X10*3/uL [facility] Eosinophils Absolute Auto 0.4 0.0 - 0.4 X10*3/uL [facility] Basophils Absolute Auto 0.1 0.0 - 0.2 X10*3/uL [facility] NRBC Abs Auto 0.000 0.0 - 0.012 X10*3/uL [facility] Blood Venous blood specimen / Unknown 02/27/2025 10:31 AM EDT 02/27/2025 11:16 AM EDT us Geronimo Klein MD LAB BLOOD ORDERABLES Final Resul t [facility] [address] [place] [phone] * Basic Metabolic Panel (02/27/2025 10:31 AM EDT) Sodium 140 135 - 145 mmol/L [facility] Potassium 3.7 3.3 - 5.1 mmol/L [facility] Chloride 106 96 - 108 mmol/L [facility] Carbon Dioxide 26 22 - 29 mmol/L [facility] Anion Gap 12 12 - 20 [facility] Urea Nitrogen (BUN) 11 9 - 16 mg/dL [facility] Creatinine, Serum 0.74 0.5 - 1.4 mg/dL [facility] Estimated Glomerular Filt Rate >60 [facility] Comment:Chronic Kidney Disea se: Estimated GFR < 60 mL/min/[id number] Kidney Disease: Estimated GFR < 15 mL/min/1.73m2 Glucose 114 60 - 115 mg/dL [facility] Calcium 9.4 8.4 - 10.2 mg/dL [facility] Blood Venous blood specimen / Unknown 02/27/2025 10:31 AM EDT 02/27/2025 11:16 AM EDT us Geronimo Klein MD LAB BLOOD ORDERABLES Final Resul t [facility] [address] [place] [phone] * POCT Rapid Covid-19 BinaxNOW (02/27/2025 10:11 AM EDT) [facility] Rapid COVID Ag Negative QC Media Lot # [id number] Lot# Expiration Date 63,026 Nares 02/27/2025 10:1 1 AM EDT us Geronimo Klein MD POINT OF CARE TEST ENTER/EDIT OR DERABLES Final Result * POCT Rapid Influenza B OSOM (02/27/2025 10:11 AM EDT) [facility] Rapid Influenza B Ag Negative Negative, Indeterminate QC Media Lot # [id number] Lot# Expiration Date Swab 02/27/2025 10:1 1 AM EDT us Geronimo Klein MD POINT OF CARE TEST ENTER/EDIT OR DERABLES Final Result * POCT Rapid Influenza A OSOM (02/27/2025 10:11 AM EDT) [facility] Rapid Influenza A Ag Negative Negative, Indeterminate QC Media Lot # [id number] Lot# Expiration Date Swab Nasopharyngeal structure / Unknown 02/27/2025 10:11 AM EDT us Geronimo Name MD POINT OF CARE TEST ENTER/EDIT OR DERABLES Final Result * MR MRCP (01/17/2025 12:35 PM EDT) Anatomical Region Laterality Modality Lower Extremities Left Magnetic Reson ance 01/17/2025 12:3 5 PM EDT Narrative 01/17/2025 1:45 PM EDT ? [facility] ?[address] ?[place] [address] ? Magnetic Resonance Report ? Signed ? Patient: Giles,Ayanna ?MR#: [id number] ?? 53 ? : 1950 ?Acct:[id number] ? Age/Sex: 74 / F ?ADM Date: 01/17/25 ? Loc: [facility] ?[facility] ? Attending Dr: Concepcion Aponte [employer] ? Ordering Physician: Gita Baires PA-C ?? Date of Service: 01/17/25 ?? Procedure(s): MR MRCP ?? Accession Number(s): [id number] ? cc: Name,Geronimo GIRON; Gita Baires PA-C ? EXAMINATION: ??MRCP ? HISTORY: dilated CBD on CTA ? COMPARISON: ??Correlation is made with the upper abdominal images from a ?? chest CT dated 01/16/[address] of the abdomen dated 01/15/2019. ? TECHNIQUE: Axial gradient echo and coronal haste T2 with fat saturation ?? images were obtained through the abdomen. 3D MRCP Reconstructed images ?? and thick slab imaging of the biliary tree were obtained. ? FINDINGS: ??There is moderate to marked dilatation of the common bile ?? duct in the radha hepatis measuring up to 1.9 cm in diameter. There is ?? also dilatation of the central intrahepatic biliary radicals. There is ?? abrupt tapering of the common bile duct at the ampulla. No definite ?? intraluminal filling defects are identified to suggest ?? choledocholithiasis. The degree of dilatation of the common bile duct ?? is slightly greater than on the CT of the abdomen dated 03/17/2019. ? There is no significant loss of signal intensity within the liver on ?? opposed phase imaging to suggest steatosis. No obvious liver mass is ?? identified, although evaluation is limited by lack of intravenous ?? contrast material. The gallbladder is surgically absent. The spleen and ?? pancreas are unremarkable. The pancreatic duct is normal in caliber. ?? The adrenals and left kidney are unremarkable. There is a probable ?? subcentimeter cyst at the upper pole of the right kidney. ? No retroperitoneal lymphadenopathy or ascites is identified in the ?? upper abdomen. Generalized bones demonstrate normal signal intensity. ? MR/MR MRCP ?? IMPRESSION: ? Moderate to marked dilatation of the common bile duct with associated ?? dilatation of the central intrahepatic biliary radicals. No definite ?? intraluminal filling defects are identified to suggest ?? choledocholithiasis. The degree of dilatation of the common bile duct ?? is slightly greater than that on the abdominal CT scan dated 03/17/2019. ?? If there are liver function test abnormalities or other concern for ?? neoplasm, ERCP could be performed. ? Electronically signed by: ??Jeffery Owen MD ??01/17/2025 01:42 PM EDT ? Dictated By: ?Jeffery Owen MD ? Signed By: ?<Electronically signed by Jeffery Owen MD in OV> ?01/17/25 1342 ? DD/ 1235 ? TD/TT: 01/17/25 1257 ? Nutrition Educator: ? Procedure Note Mark, Image - 01/17/2025 [place] [address] Magnetic Resonance Report Signed Patient: Alan Giles#: [id number] 53 : 1950cct:[id number] Age/Sex: 74 / FADM Date: 01/17/25 Loc: [facility]: Concepcion Apnote NP Ordering Physician: Gita Baires PA-C Date of Service: 01/17/25 Procedure(s): MR MRCP Accession Number(s): [id number] cc: Geronimo Klein MD; Gita Baires PA-C EXAMINATION: MRCP HISTORY: dilated CBD on CTA COMPARISON: Correlation is made with the upper abdominal images from a chest CT dated 01/16/[address] of the abdomen dated 01/15/2019. TECHNIQUE: Axial gradient echo and coronal haste T2 with fat saturation images were obtained through the abdomen. 3D MRCP Reconstructed images and thick slab imaging of the biliary tree were obtained. FINDINGS: There is moderate to marked dilatation of the common bile duct in the radha hepatis measuring up to 1.9 cm in diameter. There is also dilatation of the central intrahepatic biliary radicals. There is abrupt tapering of the common bile duct at the ampulla. No definite intraluminal filling defects are identified to suggest choledocholithiasis. The degree of dilatation of the common bile duct is slightly greater than on the CT of the abdomen dated 03/17/2019. There is no significant loss of signal intensity within the liver on opposed phase imaging to suggest steatosis. No obvious liver mass is identified, although evaluation is limited by lack of intravenous contrast material. The gallbladder is surgically absent. The spleen and pancreas are unremarkable. The pancreatic duct is normal in caliber. The adrenals and left kidney are unremarkable. There is a probable subcentimeter cyst at the upper pole of the right kidney. No retroperitoneal lymphadenopathy or ascites is identified in the upper abdomen. Generalized bones demonstrate normal signal intensity. MR/MR MRCP IMPRESSION: Moderate to marked dilatation of the common bile duct with associated dilatation of the central intrahepatic biliary radicals. No definite intraluminal filling defects are identified to suggest choledocholithiasis. The degree of dilatation of the common bile duct is slightly greater than that on the abdominal CT scan dated 03/17/2019. If there are liver function test abnormalities or other concern for neoplasm, ERCP could be performed. Electronically signed by: Jeffery Owen MD 01/17/2025 01:42 PM EDT RP Dictated By: Jeffery Owen MD Signed By: <Electronically signed by Jeffery Owen MD in OV> 01/17/25 1342 DD/ 1235 TD/TT: 01/17/25 1257 Nutrition Educator: [facility] External Provider IMG MRI PROCEDURES Final Result * CTA Chest PE Protocal (01/17/2025 1:27 AM EDT) Anatomical Region Laterality Modality Body, Chest Computed Tomogra phy 01/17/2025 1:27 AM EDT Narrative 01/17/2025 1:29 AM EDT ? [facility] ?[address] ?[place] [address] ? CT Scan Report ? Signed ? Patient: Giles,Ayanna ?MR#: [id number] ?? 53 ? : 1950 ?Acct:[id number] ? Age/Sex: 74 / F ?ADM Date: 01/16/25 ? Loc: HO.ED ? Attending Dr: ? Ordering Physician: Chaim Franco MD ?? Date of Service: 01/16/25 ?? Procedure(s): CT angio chest PE protocol ?? Accession Number(s): [id number] ? cc: Ernie,Geronimo GIRON; Chaim Franco MD ? Report Number: ?? [id number]: Total DLP = ??166.00 mGy-cm ? CLINICAL HISTORY: Left pleuritic chest pain R O PE ? CT angiography chest with contrast. 3D Postprocessing. ? Comparison: CR - XR CHEST 1V - 01/16/25 19:23 EDT ? Findings: ?? There is no pulmonary embolism. Heart size is normal. There is no ?? pericardial effusion. Patient is status post transcatheter aortic valve ?? replacement. Thoracic aorta is normal in size without dissection. There ?? are no enlarged lymph nodes. ? There is moderate upper lobe predominant centrilobular emphysema. There is ?? atelectasis in both lower lobes. There may be small areas of consolidation ?? amongst the atelectasis. There is mild atelectasis in the right middle ?? lobe and inferior lingula as well. There is a 6 mm solid subpleural nodule ?? in the left upper lobe. ? There is no acute fracture or suspicious lytic or sclerotic lesion. ? Limited images of the upper abdomen demonstrate severe intrahepatic and ?? extrahepatic biliary duct dilation. The distal common bile duct is not in ?? the field of view. There is an abdominal aortic aneurysm only slightly in ?? the field of view. ? IMPRESSION: ?? 1. No pulmonary embolism. ?? 2. Atelectasis in the lower lobes with possible small areas of ?? consolidation amongst the atelectasis. Correlate for pneumonia. ?? 3. Moderate centrilobular emphysema. ?? 4. 6 mm nodule in the left upper lobe. Comparison with prior imaging or ?? follow-up as below recommended. ?? 5. Severe intrahepatic and extrahepatic biliary duct dilation. The distal ?? common bile duct is not in the field of view. Consider CT or MRCP. ?? 6. Abdominal aortic aneurysm only slightly in the field of view. ? This document has been electronically signed by: Tushar Stock MD on ?? 01/17/2025 01:27:57 ? Dictated By: ?Tushar Stock MD ? Signed By: ?<Electronically signed by Tushar Stock MD in OV> ? 01/17/25 0129 ? DD/ 0127 ? TD/TT: 01/17/25 012 ? Nutrition Educator: ? Procedure Note Donbossmaninterpreter, Image - 01/17/[address] [place] [address] [address] Scan Report Signed Patient: Stevie GilesnMR#: [id number] 53 : 1950cct:[id number] Age/Sex: 74 / FADM Date: 01/16/25 Loc: .ED Attending Dr: Ordering Physician: Chaim Franco MD Date of Service: 01/16/25 Procedure(s): CT angio chest PE protocol Accession Number(s): [id number] cc: Geronimo Klein MD; Chaim Franco MD Report Number: [id number]: Total DLP = 166.00 mGy-cm CLINICAL HISTORY: Left pleuritic chest pain R O PE CT angiography chest with contrast. 3D Postprocessing. Comparison: CR - XR CHEST 1V - 01/16/25 19:23 EDT Findings: There is no pulmonary embolism. Heart size is normal. There is no pericardial effusion. Patient is status post transcatheter aortic valve replacement. Thoracic aorta is normal in size without dissection. There are no enlarged lymph nodes. There is moderate upper lobe predominant centrilobular emphysema. There is atelectasis in both lower lobes. There may be small areas of consolidation amongst the atelectasis. There is mild atelectasis in the right middle lobe and inferior lingula as well. There is a 6 mm solid subpleural nodule in the left upper lobe. There is no acute fracture or suspicious lytic or sclerotic lesion. Limited images of the upper abdomen demonstrate severe intrahepatic and extrahepatic biliary duct dilation. The distal common bile duct is not in the field of view. There is an abdominal aortic aneurysm only slightly in the field of view. IMPRESSION: 1. No pulmonary embolism. 2. Atelectasis in the lower lobes with possible small areas of consolidation amongst the atelectasis. Correlate for pneumonia. 3. Moderate centrilobular emphysema. 4. 6 mm nodule in the left upper lobe. Comparison with prior imaging or follow-up as below recommended. 5. Severe intrahepatic and extrahepatic biliary duct dilation. The distal common bile duct is not in the field of view. Consider CT or MRCP. 6. Abdominal aortic aneurysm only slightly in the field of view. This document has been electronically signed by: Tushar Stock MD on 01/17/2025 01:27:57 Dictated By: Tushar Stock MD Signed By: <Electronically signed by Tushar Stock MD in OV> 01/17/25128 DD/ 6 TD/TT: 01/17/25126 Nutrition Educator: [facility] External Provider IMG CT PROCEDURES Final Result * High Sensitivity Troponin I (01/17/2025 12:39 AM EDT) TROPONIN I HIGH SENSITIVITY 9.4 <3.5 - 17.0 ng/L [facility] Comment:The [employer] high sens itivity Troponin-I results should beused in conjunction with other diagnostic information suchas ECG, clinical observations and information, and patientsymptoms to aid in the diagnosis of VT. 01/17/2025 12:3 9 AM EDT 01/17/2025 12:41 AM EDT Generic External Data Provider LAB BLOOD ORDERAB LES Final Result [facility] [address] [place] [address] [phone] * SARS-CoV-2 RNA, Influenza A/B, and RSV RNA, Ql NAAT (01/16/2025 10:52 PM EDT) Influenza A PCR NEGATIVE Negative [facility] Influenza B PCR NEGATIVE Negative [facility] Resp Syncy Virus RNA Qual PCR NEGATIVE Negative [facility] SARS COV2 PCR NEGATIVE Negative [facility] Comment:All test results mus t be correlated with clinical findings.Negative results do not preclude SARS-CoV2, influenza Avirus, influenza B virus and/or RSV infectionand should not be used as the sole basis for treatment orother patient management decisions. Negative results must becombined with clinical observations, patient history, andepidemiological information.This test has not been evaluated for monitoring treatment ofinfection.This test has been authorized by the FDA under an EmergencyUse Authorization (EUA) for use by authorized laboratories.Testing performed on the [facility] GeneXpert utilizingreal-time RT-PCR.All SARS CoV2 and positive influenza A/B results arereported to [facility]. 01/16/2025 10:5 2 PM EDT 01/16/2025 11:53 PM EDT us Generic External Data Provider LAB MICROBIOLOGY - GENERAL ORDERABLES Final Result [facility] [address] [place] [address] [phone] * XR Chest 1 View (01/16/2025 8:57 PM EDT) Anatomical Region Laterality Modality Chest Radiographic Francesca ging 01/16/2025 8:57 PM EDT Narrative 01/16/2025 8:59 PM EDT ? [facility] ?[address] ?[place] [address] ?XRay Report ? Signed ? Patient: Giles,Ayanna ?MR#: [id number] ?? 53 ? : 1950 ?Acct:[id number] ? Age/Sex: 74 / F ?ADM Date: 03/11/25 ? Loc: HO.ED ? Attending Dr: ? Ordering Physician: Chaim Franco MD ?? Date of Service: 01/16/25 ?? Procedure(s): XR chest 1V ?? Accession Number(s): [id number] ? cc: Ernie,Geronimo GIRON; Chaim Franco MD ? CLINICAL HISTORY: Chest pain ? 1 view chest x-ray ? Comparison: CR/CO/SR - XR CHEST 1V - 02/22/24 22:43 EDT ? Findings: ?? Mild diffuse interstitial prominence in both lungs may represent pulmonary ?? vascular congestion/mild pulmonary edema. ?? Stable placement of the prosthetic heart valve. ?? No acute fracture. ? IMPRESSION: ?? Mild diffuse interstitial prominence in both lungs may represent pulmonary ?? vascular congestion/mild pulmonary edema. ? This document has been electronically signed by: Crystal [place] MD on ?? 01/16/2025 20:57:36 ? Dictated By: ?Crystal [place] MD ? Signed By: ?<Electronically signed by Crystal [place] MD in OV> ?01/16/252057 ? DD/ 56 ? TD/TT: 01/16/252056 ? Nutrition Educator: ? Procedure Note Chinmay Flores - 01/16/2025 [place] [address] XRay Report Signed Patient: Alan Giles#: [id number] 53 : 1950cct:[id number] Age/Sex: 74 / FADM Date: 01/16/25 Loc: HO.ED Attending Dr: Ordering Physician: Chaim Franco MD Date of Service: 01/16/25 Procedure(s): XR chest 1V Accession Number(s): [id number] cc: Geronimo Klein MD; Chaim Franco MD CLINICAL HISTORY: Chest pain 1 view chest x-ray Comparison: CR/CO/SR - XR CHEST 1V - 02/22/24 22:43 EDT Findings: Mild diffuse interstitial prominence in both lungs may represent pulmonary vascular congestion/mild pulmonary edema. Stable placement of the prosthetic heart valve. No acute fracture. IMPRESSION: Mild diffuse interstitial prominence in both lungs may represent pulmonary vascular congestion/mild pulmonary edema. This document has been electronically signed by: Crystal [place] MD on 01/16/2025 20:57:36 Dictated By: Crystal [place] MD Signed By: <Electronically signed by Crystal [place] MD in OV> 01/16/252057 DD/ 56 TD/TT: 01/16/252056 Nutrition Educator: [facility] External Provider IMG XR PROCEDURES Edited Result - Final * POCT HGB A1C (10/25/2024 12:07 PM [...] EDT Narrative 06/21/2024 8:19 PM EDT ? [facility] [place] ? [address] [facility] ?[place] [address] ? Mammography Report ? Signed ? Patient: Giles,Ayanna ?MR#: [id number] ?? 53 ? : 1950 ?Acct:[id number] ? Age/Sex: 73 / F ?ADM Date: 07/25/24 ? Loc: HO.MAMMO ? Attending : Geronimo Klein MD ? Ordering Physician: Name,Geronimo GIRON ?Results: 2Benign Fi ?? ndings ? Date of Service: 06/01/24 ?Follow Up: 1 Year From Orig ?? inal Mammogram ? Procedure(s): MM tomosynthesis screening LT ?? Accession Number(s): [id number] ? cc: Name,Geronimo GIRON ? EXAMINATION: ?? [...] Vargas MD in OV> ? 06/21/242014 ? DD/ ? TD/TT: ? Nutrition Educator: ? Procedure Note Donoteugeniainterpreter, Image - 06/21/2024 [facility] [address] [place] [address] Mammography Report Signed Patient: Stevie GilesnMR#: [id number] 53 : 1950cct:[id number] Age/Sex: 73 / FADM Date: 06/01/24 Loc: HO.MAMMO Attending Dr: Geronimo Klein MD Ordering Physician: Geronimo Klein MDResults: 2Benign Fi ndings Date of Service: 06/01/24Follow Up: 1 Year From Orig inal Mammogram Procedure(s): MM tomosynthesis screening LT Accession Number(s): [id number] cc: Geronimo Klein MD EXAMINATION: MM SCREENING [...] MD in OV> 06/21/242014 DD/ 1155 TD/TT: Nutrition Educator: Geronimo Name IMG BI PROCEDURES Final Result * Hepatitis C Antibody with Reflex to HCV, RNA, Quantitative, Real-Time PCR (05/26/2024 10:50 AM EDT) Hepatitis C Antibody Nonreactive Nonreactive [facility] Comment:Antibodies to HCV no t detected; does not exclude early acuteHCV infection. Blood Venous blood specimen / Unknown 05/26/2024 10:50 AM EDT 05/26/2024 1:01 PM EDT Geronimo Name LAB BLOOD ORDERABLES Final Resul t [facility] [address] [place] [phone] * Lipid Panel, Standard (05/18/2023 10:50 AM EDT) Triglycerides 114 mg/dL [facility] Comment:Desirable Triglyceri de: less than 150 mg/dLBorderline High Triglyceride 150-199 mg/dLHigh Triglyceride: 200-499 mg/dLVery High Triglyceride: greater than or equal to 5OO mg/dL Cholesterol 201 mg/dL [facility] Comment:Desirable Cholestero l: less than 200 mg/dLBorderline High Cholesterol: 200-239 mg/dLHigh Cholesterol: greater than 239 mg/dL LDL Cholesterol Calculated 126 mg/dl [facility] Comment:Desirable LDL: less than 100 mg/dLNear Optimal/Above Optimal LDL: 110- 129 mg/dLBorderline High LDL: 130-159 mg/dLHigh LDL: 160-189 mg/dLVery High LDL: greater than or equal to 190 mg/dL HDL Cholesterol 53 mg/dL [facility] Comment:Desirable HDL: great er than 40 mg/dL Note: This HDL assay may give artificially low results in patients with liver disease. 05/18/2023 10:5 0 AM EDT 05/18/2023 12:59 PM EDT [facility] External Provider LAB BLO OD ORDERABLES Final Result [facility] [address] [place] [address] [phone] from Last 3 Months or Most Recently Relevant to Health Maintenance Insurance [facility] [employer] OPTIONS (HMO D-SNP) Member Subscriber Plan / Payer (Ef fective 2019-Present) Name:Ayanna Giles Relation to Subscriber:Self Name:Ayanna Giles Payer ID:Not on file Group ID:[facility] [place] Type:Medicare [address] [place] [address] Care Teams Coiled Tubing Supervisor Relationship Specialty Start Date End Date Name, MD Geronimo [address] [place] [address] PCP - General Family Medicine 02/16/17 [facility] 01/22/25
--- OUTSIDE RECORDS SUMMARY | 2025-02-27 12:12 | XMS_ITS | Clinical Summary ---
Author Organization [facility] Address [address] [place] [address] Care Team Providers Care Tool Grinder Operator External Name Role Phone Name, Geronimo GIRON Primary Care Provider [phone] Social History Tobacco Use Types Packs/Day Years [...] age to complete this topic Care Teams Tool Grinder Operator External Relationship Specialty Start Date End Date Name, MD Geronimo [address] [facility] [address] [place] [address] PCP - General Internal Medicine 08/01/20
--- OUTSIDE RECORDS SUMMARY | 2025-02-27 12:12 | XMS_ITS | Encounter Summary ---
Author Organization [employer] Address [address] [facility] [address] [facility] [address] [place] [address] Care Team Providers Care Automotive Brake Specialist Name Role Phone Name, Geronimo GIRON Primary Care Provider [phone] Reason for Visit * Reason Onset Date Comments Question 04/21/2024 Encounter Details Date Type Department Care Team ([facility] st Contact Info) Description 04/21/2024 Telephone [facility] [address] [place] [address] Name, MD Geronimo [address] [place] [address] Question Social History Tobacco Use Types Packs/Day [...] 3:06 PM EDT Tc from Karma at [facility] calling to ask the following questions. Is the patient Medically compliant with appt and medications ? Does the patient haves a Health Care Proxy ? What level of care should the patient need ? Does the provider haves any concerns ? Please call Karma at [phone] Ext [phone] documented in this encounter Plan of Treatment Upcoming Encounters Date Type Department Care Team (Late st Contact Info) Description 06/14/2025 10:30 AM EDT Office Visit [facility] [address] [place] [address] Name, MD Geronimo [address] [place] [address] documented as of this encounter Visit Diagnoses Not on filedocumented in this encounter Additional Health Concerns Assessment Noted Time PHQ-9 Depression Total Score: 21 024 9:47 AM EDT documented as of this encounter Care Teams Automotive Brake Specialist Relationship Specialty Start Date End Date NameGeronimo MD [address] [place] [address] PCP - General Family Medicine 02/16/17 [facility] 01/22/25 documented as of this encounter
--- OUTSIDE RECORDS SUMMARY | 2025-02-27 12:12 | XMS_ITS | Encounter Summary ---
Author Organization [employer] Address [address] [facility] [address] [place] [address] Care Team Providers Care Campaign Management Senior Manager Name Role Phone Name, Geronimo GIRON Primary Care Provider [phone] Encounter Details Date Type Department Care Team (Late st Contact Info) Description 07/14/2024 Orders Only [facility] [address] [place] [address] Yvrose Xiao RN Social History Tobacco Use [...] Description 06/14/2025 10:30 AM EDT Office Visit [facility] [address] [place] [address] Name, MD Geronimo [address] [place] [address] documented as of this encounter Visit Diagnoses Not on filedocumented in this encounter Additional Health Concerns Assessment Noted Time PHQ-9 Depression Total Score: 21 024 9:47 AM EDT documented as of this encounter Care Teams Campaign Management Senior Manager Relationship Specialty Start Date End Date Name, MD Geronimo [address] [place] [address] PCP - General Family Medicine 02/16/17 [facility] 01/22/25 documented as of this encounter
--- OUTSIDE RECORDS SUMMARY | 2025-02-27 12:12 | XMS_ITS | Encounter Summary ---
Author Organization [employer] Address [address] [facility] [facility] [address] 7t [place] [address] Care Team Providers Care Environmental Education Specialist Name Role Phone NameGeronimo MD Primary Care Provider [phone] Encounter Details Date Type Department Care Team (Late st Contact Info) Description 04/12/2023 Abstract [facility] [address] [place] [address] Name, MD Geronimo [address] [place] [address] Social History Tobacco Use Types Packs/Day Years [...] Description 06/14/2025 10:30 AM EDT Office Visit [facility] [address] [place] [address] [phone] NameGeronimo MD [address] [place] [address] documented as of this encounter Visit Diagnoses Not on filedocumented in this encounter Care Teams Environmental Education Specialist Relationship Specialty Start Date End Date Name, MD Geronimo [address] [place] [address] PCP - General Family Medicine 02/16/17 [facility] 01/22/25 documented as of this encounter
--- OUTSIDE RECORDS SUMMARY | 2025-02-27 12:12 | XMS_ITS | Encounter Summary ---
Author Organization [employer] Address [address] [facility] [place] [address] Care Team Providers Care Winderman Name Role Phone Name, Geronimo GIRON Primary Care Provider [phone] Reason for Visit * Reason Onset Date Comments Referral 02/01/2023 Encounter Details Date Type Department Care Team ([facility] st Contact Info) Description 02/01/[address] [facility] [address] [place] [address] Name, MD Geronimo [address] [place] [address] Referral Social History Tobacco Use Types Packs/Day [...] . Any questions please call phone # [phone] . . documented in this encounter Plan of Treatment Upcoming Encounters Date Type Department Care Team (Late st Contact Info) Description 06/14/2025 10:30 AM EDT Office Visit [facility] [address] [place] [address] Name, MD Geronimo [address] [place] [address] documented as of this encounter Visit Diagnoses Diagnosis Lumbar spondylosis- Primary Lumbosacral spondylosis without myelopathy Chronic low back pain, unspecified back pain laterality, unspecified whether sciatica present documented in this encounter Care Teams Winderman Relationship Specialty Start Date End Date Name, MD Geronimo [address] [place] [address] PCP - General Family Medicine 02/16/17 [facility] 01/22/25 documented as of this encounter
--- OUTSIDE RECORDS SUMMARY | 2025-02-27 12:12 | XMS_ITS | Encounter Summary ---
Author Organization [employer] Address [address] [facility] [address] [address] [place] [address] Care Team Providers Care Abrasive Band Winder Name Role Phone Name, Geronimo GIRON Primary Care Provider [phone] Encounter Details Date Type Department Care Team (Latest Contact Info) Description 02/27/2025 Travel Social History Tobacco Use Types Packs/Day Years [...] Description 06/14/2025 10:30 AM EDT Office Visit [facility] [address] [place] [address] NameGeronimo MD [address] [place] [address] documented as of this encounter Visit Diagnoses Not on filedocumented in this encounter Additional Health Concerns Assessment Noted Time PHQ-9 Depression Total Score: 21 024 9:47 AM EDT documented as of this encounter Care Teams Abrasive Band Winder Relationship Specialty Start Date End Date Name, MD Geronimo [address] [place] [address] PCP - General Family Medicine 02/16/17 [facility] 01/22/25 documented as of this encounter
== END 2025-02-27 10:28 | disposition home or self-care (01) ==
LOC: HO.HHCL 10:27
PROVIDERS: Visit Provider Internal Medicine Geriatric Medicine
DX: J44.1 Chronic obstructive pulmonary disease with (acute) exacerbation (principal)
CPT/HCPCS: 36415; 80048; 85025

== ENCOUNTER 2025-02-28 10:25 | Outpatient (REF) | payer OTHER, SELFPAY ==
--- NOTE | ~2025-02-28 | XR_ITS ---
EXAMINATION: XR KNEE, RIGHT CLINICAL INFORMATION: Right knee pain and no history of trauma COMPARISON: 01/23/2019. TECHNIQUE: Four views of the right knee. FINDINGS: No fracture, dislocation, or suspicious bone lesion. Normal bone mineralization. Normal alignment. Moderate bicompartmental osteoarthrosis, with more significant patellofemoral compartment changes. Spurring of the tibial spines. No significant joint effusion. Soft tissues appear normal. XR/XR knee RT 3V IMPRESSION: 1. No acute bony abnormalities. No joint effusion. 2. Moderate bicompartmental osteoarthrosis, with more significant changes in the patellofemoral compartment. Electronically signed by: Sonny Navarrete MD 02/28/2025 10:56 AM EDT
--- NOTE | ~2025-02-28 | XR_ITS ---
EXAMINATION: XR CHEST CLINICAL INFORMATION: COPD, worsening cough and SOB, LLL crackles on exam. COMPARISON: None available. TECHNIQUE: 2 views of the chest were obtained. FINDINGS: The cardiac and mediastinal contours are normal. 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 Engorged pulmonary arteries in the hilar region. Aortic mural calcifications. Lungs are severely hyperaerated bilaterally. There are otherwise clear. There is no pneumothorax or pleural effusion. There is no focal osseous or soft tissue abnormality. Cholecystectomy clips present. Degenerative changes throughout the spine. XR/XR chest 2V IMPRESSION: 1. COPD. No active superimposed disease. 2. TAVR Electronically signed by: Sonny Navarrete MD 02/28/2025 11:00 AM EDT
--- OUTSIDE RECORDS SUMMARY | 2025-02-28 12:15 | XMS_ITS | Encounter Summary ---
Author Organization [employer] Address [address] [facility] [address] [place] [address] Care Team Providers Care Industrial Mechanic Name Role Phone Name, Geronimo GIRON Primary Care Provider [phone] Encounter Details Date Type Department Care Team [...] Description 06/14/2025 10:30 AM EDT Office Visit [facility] [address] [place] [address] NameGeronimo MD [address] [place] [address] documented as of this encounter Visit Diagnoses Not on filedocumented in this encounter Additional Health Concerns Assessment Noted Time PHQ-9 Depression Total Score: 21 024 9:47 AM EDT documented as of this encounter Care Teams Industrial Mechanic Relationship Specialty Start Date End Date Name, MD Geronimo [address] [place] [address] PCP - General Family Medicine 02/16/17 [facility] 01/22/25 documented as of this encounter
--- OUTSIDE RECORDS SUMMARY | 2025-02-28 12:15 | XMS_ITS | Encounter Summary ---
Author Organization [employer] Address [address] [place] [address] Care Team Providers Care Routing Equipment Tender Name Role Phone Name, Geronimo GIRON Primary Care Provider [phone] Reason for Visit * Reason Onset Date Comments Follow-up 02/28/2025 Encounter Details Date Type Department Care Team ([facility] st Contact Info) Description 02/28/2025 Telephone [facility] [address] [place] [address] Name, MD Geronimo [address] [place] [address] Follow-up Social History Tobacco Use Types Packs/Day Years [...] encounter Miscellaneous Notes * Telephone Encounter - Shanika Saez RN - 02/28/2025 9:20 AM EDT Call placed to patient for status check. She was seen by Dr. Klein yesterday and reported worsening of baseline cough, sputum production, dyspnea on exertion, low-grade fevers, and chills. She was started on course of prednisone and Levaquin. Today, patient reports feeling about the same. She reports she had a friend spanish moss picker her medicationsyesterday and she started them at 7 PM. Reports she has been resting and trying to stay hydrated. Advised patient that a chest x-ray was ordered yesterday. Patient to come in to [facility] to have chestx-ray completed this morning. Advised patient she will receive call with any changes to plan of care following chest x-ray. ED precautions reinforced. All questions answered. Patient verbalizes understanding and agreement with plan of care at this time. * Telephone Encounter - Shanika Saez RN - 02/28/2025 9:18 AM EDT ----- Message from Geronimo Klein MD sent at 02/27/2025 10:12 AM EDT ----- Please call the patient tomorrow to see how she is doing. She was started on treatment for COPD exacerbation/pneumonia on 02/2025 documented in this encounter Plan of Treatment Upcoming Encounters Date Type Department Care Team (Late st Contact Info) Description 06/14/2025 10:30 AM EDT Office Visit [facility] [address] [place] [address] NameGeronimo MD [address] [place] [address] documented as of this encounter Visit Diagnoses Not on filedocumented in this encounter Additional Health Concerns Assessment Noted Time PHQ-9 Depression Total Score: 21 024 9:47 AM EDT documented as of this encounter Care Teams Routing Equipment Tender Relationship Specialty Start Date End Date NameGeronimo MD [address] [place] [address] PCP - General Family Medicine 02/16/17 [facility] 01/22/25 documented as of this encounter
--- OUTSIDE RECORDS SUMMARY | 2025-02-28 12:15 | XMS_ITS | Encounter Summary ---
Author Organization [employer] Address [address] [facility] [facility] [address] [place] [address] Care Team Providers Care Sawmill Or Timber Yard Worker Name Role Phone NameGeronimo MD Primary Care Provider Encounter Details Date Type Department Care Team (Late st Contact Info) Description 04/12/[address] [facility] [address] [place] [phone] Name, MD Geronimo [address] [place] [address] Social History Tobacco Use Types Packs/Day Years [...] Description 06/14/2025 10:30 AM EDT Office [address] [facility] [address] [place] [address] [phone] NameGeronimo MD [address] [place] [address] documented as of this encounter Visit Diagnoses Not on filedocumented in this encounter Care Teams Sawmill Or Timber Yard Worker Relationship Specialty Start Date End Date Name, MD Geronimo [address] [place] [address] PCP - General Family Medicine 02/16/17 [facility] 01/22/25 documented as of this encounter
--- OUTSIDE RECORDS SUMMARY | 2025-02-28 12:15 | XMS_ITS | Encounter Summary ---
Author Organization [employer] Address [address] [facility] [address] [place] [address] Care Team Providers Care Reefer Engineer Name Role Phone Name, Geronimo GIRON Primary Care Provider [phone] Encounter Details Date Type Department Care Team (Late st Contact Info) Description 07/14/2024 Orders Only [facility] [address] [place] [address] Yvrose Xiao RN Social History Tobacco Use [...] Description 06/14/2025 10:30 AM EDT Office Visit [facility] [address] [place] [address] Name, MD Geronimo [address] [place] [address] documented as of this encounter Visit Diagnoses Not on filedocumented in this encounter Additional Health Concerns Assessment Noted Time PHQ-9 Depression Total Score: 21 024 9:47 AM EDT documented as of this encounter Care Teams Reefer Engineer Relationship Specialty Start Date End Date Name, MD Geronimo [address] [place] [address] PCP - General Family Medicine 02/16/17 [facility] 01/22/25 documented as of this encounter
--- OUTSIDE RECORDS SUMMARY | 2025-02-28 12:15 | XMS_ITS | Clinical Summary ---
Author Organization [facility] Address [address] [place] [address] Care Team Providers Care Chief Of Surgery Name Role Phone Name, Geronimo GIRON Primary Care Provider [phone] Social History Tobacco Use Types Packs/Day Years [...] age to complete this topic Care Teams Chief Of Surgery Relationship Specialty Start Date End Date Name, MD Geronimo [address] [facility] [address] [place] [address] PCP - General Internal Medicine 08/01/20
--- OUTSIDE RECORDS SUMMARY | 2025-02-28 12:15 | XMS_ITS | Encounter Summary ---
Author Organization [employer] Address [address] [facility] [address] [place] [address] Care Team Providers Care Welfare Administrator Name Role Phone Name, Geronimo GIRON Primary Care Provider [phone] Encounter Details Date Type Department Care Team (Late st Contact Info) Description 09/26/2023 Abstract [facility] [address] [place] [address] Aan Maria Tarango Social History Tobacco Use Types Packs/Day Years Used Date Smoking Tobacco: Every Day Cigarettes Smokeless Tobacco: Never Alcohol Use Standard Drinks/Week Comments Never 0 (1 standard drink = 0.6 oz pur e alcohol) Depression Answer Date Recorded Patient Health Questionnaire-9 Score 14 05/18/2023 Housing Stability Answer Date Recorded What is your housing situation today? I have frantz pearec 08/23/[address] you li [...] Description 06/14/2025 10:30 AM EDT Office Visit [facility] [address] [place] [address] Name, MD Geronimo [address] [place] [address] documented as of this encounter Visit Diagnoses Not on filedocumented in this encounter Additional Health Concerns Assessment Noted Time PHQ-9 Depression Total Score: 14 023 9:52 AM EDT documented as of this encounter Care Teams Welfare Administrator Relationship Specialty Start Date End Date Name, MD Geronimo [address] [place] [address] PCP - General Family Medicine 02/16/17 [facility] 01/22/25 documented as of this encounter
--- OUTSIDE RECORDS SUMMARY | 2025-02-28 12:15 | XMS_ITS | Encounter Summary ---
Author Organization [employer] Address [address] [place] [address] Care Team Providers Care Unit Aid Name Role Phone Name, Geronimo GIRON Primary Care Provider [phone] Reason for Visit * Reason Comments Cough Shortness of Breath Encounter Details Date Type Department Care Team ([facility] st Contact Info) Description 02/27/2025 10:00 AM EDT Office Visit [facility] [address] [place] [address] Name, MD Geronimo [address] [place] [address] Chronic obstructive pulmonary disease, unspecified COPD type [...] Chronic obstructive pulmonary disease, unspecified COPD type ([facility]) Comments: I recommended to continue current inhalers, [...] Description 06/14/2025 10:30 AM EDT Office Visit [facility] [address] [place] [address] Name, MD Geronimo [address] [place] [address] documented as of this encounter Procedures Procedure Name Priority Date/Time Associated Diagnosis Comments XR KNEE 3 VIEWS RIGHT Routine 02/28/2025 10:25 AM EDT Right knee pain, unspecified chronicity XR CHEST 2 VIEWS Routine 02/28/2025 10:2 5 AM EDT Chronic obstructive pulmonary disease, unspecified [...] crackles documented in this encounter Results * XR Knee 3 Views Right (02/28/2025 10:25 AM EDT) Anatomical Region Laterality Modality Lower Extremities, Knee Right [facility] Imaging 02/28/2025 10:2 5 AM EDT Narrative 02/28/2025 10:59 AM EDT ?[facility] ?[address] ?[place] [address] ?XRay Report ? Signed ? Patient: Giles,Ayanna ?MR#: [id number] ?? 53 ? : 1950 ?Acct:[id number] ? Age/Sex: 74 / F ?ADM Date: 04/23/25 ? Loc: HO.HHCX ? Attending : Geronimo Klein MD ? Ordering Physician: Geronimo Klein MD ?? Date of Service: 02/28/25 ?? Procedure(s): XR knee RT 3V ?? Accession Number(s): [id number] ? cc: Geronimo Klein MD ? EXAMINATION: ?? XR KNEE, RIGHT ? CLINICAL INFORMATION: ?? Right knee pain and no history of trauma ? COMPARISON: ?? 01/23/2019. ? TECHNIQUE: ?? Four views of the right knee. ? FINDINGS: ?? No fracture, dislocation, or suspicious bone lesion. Normal bone ?? mineralization. ?? Normal alignment. ?? Moderate bicompartmental osteoarthrosis, with more significant ?? patellofemoral compartment changes. ?? Spurring of the tibial spines. ? No significant joint effusion. ? Soft tissues appear normal. ? XR/XR knee RT 3V ?? IMPRESSION: ?? 1. No acute bony abnormalities. No joint effusion. ?? 2. Moderate bicompartmental osteoarthrosis, with more significant ?? changes in the patellofemoral compartment. ? Electronically signed by: ??Sonny Navarrete MD ??02/28/2025 10:56 AM EDT RP ? Dictated By: ?Sonny Navarrete MD ? Signed By: ?<Electronically signed by Sonny Navarrete MD in OV> ?02/28/25 1056 ? DD/ 1025 ? TD/TT: 02/28/25 1045 ? Record Filing Clerk: ? Procedure Note Mark, Image - 02/28/2025 [place] [address] XRay Report Signed Patient: Alan Giles#: [id number] 53 : 1950cct:[id number] Age/Sex: 74 / FADM Date: 02/28/25 Loc: HO.HHCX Attending Dr: Geronimo Klein MD Ordering Physician: Geronimo Klein MD Date of Service: 02/28/25 Procedure(s): XR knee RT 3V Accession Number(s): [id number] cc: Geronimo Klein MD EXAMINATION: XR KNEE, RIGHT CLINICAL INFORMATION: Right knee pain and no history of trauma COMPARISON: 01/23/2019. TECHNIQUE: Four views of the right knee. FINDINGS: No fracture, dislocation, or suspicious bone lesion. Normal bone mineralization. Normal alignment. Moderate bicompartmental osteoarthrosis, with more significant patellofemoral compartment changes. Spurring of the tibial spines. No significant joint effusion. Soft tissues appear normal. XR/XR knee RT 3V IMPRESSION: 1. No acute bony abnormalities. No joint effusion. 2. Moderate bicompartmental osteoarthrosis, with more significant changes in the patellofemoral compartment. Electronically signed by: Sonny Navarrete MD 02/28/2025 10:56 AM EDT Dictated By: Sonny Navarrete MD Signed By: <Electronically signed by Sonny Navarrete MD in OV> 02/28/25 1056 DD/ 1025 TD/TT: 02/28/25 1045 Record Filing Clerk: us Geronimo Name IMG XR PROCEDURES Final Result * XR Chest 2 Views (02/28/2025 10:25 AM EDT) Anatomical Region Laterality Modality Chest Radiographic Francesca ging 02/28/2025 10:2 5 AM EDT Narrative 02/28/2025 11:02 AM EDT ?[facility] ?[address] ?[place] [address] ?XRay Report ? Signed ? Patient: Ayanna Giles ?MR#: [id number] ?? 53 ? : 1950 ?Acct:[id number] ? Age/Sex: 74 / F ?ADM Date: 02/28/25 ? Loc: HO.HHCX ? Attending Dr: Geronimo Klein MD ? Ordering Physician: Geronimo Klein MD ?? Date of Service: 02/28/25 ?? Procedure(s): XR chest 2V ?? Accession Number(s): [id number] ? cc: Geronimo Klein MD ? EXAMINATION: ?? XR CHEST ? CLINICAL INFORMATION: ?? COPD, worsening cough and SOB, LLL crackles on exam. ? COMPARISON: ?? None available. ? TECHNIQUE: ?? 2 views of the chest were obtained. ? FINDINGS: ?? The cardiac and mediastinal contours are normal. There is a TAVR in ?? place. Engorged pulmonary arteries in the hilar region. Aortic mural ?? calcifications. ? Lungs are severely hyperaerated bilaterally. There are otherwise clear. ?? There is no pneumothorax or pleural effusion. ? There is no focal osseous or soft tissue abnormality. Cholecystectomy ?? clips present. Degenerative changes throughout the spine. ? XR/XR chest 2V ?? IMPRESSION: ?? 1. COPD. No active superimposed disease. ?? 2. TAVR ? Electronically signed by: ??Sonny Navarrete MD ??02/28/2025 11:00 AM EDT RP ? Dictated By: ?Sonny Navarrete MD ? Signed By: ?<Electronically signed by Sonny Navarrete MD in OV> ?02/28/25 1100 ? DD/ 1025 ? TD/TT: 02/28/25 1045 ? Record Filing Clerk: ? Procedure Note Donotuseinterpreter, Image - 02/28/2025 [place] [address] XRay Report Signed Patient: Alan Giles#: [id number] 53 : 1950cct:[id number] Age/Sex: 74 / FADM Date: 02/28/25 Loc: HO.HHCX Attending Dr: Geronimo Klein MD Ordering Physician: Geronimo Klein MD Date of Service: 02/28/25 Procedure(s): XR chest 2V Accession Number(s): [id number] cc: Geronimo Klein MD EXAMINATION: XR CHEST CLINICAL INFORMATION: COPD, worsening cough and SOB, LLL crackles on exam. COMPARISON: None available. TECHNIQUE: 2 views of the chest were obtained. FINDINGS: The cardiac and mediastinal contours are normal. 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 Engorged pulmonary arteries in the hilar region. Aortic mural calcifications. Lungs are severely hyperaerated bilaterally. There are otherwise clear. There is no pneumothorax or pleural effusion. There is no focal osseous or soft tissue abnormality. Cholecystectomy clips present. Degenerative changes throughout the spine. XR/XR chest 2V IMPRESSION: 1. COPD. No active superimposed disease. 2. TAVR Electronically signed by: Sonny Navarrete MD 02/28/2025 11:00 AM EDT Dictated By: Sonny Navarrete MD Signed By: <Electronically signed by Sonny Navarrete MD in OV> 02/28/25 1100 DD/ 1025 TD/TT: 02/28/25 1045 Record Filing Clerk: us Geronimo Klein MD IMG XR PROCEDURES Final Result * Basic Metabolic Panel (02/27/2025 10:31 AM EDT) Sodium 140 135 - 145 mmol/L [facility] Potassium 3.7 3.3 - 5.1 mmol/L [facility] Chloride 106 96 - 108 mmol/L [facility] Carbon Dioxide 26 22 - 29 mmol/L [facility] Anion Gap 12 12 - 20 [facility] Urea Nitrogen (BUN) 11 9 - 16 mg/dL [facility] Creatinine, Serum 0.74 0.5 - 1.4 mg/dL [facility] Estimated Glomerular Filt Rate >60 [facility] Comment:Chronic Kidney Disea se: Estimated GFR < 60 mL/min/[id number] Kidney Disease: Estimated GFR < 15 mL/min/1.73m2 Glucose 114 60 - 115 mg/dL [facility] Calcium 9.4 8.4 - 10.2 mg/dL [facility] Blood Venous blood specimen / Unknown 02/27/2025 10:31 AM EDT 02/27/2025 11:16 AM EDT us Geronimo Klein MD LAB BLOOD ORDERABLES Final Resul t [facility] [address] [place] [phone] * (ABNORMAL) CBC auto differential (02/27/2025 10:31 AM EDT) White Blood Count 6.7 4.8 - 10.8 X10*3/uL [facility] Red Blood Count 4.26 4.20 - 5.50 X10*6/uL [facility] Hemoglobin 13.0 12.0 - 16.0 g/dl [facility] Hematocrit 39.8 37.0 - 47.0 % [facility] Mean Corpuscular Volume 93.4 80.0 - 98.0 fL [facility] Mean Corpuscular Hemoglobin 30.5 27.0 - 33.0 pg [facility] Mean Corpuscular HGB Conc 32.7 31.0 - 35.0 g/dl [facility] Red Cell Distribution Width 15.0 11.0 - 16.0 % [facility] Platelet Count 327 160 - 400 X10*3/uL [facility] Mean Platelet Volume 9.6 9.4 - 12.3 fL [facility] Neutrophils Percent Auto 43.4(L) 45 - 73 % [facility] Imm Gran Pct Auto 0.1 0.0 - 0.4 % [facility] Lymphocytes Percent Auto 40.4(H) 20 - 40 % [facility] Monocytes Percent Auto 9.7 2 - 11 % [facility] Eosinophils Percent Auto 5.5(H) 0 - 4 % [facility] Basophils Percent Auto 0.9 0 - 2 % [facility] NRBC Pct Auto 0.0 0.0 - 0.2 /100WBC [facility] Neutrophils Absolute Auto 2.9 2.0 - 8.3 x10*3/uL [facility] Imm Gran Abs Auto 0.01 0.00 - 0.03 X10*3/uL [facility] Lymphocytes Absolute Auto 2.7 1.2 - 4.9 X10*3/uL [facility] Monocytes Absolute Auto 0.7 0.1 - 1.2 X10*3/uL [facility] Eosinophils Absolute Auto 0.4 0.0 - 0.4 X10*3/uL [facility] Basophils Absolute Auto 0.1 0.0 - 0.2 X10*3/uL [facility] NRBC Abs Auto 0.000 0.0 - 0.012 X10*3/uL [facility] Blood Venous blood specimen / Unknown 02/27/2025 10:31 AM EDT 02/27/2025 11:16 AM EDT us Geronimo Name MD LAB BLOOD ORDERABLES Final Resul t [facility] [address] [place] [phone] * POCT Rapid Covid-19 BinaxNOW (02/27/2025 10:11 AM EDT) Rapid COVID Ag Negative QC Media Lot # [id number] Lot# Expiration Date [id number] Nares 02/27/2025 10:1 1 AM EDT us Geronimo Klein MD POINT OF CARE TEST ENTER/EDIT OR DERABLES Final Result * POCT Rapid Influenza B OSOM (02/27/2025 10:11 AM EDT) Pathologist [facility] Rapid Influenza B Ag Negative Negative, Indeterminate QC Media Lot # [id number] Lot# Expiration Date Swab 02/27/2025 10:1 1 AM EDT Geronimo Klein MD POINT OF CARE TEST ENTER/EDIT OR DERABLES Final Result * POCT Rapid Influenza A OSOM (02/27/2025 10:11 AM EDT) Pathologist [facility] Rapid Influenza A Ag Negative Negative, Indeterminate QC Media Lot # [id number] Lot# Expiration Date Swab Nasopharyngeal structure / Unknown 02/27/2025 10:11 AM EDT Geronimo Klein MD POINT OF CARE TEST ENTER/EDIT OR DERABLES Final Result documented in this encounter Visit Diagnoses Diagnosis Chronic obstructive pulmonary disease, unspecified COPD type (CMS/HCC)- Primary COPD exacerbation (CMS/HCC) Obstructive chronic bronchitis with exacerbation Lung crackles Right knee pain, unspecified chronicity Weight loss, non-intentional Loss of weight documented in this encounter Additional Health Concerns Assessment Noted Time PHQ-9 Depression Total Score: 21 024 9:47 AM EDT documented as of this encounter Care Teams Unit Aid Relationship Specialty Start Date End Date Name, MD Geronimo [address] [place] [address] PCP - General Family Medicine 02/16/17 [facility] 01/22/25 documented as of this encounter
--- OUTSIDE RECORDS SUMMARY | 2025-02-28 12:15 | XMS_ITS | Encounter Summary ---
Author Organization [employer] Address [address] [place] [address] Care Team Providers Care Culinary Manager Name Role Phone Name, Geronimo GIRON Primary Care Provider [phone] Reason for Visit * Reason Onset Date Comments Referral 02/01/2023 Encounter Details Date Type Department Care Team ([facility] st Contact Info) Description 02/01/2023 Telephone [facility] [address] [place] [address] Name, MD Geronimo [address] [place] [address] Referral Social History Tobacco Use Types Packs/Day [...] . Any questions please call phone # [phone] . . documented in this encounter Plan of Treatment Upcoming Encounters Date Type Department Care Team (Late st Contact Info) Description 06/14/2025 10:30 AM EDT Office Visit [facility] [address] [place] [phone] Name, MD Geronimo [address] [place] [phone] documented as of this encounter Visit Diagnoses Diagnosis Lumbar spondylosis- Primary Lumbosacral spondylosis without myelopathy Chronic low back pain, unspecified back pain laterality, unspecified whether sciatica present documented in this encounter Care Teams Culinary Manager Relationship Specialty Start Date End Date Name, MD Geronimo [address] [place] [phone] PCP - General Family Medicine 02/16/17 [facility] 01/22/25 documented as of this encounter
--- OUTSIDE RECORDS SUMMARY | 2025-02-28 12:15 | XMS_ITS | Encounter Summary ---
Author Organization [employer] Address [address] [place] [address] Care Team Providers Care Loan And Credit Manager Name Role Phone Name, Geronimo GIRON Primary Care Provider [phone] Reason for Visit * Reason Comments Med Refill Encounter Details Date Type Department Care Team ([facility] st Contact Info) Description 01/07/2024 Refill [facility] [address] [place] [address] Shubham Servin MD [address] [place], [place] [phone] Uncomplicated opioid dependence (CMS/HCC) Social History Tobacco [...] Description 06/14/2025 10:30 AM EDT Office Visit [facility] [address] [place] [address] Name, MD Geronimo [address] [place] [address] documented as of this encounter Visit Diagnoses Diagnosis Uncomplicated opioid dependence (CMS/HCC) documented in this encounter Additional Health Concerns Assessment Noted Time PHQ-9 Depression Total Score: 14 023 9:52 AM EDT documented as of this encounter Care Teams Loan And Credit Manager Relationship Specialty Start Date End Date NameGeronimo MD [address] [place] [phone] PCP - General Family Medicine 02/16/17 [facility] 01/22/25 documented as of this encounter
--- OUTSIDE RECORDS SUMMARY | 2025-02-28 12:15 | XMS_ITS | Clinical Summary ---
Author Organization [employer] Address [address] [place] [address] Care Team Providers Care Unattended Ground Sensor Specialist Name Role Phone Name, Geronimo GIRON Primary Care Provider [phone] Allergies No known active allergies Medications sertraline (Zoloft) 100 MG tablet Take 1.5 tablets by mouth at bed time. 9 Active Umeclidinium-Sally anterol (Anoro Ellipta) 62.5-25 MCG/ACT aerosol powder Inhale 1 puff at bed time. Active acetaminophen (Tylenol) 500 MG tabletIndication s:Chronic pain syndrome Take 1 tablet by mouth every 6-8 hours as needed.Do not exceed over 8 tabs/24 hrs 60 tablet 3 2 Active lidocaine (Lidoderm) 5 % patchIndications :Chronic low back pain with left-sided sciatica, unspecified back pain laterality Apply 1 patch topically in the morning. Remove & discard patch within 12 hours or as directed by . 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 Shake gently. Before first use, prime pump. After use, clean tip and replace cap. 16 g 2 3 Active furosemide (Lasix) 20 MG tablet Take 1 tablet by mouth 1 (one) time each day. 3 Active Combivent Respimat 20-100 MCG/ACT inhaler inhale 1 puff by inhalation route 4 times every day ; may take additional puffs as needed not to exceed 6 puffs in 24hrs 3 Active mirtazapine (Remeron) 15 MG tablet Take 1.5 tablets by mouth daily as bedtime 3 Active nicotine polacrilex (Commit) 2 MG lozenge 1 or 2 lozenges q 2-4 hours instead of a cigarette. 108 lozenge 2 3 Active bacitracin 500 UNIT/GM ointment Apply topically 2 times daily. 14 g 3 Active gabapentin (Neurontin) 100 MG capsule Take 1 capsule by mouth 2 times daily. 3 Active nicotine (Nicoderm CQ) 7 MG/24HR patchIndications :Tobacco use disorder Place 1 patch on the skin 1 (one) time each day at the same time. 30 patch 1 3 Active SUMAtriptan (Imitrex) 6 MG/0.5ML injection Inject 0.5 mL (6 mg) under the skin if needed for migraine. 15 mL 2 4 Active omeprazole (PriLOSEC) [address] capsuleIndicatio ns:Gastroesophag eal reflux disease, unspecified whether esophagitis present TAKE 1 CAPSULE BY MOUTH EVERY MORNING 30 capsule 11 4 Active ipratropium-albu terol (Combivent Respimat) 20-100 MCG/ACT inhaler Inhale 1 puff in the morning, at noon, in the evening, and at bedtime. 4 g 11 4 08/18/20 25 Active amLODIPine (Norvasc) 5 MG tablet TAKE 1 TABLET BY MOUTH EVERY MORNING 90 tablet 1 4 Active lisinopril 10 MG tablet TAKE 1 TABLET BY MOUTH EVERY MORNING 90 tablet 1 5 Active celecoxib (CeleBREX) 200 MG capsuleIndicatio ns:Lumbar spondylosis TAKE 1 CAPSULE BY MOUTH EVERY MORNING 30 capsule 1 5 Active Buprenorphine HCl-Naloxone HCl (Suboxone) 8-2 MG SL filmIndications: Uncomplicated opioid dependence (CMS/HCC) Place 1 Film under the tongue 2 times daily for 28 days. Do not start before December 22, 2024. 56 Film Active Aspirin Low Dose 81 MG EC tabletIndication s:Moderate aortic valve stenosis TAKE 1 TABLET BY MOUTH EVERY MORNING 90 tablet 1 Active clopidogrel (Plavix) 75 MG tabletIndication s:Moderate aortic valve stenosis TAKE 1 TABLET BY MOUTH EVERY MORNING 90 tablet 1 5 Active cholecalciferol VITAMIN D (Vitamin D-3) 50 MCG (2000 UT) tablet TAKE 1 TABLET BY MOUTH EVERY MORNING 90 tablet 1 5 Active predniSONE (Deltasone) 20 MG tablet Take 1 tablet (20 mg) by mouth Once per day for 5 days. 5 tablet 5 03/04/20 Active levoFLOXacin (Levaquin) 250 MG tablet Take 2 tablets (500 mg) by mouth Once per day for 5 days. 10 tablet 5 03/04/20 Active Active Problems Problem Noted Date Diagnosed Date Aneurysm, abdominal aortic 02/21/2025 Common bile duct dilation 02/21/2025 Dyspnea on exertion 02/21/2025 Intractable nausea and vomiting 02/21/2025 Left upper lobe pulmonary nodule 02/21/2025 Overview (02/21/2025): (6mm DAX nodule -previously 3mm in 2006) MDD (major depressive disord er), recurrent episode, moderate 02/21/2025 Muscle spasm of back 02/21/2025 Opioid withdrawal 02/21/2025 Personal history of nicotine dependence 02/22/20 Overview (02/21/2025): (current smoker, onset 12, 1/2ppd [...] replacement 02/06/2022 Overview (01/08/2023): [facility] 01/27 at [facility] She is on [...] Encounters Date Type Department Care Team Description 02/28/2025 Telephone [facility] MEDICINE [address] [place] [address] Geronimo Klein MD Follow-up 02/27/2025 10:00 AM EDT Office Visit [facility] MEDICINE [address] [place] [phone] Geronimo Klein MD Chronic obstructive pulmonary disease, unspecified COPD type (CMS/HCC) (Primary Dx); COPD exacerbation (CMS/HCC); Lung crackles; Right knee pain, unspecified chronicity; Weight loss, non-intentional 02/27/2025 Travel 02/21/2025 Telephone [facility] MEDICINE [address] [place] [address] Vignesh Campbell MA chart prep 02/14/2025 Telephone [facility] MEDICINE [address] [place] [address] Geronimo Klein MD 02/08/2025 Telephone [facility] [address] [facility] [place] [address] Geronimo Klein MD Call Back Request 02/07/2025 Telephone [facility] [address] [facility] [place] [address] Geronimo Klein MD Medication Question (Patient walked in requesting med changed Boost to be changed to Ensure strawberry and vanilla flavor. Patient stated she doesn't like the Boost. ) 01/28/2025 Refill [facility] [address] [facility] [place] [address] Geronimo Klein MD Moderate aortic valve stenosis 01/17/2025 Orders Only GENERIC EXTERNAL DATA DEPARTMENT Provider, Generic External Data 01/16/2025 Orders Only [facility] External Provider, [facility] 12/18/2024 Refill [facility] MEDICINE [address] [place] [address] Purnima Mcrae RN Uncomplicated opioid dependence ([facility]) 12/06/2024 Refill [facility] MEDICINE [address] [place] [address] Geronimo Klein MD Lumbar spondylosis from Last [...] your housing situation today? I have frantz ramses 05/26/[address] you li [...] 10:30 AM EDT Office Visit [facility] MEDICINE [address] [place] [address] Name, MD Geronimo [address] [place] [address] Health Maintenance Due Date Last Done Comments [...] 05/26/2025 05/26/2024 Diabetes: Hemoglobin A1C 10/25/2025 10/25/2024, 090 01/2020 Tobacco Screening 02/27/2026 02/27/2025 Mammogram 06/01/2026 [...] Recently Relevant to Health Maintenance Results * XR Knee 3 Views Right (02/28/2025 10:25 AM EDT) Anatomical Region Laterality Modality Lower Extremities, Knee Right Radiogra phic Imaging 02/28/2025 10:2 5 AM EDT Narrative 02/28/2025 10:59 AM EDT ?[facility] ?[address] ?[place] [address] ?XRay Report ? Signed ? Patient: Ayanna Giles ?MR#: [id number] ?? 53 ? : 1950 ?Acct:[id number] ? Age/Sex: 74 / F ?ADM Date: 02/28/25 ? Loc: HO.HHCX ? Attending Dr: Geronimo Klein MD ? Ordering Physician: Geronimo Klein MD ?? Date of Service: 02/28/25 ?? Procedure(s): XR knee RT 3V ?? Accession Number(s): [id number] ? cc: Geronimo Klein MD ? EXAMINATION: [...] DD/ 1025 ? TD/TT: 02/28/25 1045 ? Legal Records Manager: ? Procedure Note Fredbarney, Chinmay - 02/28/[address] [address] XRay Report Signed Patient: Alan Giles#: [id number] 53 : 1950cct:[id number] Age/Sex: 74 / FADM Date: 02/28/25 Loc: HO.HHCX Attending Dr: Geronimo Klein MD Ordering Physician: Geronimo Klein MD Date of Service: 02/28/25 Procedure(s): XR knee RT 3V Accession Number(s): [id number] cc: Geronimo Klein MD EXAMINATION: XR KNEE, [...] 02/28/25 1056 DD/ 1025 TD/TT: 02/28/25 1045 Legal Records Manager: us Geronimo Klein MD IMG XR PROCEDURES Final Result * XR Chest 2 Views (02/28/2025 10:25 AM EDT) Anatomical Region Laterality Modality Chest Radiographic Francesca ging 02/28/2025 10:2 5 AM EDT Narrative 02/28/2025 11:02 AM EDT ?[facility] ?[address] ?[place] [address] ?XRay Report ? Signed ? Patient: Chan,Ayanna ?MR#: [id number] ?? 53 ? : 1950 ?Acct:[id number] ? Age/Sex: 74 / F ?ADM Date: 02/28/25 ? Loc: HO.HHCX ? Attending Dr: Geronimo Klein MD ? Ordering Physician: Geronimo Klein MD ?? Date of Service: 02/28/25 ?? Procedure(s): XR chest 2V ?? Accession Number(s): [id number] ? cc: Geronimo Klein MD ? EXAMINATION: [...] DD/ 1025 ? TD/TT: 02/28/25 1045 ? Legal Records Manager: ? Procedure Note Donotuseinterpreter, Image - 02/28/2025 [facility] [address] [place] [address] XRay Report Signed Patient: Alan Giles#: [id number] 53 : 1950cct:[id number] Age/Sex: 74 / FADM Date: 02/28/25 Loc: HO.HHCX Attending Dr: Geronimo Klein MD Ordering Physician: Geronimo Klein MD Date of Service: 02/28/25 Procedure(s): XR chest 2V Accession Number(s): [id number] cc: Geronimo Klein MD EXAMINATION: XR CHEST [...] 02/28/25 1100 DD/ 1025 TD/TT: 02/28/25 1045 Legal Records Manager: Geronimo Klein MD IMG XR PROCEDURES Final Result * (ABNORMAL) CBC auto differential (02/27/2025 10:31 AM EDT) White Blood Count 6.7 4.8 - 10.8 X10*3/uL [facility] Red Blood Count 4.26 4.20 - 5.50 X10*6/uL [facility] Hemoglobin 13.0 12.0 - 16.0 g/dl [facility] Hematocrit 39.8 37.0 - 47.0 % [facility] Mean Corpuscular Volume 93.4 80.0 - 98.0 fL [facility] Mean Corpuscular Hemoglobin 30.5 27.0 - 33.0 pg [facility] Mean Corpuscular HGB Conc 32.7 31.0 - 35.0 g/dl [facility] Red Cell Distribution Width 15.0 11.0 - 16.0 % [facility] Platelet Count 327 160 - 400 X10*3/uL [facility] Mean Platelet Volume 9.6 9.4 - 12.3 fL [facility] Neutrophils Percent Auto 43.4(L) 45 - 73 % [facility] Imm Gran Pct Auto 0.1 0.0 - 0.4 % [facility] Lymphocytes Percent Auto 40.4(H) 20 - 40 % [facility] Monocytes Percent Auto 9.7 2 - 11 % [facility] Eosinophils Percent Auto 5.5(H) 0 - 4 % [facility] Basophils Percent Auto 0.9 0 - 2 % [facility] NRBC Pct Auto 0.0 0.0 - 0.2 /100WBC [facility] Neutrophils Absolute Auto 2.9 2.0 - 8.3 x10*3/uL [facility] Imm Gran Abs Auto 0.01 0.00 - 0.03 X10*3/uL [facility] Lymphocytes Absolute Auto 2.7 1.2 - 4.9 X10*3/uL [facility] Monocytes Absolute Auto 0.7 0.1 - 1.2 X10*3/uL [facility] Eosinophils Absolute Auto 0.4 0.0 - 0.4 X10*3/uL [facility] Basophils Absolute Auto 0.1 0.0 - 0.2 X10*3/uL [facility] NRBC Abs Auto 0.000 0.0 - 0.012 X10*3/uL [facility] Blood Venous blood specimen / Unknown 02/27/2025 10:31 AM EDT 02/27/2025 11:16 AM EDT us Geronimo Klein MD LAB BLOOD ORDERABLES Final Resul t Performing Organization Address [facility] Co de Phone Number [facility] [address] [place] [phone] * Basic Metabolic Panel (02/27/2025 10:31 AM EDT) [facility] Sodium 140 135 - 145 mmol/L [facility] Potassium 3.7 3.3 - 5.1 mmol/L [facility] Chloride 106 96 - 108 mmol/L [facility] Carbon Dioxide 26 22 - 29 mmol/L [facility] Anion Gap 12 12 - 20 [facility] Urea Nitrogen (BUN) 11 9 - 16 mg/dL [facility] Creatinine, Serum 0.74 0.5 - 1.4 mg/dL [facility] Estimated Glomerular Filt Rate >60 [facility] Comment:Chronic Kidney Disea se: Estimated GFR < 60 mL/min/1.95x2Tkcjlo Kidney Disease: Estimated GFR < 15 mL/min/1.73m2 Glucose 114 60 - 115 mg/dL [facility] Calcium 9.4 8.4 - 10.2 mg/dL [facility] Blood Venous blood specimen / Unknown 02/27/2025 10:31 AM EDT 02/27/2025 11:16 AM EDT us Geronimo Klein MD LAB BLOOD ORDERABLES Final Resul t Performing Organization Address [facility]/ZIP Co de Phone Number [facility] [address] [place] [phone] * POCT Rapid Covid-19 BinaxNOW (02/27/2025 10:11 AM EDT) Pathologist [facility] Rapid COVID Ag Negative QC Media Lot # [id number] Lot# Expiration Date [id number] Nares 02/27/2025 10:1 1 AM EDT Geronimo Klein [...] EDT Narrative 01/17/2025 1:45 PM EDT ? [facility] ?[address] ?[place] [address] ? Magnetic Resonance Report ? Signed ? Patient: Giles,Ayanna ?MR#: [id number] ?? 53 ? : 1950 ?Acct:[id number] ? Age/Sex: 74 / F ?ADM Date: 03/12/25 ? Loc: HO.EDOVER ?IMC-3 ? Attending Dr: Concepcion Aponte NETEZZA DEVELOPER ? Ordering Physician: Gita Baires PA-C ?? Date of Service: 01/17/25 ?? Procedure(s): MR MRCP ?? Accession Number(s): [id number] ? cc: Name,Geronimo GIRON; Gita Baires PA-C [...] ??Jeffery Owen MD ??01/17/2025 01:42 PM EDT ?? RP ? Dictated By: ?Jeffery Owen MD ? Signed By: ?<Electronically signed by Jeffery Owen MD in OV> ?01/17/25 1342 ? DD/ 1235 ? TD/TT: 01/17/25 1257 ? Legal Records Manager: ? Procedure Note Donotuseinterpreter, Image - 01/17/[address] [address] Magnetic Resonance Report Signed Patient: Stevie GilesnMR#: [id number] 53 : 1950cct:[id number] Age/Sex: 74 / FADM Date: 01/17/25 Loc: JESSICA C-[address]: Concepcion Aponte NP Ordering Physician: Gita Baires PA-C Date of Service: 01/17/25 Procedure(s): MR MRCP Accession Number(s): [id number] cc: Geronimo Klein MD; Gita Baires PA-C [...] 01/17/25 1342 DD/ 1235 TD/TT: 01/17/25 1257 Legal Records Manager: [facility] External Provider IMG MRI PROCEDURES Final Result * CTA Chest PE Protocal (01/17/2025 1:27 AM EDT) Anatomical Region Laterality Modality Body, Chest Computed Tomogra phy 01/17/2025 1:27 AM EDT Narrative 01/17/2025 1:29 AM EDT ? [facility] ?[address] ?[place] [address] ? CT Scan Report ? Signed ? Patient: Giles,Ayanna ?MR#: [id number] ?? 53 ? : 1950 ?Acct:[id number] ? Age/Sex: 74 / F ?ADM Date: 03/11/25 ? Loc: HO.ED ? Attending Dr: ? Ordering Physician: Chaim Franoc MD ?? Date of Service: 01/16/25 ?? Procedure(s): CT angio chest PE protocol ?? Accession Number(s): [id number] ? cc: Name,Geronimo GIRON; Chaim Franco MD ? Report Number: ?? [id number]: Total DLP = ??166.00 mGy-cm ? CLINICAL [...] 0129 ? DD/ 0127 ? TD/TT: 01/17/25 0127 ? Legal Records Manager: ? Procedure Note Mark, Image - 03/12/[address] [address] [address] Scan Report Signed Patient: Alan Giles#: [id number] 53 : 1950cct:[id number] Age/Sex: 74 / FADM Date: 01/16/25 Loc: HO.ED Attending Dr: Ordering Physician: Chaim Franco MD Date of Service: 01/16/25 Procedure(s): CT angio chest PE protocol Accession Number(s): [id number] cc: Name,Geronimo GIRON; Chaim Franco MD Report Number: [id number]: Total DLP = 166.00 mGy-cm CLINICAL HISTORY: [...] in OV> 01/17/25128 DD/ 6 TD/TT: 01/17/25126 Legal Records Manager: [facility] External Provider IMG CT PROCEDURES Final Result * High Sensitivity Troponin I (01/17/2025 12:39 AM EDT) Pathologist [facility] TROPONIN I HIGH SENSITIVITY 9.4 <3.5 - 17.0 ng/L [facility] Comment:The [place] high sens itivity Troponin-I results should beused in conjunction with other diagnostic information suchas ECG, clinical observations and information, and patientsymptoms to aid in the diagnosis of DC. 01/17/2025 12:3 9 AM EDT 01/17/2025 12:41 AM EDT Generic External Data Provider LAB BLOOD ORDERAB LES Final Result [facility] [address] [place] [phone] * SARS-CoV-2 RNA, Influenza A/B, and RSV RNA, Ql NAAT (01/16/2025 10:52 PM EDT) Pathologist [facility] Influenza A PCR NEGATIVE Negative [facility] Influenza B PCR NEGATIVE Negative [facility] Resp Syncy Virus RNA Qual PCR NEGATIVE Negative [facility] SARS COV2 PCR NEGATIVE Negative [facility] Comment:All test results mus t be [...] use by authorized laboratories.Testing performed on the [employer] GeneXpert utilizingreal-time RT-PCR.All SARS CoV2 and positive influenza A/B results arereported to [facility]. 01/16/2025 10:5 2 PM EDT 01/16/2025 11:53 PM EDT us Generic External Data Provider LAB MICROBIOLOGY - GENERAL ORDERABLES Final Result [facility] [address] [place] [phone] [phone] * XR Chest 1 View (01/16/2025 8:57 PM EDT) Anatomical Region Laterality Modality Chest Radiographic Francesca ging 01/16/2025 8:57 PM EDT Narrative 01/16/2025 8:59 PM EDT ? [facility] ?[address] ?[place] [address] ?XRay Report ? Signed ? Patient: Giles,Ayanna ?MR#: [id number] ?? 53 ? : 1950 ?Acct:[id number] ? Age/Sex: 74 / F ?ADM Date: 01/16/25 ? Loc: HO.ED ? Attending Dr: ? Ordering Physician: Chaim Franco MD ?? Date of Service: 01/16/25 ?? Procedure(s): XR chest 1V ?? Accession Number(s): [id number] ? cc: Geronimo Klein MD; Chaim Franco MD ? CLINICAL HISTORY: Chest pain ? 1 view chest x-ray ? Comparison: CR/MA/SR - XR CHEST 1V - 4/ 22:43 EDT ? Findings: ?? Mild diffuse [...] ? DD/ 56 ? TD/TT: 01/16/252056 ? Legal Records Manager: ? Procedure Note Donbarney, Image - 01/16/2025 [place] [address] XRay Report Signed Patient: Rocio GilesR#: [id number] 53 : 1950cct:[id number] Age/Sex: 74 / FADM Date: 01/16/25 Loc: HO.ED Attending Dr: Ordering Physician: Chaim Franco MD Date of Service: 01/16/25 Procedure(s): XR chest 1V Accession Number(s): [id number] cc: Name,Geronimo GIRON; Chaim Franco MD CLINICAL HISTORY: Chest pain 1 view chest x-ray Comparison: CR/MA/SR - XR CHEST 1V - 02/22/24 22:43 [...] in OV> 01/16/252057 DD/ 56 TD/TT: 01/16/252056 Legal Records Manager: [facility] External Provider IMG XR PROCEDURES Edited Result - Final * POCT HGB A1C (10/25/2024 12:07 PM EST) Hemoglobin A1C 5.9 4.0 - 6.0 % QC Media Lot # [id number] Lot# Expiration Date ,626 Blood 10/25/2024 12:0 7 PM EST us Geronimo Name MD POINT OF CARE TEST ENTER/EDIT OR DERABLES Final Result * BI Mammogram Screening Tomosynthesis Left (06/01/2024 11:55 AM EDT) Anatomical Region Laterality Modality Breast Left Mammography 06/01/2024 11:5 5 AM EDT Narrative 06/21/2024 8:19 PM EDT ? [facility] ? [address] ?[place], [place] [address] ? Mammography Report ? Signed ? Patient: Giles,Ayanna ?MR#: [id number] ?? 53 ? : 1950 ?Acct:[id number] ? Age/Sex: 73 / F ?ADM Date: 06/01/24 ? Loc: HO.MAMMO ? Attending Dr: Geronimo Name MD ? Ordering Physician: Name,Geronimo GIRON ?Results: 2Benign Fi ?? ndings ? Date of Service: 06/01/24 ?Follow Up: 1 Year From Orig ?? inal Mammogram ? Procedure(s): MM tomosynthesis screening LT ?? Accession Number(s): [id number] ? cc: Name,Geronimo GIORN ? EXAMINATION: ?? MM SCREENING DIGITAL BREAST TOMOSYNTHESIS, LEFT ? CLINICAL INFORMATION: ? Screening. Asymptomatic. ? The patient is status post right mastectomy. ?? BI-RADS 2 ?? COMPARISON: ?? Mammography: This study is compared with prior exams dating back to ?? 2019. ? TECHNIQUE: ?? Digital breast tomosynthesis is [...] by Patria Vargas MD in OV> ? 06/21/24 2015 ? DD/ 1155 ? TD/TT: ? Legal Records Manager: ? Procedure Note Fredbarney, Image - 06/21/2024 [facility] [address] [place] [address] Mammography Report Signed Patient: Stevie GilesnMGabby#: [id number] 53 : 1Acct:[id number] Age/Sex: 73 / FADM Date: 06/01/24 Loc: GEORGI Attending Dr: Geronimo Klein MD Ordering Physician: Geronimo Kleinults: 2Benign Fi ndings Date of Service: 06/01/24Follow Up: 1 Year From Orig inal Mammogram Procedure(s): AMADEO tomosynthesis screening LT Accession Number(s): [id number] cc: Geronimo Klein MD EXAMINATION: MM SCREENING [...] MD in OV> 06/21/242014 DD/ 1155 TD/TT: Legal Records Manager: us Geronimo Klein MD IMG BI PROCEDURES Final Result * Hepatitis C Antibody with Reflex to HCV, RNA, Quantitative, Real-Time PCR (05/26/2024 10:50 AM EDT) Hepatitis C Antibody Nonreactive Nonreactive [facility] Comment:Antibodies to HCV no t detected; does not exclude early acuteHCV infection. Blood Venous blood specimen / Unknown 05/26/2024 10:50 AM EDT 05/26/2024 1:01 PM EDT us Geronimo Klein MD LAB BLOOD ORDERABLES Final Resul t [facility] [address] [place] [phone] * Lipid Panel, Standard (05/18/2023 10:50 AM EDT) Triglycerides 114 mg/dL [facility] Comment:Desirable Triglyceri de: less than 150 mg/dLBorderline High Triglyceride 150-199 mg/dLHigh Triglyceride: 200-499 mg/dLVery High Triglyceride: greater than or equal to 5OO mg/dL Cholesterol 201 mg/dL [facility] Comment:Desirable Cholestero l: less than 200 mg/dLBorderline High Cholesterol: 200-239 mg/dLHigh Cholesterol: greater than 239 mg/dL LDL Cholesterol Calculated 126 mg/dl [facility] Comment:Desirable LDL: less than 100 mg/dLNear Optimal/Above Optimal LDL: 110- 129 mg/dLBorderline High LDL: 130-159 mg/dLHigh LDL: 160-189 mg/dLVery High LDL: greater than or equal to 190 mg/dL HDL Cholesterol 53 mg/dL [facility] Comment:Desirable HDL: great er than 40 mg/dL Note: This HDL assay may give artificially low results in patients with liver disease. 05/18/2023 10:5 0 AM EDT 05/18/2023 12:59 PM EDT us [facility] External Provider LAB BLO OD ORDERABLES Final Result [facility] [address] [place] [address] [phone] from Last 3 Months or Most Recently Relevant to Health Maintenance Insurance [employer] (HMO D-SNP) Care Teams Unattended Ground Sensor Specialist Relationship Specialty Start Date End Date Name, MD Geronimo [address] [place] [phone] PCP - General Family Medicine 02/16/17 [facility] 01/22/25
--- OUTSIDE RECORDS SUMMARY | 2025-02-28 12:15 | XMS_ITS | Encounter Summary ---
Author Organization [employer] Address [address] [place] [address] Care Team Providers Care Vaccine Customer Representative Name Role Phone Name, Geronimo GIRON Primary Care Provider Reason for Visit * Reason Onset Date Comments Question 04/21/2024 Encounter Details Date Type Department Care Team ([facility] st Contact Info) Description 04/21/2024 Telephone [facility] MEDICINE [address] [place] [address] Name, MD Geronimo [address] [place] [address] Question Social History Tobacco Use Types Packs/Day [...] 3:06 PM EDT Tc from Karma at [facility] calling to ask the following questions. Is the patient Medically compliant with appt and medications ? Does the patient haves a Health Care Proxy ? What level of care should the patient need ? Does the provider haves any concerns ? Please call Karma at [phone] Ext [phone] documented in this encounter Plan of Treatment Upcoming Encounters Date Type Department Care Team (Late st Contact Info) Description 06/14/2025 10:30 AM EDT Office Visit [facility] MEDICINE [address] [place] [address] Name, MD Geronimo [address] [place] [address] documented as of this encounter Visit Diagnoses Not on filedocumented in this encounter Additional Health Concerns Assessment Noted Time PHQ-9 Depression Total Score: 21 024 9:47 AM EDT documented as of this encounter Care Teams Vaccine Customer Representative Relationship Specialty Start Date End Date NameGeronimo MD [address] [place] [address] PCP - General Family Medicine 02/16/17 [facility] 01/22/25 documented as of this encounter
== END 2025-02-28 10:26 | disposition home or self-care (01) ==
LOC: HO.HHCX 10:25
PROVIDERS: Visit Provider Internal Medicine Geriatric Medicine
DX: J44.9 Chronic obstructive pulmonary disease, unspecified (principal); J44.1 Chronic obstructive pulmonary disease with (acute) exacerbation; M25.561 Pain in right knee
CPT/HCPCS: 71046; 73562

== ENCOUNTER → 2025-02-28 10:25 | Outpatient (BNV) | payer OTHER, SELFPAY | PROVIDERS: Visit Provider Radiology Diagnostic Radiology | DX: J44.1 Chronic obstructive pulmonary disease with (acute) exacerbation (principal); M25.561 Pain in right knee | CPT/HCPCS: 71046; 73562 ==

== ENCOUNTER 2025-04-09 13:39 | Outpatient (AMB) | payer OTHER, SELFPAY ==
--- NOTE | 2025-04-09 14:05 | A.OFFVIS_ITS ---
Vital Signs 04/09/25 14:08 Height 4 ft 11 in Weight 89 lb BMI 18.0 BP 117/62 Blood Pressure Location Lt brachial Position Sitting Pulse 90 Pulse Source Pulse Oximeter Pulse Oximetry (%) 94 Oxygen Delivery Method Room Air Intake Visit Reasons: copd Allergies No Known Allergies [No Known Allergies*] Allergy (Unknown, Verified 04/09/25 14:11) HPI HPI copd: Details: 74-year-old lady, active 40+ pack-year smoker, followed for very severe supplemental oxygen 2-3 L dependent COPD, now using portable oxygen concentrator intermittently.? She continues to use Combivent, and duo nebs with reasonable baseline control of her symptoms.? She denies recent exacerbations.? [facility] Medical History (Updated 04/09/25 @ 14:22 by Alden Campbell MD) Aneurysm, abdominal aortic Nicotine dependence, cigarettes, uncomplicated Lumbar degenerative disc disease Osteopenia (~2011) History of invasive ductal carcinoma of breast (~2003) Surgical History History of section (~1976) History of appendectomy (~1993) History of tonsillectomy History of colonoscopy (~2010) History of esophagogastroduodenoscopy (EGD) (~2010) History of right mastectomy (~2004) History of laparoscopic cholecystectomy (~2008) Social History (Updated 09/08/24 @ 13:37 by Sheila Melton Marilee) Household Members: None Housing: Apartment Do you presently have visiting nurse or other home services: No Alcohol intake: current Alcohol intake frequency: does not drink Patient Tobacco Use Status: Current everyday Tobacco user Tobacco use type: Cigarette and Smokeless Tobacco Cigarettes Per Day: 3 Years Smoked: 59 years (onset 13, 1/2ppd x 59yrs, now <1/4ppd, 29pyh), started vaping e-Cigarette/Vaping Use: Currently Using Substance Use Type: Heroin service: No Review of Systems Const Denies daytime sleepiness, Denies excessive sweating, Denies fatigue, Denies fever(s), Denies lethargy, Denies malaise, Denies night sweats, Denies snoring and Denies weight loss Eyes Denies blurry vision and Denies itchy eyes ENT Denies nasal congestion, Denies post nasal drip, Denies sinus pain, Denies sinus pressure and Denies other ( Thrush) Card Denies chest pain, Denies pedal edema, Denies dyspnea, Denies orthopnea and Denies paroxysmal nocturnal dyspnea Resp Denies cough, Denies hemoptysis, Denies excessive phlegm production, Denies dyspnea, Denies snoring and Denies wheezing GI Denies abdominal pain and Denies heartburn Musc Denies myalgias, Denies arthralgias and Denies joint swelling Skin/Breast Denies rash Neuro Denies memory loss and Denies seizure-like activity Psych Denies abnormal sleep pattern, Denies anxiety and Denies memory loss Endo Denies excessive sweating, Denies fatigue and Denies heat intolerance Justino/Lymph Denies easy bruising Aller/Immun Denies itchy eyes, Denies seasonal rhinorrhea and Denies wheezing Physical Exam Vital Signs: Last Vital Signs Pulse 90 04/09/25 14:08 BP 117/62 04/09/25 14:08 Pulse Ox 94 04/09/25 14:08 Oxygen Delivery Method Room Air 04/09/25 14:08 BMI result Body Mass Index 18.0 Const General: no acute distress and alert Nutritional Appearance: not obese Orientation/consciousness: Other orientation findings ( oriented) HEENT Head: Yes atraumatic Eyes General: appearance normal, both eyes and all related structures Sclerae: sclerae normal EOM: EOMs intact bilaterally Neck Neck: Yes supple Lymphatic: no lymphadenopathy noted Resp Effort & Inspection: normal respiratory effort and no use of accessory muscles Auscultation: clear to auscultation bilaterally Cardio Rate: regular rate Rhythm: regular rhythm Heart sounds: no gallops, no murmurs and no rubs Skin General skin exam: other ( warm) Extrem General: No clubbing, No cyanosis and No edema Assessment & Plan Assessment & Plan (1) COPD (chronic obstructive pulmonary disease): Code(s): J44.9 - Chronic obstructive pulmonary disease, unspecified Category: Medical Plan: Well controlled on current regimen of Combivent. Patient is no longer using Anoro. Continue current regimen. (2) Supplemental oxygen dependent: Code(s): Z99.81 - Dependence on supplemental oxygen Category: Medical Plan: Continue supplemental oxygen to maintain O2 saturation of 89-92%. (3) Bronchiectasis: Code(s): J47.9 - Bronchiectasis, uncomplicated Category: Medical Plan: CT chest with underlying evidence of bronchiectasis, no recent exacerbations, continue to monitor clinically. (4) Nicotine dependence, cigarettes, uncomplicated: Comment: (current smoker, onset 13, 1/2ppd x 59yrs, now <1/4ppd, 29pyh) Code(s): F17.210 - Nicotine dependence, cigarettes, uncomplicated Category: Medical Plan: Results of lung cancer screening from September of 2024 reviewed, no worrisome nodules. Continue with yearly screening. Orders: Orders CT lung screening 10/09/25 F17.210 - Nicotine dependence, cigarettes, uncomplicated Coding Level of Care Code Est Pt Level 4 (98928) Complex EM visit Add On G2211 Diagnoses COPD (chronic obstructive pulmonary disease) J44.9 Supplemental oxygen dependent Z99.81 Bronchiectasis J47.9 Nicotine dependence, cigarettes, uncomplicated F17.210
[2025-04-09 14:08] VITALS: BP 117/62; PULSE 90; O2SAT 94; BMI 18.0
--- OUTSIDE RECORDS SUMMARY | 2025-04-09 14:49 | XMS_ITS | Encounter Summary ---
Author Organization [employer] Address [address] [facility] [address] [place] [address] Care Team Providers Care Supervisor Telephone Information Name Role Phone Name, Geronimo GIRON Primary Care Provider [phone] Reason for Visit * Reason Comments Med Refill Encounter Details Date Type Department Care Team (Late st Contact Info) Description 01/07/2024 Refill [facility] [address] [place] [address] Shubham Servin MD [address] [place], [place] [id number] Uncomplicated opioid dependence (CMS/HCC) Social History Tobacco [...] Description 06/14/2025 10:30 AM EDT Office Visit [facility] [address] [place] [address] Name, MD Geronimo [address] [place] [address] documented as of this encounter Visit Diagnoses Diagnosis Uncomplicated opioid dependence (CMS/HCC) documented in this encounter Additional Health Concerns Assessment Noted Time PHQ-9 Depression Total Score: 14 023 9:52 AM EDT documented as of this encounter Care Teams Supervisor Telephone Information Relationship Specialty Start Date End Date NameGeronimo MD [address] [place] [address] PCP - General Family Medicine 02/16/17 [facility] 01/22/25 documented as of this encounter
== END 2025-04-09 14:22 | disposition home or self-care (01) ==
LOC: HO.HPS 13:39
PROVIDERS: PCP Internal Medicine Geriatric Medicine; Visit Provider Internal Medicine Pulmonary Disease
DX: J44.9 Chronic obstructive pulmonary disease, unspecified (principal); Z99.81 Dependence on supplemental oxygen; J47.9 Bronchiectasis, uncomplicated; F17.210 Nicotine dependence, cigarettes, uncomplicated
CPT/HCPCS: 99214; G2211

== ENCOUNTER → 2025-04-09 13:39 | Outpatient (BNVA) | payer OTHER, SELFPAY | PROVIDERS: PCP Internal Medicine Geriatric Medicine; Visit Provider Internal Medicine Pulmonary Disease | DX: J47.9 Bronchiectasis, uncomplicated (principal); F17.210 Nicotine dependence, cigarettes, uncomplicated; Z99.81 Dependence on supplemental oxygen | CPT/HCPCS: 99212 ==

== ENCOUNTER 2025-06-14 11:06 | Outpatient (REF) | payer OTHER, SELFPAY ==
--- OUTSIDE RECORDS SUMMARY | 2025-06-14 11:43 | XMS_ITS | Patient Health Record ---
Author Organization [facility] Address [address] [place] [address] Care Team Providers Care Brick And Blocker Aid Labor Name Role Phone Jeffery Salmon Unavailable [phone] Reason For Referral No Information Plan Of Treatment No Information
--- OUTSIDE RECORDS SUMMARY | 2025-06-14 11:43 | XMS_ITS | Clinical Summary ---
Author Organization [facility] Address [address] [place] [address] Care Team Providers Care Animal Caregiver Name Role Phone Name, Geronimo GIRON Primary Care Provider [phone] Social History Tobacco Use Types Packs/Day Years [...] 1 - PCV) 2016 Influenza Vaccine (#1) 2025 RSV Adult > 60+ Yrs or Pregn ant (1 - 1-dose 75+ series) 2026 Hepatitis B Vaccines Aged Out No long er eligible based on patient's age to complete this topic RSV Ped < 20 months Aged Out No longe r eligible based on patient's age to complete this topic Care Teams Animal Caregiver Relationship Specialty Start Date End Date Name, MD Geronimo [address] [facility] [address] [place] [address] PCP - General Internal Medicine 08/01/20
--- OUTSIDE RECORDS SUMMARY | 2025-06-14 11:43 | XMS_ITS | Encounter Summary ---
Author Organization [employer] Address [address] [facility] [address] [place] [address] Care Team Providers Care Mainframe Systems Programmer Name Role Phone Name, Geronimo GIRON Primary Care Provider [phone] Reason for Visit * Reason Comments Med Refill Encounter Details Date Type Department Care Team (Late st Contact Info) Description 01/07/2024 Refill [facility] [address] [place] [address] Shubham Servin MD [address] [place], [place] [phone] Uncomplicated opioid dependence (CMS/HCC) Social History Tobacco [...] as of this encounter Plan of Treatment Not on file documented as of this encounter Visit Diagnoses Diagnosis Uncomplicated opioid dependence (CMS/HCC) documented in this encounter Additional Health Concerns Assessment Noted Time PHQ-9 Depression Total Score: 14 023 9:52 AM EDT documented as of this encounter Care Teams Mainframe Systems Programmer Relationship Specialty Start Date End Date Name, MD Geronimo [address] [place] [address] PCP - General Family Medicine 02/16/17 [facility] 01/22/25 05/28/25 documented as of this encounter
[2025-06-14 13:18] LABS: Alanine Aminotransferase 26 U/L (0-31); Albumin Level 4.4 g/dL (3.5-5.0); Alkaline Phosphatase 81 U/L (39-117); Anion Gap 12 (12-20); Aspartate Amino Transferase 34 U/L (5-31); Blood Urea Nitrogen 12 mg/dL (9-16); Calcium 8.9 mg/dL (8.4-10.2); Carbon Dioxide 27 mmol/L (22-29); Chloride 106 mmol/L (96-108); Estimated Glomerular Filt Rate > 60; Potassium 3.8 mmol/L (3.3-5.1); Sodium 141 mmol/L (135-145); Total Protein 7.1 g/dL (6.5-8.0)
== END 2025-06-14 11:07 | disposition home or self-care (01) ==
LOC: HO.HHCL 11:06
PROVIDERS: PCP Internal Medicine Geriatric Medicine; Visit Provider Internal Medicine Geriatric Medicine
DX: B35.1 Tinea unguium (principal)
CPT/HCPCS: 36415; 80053

== ENCOUNTER 2025-10-03 11:31 | Outpatient (REF) | payer OTHER, SELFPAY ==
--- NOTE | ~2025-10-03 | CT_ITS ---
EXAMINATION: CT LOW-DOSE SCREENING CHEST WITHOUT CONTRAST CLINICAL INFORMATION: 75-year-old female, current smoker, 62 pack years, lung cancer screening. COMPARISON: Chest CTA 01/16/2025. LDCT 09/19/2024, 06/09/2023, 08/15/2021. MRCP 01/17/2025. TECHNIQUE: Multidetector volumetric CT imaging of the chest is performed on a Siemens SOMATOM Definition scanner without contrast using low dose technique. Additional 2D coronal and sagittal reformatted images and axial 3D maximum intensity projection (MIP) images are generated on the CT workstation. This CT examination was performed using dose optimization techniques as appropriate, variously including the following: *Automated exposure control *Adjustment of mA and/or kV according to patient size (this includes techniques or standardized protocols for targeted exams where dose is matched to indication/reason for exam; i.e. extremities or head) *Use of iterative reconstruction technique FINDINGS: PULMONARY NODULES: Interval development of innumerable pulmonary nodules in both lungs, for example measuring up to 5 mm in the posterior right upper lobe (series 5, image 36), most likely on the basis of new onset infectious/inflammatory abnormality. 6 mm subpleural nodule lateral left upper lobe, unchanged (series 5, image 59). LUNGS: Lungs are well expanded bilaterally. There is mild centrilobular emphysema with upper lobe predominance, unchanged. There are mild changes of cylindrical bronchiectasis predominantly in the bilateral lower lobes, with mild bronchial wall thickening, and associated reticular opacities in both lower lobes. No consolidations. Previously seen subpleural consolidative opacities in the lower lobes have resolved. No effusion or pneumothorax. The central airways are patent. MEDIASTINUM: Normal-appearing thyroid. No mediastinal lymphadenopathy present. 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 There is no aortic aneurysm. There is mild atheromatous calcification of the aorta. The heart is normal in size. There is no pericardial effusion. CORONARY ARTERY CALCIFICATION: Mild degree. CHEST WALL/AXILLA: The patient appears somewhat cachectic. No masses or abnormal lymph nodes present. UPPER ABDOMEN: Imaging of the upper abdominal contents very limited due to technique and lack of contrast. There has been a cholecystectomy. There appears to be diffuse biliary duct dilatation, poorly visualized on this examination, however similar to the prior exam. OSSEOUS STRUCTURES: No suspicious focal findings. CT/CT lung screening IMPRESSION: 1. Numerous new bilateral pulmonary nodules measuring up to 5 mm as detailed. This is most likely infectious and/or inflammatory etiology, although can be considered probably benign, short interval follow-up in 6 months. If there is a concern for developing metastases, sooner follow-up is recommended (See category S below). 2. Mild centrilobular emphysema with stable lower lobe bronchiectatic changes. 3. Resolution of previously seen subpleural consolidative changes in both lower lobes. There are residual reticular type linear changes present. 4. Limited by technique, but similar diffuse intra and extrahepatic biliary dilatation present. Refer to the recent MRCP performed 01/17/2025. ASSESSMENT: 1. Lung-RADS Category 3: Probably benign findings. 2. Lung-RADS Category S: Positive. There are clinically significant or potentially clinically significant findings not related to the lungs requiring further workup. RECOMMENDATION: A 6-month follow up low-dose lung CT scan is recommended. An order for CT LUNG CANCER SCREENING SHORT INTERVAL FOLLOWUP ([id number]) can be placed. Electronically signed by: Sonny Navarrete MD 10/03/2025 12:50 PM [facility]
--- OUTSIDE RECORDS SUMMARY | 2025-10-03 14:33 | XMS_ITS | Encounter Summary ---
Author Organization [employer] Address [address] [facility] [address] [address] [place] [address] Care Team Providers Care Editorial Intern Name Role Phone Name, Geronimo GIRON Primary Care Provider [phone] Encounter Details Date Type Department Care Team (Late st Contact Info) Description 10/03/2025 Orders Only [facility] External Provider, [facility] Social History Tobacco Use Types Packs/Day Years Used Date Smoking Tobacco: Some Days Cigarettes Smokeless Tobacco: Never Alcohol Use Standard Drinks/Week Comments Never 0 (1 standard drink = 0.6 oz pur e alcohol) Alcohol Answer Date Recorded Frequency of Alcohol Consumption Not on file 05/26/2024 Average Number of Drinks Not on file 024 Frequency of Binge Drinking Not on file 05/08 Score 0 05/26/2024 Depression Answer Date Recorded Patient Health Questionnaire-9 Score 13 06/14/2025 Patient Health Questionnaire-9 Score 13 06/14/2025 Last PHQ-9: Questionnaire Data Not on file 0 06/14/2025 Housing Stability Answer Date Recorded What is your housing situation today? I have frantz pearce 06/14/[address] you li ve. Do you have problems with any of the following? None of the above 06/14/2025 Food Insecurity Answer Date Recorded Within the past 12 months, y ou worried that your food would run out before you got money to buy more: Never True 06/14/2025 Within the past 12 months,th e food you bought just didn't last and you didn't have enough money to get more: Never True 05/2025 Transportation Answer Date Recorded In the past 12 months, has l ack of transportation kept you from medical appts, meetings, work or from getting things needed for daily living? Yes, it has kept me from non-medical meetings, work, or getting things that I need 06/14/2025 Utilities Answer Date Recorded In the past 12 months, has t he electric, gas, oil or water company threatened to shut off services in your home? No 06/14/2025 Depression Answer Date Recorded Patient Health Questionnaire-2 Score 3 06/14/2025 Internet Access Answer Date Recorded Internet Access Q1 Yes 06/14/2025 Internet Access Q2 Not on file 06/14/2025 Comments Unknown Sex and Gender Information Value Date Recorded Sex Assigned at Female 09/07/2022 10:15 AM EDT Legal Sex Female 10:15 AM EDT Gender Identity Female 09/07/2022 10:15 AM EDT Sexual Orientation Straight 09/07/2022 10 :15 AM EDT documented as of this encounter Plan of Treatment Upcoming Encounters Date Type Department Care Team (Late st Contact Info) Description 12/11/2025 11:00 AM EST Office Visit [facility] [address] [place] [address] Name, MD Geronimo [address] [place] [address] documented as of this encounter Procedures Procedure Name Priority Date/Time Associated Diagnosis Comments LDCT LUNG SCREENING Routine 10/03/2025 1 1:38 AM EST documented in this encounter Results * CT Lung Screening Low dose (10/03/2025 11:38 AM EST) Anatomical Region Laterality Modality Lung Computed Tomogra phy 10/03/2025 11:3 8 AM EST Narrative 10/03/2025 12:53 PM EST [facility] [address] [place] [id number] [address] Scan Report Signed Patient: Ayanna Giles MR#: [id number] 53 : 1950 Acct:[id number] Age/Sex: 75 / F ADM Date: 10/03/25 Loc: HO.CT Attending Dr: Alden Campbell MD Ordering Physician: Alden Campbell MD Date of Service: 10/03/25 Procedure(s): CT lung screening Accession Number(s): [id number] cc: Name,Geronimo GIRON; Alden Campbell MD Report Number: [id number]: Total DLP = 27.00 mGy-cm Reason for Exam: F17.210 - Nicotine dependence, cigarettes, uncomplicated EXAMINATION: CT LOW-DOSE SCREENING CHEST WITHOUT CONTRAST CLINICAL INFORMATION: 75-year-old female, current smoker, 62 pack years, lung cancer screening. COMPARISON: Chest CTA 01/16/2025. LDCT 09/19/2024, 06/09/2023, 08/15/2021. MRCP 01/17/2025. TECHNIQUE: Multidetector volumetric CT imaging of the chest is performed on a Siemens SOMATOM Definition scanner without contrast using low dose technique. Additional 2D coronal and sagittal reformatted images and axial 3D maximum intensity projection (MIP) images are generated on the CT workstation. This CT examination was performed using dose optimization techniques as appropriate, variously including the following: *Automated exposure control *Adjustment of mA and/or kV according to patient size (this includes techniques or standardized protocols for targeted exams where dose is matched to indication/reason for exam; i.e. extremities or head) *Use of iterative reconstruction technique FINDINGS: PULMONARY NODULES: Interval development of innumerable pulmonary nodules in both lungs, for example measuring up to 5 mm in the posterior right upper lobe (series 5, image 36), most likely on the basis of new onset infectious/inflammatory abnormality. 6 mm subpleural nodule lateral left upper lobe, unchanged (series 5, image 59). LUNGS: Lungs are well expanded bilaterally. There is mild centrilobular emphysema with upper lobe predominance, unchanged. There are mild changes of cylindrical bronchiectasis predominantly in the bilateral lower lobes, with mild bronchial wall thickening, and associated reticular opacities in both lower lobes. No consolidations. Previously seen subpleural consolidative opacities in the lower lobes have resolved. No effusion or pneumothorax. The central airways are patent. MEDIASTINUM: Normal-appearing thyroid. No mediastinal lymphadenopathy present. 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 There is no aortic aneurysm. There is mild atheromatous calcification of the aorta. The heart is normal in size. There is no pericardial effusion. CORONARY ARTERY CALCIFICATION: Mild degree. CHEST WALL/AXILLA: The patient appears somewhat cachectic. No masses or abnormal lymph nodes present. UPPER ABDOMEN: Imaging of the upper abdominal contents very limited due to technique and lack of contrast. There has been a cholecystectomy. There appears to be diffuse biliary duct dilatation, poorly visualized on this examination, however similar to the prior exam. OSSEOUS STRUCTURES: No suspicious focal findings. CT/CT lung screening IMPRESSION: 1. Numerous new bilateral pulmonary nodules measuring up to 5 mm as detailed. This is most likely infectious and/or inflammatory etiology, although can be considered probably benign, short interval follow-up in 6 months. If there is a concern for developing metastases, sooner follow-up is recommended (See category S below). 2. Mild centrilobular emphysema with stable lower lobe bronchiectatic changes. 3. Resolution of previously seen subpleural consolidative changes in both lower lobes. There are residual reticular type linear changes present. 4. Limited by technique, but similar diffuse intra and extrahepatic biliary dilatation present. Refer to the recent MRCP performed 01/17/2025. ASSESSMENT: 1. Lung-RADS Category 3: Probably benign findings. 2. Lung-RADS Category S: Positive. There are clinically significant or potentially clinically significant findings not related to the lungs requiring further workup. RECOMMENDATION: A 6-month follow up low-dose lung CT scan is recommended. An order for CT LUNG CANCER SCREENING SHORT INTERVAL FOLLOWUP ([id number]) can be placed. Electronically signed by: Sonny Navarrete MD 10/03/2025 12:50 PM [facility] Dictated By: Sonny Navarrete MD Signed By: <Electronically signed by Sonny Navarrete MD in OV> 10/03/25 1250 DD/ 1138 TD/TT: 10/03/25 1148 Medical Assisting Instructor: Procedure Note Donotuseinterpreter, Image - 10/03/[address] [address] [address] Scan Report Signed Patient: Rocio GilesR#: [id number] 53 : 1950cct:[id number] Age/Sex: 75 / FADM Date: 10/03/25 Loc: HO.CT Attending Dr: Alden Campbell MD Ordering Physician: Alden Campbell MD Date of Service: 10/03/25 Procedure(s): CT lung screening Accession Number(s): [id number] cc: Name,Geronimo GIRON; Alden Campbell MD Report Number: [id number]: Total DLP = 27.00 mGy-cm Reason for Exam: F17.210 - Nicotine dependence, cigarettes, uncomplicated EXAMINATION: CT LOW-DOSE SCREENING CHEST WITHOUT CONTRAST CLINICAL INFORMATION: 75-year-old female, current smoker, 62 pack years, lung cancer screening. COMPARISON: Chest CTA 01/16/2025. LDCT 09/19/2024, 06/09/2023, 08/15/2021. MRCP 01/17/2025. TECHNIQUE: Multidetector volumetric CT imaging of the chest is performed on a Siemens SOMATOM Definition scanner without contrast using low dose technique. Additional 2D coronal and sagittal reformatted images and axial 3D maximum intensity projection (MIP) images are generated on the CT workstation. This CT examination was performed using dose optimization techniques as appropriate, variously including the following: *Automated exposure control *Adjustment of mA and/or kV according to patient size (this includes techniques or standardized protocols for targeted exams where dose is matched to indication/reason for exam; i.e. extremities or head) *Use of iterative reconstruction technique FINDINGS: PULMONARY NODULES: Interval development of innumerable pulmonary nodules in both lungs, for example measuring up to 5 mm in the posterior right upper lobe (series 5, image 36), most likely on the basis of new onset infectious/inflammatory abnormality. 6 mm subpleural nodule lateral left upper lobe, unchanged (series 5, image 59). LUNGS: Lungs are well expanded bilaterally. There is mild centrilobular emphysema with upper lobe predominance, unchanged. There are mild changes of cylindrical bronchiectasis predominantly in the bilateral lower lobes, with mild bronchial wall thickening, and associated reticular opacities in both lower lobes. No consolidations. Previously seen subpleural consolidative opacities in the lower lobes have resolved. No effusion or pneumothorax. The central airways are patent. MEDIASTINUM: Normal-appearing thyroid. No mediastinal lymphadenopathy present. 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 There is no aortic aneurysm. There is mild atheromatous calcification of the aorta. The heart is normal in size. There is no pericardial effusion. CORONARY ARTERY CALCIFICATION: Mild degree. CHEST WALL/AXILLA: The patient appears somewhat cachectic. No masses or abnormal lymph nodes present. UPPER ABDOMEN: Imaging of the upper abdominal contents very limited due to technique and lack of contrast. There has been a cholecystectomy. There appears to be diffuse biliary duct dilatation, poorly visualized on this examination, however similar to the prior exam. OSSEOUS STRUCTURES: No suspicious focal findings. CT/CT lung screening IMPRESSION: 1. Numerous new bilateral pulmonary nodules measuring up to 5 mm as detailed. This is most likely infectious and/or inflammatory etiology, although can be considered probably benign, short interval follow-up in 6 months. If there is a concern for developing metastases, sooner follow-up is recommended (See category S below). 2. Mild centrilobular emphysema with stable lower lobe bronchiectatic changes. 3. Resolution of previously seen subpleural consolidative changes in both lower lobes. There are residual reticular type linear changes present. 4. Limited by technique, but similar diffuse intra and extrahepatic biliary dilatation present. Refer to the recent MRCP performed 01/17/2025. ASSESSMENT: 1. Lung-RADS Category 3: Probably benign findings. 2. Lung-RADS Category S: Positive. There are clinically significant or potentially clinically significant findings not related to the lungs requiring further workup. RECOMMENDATION: A 6-month follow up low-dose lung CT scan is recommended. An order for CT LUNG CANCER SCREENING SHORT INTERVAL FOLLOWUP ([id number]) can be placed. Electronically signed by: Sonny Navarrete MD 10/03/2025 12:50 PM [facility] Dictated By: Sonny Navarrete MD Signed By: <Electronically signed by Sonny Navarrete MD in OV> 10/03/25 1250 DD/ 1138 TD/TT: 10/03/25 1148 Medical Assisting Instructor: [facility] External Provider IMG CT PROCEDURES Final Result documented in this encounter Visit Diagnoses Not on filedocumented in this encounter Additional Health Concerns Assessment Noted Time PHQ-9 Depression Total Score: 13 025 10:40 AM EDT documented as of this encounter Care Teams Editorial Intern Relationship Specialty Start Date End Date Name, MD Geronimo [address] [place] [address] PCP - General Family Medicine 02/16/17 documented as of this encounter
--- OUTSIDE RECORDS SUMMARY | 2025-10-03 14:33 | XMS_ITS | Encounter Summary ---
Author Organization [employer] Address [address] [facility] 7t [place] [address] Care Team Providers Care Licensed Prosthetist/Orthotist Name Role Phone Name, Geronimo GIRON Primary Care Provider [phone] Reason for Visit * Reason Onset Date Comments Referral 02/01/2023 Encounter Details Date Type Department Care Team ([facility] st Contact Info) Description 02/01/2023 Telephone [facility] MEDICINE [address] [place] [address] Name, MD Geronimo [address] [place] [address] Referral Social History Tobacco Use Types Packs/Day [...] encounter Miscellaneous Notes * Telephone Encounter - Ohney Jennyfer - 02/01/2023 2:39 PM EDT Tc [facility] requesting a referral for physical therapy for back pain . States pt does not want to do the wheel chair evaluation would prefer physical therapy . Any questions please call phone # [phone] . . documented in this encounter Plan of Treatment Upcoming Encounters Date Type Department Care Team (Late st Contact Info) Description 12/11/2025 11:00 AM EST Office Visit [facility] MEDICINE [address] [place] [address] Name, MD Geronimo [address] [place] [address] documented as of this encounter Visit Diagnoses Diagnosis Lumbar spondylosis- Primary Lumbosacral spondylosis without myelopathy Chronic low back pain, unspecified back pain laterality, unspecified whether sciatica present documented in this encounter Care Teams Licensed Prosthetist/Orthotist Relationship Specialty Start Date End Date Name, MD Geronimo [address] [place] [address] PCP - General Family Medicine 02/16/17 [facility] 01/22/25 05/28/25 documented as of this encounter
--- OUTSIDE RECORDS SUMMARY | 2025-10-03 14:33 | XMS_ITS | Encounter Summary ---
Author Organization [employer] Address [address] [facility] 7t [place] [address] Care Team Providers Care Professor Of Languages Name Role Phone Name, Geronimo GIRON Primary Care Provider [phone] Reason for Visit * Reason Onset Date Comments Question 04/21/2024 Encounter Details Date Type Department Care Team ([facility] st Contact Info) Description 04/21/2024 Telephone [facility] MEDICINE [address] [place] [address] Name, MD Geronimo [address] [place] [address] Question Social History Tobacco Use Types Packs/Day [...] 3:06 PM EDT Tc from [facility] at [facility] calling to ask the following questions. Is the patient Medically compliant with appt and medications ? Does the patient haves a Health Care Proxy ? What level of care should the patient need ? Does the provider haves any concerns ? Please call Karma at [phone] Ext [phone] documented in this encounter Plan of Treatment Upcoming Encounters Date Type Department Care Team (Late st Contact Info) Description 12/11/2025 11:00 AM EST Office Visit [facility] MEDICINE [address] [place] [address] Name, MD Geronimo [address] [place] [address] documented as of this encounter Visit Diagnoses Not on filedocumented in this encounter Additional Health Concerns Assessment Noted Time PHQ-9 Depression Total Score: 21 024 9:47 AM EDT documented as of this encounter Care Teams Professor Of Languages Relationship Specialty Start Date End Date NameGeronimo MD [address] [place] [address] PCP - General Family Medicine 02/16/17 [facility] 01/22/25 05/28/25 documented as of this encounter
--- OUTSIDE RECORDS SUMMARY | 2025-10-03 14:33 | XMS_ITS | Encounter Summary ---
Author Organization [employer] Address [address] [facility] [address] 7t [place] [address] Care Team Providers Care Train Driver Name Role Phone Name, Geronimo GIRON Primary Care Provider [phone] Reason for Visit * Reason Onset Date Comments dec recalls 09/28/2025 Encounter Details Date Type Department Care Team (Late st Contact Info) Description 09/28/2025 Telephone [facility] MEDICINE [address] [place] [address] Vignesh Campbell MA dec recalls Social History Tobacco Use Types Packs/Day Years [...] the past 12 months, has t he [employer], gas, oil or water company threatened to [...] encounter Miscellaneous Notes * Telephone Encounter - Vignesh Campbell MA - 09/28/2025 9:42 AM EST Telephone call to patient to schedule the following recall: Visit type: Follow up Appointment notes: HTN Patient agree to appointment on 12/11/25 at 11 AM with Name. documented in this encounter Plan of Treatment Upcoming Encounters Date Type Department Care Team ([facility] st Contact Info) Description 12/11/2025 11:00 AM EST Office Visit [facility] MEDICINE [address] [place] [address] Name, MD Geronimo [address] [place] [address] documented as of this encounter Visit Diagnoses Not on filedocumented in this encounter Additional Health Concerns Assessment Noted Time PHQ-9 Depression Total Score: 13 025 10:40 AM EDT documented as of this encounter Care Teams Train Driver Relationship Specialty Start Date End Date Name, MD Geronimo [address] [place] [address] PCP - General Family Medicine 02/16/17 documented as of this encounter
--- OUTSIDE RECORDS SUMMARY | 2025-10-03 14:33 | XMS_ITS | Encounter Summary ---
Author Organization [employer] Address [address] [facility] 7t [place] [address] Care Team Providers Care Membership Advisor Name Role Phone NameGeronimo MD Primary Care Provider [phone] Encounter Details Date Type Department Care Team (Late st Contact Info) Description 04/12/2023 Abstract [facility] MEDICINE [address] [place] [address] Name, MD Geronimo [address] [place] [address] Social History Tobacco Use Types Packs/Day Years [...] Description 12/11/2025 11:00 AM EST Office Visit [address] [phone] NameGeronimo MD [address] [place] [address] documented as of this encounter Visit Diagnoses Not on filedocumented in this encounter Care Teams Membership Advisor Relationship Specialty Start Date End Date Name, MD Geronimo [address] [place] [address] PCP - General Family Medicine 02/16/17 [facility] 01/22/25 05/28/25 documented as of this encounter
--- OUTSIDE RECORDS SUMMARY | 2025-10-03 14:33 | XMS_ITS | Encounter Summary ---
Author Organization [employer] Address 75 [facility] 7t [place] [address] Care Team Providers Care Tree Wrapper Name Role Phone Name, Geronimo GIRON Primary Care Provider [phone] Reason for Visit * Reason Onset Date Comments FYI 03/15/2025 Encounter Details Date Type Department Care Team (Late st Contact Info) Description 03/15/2025 Telephone [facility] MEDICINE [address] [place] [address] Name, MD Geronimo [address] [place] [address] FYI Social History Tobacco Use Types Packs/Day Years [...] encounter Miscellaneous Notes * Telephone Encounter - Dulce Joyce RN - 03/15/2025 12:10 PM EDT Noted. * Telephone Encounter - Aleyda Williamson - 03/15/2025 12:05 PM EDT Tc from [facility] calling to inform provider they will resume [facility] services on 03/16/25. documented in this encounter Plan of Treatment Upcoming Encounters Date Type Department Care Team (Late st Contact Info) Description 12/11/2025 11:00 AM EST Office Visit [facility] MEDICINE [address] [place] [address] Name, MD Geronimo [address] [place] [address] documented as of this encounter Visit Diagnoses Not on filedocumented in this encounter Additional Health Concerns Assessment Noted Time PHQ-9 Depression Total Score: 21 024 9:47 AM EDT documented as of this encounter Care Teams Tree Wrapper Relationship Specialty Start Date End Date Name, MD Geronimo [address] [place] [address] PCP - General Family Medicine 02/16/17 [facility] 01/22/25 05/28/25 documented as of this encounter
--- OUTSIDE RECORDS SUMMARY | 2025-10-03 14:33 | XMS_ITS | Clinical Summary ---
Author Organization [employer] Address [address] [place] [address] 7t [place] [address] Care Team Providers Care Live Truck Operator Name Role Phone Name, Geronimo GIRON Primary Care Provider [phone] Allergies No known active allergies Medications sertraline [...] 6 puffs in 24hrs 02/19/20 23 Active nicotine polacrilex (Commit) 2 [...] time. 30 patch 1 09/03/20 23 Active ipratropium-alb uterol (Combivent Respimat) 20-100 MCG/ACT inhaler Inhale 1 puff in the morning, at noon, in the evening, and at bedtime. 4 g 11 08/18/20 24 Active Buprenorphine HCl-Naloxone HCl (Suboxone) 8-2 MG SL filmIndications :Uncomplicated opioid dependence (CMS/HCC) (HCC) Place 1 Film under the tongue 2 times daily for 28 days. Do not start before December 22, 2024. 56 Film 12/22/19 25 Active omeprazole (PriLOSEC) [address] capsuleIndicati ons:Gastroesoph ageal reflux disease, unspecified whether esophagitis present TAKE 1 CAPSULE BY MOUTH EVERY MORNING 30 capsule 11 04/12/20 25 Active lisinopril 10 MG tablet TAKE 1 TABLET BY MOUTH EVERY MORNING 90 tablet 1 05/08/20 25 Active amLODIPine (Norvasc) 5 MG tablet TAKE 1 TABLET BY MOUTH EVERY MORNING 90 tablet 1 05/08/20 25 Active SUMAtriptan (Imitrex) 6 MG/0.5ML injection Inject 0.5 mL (6 mg) under the skin if needed for migraine. 15 mL 2 07/20/20 25 Active celecoxib (CeleBREX) 200 MG capsuleIndicati ons:Lumbar spondylosis TAKE 1 CAPSULE BY MOUTH EVERY MORNING 30 capsule 1 09/03/20 25 Active clopidogrel (Plavix) 75 MG tabletIndicatio ns:Moderate aortic valve stenosis TAKE 1 TABLET BY MOUTH EVERY MORNING 90 tablet 1 09/05/20 25 Active Aspirin Adult Low Strength 81 MG EC tabletIndicatio ns:Moderate aortic valve stenosis TAKE 1 TABLET BY MOUTH EVERY MORNING 90 tablet 1 09/05/20 25 Active cholecalciferol VITAMIN D (Vitamin D-3) 50 MCG (1999) tablet TAKE 1 TABLET BY MOUTH EVERY MORNING 90 tablet 1 09/05/20 25 Active Aspirin Low Dose 81 MG EC tabletIndicatio ns:Moderate aortic valve stenosis TAKE 1 TABLET BY MOUTH EVERY MORNING 90 tablet 1 01/30/20 25 025 Discontinued clopidogrel (Plavix) 75 MG tabletIndicatio ns:Moderate aortic valve stenosis TAKE 1 TABLET BY MOUTH EVERY MORNING 90 tablet 1 01/30/20 25 025 Discontinued cholecalciferol VITAMIN D (Vitamin D-3) 50 MCG (1999) tablet TAKE 1 TABLET BY MOUTH EVERY MORNING 90 tablet 1 01/30/20 25 025 Discontinued terbinafine (LamISIL) 250 MG tablet Take 1 tablet (250 mg) by mouth Once per day. 30 tablet 2 06/22/20 25 025 Active Problems Problem Noted Date Diagnosed Date Aneurysm, abdominal aortic 02/21/2025 Common bile duct dilation 02/21/2025 Dyspnea on exertion 02/21/2025 Intractable nausea and vomiting 02/21/2025 Left upper lobe pulmonary nodule 02/21/2025 Overview (02/21/2025): (6mm DAX nodule -previously 3mm in 2006) MDD (major depressive disord er), recurrent episode, moderate (CMS/HCC) 02/21/2025 Muscle spasm of back 02/21/2025 Opioid withdrawal (CMS/HCC) 02/21/2025 Personal history of nicotine dependence 02/22/20 25 Overview (02/21/2025): (current smoker, onset 13, 1/2ppd x 58yrs, now <1/4ppd, 29pyh) Pleuritic chest pain 02/21/2025 Pneumonia 02/21/2025 Polysubstance abuse 02/21/2025 Hypertension 09/09/2023 Chronic hypoxemic respiratory failure (CMS/HCC) 08/20/2023 COVID-19 08/20/2023 Dehydration 08/20/2023 Difficulty walking 08/20/2023 Recurrent major depression 08/20/2023 Polycythemia 08/20/2023 Psychoactive substance abuse 08/20/2023 Taste absent 10/23/2022 Supplemental oxygen dependent 10/10/2022 Lumbar degenerative disc disease 10/10/2022 Nonrheumatic aortic valve stenosis 10/10/2022 Moderate aortic valve stenosis 10/10/2022 Vitamin D deficiency 10/10/2022 History of aortic valve replacement 02/06/2022 Overview (01/08/2023): TAVR 01/27 at [facility] She is on DAPT since then Knee pain 01/09/2019 Memory impairment 01/09/2019 Asthenia 10/11/2017 Severe major depression, sin gle episode, without psychotic features (CMS/HCC) 04/08/2017 Neck pain 02/17/2017 Recurrent major depression [...] Encounters Date Type Department Care Team Description 10/03/2025 Orders Only [facility] External Provider, [facility] 09/28/2025 Telephone [facility] MEDICINE [address] [place] [address] Vignesh Campbell [place] dec recalls 09/24/2025 Telephone [facility] MEDICINE [address] [place] [address] Name, MD Geronimo [employer] ([employer]) 09/14/2025 Telephone [facility] [address] [place], [place] [phone] Name, MD Geronimo derm appt 09/05/2025 Refill [facility] [address] [place] [address] Name, MD Geronimo Moderate aortic valve stenosis 09/02/2025 Refill [facility] [address] [place] [address] Name, MD Geronimo Lumbar spondylosis 07/20/2025 Refill [facility] [address] [place] [address] Name, MD Geronimo 07/17/2025 Telephone [facility]INE [address] [place] [address] Shubham Servin MD 07/07/2025 Refill [facility] MED[facility]INE [address] [place] [address] Name, MD Geronimo Lumbar spondylosis from Last 3 Months Immunizations Immunization Administration Dates Next Due DTaP 11/30/2014 DTaP [...] housing situation today? I have frantz ramses 06/14/[address] you li [...] Sign Reading Time Taken Comments Blood Pressure 114/62 06/26/2025 10:54 AM EDT Pulse 106 06/26/2025 10:54 AM EDT Temperature 36.7 C (98.1 F) 06/26/2025 10:54 AM EDT Respiratory Rate 10 06/26/2025 10:54 AM EDT Oxygen Saturation 95% 06/26/2025 10:54 AM EDT Inhaled Oxygen Concentration - - Weight 37.6 kg (83 lb) 06/26/2025 10:54 AM EDT Height 149.9 cm (4' 11 ) 06/26/2025 10:54 AM EDT Body Mass Index 16.76 06/26/2025 10:54 AM EDT Plan of Treatment Upcoming Encounters Date Type Department Care Team (Late st Contact Info) Description 12/11/2025 11:00 AM EST Office Visit [facility] MEDICINE [address] [place] [address] Name, MD Geronimo [address] [place] [address] Health Maintenance Due Date Last Done Comments CT Colonography 1950 Colonoscopy 1950 Colorectal Cancer Screening 1950 FIT DNA/Cologuard 1950 FIT 1950 FOBT 1950 Sigmoidoscopy 1950 RSV Patients and Patients Aged 60 years or older (1 - Risk 50-74 years 1-dose series) 2001 COVID-19 Vaccine ( season) 2025 10/30/2022, 05/15/2022, 12/26/2021, Additional history exists Influenza Vaccine (#1) 2025 , 08/16/2023, 10/30/2022, Additional history exists Diabetes: Hemoglobin A1C 10/25/2025 10/25/2024, 09/0 01/2020 Depression Monitoring 12/15/2025 06/14/2025, 025 Mammogram 06/01/2026 06/01/2024 Alcohol/Substance Use Screening 06/14/2026 06/14/2025 SDOH Screening 06/14/2026 06/14/2025 Tobacco Screening 06/26/2026 06/26/2025 Lipid Panel 05/18/2028 05/18/2023 DTaP/Tdap/Td Vaccines (9 [...] C Screening Completed 05/26/2024 , 12/25/2022, 07/11/2020 HIB Vaccines Aged Out No longer eligi ble based on patient's age to complete this topic HPV Vaccines Aged Out No longer eligi ble based on patient's age to complete this topic Meningococcal B Vaccine Aged Out No l onger eligible based on patient's age to complete [...] SCREENING Routine 10/03/2025 1 1:38 AM EST POCT GLYCATED HEMOGLOBIN, TOTAL Routine 10/25/2024 12:07 PM EST Weight loss, non-intentional BI MAMMOGRAM SCREENING TOMOSYNTHESIS LEFT Routine 06/01/2024 11:55 AM EDT HEPATITIS C AB W/REFL TO HCV RNA, QN, PCR Routine 05/26/2024 10:50 AM EDT Weight loss, non-intentional LIPID PANEL, STANDARD Routine 05/18/2023 10:50 AM EDT from Last 3 Months or Most Recently Relevant to Health Maintenance Results * CT Lung Screening Low dose (10/03/2025 11:38 AM EST) Anatomical Region Laterality Modality Lung Computed Tomogra phy 10/03/2025 11:3 8 AM EST Narrative 10/03/2025 12:53 PM EST [place] [address] CT Scan Report Signed Patient: Ayanna Giles MR#: [id number] 53 : 1950 Acct:[id number] Age/Sex: 75 / F ADM Date: 10/03/25 Loc: HO.CT Attending Dr: Alden Campbell MD Ordering Physician: Alden Campbell MD Date of Service: 10/03/25 Procedure(s): CT lung screening Accession Number(s): [id number] cc: Geronimo Klein MD; Alden Campbell MD Report Number: [id number]: Total DLP = 27.00 mGy-cm Reason for [...] CT LUNG CANCER SCREENING SHORT INTERVAL FOLLOWUP ([id number]) can be placed. Electronically signed by: Sonny Navarrete MD 10/03/2025 12:50 PM [facility] Dictated By: Sonny Navarrete MD Signed By: <Electronically signed by Sonny Navarrete MD in OV> 10/03/25 1250 DD/ 1138 TD/TT: 10/03/25 1148 [employer]: Procedure Note Donotuseinterpreter, Image - 10/03/[address] [place] [address] [address] Scan Report Signed Patient: Alan Giles#: [id number] 53 : 1950cct:[id number] Age/Sex: 75 / FADM Date: 10/03/25 Loc: HO.CT Attending Dr: Alden Campbell MD Ordering Physician: Alden Campbell MD Date of Service: 10/03/25 Procedure(s): CT lung screening Accession Number(s): [id number] cc: Geronimo Klein MD; Alden Campbell MD Report Number: [id number]: Total DLP = 27.00 mGy-cm Reason for [...] CT LUNG CANCER SCREENING SHORT INTERVAL FOLLOWUP ([id number]) can be placed. Electronically signed by: Sonny Navarrete MD 10/03/2025 12:50 PM EST Dictated By: Sonny Navarrete MD Signed By: <Electronically signed by Sonny Navarrete MD in OV> 10/03/25 1250 DD/ 1138 TD/TT: 10/03/25 1148 [employer]: [facility] External Provider IMG CT PROCEDURES Final Result * POCT HGB A1C (10/25/2024 12:07 PM EST) Hemoglobin A1C 5.9 4.0 - 6.0 % QC Media Lot # [id number] Lot# Expiration Date 73 Blood 10/25/2024 12:0 7 PM EST Geronimo Klein MD POINT OF CARE TEST ENTER/EDIT OR DERABLES Final Result * BI Mammogram Screening Tomosynthesis Left (06/01/2024 11:55 AM EDT) Anatomical Region Laterality Modality Breast Left Mammography 06/01/2024 11:5 5 AM EDT Narrative 06/21/2024 8:19 PM EDT [address] [place] [address] Mammography Report Signed Patient: Ayanna Giles MR#: [id number] 53 : 1950 Acct:[id number] Age/Sex: 73 / F ADM Date: 06/01/24 Loc: HO.MAMMO Attending Dr: Geronimo Klein MD Ordering Physician: Geronimo Klein MD Results: 2Benign Fi ndings Date of Service: 06/01/24 Follow Up: 1 Year From Orig ina Mammogram Procedure(s): MM tomosynthesis screening LT Accession Number(s): [id number] cc: Geronimo Klein MD EXAMINATION: MM SCREENING [...] MD in OV> 06/21/242014 DD/ 1155 TD/TT: [employer]: Procedure Note Donotuseinterpreter, Image - 06/21/[address] [place] [address] Mammography Report Signed Patient: Stevie GilesnMR#: [id number] 53 : 1950cct:[id number] Age/Sex: 73 / FADM Date: 06/01/24 Loc: HO.MAMMO Attending Dr: Geronimo Klein MD Ordering Physician: Geronimo Klein MDResults: 2Benign Fi ndings Date of Service: 06/01/24Follow Up: 1 Year From [facility] Mammogram Procedure(s): MM tomosynthesis screening LT Accession Number(s): [id number] cc: Name,Geronimo GIRON EXAMINATION: MM SCREENING DIGITAL BREAST TOMOSYNTHESIS, LEFT [...] MD in OV> 06/21/242014 DD/ 1155 TD/TT: [employer]: Geronimo Klein MD IMG BI PROCEDURES Final Result * Hepatitis C Antibody with Reflex to HCV, RNA, Quantitative, Real-Time PCR (05/26/2024 10:50 AM EDT) Hepatitis C Antibody Nonreactive Nonreactive [facility] Comment:Antibodies to HCV no t detected; does not exclude early acuteHCV infection. Blood Venous blood specimen / Unknown 05/26/2024 10:50 AM EDT 05/26/2024 1:01 PM EDT Geronimo Klein MD LAB BLOOD ORDERABLES Final Resul t Performing Organization Address [facility]/ZIP Co de Phone Number [facility] [address] [place] [address] [phone] * Lipid Panel, Standard (05/18/2023 10:50 AM EDT) Triglycerides 114 mg/dL [facility] Comment:Desirable Triglyceri de: less than 150 mg/dLBorderline High Triglyceride 150-199 mg/dLHigh Triglyceride: 200-499 mg/dLVery High Triglyceride: greater than or equal to 5OO mg/dL Cholesterol 201 mg/dL [facility] Comment:Desirable Cholestero l: less than 200 mg/dLBorderline High Cholesterol: 200-239 mg/dLHigh Cholesterol: greater than 239 mg/dL LDL Cholesterol Calculated 126 mg/dl [facility] Comment:Desirable LDL: less than 100 mg/dLNear Optimal/Above Optimal LDL: 110- 129 mg/dLBorderline High LDL: 130-159 mg/dLHigh LDL: 160-189 mg/dLVery High LDL: greater than or equal to 190 mg/dL HDL Cholesterol 53 mg/dL [facility] Comment:Desirable HDL: great er than 40 mg/dL Note: This HDL assay may give artificially low results in patients with liver disease. 05/18/2023 10:5 0 AM EDT 05/18/2023 12:59 PM EDT [facility] External Provider LAB BLO OD ORDERABLES Final Result Performing Organization Address City/[facility]/ZIP Co de Phone Number [facility] [address] [place] [address] [phone] from Last 3 Months or Most Recently Relevant to Health Maintenance Insurance [facility] OPTIONS (HMO D-SNP) RALEIGH LOPEZ [id number] Care Teams Live Truck Operator Relationship Specialty Start Date End Date Name, MD Geronimo [address] [place] [address] PCP - General Family Medicine 02/16/17
--- OUTSIDE RECORDS SUMMARY | 2025-10-03 14:33 | XMS_ITS | Encounter Summary ---
Author Organization [employer] Address [address] [facility] 7t [place] [address] Care Team Providers Care Senior Hadoop Developer Name Role Phone Name, Geronimo GIRON Primary Care Provider [phone] Reason for Visit * Reason Comments Med Refill Encounter Details Date Type Department Care Team (Late st Contact Info) Description 01/07/2024 Refill [facility] MED[facility]INE [address] [place] [address] Shubham Servin MD [address] [place], [place] [phone] Uncomplicated opioid dependence (CMS/HCC) Social History Tobacco [...] Description 12/11/2025 11:00 AM EST Office Visit [facility] MED[facility]INE [address] [place] [address] Name, MD Geronimo [address] [place] [address] documented as of this encounter Visit Diagnoses Diagnosis Uncomplicated opioid dependence (CMS/HCC) (HCC) documented in this encounter Additional Health Concerns Assessment Noted Time PHQ-9 Depression Total Score: 14 023 9:52 AM EDT documented as of this encounter Care Teams Senior Hadoop Developer Relationship Specialty Start Date End Date NameGeronimo MD [address] [place] [address] PCP - General Family Medicine 02/16/17 [facility] 01/22/25 05/28/25 documented as of this encounter
--- OUTSIDE RECORDS SUMMARY | 2025-10-03 14:33 | XMS_ITS | Encounter Summary ---
Author Organization [employer] Address [address] [facility] [address] 7[address] [place] [address] Care Team Providers Care Human Resources Consultant Name Role Phone Name, Geronimo GIRON Primary Care Provider [phone] Encounter Details Date Type Department Care Team (Late st Contact Info) Description 09/26/2023 Abstract [facility] MEDICINE [address] [place] [address] Ana Maria Tarango Social History Tobacco Use [...] Description 12/11/2025 11:00 AM EST Office Visit [facility] [address] [place] [address] Name, MD Geronimo [address] [place] [address] documented as of this encounter Visit Diagnoses Not on filedocumented in this encounter Additional Health Concerns Assessment Noted Time PHQ-9 Depression Total Score: 14 023 9:52 AM EDT documented as of this encounter Care Teams Human Resources Consultant Relationship Specialty Start Date End Date Name, MD Geronimo [address] [place] [address] PCP - General Family Medicine 02/16/17 [facility] 01/22/25 05/28/25 documented as of this encounter
--- OUTSIDE RECORDS SUMMARY | 2025-10-03 14:33 | XMS_ITS | Encounter Summary ---
Author Organization [employer] Address [address] [place] [address] Care Team Providers Care Application Spec Name Role Phone Name, Geronimo GIRON Primary Care Provider [phone] Encounter Details Date Type Department Care Team (Late st Contact Info) Description 07/14/2024 Orders Only [facility] MEDICINE [address] [place] [address] Yvrose Xiao, KELY Social History Tobacco Use Types Packs/Day Years [...] is your housing situation today? I have frantzjoshua pearce 05/26/[address] you [...] Description 12/11/2025 11:00 AM EST Office Visit [facility] MEDICINE [address] [place] [address] Name, MD Geronimo [address] [place] [address] documented as of this encounter Visit Diagnoses Not on filedocumented in this encounter Additional Health Concerns Assessment Noted Time PHQ-9 Depression Total Score: 21 024 9:47 AM EDT documented as of this encounter Care Teams Application Spec Relationship Specialty Start Date End Date Name, MD Geronimo [address] [place] [id number] PCP - General Family Medicine 02/16/17 [facility] 01/22/25 05/28/25 documented as of this encounter
--- OUTSIDE RECORDS SUMMARY | 2025-10-03 14:33 | XMS_ITS | Clinical Summary ---
Author Organization [facility] Address [address] [place] [address] Care Team Providers Care Chamber Worker Name Role Phone Name, Geronimo GIRON Primary Care Provider [phone] Social History Tobacco Use Types Packs/Day Years [...] age to complete this topic Care Teams Chamber Worker Relationship Specialty Start Date End Date Name, MD Geronimo [address] [facility] [address] [place] [address] PCP - General Internal Medicine 08/01/20
== END 2025-10-03 11:32 | disposition home or self-care (01) ==
LOC: HO.CT 11:31
PROVIDERS: PCP Internal Medicine Geriatric Medicine; Visit Provider Internal Medicine Pulmonary Disease
DX: F17.210 Nicotine dependence, cigarettes, uncomplicated (principal)
CPT/HCPCS: 71271

== ENCOUNTER → 2025-10-03 11:37 | Outpatient (BNV) | payer OTHER, SELFPAY | PROVIDERS: PCP Internal Medicine Geriatric Medicine; Visit Provider Radiology Diagnostic Radiology | DX: F17.210 Nicotine dependence, cigarettes, uncomplicated (principal) | CPT/HCPCS: 71271 ==